=== PATIENT | female | born 1935 | race Caucasian/White ===

== ENCOUNTER 2016-12-30 08:56 | Outpatient (CLI) | payer MEDICARE, OTHER | END 2016-12-30 08:57 | disposition home or self-care (01) | DX: E87.1 Hypo-osmolality and hyponatremia (principal); E11.9 Type 2 diabetes mellitus without complications; I10 Essential (primary) hypertension ==

== ENCOUNTER 2017-07-25 08:41 | Outpatient (CLI) | payer MEDICARE, OTHER ==
[2017-07-25 14:16] LABS: HEMOGLOBIN A1C 0.64 g/dL
[2017-07-25 20:53] LABS: ALBUMIN/GLOBULIN RATIO 1.4 (1.0-2.2); BILIRUBIN,TOTAL 0.5 mg/dL (0.2-1.0); BUN - BLOOD UREA NITROGEN 13 mg/dL (6-20); CALCIUM 9.7 mg/dL (8.5-10.3); CARBON DIOXIDE - CO2 30 mmol/L (21-32); CHLORIDE 103 mmol/L (101-111); CHOL/HDL RATIO 2.5 (<4.4); CHOLESTEROL 139 mg/dL; CREATININE 0.7 mg/dL (0.4-1.0); GFR - MDRD 80 (>89); GLUCOSE 145 mg/dL (70-100); HDL CHOLESTEROL 56 mg/dL; LDL/HDL RATIO 0.8 (<4.4); POTASSIUM 4.3 mmol/L (3.5-5.0); SODIUM 140 mmol/L (135-145); TOTAL PROTEIN 7.1 g/dL (6.7-8.2); TRIGLYCERIDES 205 mg/dL; VLDL CHOLESTEROL 41 mg/dL
== END 2017-07-25 08:42 | disposition home or self-care (01) ==
LOC: LAB.WCP 08:41
PROVIDERS: ATTEND Family Medicine
DX: E11.9 Type 2 diabetes mellitus without complications (principal); E87.1 Hypo-osmolality and hyponatremia; E78.5 Hyperlipidemia, unspecified; I10 Essential (primary) hypertension
CPT/HCPCS: 36415; 80053; 80061; 83036

== ENCOUNTER 2017-10-26 12:36 | Emergency (ER) | payer MEDICARE, OTHER ==
[2017-10-26] MEDS ORDERED: HYDROcod/ACETAM 5/325 MG TABLET PO STA (13:13)
[2017-10-26] MEDS ORDERED: IBUPROFEN 400 MG TABLET PO STA (13:13)
--- NOTE | 2017-10-26 13:14 | ED Physician Documentation ---
PD HPI LOWER EXT INJURY - Stated complaint Stated Complaint: R HIP PAIN - Chief complaint Chief Complaint: Ext Problem - History obtained from History obtained from: Patient, Family () - History of Present Illness PD HPI LOW EXT INJURY LOCATION: Other (She started walking around more lately on the advice of her doctor. Starting yesterday she had pain over the posterior and lateral hip which is better if she is standing and moving and worse when she is still in walking. She tried Tylenol without relief. There is no associated fever. 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: Cataracts - Present Medications Home Medications: Ambulatory Orders Medication Instructions Recorded Confirmed Ascorbic Acid [Vitamin C] 1 tab PO DAILY 09/07/16 10/26/17 Aspirin 1 tab PO DAILY 09/07/16 10/26/17 Calcium Carbonate [Calcium] 1 tab PO DAILY 09/07/16 10/26/17 Cholecalciferol (Vitamin D3) 1 tab PO DAILY 09/07/16 10/26/17 [Vitamin D3] Felodipine [Felodipine ER] 5 mg PO DAILY 09/07/16 10/26/17 Lisinopril 40 mg PO DAILY 09/07/16 10/26/17 Metformin HCl [Glucophage] 850 mg PO TID 09/07/16 10/26/17 Multivitamin [Multiple Vitamins] 1 tab PO DAILY 09/07/16 10/26/17 Simvastatin 20 mg PO DAILY 09/07/16 10/26/17 Timolol 0.5% Ophth Drops [Timoptic 1 drops DAILY 09/07/16 10/26/17 0.5% Ophth Drops] HYDROcod/ACETAM 5/325 [Laura 5/325] 1 - 2 ea PO Q6H PRN #15 tablet 10/26/17 SITagliptin [Januvia] 100 mg PO DAILY 10/26/17 10/26/17 - Allergies Allergies/Adverse Reactions: Allergies Allergy/AdvReac Type Severity Reaction Status Date / Time No Known Drug Allergies Allergy Verified 10/26/17 13:12 - Social History Does the pt smoke?: No Smoking Status: Never smoker - Immunizations Immunizations are current?: Yes PD ED PE NORMAL - Vitals Vital signs reviewed: Yes - General General: Alert and oriented X 3, Other (She winces with motion, sitting and standing, she is standing up next to the bed.) - Back Back: No spinal TTP - Extremities Extremities: Other (She walks and bears weight without pain, she does have mild tenderness over the greater trochanter of the right hip and pain with internal/ external rotation, but she has more pain with adduction of the right hip. The patient has equal and normal Achilles and patellar reflexes bilaterally. Normal sensation in all areas of the legs. Patient denies saddle anesthesia. Normal strength in flexion-extension at the ankles, knees, and flexion of the hips.) - Neuro Neuro: Alert and oriented X 3, Normal speech Results - Vitals Vitals: Vital Signs - 24 hr 10/26/17 12:49 Temperature 37.2 C Heart Rate 79 Respiratory 18 Rate Blood Pressure 159/80 H O2 Saturation 100 Oxygen O2 Source Room air - Rads (name of study) R hip 2v Radiology: EMP read contemporaneously (Degenerative disease without acute abnormality) PD MEDICAL DECISION MAKING - ED course ED course: Seems most consistent with trochanteric bursitis of the right hip, x-rays are without acute abnormality but she does have significant degenerative change in the hips. The patient and family were counseled as to the diagnosis and need for follow- up. I counseled the patient with regard to signs and symptoms that would necessitate an urgent reevaluation in the emergency department. They understand they are welcome to return at any time if worse or if not improving as expected. This document was made in part using voice recognition software. While efforts are made to proofread this documents, sound alike and grammatical errors may occur. Departure - Departure Disposition: 01 Home, Self Care Clinical Impression: Hip pain, right Osteoarthritis of hips, bilateral Qualifiers: Osteoarthritis type: primary Qualified Code(s): M16.0 - Bilateral primary osteoarthritis of hip Condition: Good Record reviewed to determine appropriate education?: Yes Instructions: Trochanteric Bursitis Follow-Up: [facility] [Provider Group] - Within 1 week Prescriptions: HYDROcod/ACETAM 5/325 [Laura 5/325] 1 - 2 ea PO Q6H PRN #15 tablet PRN Reason: Pain Comments: Do not drink or drive while taking narcotic pain medication. Note that many narcotic pain relievers also contain Tylenol/acetaminophen. Please ensure that your total dose of acetaminophen from all sources does not exceed 3 g (3000 mg) per day. You may get constipated while on this medication. Take a stool softener such as Colace twice a day while you are on it. Also add an clah-xth-ugotyib laxative such as senna or MiraLAX on any day that you do not have a bowel movement. If you received a narcotic pain medication or sedative while in the emergency department, do not drive for the next 24 hours. Your blood pressure was elevated today on check into the emergency department. This does not mean that you have hypertension, it is a common phenomenon to come to the emergency department and have elevated blood pressure. I recommend that you see your primary care physician within the week to have it rechecked when you are feeling better.
--- NOTE | 2017-10-26 13:48 | XRAY Preliminary Report ---
Exam: XR HIP W/PELVIS 2-3V RT IMPRESSION: 1. No acute abnormality. 2. Degenerative disease of the hips. [facility] SITE ID: [id number]
--- NOTE | 2017-10-26 13:51 | XRAY Report ---
EXAM: RIGHT HIP AND PELVIS RADIOGRAPHY EXAM DATE: 10/26/2017 01:42 PM. HISTORY: Hip pain. COMPARISONS: None. TECHNIQUE: 1 view of the pelvis and 1 view of the hip. FINDINGS: Bones: Normal. No fracture or bone lesion. Joints: No dislocation. [id number] degenerative disease of the hips, right greater than left. Soft Tissues: Normal. No soft tissue swelling. IMPRESSION: 1. No acute abnormality. 2. Degenerative disease of the hips. [facility] Referring Provider Line: [phone] SITE ID: [id number]
[2017-10-26 14:17] VITALS: BP 127/64
== END 2017-10-26 14:13 | disposition home or self-care (01) ==
LOC: ED 12:36
DX: M16.0 Bilateral primary osteoarthritis of hip (principal); M25.551 Pain in right hip; R03.0 Elevated blood-pressure reading, without diagnosis of hypertension; E78.00 Pure hypercholesterolemia, unspecified; E11.9 Type 2 diabetes mellitus without complications; Z79.84 Long term (current) use of oral hypoglycemic drugs; Z79.82 Long term (current) use of aspirin
CPT/HCPCS: 73502; 99283; 99284; A9270

== ENCOUNTER 2018-01-01 20:22 | Outpatient (CLI) | payer MEDICARE, OTHER ==
[2018-01-01 13:03] LABS: HB2 TOTAL 11.8 g/dL; HEMOGLOBIN A1C 0.63 g/dL
== END 2018-01-01 20:23 | disposition home or self-care (01) ==
LOC: LAB.WCP 20:22
PROVIDERS: ATTEND Family Medicine
DX: I10 Essential (primary) hypertension (principal); E11.9 Type 2 diabetes mellitus without complications; I35.0 Nonrheumatic aortic (valve) stenosis; E78.5 Hyperlipidemia, unspecified; Z86.79 Personal history of other diseases of the circulatory system
CPT/HCPCS: 36415; 83036

== ENCOUNTER 2018-01-15 11:26 | Outpatient (CLI) | payer MEDICARE, OTHER ==
--- NOTE | 2018-01-16 14:22 | Mammography Report ---
DIGITAL SCREENING MAMMOGRAM: 01/15/2018 CLINICAL INDICATION: An 83-year-old with history of bilateral silicone augmentation for screening. COMPARISON: 10/21, 10/20, 10/19, 10/18, 10/17, 03/16. TECHNIQUE: Routine CC and MLO projections were obtained of the breasts. FINDINGS: The breasts again demonstrate scattered fibroglandular densities bilaterally. Diffuse silicone granulomas throughout both breasts are stable. No suspicious masses, clustered microcalcifications, or regions of architectural distortion are identified. IMPRESSION: BENIGN FINDINGS. RECOMMENDATION: Routine annual screening unless otherwise clinically indicated. BIRADS category 2 - benign findings. STANDARD QUALIFYING STATEMENTS: 1. This examination was reviewed with the aid of Computer-Aided Detection (CAD). 2. A negative or benign imaging report should not delay biopsy if clinically suspicious findings are present. Consider surgical consultation if warranted. More than 5% of cancers are not identified by imaging. 3. Dense breasts may obscure an underlying neoplasm. TD: 01/16/2018 14:20
== END 2018-01-15 11:27 | disposition home or self-care (01) ==
LOC: DI.N 11:26
PROVIDERS: ATTEND Family Medicine
DX: Z12.31 Encounter for screening mammogram for malignant neoplasm of breast (principal); Z98.82 Breast implant status
CPT/HCPCS: 77067

== ENCOUNTER 2018-04-07 21:55 | Observation (INO) | payer MEDICARE, OTHER ==
--- NOTE | 2018-04-07 22:25 | ED Physician Documentation ---
PD HPI ALTERED MENTAL STATUS - Stated complaint Stated Complaint: CONFUSION - Chief complaint Chief Complaint: Neuro - History obtained from History obtained from: Patient, Family - History of Present Illness Timing - onset: How many hours ago (1) Timing - duration: Hours (1) Timing - details: Abrupt onset Quality / character: Confused, Disoriented Associated symptoms: No: Fever, Headache, Stiff neck, Dyspnea, Cough, NVD, Urinary sx, General weakness, Focal weakness, Seizure activity, Syncope Contributing factors: Anticoagulated (plavix) Basline status: Alert and oriented X 3, Ambulatory, Independent 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) Similar symptoms before: Diagnosis (hyponatremia) Recently seen: Surgery (TAVR 2 weeks ago at [facility]) Review of Systems Ten Systems: 10 systems reviewed and negative Constitutional: denies: Fever, Chills Ears: denies: Ear pain Nose: denies: Rhinorrhea / runny nose, Congestion Throat: denies: Sore throat Cardiac: denies: Chest pain / pressure Respiratory: denies: Cough GI: denies: Nausea, Vomiting, Diarrhea Skin: denies: Rash Musculoskeletal: denies: Neck pain, Back pain Neurologic: denies: Focal weakness, Numbness, Headache PD PAST MEDICAL HISTORY - Past Medical History Cardiovascular: High cholesterol Respiratory: None Endocrine/Autoimmune: Type 2 diabetes GI: None : None HEENT: None Psych: None Musculoskeletal: None Derm: None - Past Surgical History 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: Cataracts - Present Medications Home Medications: Ambulatory Orders Medication Instructions Recorded Confirmed Ascorbic Acid [Vitamin C] 1 tab PO DAILY 09/07/16 10/26/17 Aspirin 1 tab PO DAILY 09/07/16 10/26/17 Calcium Carbonate [Calcium] 1 tab PO DAILY 09/07/16 10/26/17 Cholecalciferol (Vitamin D3) 1 tab PO DAILY 09/07/16 10/26/17 [Vitamin D3] Felodipine [Felodipine ER] 5 mg PO DAILY 09/07/16 10/26/17 Lisinopril 40 mg PO DAILY 09/07/16 10/26/17 Metformin HCl [Glucophage] 850 mg PO TID 09/07/16 10/26/17 Multivitamin [Multiple Vitamins] 1 tab PO DAILY 09/07/16 10/26/17 Simvastatin 20 mg PO DAILY 09/07/16 10/26/17 Timolol 0.5% Ophth Drops [Timoptic 1 drops DAILY 09/07/16 10/26/17 0.5% Ophth Drops] HYDROcod/ACETAM 5/325 [[place] 5/325] 1 - 2 ea PO Q6H PRN #15 tablet 10/26/17 SITagliptin [Januvia] 100 mg PO DAILY 10/26/17 10/26/17 - Allergies Allergies/Adverse Reactions: Allergies Allergy/AdvReac Type Severity Reaction Status Date / Time No Known Drug Allergies Allergy Verified 10/26/17 13:12 - Social History Does the pt smoke?: No Smoking Status: Never smoker - Immunizations Immunizations are current?: Yes PD ED PE NORMAL - Vitals Vital signs reviewed: Yes - General General: Alert and oriented X 3, No acute distress, Well developed/nourished - HEENT HEENT: PERRL, Ears normal, Moist mucous membranes, Pharynx benign - Neck Neck: Supple, no meningeal sign - Cardiac Cardiac: RRR - Respiratory Respiratory: No respiratory distress, Clear bilaterally - Abdomen Abdomen: Soft, Non tender, Non distended - Back Back: No spinal TTP - Derm Derm: Warm and dry - Extremities Extremities: No edema, No calf tenderness / cord - Neuro Neuro: Alert and oriented X 3, 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, No motor deficit, No sensory deficit, Normal speech, Other (slow to respond to questions) - Psych Psych: Normal mood, Normal affect NIHSS - Time Time: 22:20 - Level of Consciousness Level of consciousness: (0) Alert, Keenly responsive LOC Questions: (0) Answers both Q's correct LOC Commands: (1) Performs one correctly - Gaze Best Gaze: (0) Normal - Visual Visual: (0) No loss - Facial Palsy Facial Palsy: (0) Normal, symmetrical movement - Motor Arms (both separate) Motor Arm (right): (0) No drift Motor Arm (left): (0) No drift - Motor Legs (both separate) Motor Leg (right): (0) No drift Motor Leg (left): (0) No drift - Limb Ataxia Limb Ataxia: (0) Absent - Sensory Sensory: (0) Normal - Best Language Best Language: (0) No aphasia - Dysarthria Dysarthria: (0) Normal - Extinction and Inattention (formally neg Extinction and inattention: (0) No abnormality - Total Score/Results Total Score/Result: 1 Results - Vitals Vitals: Vital Signs - 24 hr 04/07/18 04/07/18 04/07/18 22:03 22:10 23:00 Temperature 37.1 C Heart Rate 90 82 73 Respiratory 18 16 17 Rate Blood Pressure 105/76 188/76 H 185/74 H O2 Saturation 100 100 98 Oxygen O2 Source Room air - EKG (time done) 2254 Rate: Rate (enter#) (74) Rhythm: NSR [place]: Normal Intervals: Normal PA QRS: Normal Ischemia: Normal ST segments Other comments: Other comments (PAC) - Labs Labs: Laboratory Tests 04/07/18 04/07/18 04/07/18 22:20 22:20 22:30 WBC 12.5 H RBC 3.56 L Hgb 11.2 L Hct 31.8 L MCV 89.3 MCH 31.4 H MCHC 35.2 RDW 13.1 Plt Count 128 L MPV 7.8 L Neut # 9.5 H Lymph # 2.2 Divide # 0.7 Eos # 0.1 Baso # 0.1 Absolute Nucleated RBC 0.01 Nucleated RBC % 0.1 Sodium 121 L Potassium 3.9 Chloride 86 L Carbon Dioxide 22 Anion Gap 13.0 BUN 13 Creatinine 0.7 Estimated GFR (MDRD) 80 L Glucose 197 H POC Whole Bld Glucose 209 H Calcium 8.9 Total Bilirubin 0.8 AST 31 ALT 17 Alkaline Phosphatase 61 Total Protein 8.1 Albumin 4.3 Globulin 3.8 Albumin/Globulin Ratio 1.1 Lipase 33 - Rads (name of study) head CT Radiology: Prelim report reviewed, EMP read contemporaneously, See rad report ( Generalized age-related cortical atrophic changes without evidence of acute intracranial abnormality) cxr Radiology: Prelim report reviewed, EMP read contemporaneously, See rad report ( Status post TAVR procedure. No cardiac enlargement. Probable right midlung granulomas. No acute pulmonary process) PD MEDICAL DECISION MAKING - ED course Complexity details: reviewed results, re-evaluated patient, considered differential, d/w patient, d/w family, d/w technical solutions consultant ED course: Patient is an 83-year-old female who presents to the emergency department with altered mental status tonight. Appears to have significant hyponatremia and normal saline was started and emergency department. This is likely the cause of her acute mental status changes. Unclear if a new medication was started after her cardiac procedure that is potentially causing her hyponatremia. Discussed the case with Dr. Singletary, hospitalist who accepts. This document was made in part using voice recognition software. While efforts are made to proofread this document, sound alike and grammatical errors may occur. Do not think that there is a another cause of her symptoms or that this represents a stroke or TIA. Departure - Departure Disposition: ED Place in Observation Clinical Impression: Hyponatremia Altered mental status Qualifiers: Altered mental status type: unspecified Qualified Code(s): R41.82 - Altered mental status, unspecified Condition: Stable Discharge Date/Time: 04/08/18 00:35
[2018-04-07 22:35] LABS: BASOPHILS # (AUTO) 0.1 10^3/uL (0.0-0.1); BASOPHILS % (AUTO) 0.8 %; EOSINOPHILS # (AUTO) 0.1 10^3/uL (0.0-0.7); HGB - HEMOGLOBIN 11.2 g/dL (12.0-16.0); LYMPHOCYTES # (AUTO) 2.2 10^3/uL (1.5-3.5); LYMPHOCYTES % (AUTO) 17.5 %; MEAN CORPUSCULAR HEMOGLOBIN 31.4 pg (27.0-31.0); MEAN CORPUSCULAR HGB CONC 35.2 g/dL (32.0-36.0); MEAN CORPUSCULAR VOLUME 89.3 fL (81.0-99.0); MEAN PLATELET VOLUME 7.8 fL (7.9-10.8); MONOCYTES # (AUTO) 0.7 10^3/uL (0.0-1.0); MONOCYTES % (AUTO) 5.3 %; NEUTROPHILS # (AUTO) 9.5 10^3/uL (1.5-6.6); NEUTROPHILS % (AUTO) 75.4 %; PLT - PLATELET COUNT 128 10^3/uL (130-450); RED BLOOD COUNT 3.56 10^6/uL (4.20-5.40); RED CELL DISTRIBUTION WIDTH 13.1 % (12.0-15.0); WHITE BLOOD COUNT 12.5 x10^3/uL (4.8-10.8)
[2018-04-07 22:37] LABS: ALBUMIN 4.3 g/dL (3.2-5.5); ALBUMIN/GLOBULIN RATIO 1.1 (1.0-2.2); BILIRUBIN,TOTAL 0.8 mg/dL (0.2-1.0); CALCIUM 8.9 mg/dL (8.5-10.3); CREATININE 0.7 mg/dL (0.4-1.0); TOTAL PROTEIN 8.1 g/dL (6.7-8.2)
--- NOTE | 2018-04-07 22:58 | XRAY Preliminary Report ---
Exam: XR CHEST 1 VIEW X-RAY IMPRESSION: 1. Status post TAVR procedure. No cardiac enlargement. 2. Probable right midlung granulomas. No acute pulmonary process. [facility] SITE ID: [id number]
--- NOTE | 2018-04-07 23:05 | CT Preliminary Report ---
Exam: CT HEAD W/O IMPRESSION: Generalized age-related cortical atrophic changes without evidence of acute intracranial abnormality. [facility] SITE ID: [id number]
--- NOTE | 2018-04-07 23:06 | XRAY Report ---
EXAM: CHEST RADIOGRAPHY EXAM DATE: 04/07/2018 10:27 PM. CLINICAL HISTORY: ALOC status post TAVR 2 weeks ago. COMPARISON: None. TECHNIQUE: 1 view. FINDINGS: Lungs/Pleura:Small right midlung nodular densities could represent calcifications. No consolidation, effusions or pneumothorax. Mediastinum: Status post TAVR procedure. No cardiac enlargement. Atheromatous plaques are noted in th e thoracic arch. EKG leads overlie the chest. Other: None. IMPRESSION: 1. Status post TAVR procedure. No cardiac enlargement. 2. Probable right midlung granulomas. No acute pulmonary process. [facility] Referring Provider Line: [phone] SITE ID: [id number]
[2018-04-07] MEDS ORDERED: SODIUM CHLORIDE 0.9% 1,000 ML IV ONE (23:08)
--- NOTE | 2018-04-07 23:08 | CT Report ---
EXAM: CT HEAD EXAM DATE: 04/07/2018 10:47 PM. CLINICAL HISTORY: Altered mental status. COMPARISON: Brain CT, brain MRI, and CT angiogram of the head and neck from 09/07/2016. TECHNIQUE: Multiaxial CT images were obtained from the foramen magnum to the vertex. Reformats: Coron al. IV contrast: None. In accordance with CT protocol optimization, one or more of the following dose reduction techniques w ere utilized for this exam: automated exposure control, adjustment of mA and/or KV based on patient s ize, or use of iterative reconstructive technique. FINDINGS: Parenchyma: No intraparenchymal hemorrhage. No evidence of mass, midline shift, or CT findings of acu te infarction. Mcgarry-white differentiation is distinct. Mild diffuse chronic microangiopathic white ma tter changes are evident. Extraaxial Spaces: Normal for age. No subdural or epidural collections identified. Ventricles: The ventricles and cortical sulci are mildly enlarged, consistent with age-related tissue loss. Sinuses and orbits: Postsurgical changes from cataract extractions are noted in the globes. The paran nazario and mastoid sinuses are not opacified. Bones: No evidence of fracture or calvarial defect. Other: Moderate intracranial atherosclerosis is noted. IMPRESSION: Generalized age-related cortical atrophic changes without evidence of acute intracranial abnormality. [facility] Referring Provider Line: [phone] SITE ID: [id number]
[2018-04-07] MEDS ORDERED: PROCHLORPERAZINE 10 MG/2 ML VIAL IVP PRN (23:16)
[2018-04-07] MEDS ORDERED: PROMETHAZINE 25 MG/1 ML VIAL IM PRN (23:16)
[2018-04-07] MEDS ORDERED: SODIUM CHLORIDE FLUSH 0.9% 10 ML SYRINGE IVP PRN (23:16)
[2018-04-07] MEDS ORDERED: ONDANSETRON 4 MG/2 ML VIAL IVP PRN (23:16)
[2018-04-07] MEDS ORDERED: oxyCODONE 5 MG TABLET PO PRN (23:16)
[2018-04-07] MEDS ORDERED: ZOLPIDEM 5 MG TABLET PO PRN (23:16)
[2018-04-07 23:42] LABS: BILIRUBIN,URINE NEGATIVE (NEGATIVE); GLUCOSE, URINE (UA) 100 mg/dL (NEGATIVE); KETONES,URINE (UA) NEGATIVE (NEGATIVE); LEUKOCYTE ESTERASE, URINE NEGATIVE (NEGATIVE); NITRITE,URINE NEGATIVE (NEGATIVE); OCCULT BLOOD,URINE NEGATIVE (NEGATIVE); PROTEIN,URINE NEGATIVE (NEGATIVE); UROBILINOGEN,URINE 0.2 (NORMAL) E.U./dL (NORMAL)
[2018-04-07 23:43] LABS: CLARITY,URINE CLEAR (CLEAR)
[2018-04-08] MEDS: SODIUM CHLORIDE FLUSH 0.9% 10 ML SYRINGE IVP SCH ×2 (00:49→08:26)
[2018-04-08] MEDS: SODIUM CHLORIDE 0.9% 1,000 ML IV SCH ×2 (00:49→08:16)
--- NOTE | 2018-04-08 02:17 | HISTORY & PHYSICAL EXAMINATION ---
Chief Complaint - Chief Complaint Chief Complaint: Confusion History of Present Illness - Admitted From Admitted From:: Emergency department - History Obtained From Records Reviewed: Yes History obtained from: Patient and her Exam Limitations: None - History of Present Illness HPI Comment/Other: Patient is an 83-year-old female with a past medical history significant for diabetes, hypertension, aortic stenosis status post TAVR on March 16, 2018 at the [facility] discharged on March 19, 2018 who presented to the emergency department with a chief complaint of confusion. According to the patient and her the patient was discharged from [facility] on March 19, 2018 at that time she was discharged on 2 new medications Plavix and hydrochlorothiazide. She states that she has been taking the medication since and has had no major issues. She followed up with her neuro ophthalmologist 1 week ago and was doing well at that time. She states she has not been experiencing any chest pain or shortness of air. She was in her normal state of health until late this evening. According to the patient's they were out in [place] for most of the day and return home at around 9 PM. He states that she was acting completely normal all day but when she returned home she began acting strangely. He states that he asked her to turn on the lights and she just stood there staring at the light switch not knowing what to do. He states it took her almost a minute before she was able to comprehend and turn on the light switch. He states that they then sat down on a couch to watch TV and she was unable to use the remote. He states that she was pointing the remote in the wrong direction and could not use it properly. He states normally at her baseline she is completely alert oriented and able to perform all of her active activities of daily living. He states that she did not have any obvious weakness or facial droop. He states that she was slow to answer his questions but was not having difficulty with her speech or having slurred speech. He states that she had a similar episode with even worse confusion in 2016 and was found to have a low sodium. He states that at that time she required hospitalization but improved within 24 hours. He was concerned that this may be similar to that previous hospitalization. He decided he should bring her into the hospital. According to the patient she states that she feels dizzy but denies any other symptoms. She denies any fevers or chills, cough, shortness of air, orthopnea, PND, increased lower extremity swelling, abdominal pain, diarrhea, constipation, vomiting, nausea, urinary urgency, urinary frequency or any dysuria. She also denies any neck stiffness, focal neurologic deficits. She denies any changes in her appetite, polyuria, polydipsia. She denies any recent unintentional weight loss. She denies any hematuria, hemoptysis, blood in her stools or melena. She denies any night sweats or chills. On presentation to the emergency department the patient was afebrile and remainder of vital signs were within normal limits. Throughout her stay in the emergency department she did become hypertensive but again maintain normal vital signs. She underwent routine lab work which did reveal a sodium of 121 with a chloride of 86. She had a mildly elevated glucose of 209 otherwise her electrolytes were within normal limits. The patient's WBC was slightly elevated at 12.5 and her hemoglobin was slightly low at 11.2. The patient's urine analysis was negative and her chest x-ray showed no infiltrate. The patient did undergo a CT of her head which showed generalized age-related cortical atrophic changes without evidence of acute intracranial abnormality. Given these findings and the patient's presentation of confusion she was placed in observation for IV fluids and treatment of her hyponatremia. 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 Social History Notes: The patient lives with her in [place], [place]. They have lived there since 1980. They have been for 58 years and have 2 sons. The patient is originally from [facility] but has been living here for most of her life. She is able to perform all her activities of daily living independently. She has been smoking half a pack to 1 pack per day since the age of 19. She denies any alcohol use or illicit drug use. - POLST Patient has POLST: No POLST Status: Full Code Meds/Allgy - Home Medications Home Medications: Ambulatory Orders Medication Instructions Recorded Confirmed Ascorbic Acid [Vitamin C] 1 tab PO DAILY 09/07/16 10/26/17 Aspirin 1 tab PO DAILY 09/07/16 10/26/17 Calcium Carbonate [Calcium] 1 tab PO DAILY 09/07/16 10/26/17 Cholecalciferol (Vitamin D3) 1 tab PO DAILY 09/07/16 10/26/17 [Vitamin D3] Felodipine [Felodipine ER] 5 mg PO DAILY 09/07/16 10/26/17 Lisinopril 40 mg PO DAILY 09/07/16 10/26/17 Metformin HCl [Glucophage] 850 mg PO TID 09/07/16 10/26/17 Multivitamin [Multiple Vitamins] 1 tab PO DAILY 09/07/16 10/26/17 Simvastatin 20 mg PO DAILY 09/07/16 10/26/17 Timolol 0.5% Ophth Drops [Timoptic 1 drops DAILY 09/07/16 10/26/17 0.5% Ophth Drops] HYDROcod/ACETAM 5/325 [[place] 5/325] 1 - 2 ea PO Q6H PRN #15 tablet 10/26/17 SITagliptin [Januvia] 100 mg PO DAILY 10/26/17 10/26/17 - Allergies Allergies/Adverse Reactions: Allergies Allergy/AdvReac Type Severity Reaction Status Date / Time No Known Drug Allergies Allergy Verified 10/26/17 13:12 Review of Systems - Other Findings Other Findings: A comprehensive review of systems was performed the pertinent positives and negatives are stated above in the HPI and the remainder of the review of systems is negative. Exam - Vital Signs Reviewed Vital Signs: Yes Vital Signs: Vital Signs x48h Pulse Resp BP Pulse Ox 04/08/18 00:07 70 14 163/63 H 98 - Physical Exam General Appearance: positive: No acute distress, Alert, Other (Slow to answer questions) Eyes Bilateral: positive: Normal inspection, PERRL, EOMI, No lid inflammation, Conjunctivae nml, No scleral icterus ENT: positive: ENT inspection nml, Pharynx nml, Dry mucous membranes. negative : Purulent nasal drainage, Pharyngeal erythema, Oral lesions Neck: positive: Nml inspection, Thyroid nml, No JVD, Trachea midline. negative : Thyromegaly, Lymphadenopathy (R), Lymphadenopathy (L), Stiff neck, Carotid bruit, Tracheal deviation Respiratory: positive: Chest non-tender, No respiratory distress, Breath sounds nml. negative: Wheezes, Rales, Rhonchi Cardiovascular: positive: Regular rate & rhythm, No murmur, No gallop Peripheral Pulses: positive: 2+ Abdomen: positive: Non-tender, No organomegaly, Nml bowel sounds, No distention. negative: Guarding, Rebound, Hepatomegaly Back: positive: Nml inspection. negative: CVA tenderness (R), CVA tenderness (L ) Skin: positive: Color nml, No rash. negative: Cyanosis, Diaphoresis, Pallor Extremities: positive: Non-tender, Full ROM, Nml appearance, No pedal edema Neurologic/Psychiatric: positive: Oriented x3, CN's nml (2-12), Motor nml, Sensation nml, Mood/affect nml Conclusion/Plan - Problem List (1) Hyponatremia Conclusion/Plan: Patient presents with a sodium of 121. In the past she has presented with sodium of 127 and had altered mental status which improved with improvement of her sodium. Today again she presents with altered mental status as the states that she is confused. The patient's symptoms seem to be improving on presentation to the emergency department but her sodium was found to be 121. It appears the patient had started hydrochlorothiazide about 3 weeks ago but otherwise has had no changes in her appetite, nausea or vomiting or any diarrhea. She appears to have hypovolemic hyponatremia likely caused by hydrochlorothiazide. Plan: Patient will be given IV fluid at 150 mL's per hour through an IV and we will monitor sodium every 6 hours to ensure that she is not correcting too rapidly. We will aim to correct the sodium by no more than 8-10 mEq/L in the first 24 hours We will hold the patient's hydrochlorothiazide and recommend that she try a different blood pressure medication in the future. We will continue to monitor the patient's mentation. (2) Hypertension Conclusion/Plan: Patient has a history of hypertension and is on felodipine, lisinopril and hydrochlorothiazide at home. On presentation the patient's blood pressure slightly elevated. Given her hyponatremia we are going to stop the patient's hydrochlorothiazide but will continue her doses of lisinopril and felodipine. Patient may need an additional antihypertensive medication prior to discharge if her blood pressure continues to be elevated or else she can follow-up as an outpatient. I would recommend starting either a beta-maryuri such as metoprolol or hydralazine if another blood pressure medication needs to be added. Qualifiers: Hypertension type: essential hypertension Qualified Code(s): I10 - Essential (primary) hypertension (3) Diabetes Conclusion/Plan: Patient has history of diabetes and is on oral diabetic medications. On presentation the patient's glucose is elevated at 209. We will hold the patient 's oral medications for now. Plan: Sliding scale insulin Hemoglobin A1c Check blood glucose before meals at bedtime Diabetic diet Qualifiers: Diabetes mellitus type: type 2 Diabetes mellitus long term care administrator insulin use: without intermediate use Diabetes mellitus complication status: with hyperglycemia Qualified Code(s): E11.65 - Type 2 diabetes mellitus with hyperglycemia (4) Hyperlipidemia Conclusion/Plan: Patient has history of hyperlipidemia and is on simvastatin at home. We will continue the patient on him simvastatin while she is hospitalized. Qualifiers: Hyperlipidemia type: unspecified Qualified Code(s): E78.5 - Hyperlipidemia , unspecified (5) S/P TAVR (transcatheter aortic valve replacement) Conclusion/Plan: The patient had a TAVR with a aortic valve replacement at the [facility] on Mar 16 2018. She is currently on Plavix and denies any chest pain or shortness of breath. The patient has followed up with cardiology and appears to be stable. Monitor - Lab Results Lab results reviewed: Yes Fish Bones: 04/07/18 22:20 04/07/18 22:20 Other Lab Results: Laboratory Results WBC 12.5 x10^3/uL (4.8-10.8) H 04/07/18 22:20 RBC 3.56 10^6/uL (4.20-5.40) L 04/07/18 22:20 Hgb 11.2 g/dL (12.0-16.0) L 04/07/18 22:20 Hct 31.8 % (37.0-47.0) L 04/07/18 22:20 MCV 89.3 fL (81.0-99.0) 04/07/18 22:20 MCH 31.4 pg (27.0-31.0) H 04/07/18 22:20 MCHC 35.2 g/dL (32.0-36.0) 04/07/18 22:20 RDW 13.1 % (12.0-15.0) 04/07/18 22:20 Plt Count 128 10^3/uL (130-450) L 04/07/18 22:20 MPV 7.8 fL (7.9-10.8) L 04/07/18 22:20 Neut # 9.5 10^3/uL (1.5-6.6) H 04/07/18 22:20 Lymph # 2.2 10^3/uL (1.5-3.5) 04/07/18 22:20 [place] # 0.7 10^3/uL (0.0-1.0) 04/07/18 22:20 Eos # 0.1 10^3/uL (0.0-0.7) 04/07/18 22:20 Baso # 0.1 10^3/uL (0.0-0.1) 04/07/18 22:20 Absolute Nucleated RBC 0.01 x10^3/uL 04/07/18 22:20 Nucleated RBC % 0.1 /100WBC 04/07/18 22:20 Sodium 121 mmol/L (135-145) L 04/07/18 22:20 Potassium 3.9 mmol/L (3.5-5.0) 04/07/18 22:20 Chloride 86 mmol/L (101-111) L 04/07/18 22:20 Carbon Dioxide 22 mmol/L (21-32) 04/07/18 22:20 Anion Gap 13.0 (6-13) 04/07/18 22:20 BUN 13 mg/dL (6-20) 04/07/18 22:20 Creatinine 0.7 mg/dL (0.4-1.0) 04/07/18 22:20 Estimated GFR (MDRD) 80 (>89) L 04/07/18 22:20 Glucose 197 mg/dL (70-100) H 04/07/18 22:20 POC Whole Bld Glucose 209 mg/dL (70 - 100) H 04/07/18 22:30 Calcium 8.9 mg/dL (8.5-10.3) 04/07/18 22:20 Total Bilirubin 0.8 mg/dL (0.2-1.0) 04/07/18 22:20 AST 31 IU/L (10-42) 04/07/18 22:20 ALT 17 IU/L (10-60) 04/07/18 22:20 Alkaline Phosphatase 61 IU/L (42-121) 04/07/18 22:20 Total Protein 8.1 g/dL (6.7-8.2) 04/07/18 22:20 Albumin 4.3 g/dL (3.2-5.5) 04/07/18 22:20 Globulin 3.8 g/dL (2.1-4.2) 04/07/18 22:20 Albumin/Globulin Ratio 1.1 (1.0-2.2) 04/07/18 22:20 Lipase 33 U/L (22-51) 04/07/18 22:20 Urine Color LT. YELLOW 04/07/18 23:28 Urine Clarity CLEAR (CLEAR) 04/07/18 23:28 Urine pH 7.0 PH (5.0-7.5) 04/07/18 23:28 Ur Specific [place] 1.010 (1.002-1.030) 04/07/18 23:28 Urine Protein NEGATIVE mg/dL (NEGATIVE) 04/07/18 23:28 Urine Glucose (UA) 100 mg/dL (NEGATIVE) H 04/07/18 23:28 Urine Ketones NEGATIVE mg/dL (NEGATIVE) 04/07/18 23:28 Urine Occult Blood NEGATIVE (NEGATIVE) 04/07/18 23:28 Urine Nitrite NEGATIVE (NEGATIVE) 04/07/18 23:28 Urine Bilirubin NEGATIVE (NEGATIVE) 04/07/18 23:28 Urine Urobilinogen 0.2 (NORMAL) E.U./dL (NORMAL) 04/07/18 23:28 Ur Leukocyte Esterase NEGATIVE (NEGATIVE) 04/07/18 23:28 Ur Microscopic Review NOT INDICATED 04/07/18 23:28 Urine Culture Comments NOT INDICATED 04/07/18 23:28 - Diagnostic Imaging Results Diagnostic Imaging Results: positive: Final report reviewed Diagnostic Imaging Results Comments: Chest x-ray Impression: 1. Status post Rhea procedure. No cardiac enlargement. 2. Probable right midlung granulomas. No acute pulmonary process CT head Impression: Generalized age-related cortical atrophic changes without evidence of acute intracranial abnormality. - EKG Results EKG Interpreted Independently: Yes EKG Findings: Normal sinus rhythm with no acute ischemic changes. Core Measures - Anticipated LOS I expect patient to be DC'd or transferred within 96 hours.: Yes - Issues Hospital Issues and Management Plan: The patient was seen and examined at 2330 on 04/07/2018. This is a late entry history and physical. - DVT/VTE - Prophylaxis VTE/DVT Prophylaxis med ordered at admit?: Yes
[2018-04-08] MEDS: ACETAMINOPHEN 325 MG TABLET PO PRN ×2 (02:38→08:25)
[2018-04-08] MEDS: CLOPIDOGREL 75 MG TABLET PO SCH ×2 (04:10→08:26)
[2018-04-08 06:00] LABS: BASOPHILS # (AUTO) 0.1 10^3/uL (0.0-0.1); BASOPHILS % (AUTO) 1.1 %; EOSINOPHILS # (AUTO) 0.2 10^3/uL (0.0-0.7); HGB - HEMOGLOBIN 10.6 g/dL (12.0-16.0); LYMPHOCYTES # (AUTO) 2.1 10^3/uL (1.5-3.5); LYMPHOCYTES % (AUTO) 29.5 %; MEAN CORPUSCULAR HEMOGLOBIN 30.3 pg (27.0-31.0); MEAN CORPUSCULAR HGB CONC 33.3 g/dL (32.0-36.0); MEAN PLATELET VOLUME 7.3 fL (7.9-10.8); MONOCYTES # (AUTO) 0.5 10^3/uL (0.0-1.0); MONOCYTES % (AUTO) 7.1 %; NEUTROPHILS # (AUTO) 4.3 10^3/uL (1.5-6.6); NEUTROPHILS % (AUTO) 59.3 %; PLT - PLATELET COUNT 125 10^3/uL (130-450); RED BLOOD COUNT 3.48 10^6/uL (4.20-5.40); RED CELL DISTRIBUTION WIDTH 13.3 % (12.0-15.0); WHITE BLOOD COUNT 7.3 x10^3/uL (4.8-10.8)
[2018-04-08 06:12] LABS: CALCIUM 8.6 mg/dL (8.5-10.3); CREATININE 0.7 mg/dL (0.4-1.0); MAGNESIUM 1.6 mg/dL (1.7-2.8); PHOSPHORUS 4.3 mg/dL (2.5-4.6)
[2018-04-08 06:16] LABS: HB2 TOTAL 11.7 g/dL; HEMOGLOBIN A1C 0.61 g/dL; HEMOGLOBIN A1C % 6.9 % (4.6-6.2)
--- NOTE | 2018-04-08 07:50 | Discharge Plan ---
Discharge Plan Disposition: 01 Home, Self Care Condition: Good Prescriptions: Potassium Chloride 10 meq PO DAILY #15 tablet.er Diet: Regular Activity Restrictions: Activity as Tolerated Shower Restrictions: No Driving Restrictions: No Additional Instructions or Follow Up instructions: You were placed in observation because you were developing mild confusion during the day. It alarmed your and he wanted you evaluated in the emergency room. In the past, when you became confused, it was associated with a low sodium blood level. With this evaluation, you had another low sodium level. We think it was because of the hydrochlorothiazide that was newly prescribed after your valve repair. Your sodium has almost come back to normal with simple IV fluids of 0.9 normal saline being given in your bloodstream. We think it is safe for you to go home. You will need to stop your hydrochlorothiazide. And you will need to see your primary care provider in the next week to get your blood checked again for a sodium level. The other thing we noticed while you are here was a low potassium. We gave you a 40 mEq dose the day you left. And would like you to take 10 mEq a day for the next week or 2. Again your primary care provider will need to recheck your blood level for potassium in 2 weeks. No Smoking: If you smoke, Please STOP! Call for help. Follow-up with: Eusebio Barrett MD [Primary Care Provider] -
[2018-04-08] MEDS ORDERED: INSULIN ASPART 300 UNIT/3 ML PEN SUBQ SCH (08:00)
[2018-04-08 08:04] VITALS: BP 157/54
[2018-04-08] MEDS ORDERED: POTASSIUM CHLORIDE 20 MEQ TABLET PO ONE (08:15)
[2018-04-08] MEDS ORDERED: MULTIVITAMIN TABLET PO SCH (09:00)
[2018-04-08] MEDS ORDERED: LISINOPRIL 20 MG TABLET PO SCH (09:00)
[2018-04-08] MEDS ORDERED: NON FORMULARY MED (Simvastatin [Simvastatin] 20 MG) PO SCH (09:00)
[2018-04-08] MEDS ORDERED: ASPIRIN CHEW 81 MG TABLET PO SCH (09:00)
[2018-04-08] MEDS ORDERED: FAMOTIDINE 20 MG TABLET PO SCH (09:00)
[2018-04-08] MEDS ORDERED: TIMOLOL 0.5% OPHTH DROPS EACHEYE SCH (09:00)
[2018-04-08] MEDS ORDERED: FELODIPINE ER 2.5 MG TABLET PO SCH (09:00)
[2018-04-08] MEDS ORDERED: ENOXAPARIN 40 MG/0.4 ML SYRINGE SUBQ SCH (09:00)
[2018-04-08] MEDS ORDERED: POLYETHYLENE GLYCOL 3350 17 GM PACKET PO SCH (09:00)
--- NOTE | 2018-04-08 11:44 | Discharge Plan ---
Discharge Plan Disposition: 01 Home, Self Care Condition: Good Prescriptions: Potassium Chloride 10 meq PO DAILY #15 tablet.er Activity Restrictions: Activity as Tolerated Shower Restrictions: No Driving Restrictions: No Additional Instructions or Follow Up instructions: You were placed in observation because you were developing mild confusion during the day. It alarmed your and he wanted you evaluated in the emergency room. In the past, when you became confused, it was associated with a low sodium blood level. With this evaluation, you had another low sodium level. We think it was because of the hydrochlorothiazide that was newly prescribed after your valve repair. Your sodium has almost come back to normal with simple IV fluids of 0.9 normal saline being given in your bloodstream. We think it is safe for you to go home. You will need to stop your hydrochlorothiazide. And you will need to see your primary care provider in the next week to get your blood checked again for a sodium level. The other thing we noticed while you are here was a low potassium. We gave you a 40 mEq dose the day you left. And would like you to take 10 mEq a day for the next week or 2. Again your primary care provider will need to recheck your blood level for potassium in 2 weeks. No Smoking: If you smoke, Please STOP! Call for help. Follow-up with: Eusebio Barrett MD [Primary Care Provider] -
--- NOTE | 2018-04-08 11:45 | DISCHARGE SUMMARY ---
"Discharge Summary Admit Date: 04/07/18 Discharge Date: 04/08/18 Discharging Provider: Rosa Roman MD Primary Care Provider: Wong Barrett MD Code Status: Attempt Resuscitation Condition at Discharge: Good Discharge Disposition: 01 Home, Self Care Discharge [facility] - DIAGNOSES Discharge Diagnoses with Status of Each Condition: Metabolic encephalopathy, resolved. Hyponatremia due to medication, hydrochlorothiazide. Ongoing Hypertension, essential. Chronic. 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 According to the patient and her the patient was discharged from [facility] on March 19, 2018 at that time she was discharged on 2 new medications Plavix and hydrochlorothiazide. She states that she has been taking the medication since and has had no major issues. She followed up with her property management supervisor 1 week ago and was doing well at that time. She states she has not been experiencing any chest pain or shortness of air. She was in her normal state of health until late this evening. According to the patient's they were out in [place] for most of the day and return home at around 9 PM. He states that she was acting completely normal all day but when she returned home she began acting strangely. He states that he asked her to turn on the lights and she just stood there staring at the light switch not knowing what to do. He states it took her almost a minute before she was able to comprehend and turn on the light switch. He states that they then sat down on a couch to watch TV and she was unable to use the remote. He states that she was pointing the remote in the wrong direction and could not use it properly. He states normally at her baseline she is completely alert oriented and able to perform all of her active activities of daily living. He states that she did not have any obvious weakness or facial droop. He states that she was slow to answer his questions but was not having difficulty with her speech or having slurred speech. He states that she had a similar episode with even worse confusion in 2016 and was found to have a low sodium. He states that at that time she required hospitalization but improved within 24 hours. He was concerned that this may be similar to that previous hospitalization. He decided he should bring her into the hospital. According to the patient she states that she feels dizzy but denies any other symptoms. She denies any fevers or chills, cough, shortness of air, orthopnea, PND, increased lower extremity swelling, abdominal pain, diarrhea, constipation, vomiting, nausea, urinary urgency, urinary frequency or any dysuria. She also denies any neck stiffness, focal neurologic deficits. She denies any changes in her appetite, polyuria, polydipsia. She denies any recent unintentional weight loss. She denies any hematuria, hemoptysis, blood in her stools or melena. She denies any night sweats or chills. On presentation to the emergency department the patient was afebrile and remainder of vital signs were within normal limits. Throughout her stay in the emergency department she did become hypertensive but again maintain normal vital signs. She underwent routine lab work which did reveal a sodium of 121 with a chloride of 86. She had a mildly elevated glucose of 209 otherwise her electrolytes were within normal limits. The patient's WBC was slightly elevated at 12.5 and her hemoglobin was slightly low at 11.2. The patient's urine analysis was negative and her chest x-ray showed no infiltrate. The patient did undergo a CT of her head which showed generalized age-related cortical atrophic changes without evidence of acute intracranial abnormality. Given these findings and the patient's presentation of confusion she was placed in observation for IV fluids and treatment of her hyponatremia. - CONSULTS | PROCEDURES Consultations: None Procedures: 1. Head CT without contrast showing generalized age-related cortical atrophic changes without evidence of acute intracranial abnormality 2. Chest x-ray showing status post TAVR procedure, no cardiac enlargement. Probable right midlung granulomas. No acute pulmonary process 3. EKG showing normal sinus rhythm, PAC. Borderline repolarization abnormalities. - HOSPITAL COURSE Hospital Course: The patient was placed in observation. She was given 0.9 normal saline. Sodium went from 121-129. came to visit her and felt that all of her confusion was completely resolved. As such she is felt stable to return to home. We are stopping the hydrochlorothiazide that was felt to have caused the hyponatremia. Blood pressure during her stay was mildly elevated. Systolic very from 152- 163. End diastolic was 54-63. In the outpatient setting I am continuing her lisinopril. She is also on felodipine extended release. She should be seen by her primary care provider in the next 1-2 weeks to have blood pressure medication adjusted. Goal is to be less than 140 systolic. Type 2 diabetes mellitus was with a A1c of 6.9%. Overall she is felt to be within goal. Random glucose was hyperglycemic at 209 during hospitalization. Although she was placed on sliding scale insulin before meals, she did not need any injections to control her sugars. For her hyperlipidemia she was continued on her usual statin. I did explain to her that I was stopping the hydrochlorothiazide. He wanted to stop the Plavix because he felt that both drugs caused her hyponatremia. I carefully explained the mechanism of action for the Plavix and strongly encouraged him to continue giving it to his for the 30 days the property management supervisor requested. She will be seeing her property management supervisor in the next 2 weeks and I asked him to take a copy of this discharge plan to that office visit. For her ongoing tobacco abuse, we offered her a nicotine patch. We also explained that she really really should stop smoking because of her heart history and diabetic history. This would lead to increased risk of heart attack and stroke. On the day of discharge her potassium was 3.4 and she was given 40 meq po of KCL. She will be sent home on 10 meq a day until she gets it checked by Dr. Barrett. - ALLERGIES Allergies/Adverse Reactions: Allergies Allergy/AdvReac Type Severity Reaction Status Date / Time No Known Drug Allergies Allergy Verified 10/26/17 13:12 - MEDICATIONS Home Medications: Ambulatory Orders Medication Instructions Recorded Confirmed Ascorbic Acid [Vitamin C] 500 mg PO DAILY 09/07/16 04/08/18 Aspirin 81 mg PO DAILY 09/07/16 04/08/18 Calcium Carbonate [Calcium] 600 mg PO BID 09/07/16 04/08/18 Cholecalciferol (Vitamin D3) 1,000 unit PO DAILY 09/07/16 04/08/18 [Vitamin D3] Felodipine [Felodipine ER] 10 mg PO DAILY 09/07/16 04/08/18 Lisinopril 40 mg PO DAILY 09/07/16 04/08/18 Metformin HCl [Glucophage] 850 mg PO TIDWM 09/07/16 04/08/18 Multivitamin [Multiple Vitamins] 1 tab PO DAILY 09/07/16 04/08/18 Simvastatin 20 mg PO DAILY 09/07/16 04/08/18 Timolol 0.5% Ophth Drops [Timoptic 1 drops EACHEYE BID 09/07/16 04/08/18 0.5% Ophth Drops] Clopidogrel Bisulfate [Clopidogrel] 75 mg PO DAILY 04/08/18 04/08/18 Clopidogrel [Plavix] 75 mg PO DAILY tablet 04/08/18 Glipizide 5 mg PO DAILY 04/08/18 04/08/18 Latanoprost 0.005% Ophth Drops 1 drops EACHEYE QPM 04/08/18 04/08/18 [Xalatan Ophth Drops] Potassium Chloride 10 meq PO DAILY #15 tablet.er 04/08/18 - PHYSICAL EXAM AT DISCHARGE General Appearance: positive: No acute distress, Alert, Other (well groomed, eldelry [place] female who looks younger than stated age. Eye make up in place. ) Eyes Bilateral: positive: PERRL, EOMI ENT: positive: Pharynx nml Neck: positive: No JVD. negative: Stiff neck, Carotid bruit Respiratory: positive: Chest non-tender. negative: Wheezes, Rales, Rhonchi Cardiovascular: positive: Regular rate & rhythm, Systolic murmur. negative: Gallop/S4, Friction rub Peripheral Pulses: positive: 1+ Abdomen: positive: Non-tender, No organomegaly, Nml bowel sounds, No distention Skin: positive: Warm, Dry Extremities: positive: Non-tender, Full ROM, No pedal edema Neurologic/Psychiatric: positive: Oriented x3, CN's nml (2-12), Motor nml - LABS Result Diagrams: 04/08/18 05:50 04/08/18 05:50 - FOLLOW UP Follow Up: With Dr. Barrett in the next week for BMP and review of blood pressure."
[2018-04-08] MEDS ORDERED: ATORVASTATIN 10 MG TABLET PO SCH (21:00)
== END 2018-04-08 11:09 | disposition home or self-care (01) ==
LOC: ED 21:55 → OBS 23:17
PROVIDERS: ADMIT Internal Medicine; ATTEND Specialist
DX: G93.41 Metabolic encephalopathy (principal); E87.1 Hypo-osmolality and hyponatremia; T50.2X5A Adverse effect of carbonic-anhydrase inhibitors, benzothiadiazides and other diuretics, initial encounter; I10 Essential (primary) hypertension; E11.9 Type 2 diabetes mellitus without complications; E78.5 Hyperlipidemia, unspecified; Z95.2 Presence of prosthetic heart valve; E87.6 Hypokalemia; R32 Unspecified urinary incontinence; Z79.84 Long term (current) use of oral hypoglycemic drugs; Z79.82 Long term (current) use of aspirin; Z79.01 Long term (current) use of anticoagulants; Z79.899 Other long term (current) drug therapy
CPT/HCPCS: 36415; 70450; 71045; 80048; 80053; 81003; 83036; 83690; 83735; 84100; 84443; 85025; 93005; 96360; 96361; 96372; 99284; A9270; G0378; J1650; 81001; 87086

== ENCOUNTER 2018-04-10 14:50 | Outpatient (CLI) | payer MEDICARE, OTHER ==
[2018-04-10 19:15] LABS: CALCIUM 9.2 mg/dL (8.5-10.3); CREATININE 0.9 mg/dL (0.4-1.0)
[2018-04-10 21:22] LABS: HB2 TOTAL 10.8 g/dL; HEMOGLOBIN A1C 0.57 g/dL
== END 2018-04-10 14:51 | disposition home or self-care (01) ==
LOC: LAB.WCP 14:50
PROVIDERS: ATTEND Family Medicine
DX: E87.1 Hypo-osmolality and hyponatremia (principal); E11.9 Type 2 diabetes mellitus without complications; Z86.79 Personal history of other diseases of the circulatory system
CPT/HCPCS: 36415; 80048; 83036

== ENCOUNTER 2018-04-23 10:30 | Outpatient (CLI) | payer MEDICARE, OTHER ==
[2018-04-23 19:35] LABS: CALCIUM 9.1 mg/dL (8.5-10.3); CREATININE 0.8 mg/dL (0.4-1.0)
== END 2018-04-23 10:31 | disposition home or self-care (01) ==
LOC: LAB.WCP 10:30
PROVIDERS: ATTEND Family Medicine
DX: E87.1 Hypo-osmolality and hyponatremia (principal); I35.0 Nonrheumatic aortic (valve) stenosis; I10 Essential (primary) hypertension
CPT/HCPCS: 36415; 80048

== ENCOUNTER 2018-08-30 02:51 | Inpatient (IN) | payer MEDICARE, OTHER ==
--- NOTE | 2018-08-30 03:25 | ED Physician Documentation ---
History of Present Illness - Stated complaint Stated Complaint: MEMORY LOSS - Chief complaint Chief Complaint: Neuro - Additonal information Additional information: 83-year-old female was brought in for confusion. The patient's noticed that the patient has been very confused this evening and making very little sense to him. No reports of facial weakness, slurred speech, vision changes, focal motor weakness or sensory changes. The patient denies headache, neck pain, chest pain or shortness of breath. The patient reports feeling confused. No changes in medications. No new [id number] medications. No other associated symptoms. Symptoms are described as severe. No relieving factors. No triggering factors Review of Systems Constitutional: denies: Fever Eyes: denies: Discharge Ears: denies: Ear pain Nose: denies: Congestion Throat: denies: Sore throat Cardiac: denies: Chest pain / pressure Respiratory: denies: Dyspnea GI: denies: Abdominal Pain : denies: Dysuria Skin: denies: Rash Musculoskeletal: denies: Neck pain Neurologic: reports: Confused, Altered mental status. 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 Cardiovascular: Valve replacement HEENT: Cataracts - Present Medications Home Medications: Ambulatory Orders Medication Instructions Recorded Confirmed Ascorbic Acid [Vitamin C] 500 mg PO DAILY 09/07/16 04/08/18 Aspirin 81 mg PO DAILY 09/07/16 04/08/18 Calcium Carbonate [Calcium] 600 mg PO BID 09/07/16 04/08/18 Cholecalciferol (Vitamin D3) 1,000 unit PO DAILY 09/07/16 04/08/18 [Vitamin D3] Felodipine [Felodipine ER] 10 mg PO DAILY 09/07/16 04/08/18 Lisinopril 40 mg PO DAILY 09/07/16 04/08/18 Metformin HCl [Glucophage] 850 mg PO TIDWM 09/07/16 04/08/18 Multivitamin [Multiple Vitamins] 1 tab PO DAILY 09/07/16 04/08/18 Simvastatin 20 mg PO DAILY 09/07/16 04/08/18 Timolol 0.5% Ophth Drops [Timoptic 1 drops EACHEYE BID 09/07/16 04/08/18 0.5% Ophth Drops] Clopidogrel Bisulfate [Clopidogrel] 75 mg PO DAILY 04/08/18 04/08/18 Clopidogrel [Plavix] 75 mg PO DAILY tablet 04/08/18 Glipizide 5 mg PO DAILY 04/08/18 04/08/18 Latanoprost 0.005% Ophth Drops 1 drops EACHEYE QPM 04/08/18 04/08/18 [Xalatan Ophth Drops] Potassium Chloride 10 meq PO DAILY #15 capsule.er 04/08/18 - Allergies Allergies/Adverse Reactions: Allergies Allergy/AdvReac Type Severity Reaction Status Date / Time No Known Drug Allergies Allergy Verified 08/30/18 03:00 - Social History Does the pt smoke?: No Smoking Status: Never smoker Does the pt drink ETOH?: No Does the pt have substance abuse?: No - Immunizations Immunizations are current?: Yes - POLST Patient has POLST: No POLST Status: Full Code PD ED PE NORMAL - General General: Alert and oriented X 3, No acute distress - HEENT HEENT: Atraumatic, PERRL, EOMI, Ears normal - Cardiac Cardiac: RRR, Strong equal pulses - Respiratory Respiratory: No respiratory distress - Abdomen Abdomen: Soft, Non tender - Derm Derm: Normal color - Extremities Extremities: No deformity - Neuro Neuro: physician president 2-12 intact, No motor deficit, No sensory deficit, Normal speech, Other (The patient's alert, follows commands but is quite confused) Results - Vitals Vitals: Vital Signs - 24 hr 08/30/18 08/30/18 02:55 03:49 Temperature 36.4 C L Heart Rate 95 72 Respiratory 20 17 Rate Blood Pressure 163/79 H 176/72 H O2 Saturation 99 98 Oxygen O2 Source Room air - EKG (time done) No standard instances Rhythm: NSR Intervals: Normal W[place], QRS normal Ischemia: Non specific changes - Labs Labs: Laboratory Tests 08/30/18 08/30/18 08/30/18 03:22 03:55 03:55 WBC 9.2 RBC 3.33 L Hgb 10.6 L Hct 30.5 L MCV 91.7 MCH 31.8 H MCHC 34.7 RDW 14.5 Plt Count 118 L MPV 6.9 L Neut # (Auto) 6.6 Lymph # (Auto) 1.9 Monroe # (Auto) 0.5 Eos # (Auto) 0.1 Baso # (Auto) 0.1 Absolute Nucleated RBC 0.00 Nucleated RBC % 0.0 Sodium 120 L* Potassium 3.3 L Chloride 88 L Carbon Dioxide 22 Anion Gap 10.0 BUN 7 Creatinine 0.5 Estimated GFR (MDRD) 118 Glucose 184 H Calcium 8.5 Total Bilirubin 0.6 AST 23 ALT 15 Alkaline Phosphatase 47 Total Creatine Kinase 56 Troponin I Total Protein 6.8 Albumin 3.6 Globulin 3.2 Albumin/Globulin Ratio 1.1 Lipase 32 Urine Color YELLOW Urine Clarity CLEAR Urine pH 6.5 Ur Specific Reading 1.010 Urine Protein TRACE Urine Glucose (UA) 500 H Urine Ketones NEGATIVE Urine Occult Blood TRACE-INTA Urine Nitrite NEGATIVE Urine Bilirubin NEGATIVE Urine Urobilinogen 0.2 (NORMAL) Ur Leukocyte Esterase NEGATIVE Ur Microscopic Review NOT INDICATED Urine Culture Comments NOT INDICATED Salicylates < 6.0 Urine Opiates Screen NEGATIVE Ur Oxycodone Screen NEGATIVE Urine Methadone Screen NEGATIVE Ur Propoxyphene Screen NEGATIVE Acetaminophen 19 Ur Barbiturates Screen NEGATIVE Ur Tricyclics Screen NEGATIVE Ur Phencyclidine Scrn NEGATIVE Ur Amphetamine Screen NEGATIVE U Methamphetamines Scrn NEGATIVE U Benzodiazepines Scrn NEGATIVE Urine Cocaine Screen NEGATIVE U Cannabinoids Screen NEGATIVE Ethyl Alcohol < 5.0 08/30/18 03:55 WBC RBC Hgb Hct MCV MCH MCHC RDW Plt Count MPV Neut # (Auto) Lymph # (Auto) Monroe # (Auto) Eos # (Auto) Baso # (Auto) Absolute Nucleated RBC Nucleated RBC % Sodium Potassium Chloride Carbon Dioxide Anion Gap BUN Creatinine Estimated GFR (MDRD) Glucose Calcium Total Bilirubin AST ALT Alkaline Phosphatase Total Creatine Kinase Troponin I < 0.04 Total Protein Albumin Globulin Albumin/Globulin Ratio Lipase Urine Color Urine Clarity Urine pH Ur Specific Reading Urine Protein Urine Glucose (UA) Urine Ketones Urine Occult Blood Urine Nitrite Urine Bilirubin Urine Urobilinogen Ur Leukocyte Esterase Ur Microscopic Review Urine Culture Comments Salicylates Urine Opiates Screen Ur Oxycodone Screen Urine Methadone Screen Ur Propoxyphene Screen Acetaminophen Ur Barbiturates Screen Ur Tricyclics Screen Ur Phencyclidine Scrn Ur Amphetamine Screen U Methamphetamines Scrn U Benzodiazepines Scrn Urine Cocaine Screen U Cannabinoids Screen Ethyl Alcohol - Rads (name of study) CXR Radiology: Final report received (No acute process seen in the chest. ) CT head Radiology: Final report received (IMPRESSION: Generalized age-related cortical atrophic changes without evidence of acute intracranial abnormality. ) PD MEDICAL DECISION MAKING - ED course ED course: The patient has a significantly low sodium which may be the source of her confusional state. The patient will require admission to the hospital for further management of this acute finding. The etiology of the hyponatremia is unclear. The findings and plan were discussed the patient and her who understand and agree to the plan. The case was discussed with the hospitalist Dr. Singletary who accepts the patient onto his service. Departure - Departure Disposition: 66 [facility] DC/Xfer Clinical Impression: Hyponatremia, Acute confusional state Condition: Fair
[2018-08-30 03:27] LABS: MUDS CUTOFF CONCENTRATIONS CUTOFF CONC BELOW:
[2018-08-30 03:28] LABS: BILIRUBIN,URINE NEGATIVE (NEGATIVE); GLUCOSE, URINE (UA) 500 mg/dL (NEGATIVE); KETONES,URINE (UA) NEGATIVE (NEGATIVE); LEUKOCYTE ESTERASE, URINE NEGATIVE (NEGATIVE); NITRITE,URINE NEGATIVE (NEGATIVE); OCCULT BLOOD,URINE TRACE-INTA (NEGATIVE); PH,URINE 6.5 PH (5.0-7.5); PROTEIN,URINE TRACE mg/dL (NEGATIVE); UROBILINOGEN,URINE 0.2 (NORMAL) E.U./dL (NORMAL)
[2018-08-30 03:29] LABS: CLARITY,URINE CLEAR (CLEAR)
[2018-08-30 03:41] LABS: AMPHETAMINE SCREEN,URINE NEGATIVE (NEGATIVE); BENZODIAZEPINES SCREEN, URINE NEGATIVE (NEGATIVE); COCAINE SCREEN URINE NEGATIVE (NEGATIVE); METHADONE SCREEN, URINE NEGATIVE (NEGATIVE); METHAMPHETAMINES SCREEN, URINE NEGATIVE (NEGATIVE); OPIATE SCREEN, URINE NEGATIVE (NEGATIVE); OXYCODONE SCREEN, URINE NEGATIVE (NEGATIVE); PROPOXYPHENE SCREEN, URINE NEGATIVE (NEGATIVE); TRICYCLIC ANTIDEPRESSANT,URINE NEGATIVE (NEGATIVE)
--- NOTE | 2018-08-30 03:57 | XRAY Report ---
Reason: CP Procedure Date: 08/30/2018 Accession Number: [id number] / [id number] Procedure: XR - Chest 2 View X-Ray CPT Code: 69169 FULL RESULT: EXAM: CHEST RADIOGRAPHY EXAM DATE: 08/30/2018 03:33 AM. CLINICAL HISTORY: Chest pain COMPARISON: CHEST 1 VIEW 04/07/2018 10:27 PM. TECHNIQUE: 2 views. FINDINGS: Lungs/Pleura: No focal opacities evident. No pleural effusion. No pneumothorax. Normal volumes. Mediastinum: Heart and mediastinal contours are unremarkable. Other: Previous aortic valve surgery. IMPRESSION: No acute process seen in the chest. RADIA
[2018-08-30 04:01] LABS: BASOPHILS # (AUTO) 0.1 10^3/uL (0.0-0.1); BASOPHILS % (AUTO) 0.9 %; EOSINOPHILS # (AUTO) 0.1 10^3/uL (0.0-0.7); EOSINOPHILS % (AUTO) 1.1 %; HGB - HEMOGLOBIN 10.6 g/dL (12.0-16.0); LYMPHOCYTES # (AUTO) 1.9 10^3/uL (1.5-3.5); LYMPHOCYTES % (AUTO) 20.8 %; MEAN CORPUSCULAR HEMOGLOBIN 31.8 pg (27.0-31.0); MEAN CORPUSCULAR HGB CONC 34.7 g/dL (32.0-36.0); MEAN CORPUSCULAR VOLUME 91.7 fL (81.0-99.0); MEAN PLATELET VOLUME 6.9 fL (7.9-10.8); MONOCYTES # (AUTO) 0.5 10^3/uL (0.0-1.0); MONOCYTES % (AUTO) 5.5 %; NEUTROPHILS # (AUTO) 6.6 10^3/uL (1.5-6.6); NEUTROPHILS % (AUTO) 71.7 %; PLT - PLATELET COUNT 118 10^3/uL (130-450); RED BLOOD COUNT 3.33 10^6/uL (4.20-5.40); RED CELL DISTRIBUTION WIDTH 14.5 % (12.0-15.0); WHITE BLOOD COUNT 9.2 x10^3/uL (4.8-10.8)
--- NOTE | 2018-08-30 04:14 | CT Report ---
Reason: confusion Procedure Date: 08/30/2018 Accession Number: [id number] / [id number] Procedure: CT - Head W/O CPT Code: FULL RESULT: EXAM: CT HEAD EXAM DATE: 08/30/2018 03:41 AM. CLINICAL HISTORY: Confusion. COMPARISON: HEAD W/O 04/07/2018 10:37 PM. TECHNIQUE: Multiaxial CT images were obtained from the foramen magnum to the vertex. Reformats: Sagittal and coronal. IV contrast: None. In accordance with CT protocol optimization, one or more of the following dose reduction techniques were utilized for this exam: automated exposure control, adjustment of mA and/or KV based on patient size, or use of iterative reconstructive technique. FINDINGS: Parenchyma: No intraparenchymal hemorrhage. No evidence of mass, midline shift, or CT findings of acute infarction. Mcgarry-white differentiation is distinct. Moderate diffuse chronic microangiopathic white matter changes are evident. Extraaxial Spaces: Normal for age. No subdural or epidural collections identified. Ventricles: The ventricles and cortical sulci are mildly enlarged, consistent with age-related tissue loss. Sinuses and orbits: Postsurgical changes from cataract extractions are noted in the globes. The paranasal and mastoid sinuses are not opacified. Bones: No evidence of fracture or calvarial defect. Other: Moderate intracranial atherosclerosis is noted. IMPRESSION: Generalized age-related cortical atrophic changes without evidence of acute intracranial abnormality. RADIA
[2018-08-30 04:17] LABS: ACETAMINOPHEN 19 ug/mL (10-30); ALBUMIN 3.6 g/dL (3.2-5.5); ALBUMIN/GLOBULIN RATIO 1.1 (1.0-2.2); ALKALINE PHOSPHATASE 47 IU/L (42-121); ALT ALANINE AMINOTRANSFERASE 15 IU/L (10-60); AST ASPARTATE AMINOTRANSFERASE 23 IU/L (10-42); BILIRUBIN,TOTAL 0.6 mg/dL (0.2-1.0); BUN - BLOOD UREA NITROGEN 7 mg/dL (6-20); CALCIUM 8.5 mg/dL (8.5-10.3); CARBON DIOXIDE - CO2 22 mmol/L (21-32); CHLORIDE 88 mmol/L (101-111); CK- CREATINE KINASE 56 IU/L (22-269); CREATININE 0.5 mg/dL (0.4-1.0); GFR - MDRD 118 (>89); GLUCOSE 184 mg/dL (70-100); LIPASE 32 U/L (22-51); SALICYLATE < 6.0 mg/dL; SODIUM 120 mmol/L (135-145); TOTAL PROTEIN 6.8 g/dL (6.7-8.2)
[2018-08-30] MEDS ORDERED: PROMETHAZINE 25 MG/1 ML VIAL IM PRN (04:23)
[2018-08-30] MEDS ORDERED: SODIUM CHLORIDE FLUSH 0.9% 10 ML SYRINGE IVP PRN (04:23)
[2018-08-30] MEDS ORDERED: ZOLPIDEM 5 MG TABLET PO PRN (04:23)
[2018-08-30] MEDS ORDERED: oxyCODONE 5 MG TABLET PO PRN ×2 (04:23)
[2018-08-30] MEDS ORDERED: ACETAMINOPHEN 325 MG TABLET PO PRN (04:23)
[2018-08-30] MEDS ORDERED: ONDANSETRON 4 MG/2 ML VIAL IVP PRN (04:23)
[2018-08-30] MEDS ORDERED: PROCHLORPERAZINE 10 MG/2 ML VIAL IVP PRN (04:23)
--- NOTE | 2018-08-30 04:33 | HISTORY & PHYSICAL EXAMINATION ---
Chief Complaint - Chief Complaint Chief Complaint: Confusion History of Present Illness - Admitted From Admitted From:: Emergency Department - History Obtained From Records Reviewed: Yes History obtained from: Patient and patients Exam Limitations: Patient has confusion secondary to medical condition - History of Present Illness HPI Comment/Other: Patient is a very pleasant 83-year-old female with a past medical history significant for diabetes, hypertension, aortic stenosis status post TAVR in March 2018 and recurrent hyponatremia requiring hospitalizations who presents to the emergency department with a chief complaint of confusion. The history of confusion is given by the who states that just after midnight today the patient became confused. He states that she started saying to him that she coul d not turn the TV off when the TV was already off. She also started started calling objects by the wrong name. He states that these symptoms are very similar to the last 2 times she was hospitalized for a low sodium. The patient was most recently hospitalized for hyponatremia in March 2018 and the hyponatremia resolved with IV fluid. The patient was also on hydrochlorothiazide at that time which was stopped. The patient has been in her normal state of health until this acute confusion tonight. The patient states that today she has been feeling shaky and noticed that she was confused. She also states that she has some leg cramping and feels nauseated. She however states that she has not vomited, she has not had any diarrhea and has not had a change in her appetite or in her eating or drinking habits. The patient does admit to feeling generalized weakness on presentation to the ER today. She also admits to continued smoking of about 4-5 cigarettes a day. Patient denies any headaches, blurred vision, runny nose, sore throat, nasal congestion, difficulty swallowing, chest pain, fevers, chills, cough, shortness of air, orthopnea, PND, increased lower extremity swelling, abdominal pain, urinary urgency, urinary frequency, dysuria, joint swelling, joint pain, muscle aches, back pain, neck stiffness, recent unintentional weight loss, hair loss, night sweats, skin changes, or any focal neurologic deficits. On presentation to the emergency department the patient was afebrile with a heart rate in the high 90s, hypertensive but not in any respiratory distress. The patient underwent routine lab work which again revealed that she was hyponatremic with a sodium of 120, hypochloremic with a chloride of 88 and hypokalemic with a potassium of 3.3. Of note the patient also had an elevated glucose of 184. The remainder of the patient's lab work was within normal limits. Her urine analysis was negative. The urine tox screen was negative. The patient also underwent a CT of her head which revealed generalized age- related cortical atrophic changes without evidence of acute intracranial abnormality. The patient had a chest x-ray which revealed no acute process in the chest. The patient's symptoms were improving in the emergency department however given the sodium of 120 she was admitted to the hospital for hyponatremia and will be treated with IV fluids and worked up further. 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 They have lived there since 1980. They have been for 58 years and have 2 sons. The patient is originally from [facility] but has been living here for most of her life. She is able to perform all her activities of daily living independently. She has been smoking half a pack to 1 pack per day since the age of 19 she is down to 4-5 cigarrettes a day. She denies any alcohol use or illicit drug use. - POLST Patient has POLST: No POLST Status: Full Code Meds/Allgy - Home Medications Home Medications: Ambulatory Orders Medication Instructions Recorded Confirmed Ascorbic Acid [Vitamin C] 500 mg PO DAILY 09/07/16 04/08/18 Aspirin 81 mg PO DAILY 09/07/16 04/08/18 Calcium Carbonate [Calcium] 600 mg PO BID 09/07/16 04/08/18 Cholecalciferol (Vitamin D3) 1,000 unit PO DAILY 09/07/16 04/08/18 [Vitamin D3] Felodipine [Felodipine ER] 10 mg PO DAILY 09/07/16 04/08/18 Lisinopril 40 mg PO DAILY 09/07/16 04/08/18 Metformin HCl [Glucophage] 850 mg PO TIDWM 09/07/16 04/08/18 Multivitamin [Multiple Vitamins] 1 tab PO DAILY 09/07/16 04/08/18 Simvastatin 20 mg PO DAILY 09/07/16 04/08/18 Timolol 0.5% Ophth Drops [Timoptic 1 drops EACHEYE BID 09/07/16 04/08/18 0.5% Ophth Drops] Clopidogrel Bisulfate [Clopidogrel] 75 mg PO DAILY 04/08/18 04/08/18 Clopidogrel [Plavix] 75 mg PO DAILY tablet 04/08/18 Glipizide 5 mg PO DAILY 04/08/18 04/08/18 Latanoprost 0.005% Ophth Drops 1 drops EACHEYE QPM 04/08/18 04/08/18 [Xalatan Ophth Drops] Potassium Chloride 10 meq PO DAILY #15 capsule.er 04/08/18 - Allergies Allergies/Adverse Reactions: Allergies Allergy/AdvReac Type Severity Reaction Status Date / Time No Known Drug Allergies Allergy Verified 08/30/18 03:00 Review of Systems - Other Findings Other Findings: A comprehensive review of systems was performed the pertinent positives and negatives are stated above in the HPI and the remainder of the review of systems is negative. Prior Level of Functionality: Independent able to perform all her activities of daily living. Exam - Vital Signs Reviewed Vital Signs: Yes Vital Signs: Vital Signs x48h Temp Pulse Resp BP Pulse Ox 08/30/18 04:21 71 20 167/72 H 99 08/30/18 03:49 72 17 176/72 H 98 08/30/18 02:55 36.4 C L 95 20 163/79 H 99 - Physical Exam General Appearance: positive: No acute distress, Alert Eyes Bilateral: positive: Normal inspection, PERRL, EOMI, No lid inflammation, Conjunctivae nml, No scleral icterus ENT: positive: ENT inspection nml, Pharynx nml, No signs of dehydration. negative: Purulent nasal drainage, Pharyngeal erythema, Oral lesions Neck: positive: Nml inspection, Thyroid nml, No JVD, Trachea midline. negative: Thyromegaly, Lymphadenopathy (R), Lymphadenopathy (L), Carotid bruit, Tracheal deviation Respiratory: positive: Chest non-tender, No respiratory distress, Breath sounds nml. negative: Wheezes, Rales, Rhonchi Cardiovascular: positive: Regular rate & rhythm, No murmur, No gallop Peripheral Pulses: positive: 2+ Abdomen: positive: Non-tender, No organomegaly, Nml bowel sounds, No distention. negative: Guarding, Rebound, Hepatomegaly Back: positive: Nml inspection. negative: CVA tenderness (R), CVA tenderness (L) Skin: positive: Color nml, No rash, Warm, Dry. negative: Cyanosis, Diaphoresis, Pallor, Skin rash Extremities: positive: Non-tender, Full ROM, Nml appearance, Pedal edema (1+ bilateral) Neurologic/Psychiatric: positive: Oriented x3, CN's nml (2-12), Motor nml, Sensation nml, Mood/affect nml Conclusion/Plan - Problem List (1) Hyponatremia Conclusion/Plan: The patient has recurrent hyponatremia and this will be her third hospitalization for the same presentation. With each presentation the patient is coming with acute confusion witnessed by her at home. Today the patient became confused and started telling the to turn off the television when it was already off and she started calling objects by their incorrect name. By the time she arrived in the emergency department her confusion seemed to be improving. The patient denied any recent vomiting or diarrhea. She denied having any recent illness. She denied any changes in her appetite or change in her oral intake of fluids or food. She denied any cough or chest pain or shortness of breath. In the past the patient is improved with IV fluids. On her last hospitalization she had her hydrochlorothiazide discontinued. Again on presentation she has a sodium of 120 and is being admitted to the hospital for treatment. The patient does appear to be euvolemic on presentation or possibly slightly hypovolemic as she has lower extremity swelling. She does not appear dry on examination. Which concerns me for possible SIADH. Plan: We will initially try to treat with IV fluid patient will be placed on normal saline with 20 mEq of K at 100 mL's per hour We will try to correct slowly correcting by no more than 8 mmol/L per 24 hours Monitor BMP every 6 hours Check urine lites Check TSH Check a.m. cortisol level CT chest with contrast to rule out lung malignancy given history of smoking and hyponatremia. If patient's sodium is not improving we will need to consider fluid restriction (2) Altered mental status Conclusion/Plan: The patient presented with acute confusion. Patient appears to likely have metabolic encephalopathy secondary to hyponatremia. The patient's confusion was improving already in the emergency department. We expect that with treatment of hyponatremia the patient's confusion should completely resolve. Qualifiers: Altered mental status type: unspecified Qualified Code(s): R41.82 - Altered mental status, unspecified (3) Hypokalemia Conclusion/Plan: The patient has hypokalemia in addition to her hyponatremia. Looking at her lab work she appears to be hypovolemic and dehydrated given that she has a low potassium and a low chloride in conjunction with a low sodium. But on examination she seems to be euvolemic. The patient has not had any vomiting or diarrhea. She takes a potassium supplement at home and is on lisinopril. I wonder if the patient has a pituitary or adrenal deficiency that is causing her to be hypokalemic however looking back at her labs she is not chronically hypokalemic. Plan: Give patient IV potassium Monitor potassium IV fluids P.o. potassium (4) Diabetes Conclusion/Plan: Patient has a history of diabetes and is on oral diabetic medications at home with metformin and glipizide. She is not on insulin. Patient is hyperglycemic on presentation with a blood glucose of 184. 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 She was counseled on the need to quit smoking and offered nicotine patch while she is hospitalized. (6) Hypertension Conclusion/Plan: The patient does have a history of hypertension and blood pressure was elevated on presentation. The patient is on 2 antihypertensive medications felodipine and lisinopril. These will be continued while the patient is hospitalized and will continue to monitor the patient's blood pressure and titrate medications as needed. Qualifiers: Hypertension type: essential hypertension Qualified Code(s): I10 - Essential (primary) hypertension (7) Hyperlipidemia Conclusion/Plan: The patient has a history of hyperlipidemia and is on simvastatin at home. The patient will be continued on simvastatin while she is hospitalized here. Qualifiers: Hyperlipidemia type: unspecified Qualified Code(s): E78.5 - Hyperlipidemia, unspecified - Lab Results Lab results reviewed: Yes Fish Bones: 08/30/18 03:55 08/30/18 03:55 Other Lab Results: Laboratory Results WBC 9.2 x10^3/uL (4.8-10.8) 08/30/18 03:55 RBC 3.33 10^6/uL (4.20-5.40) L 08/30/18 03:55 Hgb 10.6 g/dL (12.0-16.0) L 08/30/18 03:55 Hct 30.5 % (37.0-47.0) L 08/30/18 03:55 MCV 91.7 fL (81.0-99.0) 08/30/18 03:55 MCH 31.8 pg (27.0-31.0) H 08/30/18 03:55 MCHC 34.7 g/dL (32.0-36.0) 08/30/18 03:55 RDW 14.5 % (12.0-15.0) 08/30/18 03:55 Plt Count 118 10^3/uL (130-450) L 08/30/18 03:55 MPV 6.9 fL (7.9-10.8) L 08/30/18 03:55 Neut # (Auto) 6.6 10^3/uL (1.5-6.6) 08/30/18 03:55 Lymph # (Auto) 1.9 10^3/uL (1.5-3.5) 08/30/18 03:55 Dukes # (Auto) 0.5 10^3/uL (0.0-1.0) 08/30/18 03:55 Eos # (Auto) 0.1 10^3/uL (0.0-0.7) 08/30/18 03:55 Baso # (Auto) 0.1 10^3/uL (0.0-0.1) 08/30/18 03:55 Absolute Nucleated RBC 0.00 x10^3/uL 08/30/18 03:55 Nucleated RBC % 0.0 /100WBC 08/30/18 03:55 Sodium 120 mmol/L (135-145) L* 08/30/18 03:55 Potassium 3.3 mmol/L (3.5-5.0) L 08/30/18 03:55 Chloride 88 mmol/L (101-111) L 08/30/18 03:55 Carbon Dioxide 22 mmol/L (21-32) 08/30/18 03:55 Anion Gap 10.0 (6-13) 08/30/18 03:55 BUN 7 mg/dL (6-20) 08/30/18 03:55 Creatinine 0.5 mg/dL (0.4-1.0) 08/30/18 03:55 Estimated GFR (MDRD) 118 (>89) 08/30/18 03:55 Glucose 184 mg/dL (70-100) H 08/30/18 03:55 Calcium 8.5 mg/dL (8.5-10.3) 08/30/18 03:55 Total Bilirubin 0.6 mg/dL (0.2-1.0) 08/30/18 03:55 AST 23 IU/L (10-42) 08/30/18 03:55 ALT 15 IU/L (10-60) 08/30/18 03:55 Alkaline Phosphatase 47 IU/L (42-121) 08/30/18 03:55 Total Creatine Kinase 56 IU/L (22-269) 08/30/18 03:55 Troponin I < 0.04 ng/mL (<0.49) 08/30/18 03:55 Total Protein 6.8 g/dL (6.7-8.2) 08/30/18 03:55 Albumin 3.6 g/dL (3.2-5.5) 08/30/18 03:55 Globulin 3.2 g/dL (2.1-4.2) 08/30/18 03:55 Albumin/Globulin Ratio 1.1 (1.0-2.2) 08/30/18 03:55 Lipase 32 U/L (22-51) 08/30/18 03:55 Urine Color YELLOW 08/30/18 03:22 Urine Clarity CLEAR (CLEAR) 08/30/18 03:22 Urine pH 6.5 PH (5.0-7.5) 08/30/18 03:22 Ur Specific Macy 1.010 (1.002-1.030) 08/30/18 03:22 Urine Protein TRACE mg/dL (NEGATIVE) 08/30/18 03:22 Urine Glucose (UA) 500 mg/dL (NEGATIVE) H 08/30/18 03:22 Urine Ketones NEGATIVE mg/dL (NEGATIVE) 08/30/18 03:22 Urine Occult Blood TRACE-INTA (NEGATIVE) 08/30/18 03:22 Urine Nitrite NEGATIVE (NEGATIVE) 08/30/18 03:22 Urine Bilirubin NEGATIVE (NEGATIVE) 08/30/18 03:22 Urine Urobilinogen 0.2 (NORMAL) E.U./dL (NORMAL) 08/30/18 03:22 Ur Leukocyte Esterase NEGATIVE (NEGATIVE) 08/30/18 03:22 Ur Microscopic Review NOT INDICATED 08/30/18 03:22 Urine Culture Comments NOT INDICATED 08/30/18 03:22 Salicylates < 6.0 mg/dL 08/30/18 03:55 Urine Opiates Screen NEGATIVE (NEGATIVE) 08/30/18 03:22 Ur Oxycodone Screen NEGATIVE (NEGATIVE) 08/30/18 03:22 Urine Methadone Screen NEGATIVE (NEGATIVE) 08/30/18 03:22 Ur Propoxyphene Screen NEGATIVE (NEGATIVE) 08/30/18 03:22 Acetaminophen 19 ug/mL (10-30) 08/30/18 03:55 Ur Barbiturates Screen NEGATIVE (NEGATIVE) 08/30/18 03:22 Ur Tricyclics Screen NEGATIVE (NEGATIVE) 08/30/18 03:22 Ur Phencyclidine Scrn NEGATIVE (NEGATIVE) 08/30/18 03:22 Ur Amphetamine Screen NEGATIVE (NEGATIVE) 08/30/18 03:22 U Methamphetamines Scrn NEGATIVE (NEGATIVE) 08/30/18 03:22 U Benzodiazepines Scrn NEGATIVE (NEGATIVE) 08/30/18 03:22 Urine Cocaine Screen NEGATIVE (NEGATIVE) 08/30/18 03:22 U Cannabinoids Screen NEGATIVE (NEGATIVE) 08/30/18 03:22 Ethyl Alcohol < 5.0 mg/dL 08/30/18 03:55 - Diagnostic Imaging Results Diagnostic Imaging Results: positive: Final report reviewed Diagnostic Imaging Results Comments: Chest x-ray Impression: No acute process seen in the chest CT head Impression: Generalized age-related cortical atrophic changes without evidence of acute intracranial abnormality. - EKG Results EKG Interpreted Independently: Yes EKG Findings: Possible LVH without evidence of acute ischemia Core Measures - Anticipated LOS I expect patient to be DC'd or transferred within 96 hours.: Yes - DVT/VTE - Prophylaxis VTE/DVT Prophylaxis med ordered at admit?: Yes
[2018-08-30 05:25] LABS: CREATININE,URINE < 13.0 mg/dL; POTASSIUM,URINE 4.7 mmol/L; TOTAL PROTEIN,URINE RANDOM 22 mg/dL
[2018-08-30] MEDS: NS W/20 MEQ KCL 1,000 ML IV SCH ×2 (05:41→14:56)
[2018-08-30] MEDS ORDERED: IOPAMIDOL-300 100 ML VIAL ONE (05:56)
[2018-08-30] MEDS ORDERED: IOPAMIDOL-300 100 ML VIAL IVP ONE (06:15)
[2018-08-30] MEDS: INSULIN ASPART 300 UNIT/3 ML PEN SUBQ SCH ×4 (07:44→20:35)
[2018-08-30] MEDS ORDERED: POTASSIUM CHLORIDE 20 MEQ TABLET PO ONE (08:08)
[2018-08-30] MEDS: POTASSIUM CHLORIDE 10 MEQ CAPSULE PO SCH (08:18)
[2018-08-30] MEDS: SODIUM CHLORIDE FLUSH 0.9% 10 ML SYRINGE IVP SCH ×2 (08:18→16:54)
[2018-08-30] MEDS: CLOPIDOGREL 75 MG TABLET PO SCH (08:18)
[2018-08-30] MEDS: POLYETHYLENE GLYCOL 3350 17 GM PACKET PO SCH (08:18)
[2018-08-30] MEDS: FELODIPINE ER 2.5 MG TABLET PO SCH (08:18)
[2018-08-30] MEDS: ATORVASTATIN 10 MG TABLET PO SCH (08:18)
[2018-08-30] MEDS: MULTIVITAMIN TABLET PO SCH (08:18)
[2018-08-30] MEDS: ASPIRIN CHEW 81 MG TABLET PO SCH (08:18)
[2018-08-30] MEDS: FAMOTIDINE 20 MG TABLET PO SCH ×2 (08:18→21:49)
[2018-08-30] MEDS: ENOXAPARIN 40 MG/0.4 ML SYRINGE SUBQ SCH (08:36)
[2018-08-30] MEDS: TIMOLOL 0.5% OPHTH DROPS EACHEYE SCH ×2 (08:36→21:50)
[2018-08-30 08:57] LABS: BASOPHILS % (AUTO) 0.6 %; EOSINOPHILS # (AUTO) 0.2 10^3/uL (0.0-0.7); HGB - HEMOGLOBIN 11.3 g/dL (12.0-16.0); LYMPHOCYTES # (AUTO) 1.9 10^3/uL (1.5-3.5); LYMPHOCYTES % (AUTO) 26.9 %; MEAN CORPUSCULAR HEMOGLOBIN 31.9 pg (27.0-31.0); MEAN CORPUSCULAR HGB CONC 34.7 g/dL (32.0-36.0); MEAN CORPUSCULAR VOLUME 91.9 fL (81.0-99.0); MEAN PLATELET VOLUME 7.1 fL (7.9-10.8); MONOCYTES # (AUTO) 0.5 10^3/uL (0.0-1.0); MONOCYTES % (AUTO) 6.8 %; NEUTROPHILS # (AUTO) 4.4 10^3/uL (1.5-6.6); NEUTROPHILS % (AUTO) 62.7 %; PLT - PLATELET COUNT 123 10^3/uL (130-450); RED BLOOD COUNT 3.54 10^6/uL (4.20-5.40); RED CELL DISTRIBUTION WIDTH 14.7 % (12.0-15.0); WHITE BLOOD COUNT 7.1 x10^3/uL (4.8-10.8)
[2018-08-30] MEDS ORDERED: NON FORMULARY MED (Simvastatin [Simvastatin] 20 MG) PO SCH (09:00)
[2018-08-30 09:03] LABS: INR 0.9 (0.8-1.2); PT - PROTHROMBIN TIME 10.5 secs (9.9-12.6)
[2018-08-30 09:12] LABS: MAGNESIUM 1.7 mg/dL (1.7-2.8); PHOSPHORUS 3.6 mg/dL (2.5-4.6)
[2018-08-30 09:28] LABS: HB2 TOTAL 11.8 g/dL; HEMOGLOBIN A1C 0.58 g/dL; HEMOGLOBIN A1C % 6.6 % (4.6-6.2)
--- NOTE | 2018-08-30 09:40 | CT Report ---
Reason: Smoker presenting w hyponatremia unexplained Procedure Date: 08/30/2018 Accession Number: [id number] / [id number] Procedure: CT - Chest W/ CPT Code: FULL RESULT: EXAM: CT CHEST EXAM DATE: 08/30/2018 06:30 AM. CLINICAL HISTORY: Smoker presenting w hyponatremia unexplained. COMPARISONS: CHEST 2 VIEW 08/30/2018 3:11 AM CHEST 1 VIEW 04/07/2018 10:27 PM. TECHNIQUE: Routine helical CT imaging was performed through the chest. IV contrast: 80 cc Isovue-300. Reconstructions: Sagittal. Coronal MIP.. In accordance with CT protocol optimization, one or more of the following dose reduction techniques were utilized for this exam: automated exposure control, adjustment of mA and/or KV based on patient size, or use of iterative reconstructive technique. FINDINGS: Lungs/Pleura: No nodules, bronchial thickening, consolidation, or edema. Pulmonary vasculature is normal. No pericardial or pleural effusion. No pneumothorax. Mediastinum: Upper normal heart size. No pericardial effusion. Status post TAVR. No adenopathy or mass. Small fluid in the distal esophagus of uncertain significance. Bones: Unremarkable. Visualized Abdomen: Unremarkable. Other: Bilateral partially calcified breast masses measuring 5-6 cm. No axillary adenopathy. Visualized thyroid gland is unremarkable. IMPRESSION: 1. No pulmonary findings worrisome for malignancy. 2. Bilateral breast masses. Recommend further evaluation with dedicated breast imaging if this has not already been performed. [facility]
[2018-08-30 12:11] LABS: CALCIUM 8.4 mg/dL (8.5-10.3); CREATININE 0.6 mg/dL (0.4-1.0)
[2018-08-30 17:16] LABS: CALCIUM 8.6 mg/dL (8.5-10.3); CREATININE 0.7 mg/dL (0.4-1.0)
--- NOTE | 2018-08-30 18:06 | PROVIDER PROGRESS NOTE ---
Subjective - Prog Note Date Prog Note Date: 08/30/18 - Subjective Pt reports feeling: Improved Subjective: pt did not have complain. pt will finish all test. try to seek the etiology why pt has a several times of hyponatremia. Current Medications - Current Medications Current Medications: Active Medications Acetaminophen (Tylenol) 650 mg PO Q4HR PRN PRN Reason: Pain 1 to 4 Aspirin ([place] Aspirin) 81 mg PO DAILY [facility] Last Admin: 08/30/18 08:18 Dose: 81 mg Atorvastatin Calcium (Lipitor) 10 mg PO DAILY [facility] Last Admin: 08/30/18 08:18 Dose: 10 mg Clopidogrel Bisulfate (Plavix) 75 mg PO DAILY [facility] Last Admin: 08/30/18 08:18 Dose: 75 mg Enoxaparin Sodium (Lovenox) 40 mg SUBQ DAILY [facility] Last Admin: 08/30/18 08:36 Dose: 40 mg Famotidine (Pepcid) 20 mg PO BID [facility] Last Admin: 08/30/18 08:18 Dose: 20 mg Felodipine (Plendil) 10 mg PO DAILY [facility] Last Admin: 08/30/18 08:18 Dose: 10 mg Potassium Chloride/Sodium Chloride (Normal Saline 0.9% W/20 Meq Kcl) 1,000 mls @ 100 mls/hr IV .Q10H [facility] Last Admin: 08/30/18 14:56 Dose: 100 mls/hr Insulin Aspart (Novolog) 1 - 5 unit SUBQ 0800,1200,1700,2100 [facility]; Protocol Last Admin: 08/30/18 16:53 Dose: Not Given Latanoprost (Xalatan Ophth Drops) 1 drops EACHEYE QPM [facility] Multivitamins (Theragran) 1 tab PO DAILYWM [facility] Last Admin: 08/30/18 08:18 Dose: 1 tab Ondansetron HCl (Zofran Inj) 4 mg IVP Q6HR PRN PRN Reason: Nausea / Vomiting Oxycodone HCl (Roxicodone) 5 mg PO Q4HR PRN PRN Reason: Pain 5 to 7 Oxycodone HCl (Roxicodone) 10 mg PO Q4HR PRN PRN Reason: Pain 8 to 10 Polyethylene Glycol (Miralax) 17 gm PO DAILY [facility] Last Admin: 08/30/18 08:18 Dose: 17 gm Potassium Chloride (Micro-K) 10 meq PO DAILY [facility] Last Admin: 08/30/18 08:18 Dose: 10 meq Prochlorperazine Edisylate (Compazine Inj) 10 mg IVP Q6HR PRN PRN Reason: Nausea / Vomiting Promethazine HCl (Phenergan Inj) 25 mg IM Q6HR PRN PRN Reason: Nausea / Vomiting Sodium Chloride (Normal Saline Flush 0.9%) 10 ml IVP PRN PRN PRN Reason: NEEDED PER PROVIDER ORDERS Last Admin: 08/30/18 05:41 Dose: 10 ml Sodium Chloride (Normal Saline Flush 0.9%) 10 ml IVP 0100,0900,1700 [facility] Last Admin: 08/30/18 16:54 Dose: Not Given Timolol Maleate (Timoptic 0.5% Ophth Drops) 1 drops EACHEYE BID [facility] Last Admin: 08/30/18 08:36 Dose: 1 drops Zolpidem Tartrate (Ambien) 5 mg PO QPM PRN PRN Reason: Insomnia Ascorbic Acid [Vitamin C] 500 mg PO DAILY 09/07/16 Aspirin 81 mg PO DAILY 09/07/16 Calcium Carbonate [Calcium] 600 mg PO BID 09/07/16 Cholecalciferol (Vitamin D3) [Vitamin D3] 1,000 unit PO DAILY 09/07/16 Felodipine [Felodipine ER] 10 mg PO DAILY 09/07/16 Lisinopril 40 mg PO DAILY 09/07/16 Metformin HCl [Glucophage] 850 mg PO TIDWM 09/07/16 Multivitamin [Multiple Vitamins] 1 tab PO DAILY 09/07/16 Simvastatin 20 mg PO QPM 09/07/16 Timolol 0.5% Ophth Drops [Timoptic 0.5% Ophth Drops] 1 drops EACHEYE BID 09/07/16 Glipizide 5 mg PO DAILY 04/08/18 Latanoprost 0.005% Ophth Drops [Xalatan Ophth Drops] 1 drops EACHEYE QPM 04/08/18 Objective - Vital Signs/Intake & Output Reviewed Vital Signs: Yes Vital Signs: Vital Signs x48h Temp Pulse Pulse Resp BP Pulse Ox 08/30/18 15:38 37.1 C 70 18 116/47 L 97 08/30/18 11:30 37.1 C 81 18 160/84 H 99 08/30/18 11:10 36.6 C 64 18 98 Intake & Output: Intake & Output 08/27/18 08/28/18 08/29/18 08/30/18 23:59 23:59 23:59 23:59 Intake Total 1755 Output Total 2200 Balance -445 - Objective General Appearance: positive: No acute distress, Alert. negative: Lethargic Eyes Bilateral: positive: Normal inspection, PERRL, No lid inflammation, Conjunctivae nml ENT: positive: ENT inspection nml, Pharynx nml, No signs of dehydration. negative: Purulent nasal drainage, Pharyngeal erythema, Oral lesions Neck: positive: Nml inspection, Thyroid nml, No JVD, Trachea midline. negative: Thyromegaly, Lymphadenopathy (R), Lymphadenopathy (L), Stiff neck, Carotid bruit, Swelling/bruising, Tracheal deviation Respiratory: positive: Chest non-tender, No respiratory distress, Breath sounds nml. negative: Wheezes, Rales, Rhonchi Cardiovascular: positive: Regular rate & rhythm, No murmur, No gallop. negative: Irregularly irregular, Extrasystoles, Tachycardia, Bradycardia, JVD present, Systolic murmur, Diastolic murmur Peripheral Pulses: 2+ Radial (R), 2+ Radial (L), 2+ Dorsalis pedis (R), 2+ Do rsalis pedis (L) Abdomen: positive: Non-tender, No organomegaly, Nml bowel sounds, No distention. negative: Tenderness, Guarding, Rebound Back: positive: Nml inspection. negative: CVA tenderness (R), CVA tenderness (L) Skin: positive: Color nml, No rash, Warm, Dry. negative: Cyanosis, Diaphoresis, Pallor Extremities: positive: Non-tender, Full ROM, Nml appearance. negative: Calf tenderness, Joint swelling, Brien's sign/cords Neurologic/Psychiatric: positive: Oriented x3, Motor nml, Sensation nml, Mood/affect nml. negative: Weakness, Sensory loss, Facial droop, Slurred/abnml speech, Depressed mood/affect - Lab Results Fish Bones: 08/30/18 08:49 08/30/18 17:03 Other Labs: Lab Results x24hrs 08/30/18 08/30/18 08/30/18 Range/Units 17:03 16:01 15:40 WBC (4.8-10.8) x10^3/uL RBC (4.20-5.40) 10^6/uL Hgb (12.0-16.0) g/dL Hct (37.0-47.0) % MCV (81.0-99.0) fL MCH (27.0-31.0) pg MCHC (32.0-36.0) g/dL RDW (12.0-15.0) % Plt Count (130-450) 10^3/uL MPV (7.9-10.8) fL Neut # (Auto) (1.5-6.6) 10^3/uL Lymph # (Auto) (1.5-3.5) 10^3/uL [place] # (Auto) (0.0-1.0) 10^3/uL Eos # (Auto) (0.0-0.7) 10^3/uL Baso # (Auto) (0.0-0.1) 10^3/uL Absolute Nucleated RBC x10^3/uL Nucleated RBC % /100WBC PT (9.9-12.6) secs INR (0.8-1.2) Sodium 133 L (135-145) mmol/L Potassium 4.8 (3.5-5.0) mmol/L Chloride 105 (101-111) mmol/L Carbon Dioxide 22 (21-32) mmol/L Anion Gap 6.0 (6-13) BUN 11 (6-20) mg/dL Creatinine 0.7 (0.4-1.0) mg/dL Estimated GFR (MDRD) 80 L (>89) Glucose 121 H (70-100) mg/dL POC Whole Bld Glucose 132 H (70 - 100) mg/dL Glycated Hemoglobin (4.6-6.2) % Estim Average Glucose (70-100) Lactic Acid < 0.3 L (0.5-2.2) mmol/L Calcium 8.6 (8.5-10.3) mg/dL Phosphorus (2.5-4.6) mg/dL Magnesium (1.7-2.8) mg/dL Total Bilirubin (0.2-1.0) mg/dL AST (10-42) IU/L ALT (10-60) IU/L Alkaline Phosphatase (42-121) IU/L Total Creatine Kinase (22-269) IU/L Troponin I (<0.49) ng/mL Total Protein (6.7-8.2) g/dL Albumin (3.2-5.5) g/dL Globulin (2.1-4.2) g/dL Albumin/Globulin Ratio (1.0-2.2) Lipase (22-51) U/L TSH (0.34-5.60) uIU/mL Cortisol AM Sample ug/dL Urine Color Urine Clarity (CLEAR) Urine pH (5.0-7.5) PH Ur Specific [place] (1.002-1.030) Urine Protein (NEGATIVE) mg/dL Urine Glucose (UA) (NEGATIVE) mg/dL Urine Ketones (NEGATIVE) mg/dL Urine Occult Blood (NEGATIVE) Urine Nitrite (NEGATIVE) Urine Bilirubin (NEGATIVE) Urine Urobilinogen (NORMAL) E.U./dL Ur Leukocyte Esterase (NEGATIVE) Ur Microscopic Review Urine Culture Comments U Random Total Protein mg/dL Ur Random Chloride mmol/L Urine Creatinine mg/dL Urine Sodium mmol/L Urine Potassium mmol/L Salicylates mg/dL Urine Opiates Screen (NEGATIVE) Ur Oxycodone Screen (NEGATIVE) Urine Methadone Screen (NEGATIVE) Ur Propoxyphene Screen (NEGATIVE) Acetaminophen (10-30) ug/mL Ur Barbiturates Screen (NEGATIVE) Ur Tricyclics Screen (NEGATIVE) Ur Phencyclidine Scrn (NEGATIVE) Ur Amphetamine Screen (NEGATIVE) U Methamphetamines Scrn (NEGATIVE) U Benzodiazepines Scrn (NEGATIVE) Urine Cocaine Screen (NEGATIVE) U Cannabinoids Screen (NEGATIVE) Ethyl Alcohol mg/dL 08/30/18 08/30/18 08/30/18 Range/Units 14:28 12:23 11:54 WBC (4.8-10.8) x10^3/uL RBC (4.20-5.40) 10^6/uL Hgb (12.0-16.0) g/dL Hct (37.0-47.0) % MCV (81.0-99.0) fL MCH (27.0-31.0) pg MCHC (32.0-36.0) g/dL RDW (12.0-15.0) % Plt Count (130-450) 10^3/uL MPV (7.9-10.8) fL Neut # (Auto) (1.5-6.6) 10^3/uL Lymph # (Auto) (1.5-3.5) 10^3/uL [place] # (Auto) (0.0-1.0) 10^3/uL Eos # (Auto) (0.0-0.7) 10^3/uL Baso # (Auto) (0.0-0.1) 10^3/uL Absolute Nucleated RBC x10^3/uL Nucleated RBC % /100WBC PT (9.9-12.6) secs INR (0.8-1.2) Sodium 130 L 129 L (135-145) mmol/L Potassium 4.5 (3.5-5.0) mmol/L Chloride 99 L (101-111) mmol/L Carbon Dioxide 23 (21-32) mmol/L Anion Gap 7.0 (6-13) BUN 8 (6-20) mg/dL Creatinine 0.6 (0.4-1.0) mg/dL Estimated GFR (MDRD) 96 (>89) Glucose 186 H (70-100) mg/dL POC Whole Bld Glucose (70 - 100) mg/dL Glycated Hemoglobin (4.6-6.2) % Estim Average Glucose (70-100) Lactic Acid 2.1 (0.5-2.2) mmol/L Calcium 8.4 L (8.5-10.3) mg/dL Phosphorus (2.5-4.6) mg/dL Magnesium (1.7-2.8) mg/dL Total Bilirubin (0.2-1.0) mg/dL AST (10-42) IU/L ALT (10-60) IU/L Alkaline Phosphatase (42-121) IU/L Total Creatine Kinase (22-269) IU/L Troponin I (<0.49) ng/mL Total Protein (6.7-8.2) g/dL Albumin (3.2-5.5) g/dL Globulin (2.1-4.2) g/dL Albumin/Globulin Ratio (1.0-2.2) Lipase (22-51) U/L TSH (0.34-5.60) uIU/mL Cortisol AM Sample ug/dL Urine Color Urine Clarity (CLEAR) Urine pH (5.0-7.5) PH Ur Specific [place] (1.002-1.030) Urine Protein (NEGATIVE) mg/dL Urine Glucose (UA) (NEGATIVE) mg/dL Urine Ketones (NEGATIVE) mg/dL Urine Occult Blood (NEGATIVE) Urine Nitrite (NEGATIVE) Urine Bilirubin (NEGATIVE) Urine Urobilinogen (NORMAL) E.U./dL Ur Leukocyte Esterase (NEGATIVE) Ur Microscopic Review Urine Culture Comments U Random Total Protein mg/dL Ur Random Chloride mmol/L Urine Creatinine mg/dL Urine Sodium mmol/L Urine Potassium mmol/L Salicylates mg/dL Urine Opiates Screen (NEGATIVE) Ur Oxycodone Screen (NEGATIVE) Urine Methadone Screen (NEGATIVE) Ur Propoxyphene Screen (NEGATIVE) Acetaminophen (10-30) ug/mL Ur Barbiturates Screen (NEGATIVE) Ur Tricyclics Screen (NEGATIVE) Ur Phencyclidine Scrn (NEGATIVE) Ur Amphetamine Screen (NEGATIVE) U Methamphetamines Scrn (NEGATIVE) U Benzodiazepines Scrn (NEGATIVE) Urine Cocaine Screen (NEGATIVE) U Cannabinoids Screen (NEGATIVE) Ethyl Alcohol mg/dL 08/30/18 08/30/18 08/30/18 Range/Units 11:25 08:49 08:49 WBC (4.8-10.8) x10^3/uL RBC (4.20-5.40) 10^6/uL Hgb (12.0-16.0) g/dL Hct (37.0-47.0) % MCV (81.0-99.0) fL MCH (27.0-31.0) pg MCHC (32.0-36.0) g/dL RDW (12.0-15.0) % Plt Count (130-450) 10^3/uL MPV (7.9-10.8) fL Neut # (Auto) (1.5-6.6) 10^3/uL Lymph # (Auto) (1.5-3.5) 10^3/uL [place] # (Auto) (0.0-1.0) 10^3/uL Eos # (Auto) (0.0-0.7) 10^3/uL Baso # (Auto) (0.0-0.1) 10^3/uL Absolute Nucleated RBC x10^3/uL Nucleated RBC % /100WBC PT (9.9-12.6) secs INR (0.8-1.2) Sodium (135-145) mmol/L Potassium (3.5-5.0) mmol/L Chloride (101-111) mmol/L Carbon Dioxide (21-32) mmol/L Anion Gap (6-13) BUN (6-20) mg/dL Creatinine (0.4-1.0) mg/dL Estimated GFR (MDRD) (>89) Glucose (70-100) mg/dL POC Whole Bld Glucose 202 H (70 - 100) mg/dL Glycated Hemoglobin (4.6-6.2) % Estim Average Glucose (70-100) Lactic Acid (0.5-2.2) mmol/L Calcium (8.5-10.3) mg/dL Phosphorus (2.5-4.6) mg/dL Magnesium (1.7-2.8) mg/dL Total Bilirubin (0.2-1.0) mg/dL AST (10-42) IU/L ALT (10-60) IU/L Alkaline Phosphatase (42-121) IU/L Total Creatine Kinase (22-269) IU/L Troponin I (<0.49) ng/mL Total Protein (6.7-8.2) g/dL Albumin (3.2-5.5) g/dL Globulin (2.1-4.2) g/dL Albumin/Globulin Ratio (1.0-2.2) Lipase (22-51) U/L TSH 0.63 (0.34-5.60) uIU/mL Cortisol AM Sample 15.1 ug/dL Urine Color Urine Clarity (CLEAR) Urine pH (5.0-7.5) PH Ur Specific [place] (1.002-1.030) Urine Protein (NEGATIVE) mg/dL Urine Glucose (UA) (NEGATIVE) mg/dL Urine Ketones (NEGATIVE) mg/dL Urine Occult Blood (NEGATIVE) Urine Nitrite (NEGATIVE) Urine Bilirubin (NEGATIVE) Urine Urobilinogen (NORMAL) E.U./dL Ur Leukocyte Esterase (NEGATIVE) Ur Microscopic Review Urine Culture Comments U Random Total Protein mg/dL Ur Random Chloride mmol/L Urine Creatinine mg/dL Urine Sodium mmol/L Urine Potassium mmol/L Salicylates mg/dL Urine Opiates Screen (NEGATIVE) Ur Oxycodone Screen (NEGATIVE) Urine Methadone Screen (NEGATIVE) Ur Propoxyphene Screen (NEGATIVE) Acetaminophen (10-30) ug/mL Ur Barbiturates Screen (NEGATIVE) Ur Tricyclics Screen (NEGATIVE) Ur Phencyclidine Scrn (NEGATIVE) Ur Amphetamine Screen (NEGATIVE) U Methamphetamines Scrn (NEGATIVE) U Benzodiazepines Scrn (NEGATIVE) Urine Cocaine Screen (NEGATIVE) U Cannabinoids Screen (NEGATIVE) Ethyl Alcohol mg/dL 08/30/18 08/30/18 08/30/18 Range/Units 08:49 08:49 08:49 WBC (4.8-10.8) x10^3/uL RBC (4.20-5.40) 10^6/uL Hgb (12.0-16.0) g/dL Hct (37.0-47.0) % MCV (81.0-99.0) fL MCH (27.0-31.0) pg MCHC (32.0-36.0) g/dL RDW (12.0-15.0) % Plt Count (130-450) 10^3/uL MPV (7.9-10.8) fL Neut # (Auto) (1.5-6.6) 10^3/uL Lymph # (Auto) (1.5-3.5) 10^3/uL [place] # (Auto) (0.0-1.0) 10^3/uL Eos # (Auto) (0.0-0.7) 10^3/uL Baso # (Auto) (0.0-0.1) 10^3/uL Absolute Nucleated RBC x10^3/uL Nucleated RBC % /100WBC PT (9.9-12.6) secs INR (0.8-1.2) Sodium (135-145) mmol/L Potassium (3.5-5.0) mmol/L Chloride (101-111) mmol/L Carbon Dioxide (21-32) mmol/L Anion Gap (6-13) BUN (6-20) mg/dL Creatinine (0.4-1.0) mg/dL Estimated GFR (MDRD) (>89) Glucose (70-100) mg/dL POC Whole Bld Glucose (70 - 100) mg/dL Glycated Hemoglobin 6.6 H (4.6-6.2) % Estim Average Glucose 143 H (70-100) Lactic Acid 2.5 H (0.5-2.2) mmol/L Calcium (8.5-10.3) mg/dL Phosphorus 3.6 (2.5-4.6) mg/dL Magnesium 1.7 (1.7-2.8) mg/dL Total Bilirubin (0.2-1.0) mg/dL AST (10-42) IU/L ALT (10-60) IU/L Alkaline Phosphatase (42-121) IU/L Total Creatine Kinase (22-269) IU/L Troponin I (<0.49) ng/mL Total Protein (6.7-8.2) g/dL Albumin (3.2-5.5) g/dL Globulin (2.1-4.2) g/dL Albumin/Globulin Ratio (1.0-2.2) Lipase (22-51) U/L TSH (0.34-5.60) uIU/mL Cortisol AM Sample ug/dL Urine Color Urine Clarity (CLEAR) Urine pH (5.0-7.5) PH Ur Specific [place] (1.002-1.030) Urine Protein (NEGATIVE) mg/dL Urine Glucose (UA) (NEGATIVE) mg/dL Urine Ketones (NEGATIVE) mg/dL Urine Occult Blood (NEGATIVE) Urine Nitrite (NEGATIVE) Urine Bilirubin (NEGATIVE) Urine Urobilinogen (NORMAL) E.U./dL Ur Leukocyte Esterase (NEGATIVE) Ur Microscopic Review Urine Culture Comments U Random Total Protein mg/dL Ur Random Chloride mmol/L Urine Creatinine mg/dL Urine Sodium mmol/L Urine Potassium mmol/L Salicylates mg/dL Urine Opiates Screen (NEGATIVE) Ur Oxycodone Screen (NEGATIVE) Urine Methadone Screen (NEGATIVE) Ur Propoxyphene Screen (NEGATIVE) Acetaminophen (10-30) ug/mL Ur Barbiturates Screen (NEGATIVE) Ur Tricyclics Screen (NEGATIVE) Ur Phencyclidine Scrn (NEGATIVE) Ur Amphetamine Screen (NEGATIVE) U Methamphetamines Scrn (NEGATIVE) U Benzodiazepines Scrn (NEGATIVE) Urine Cocaine Screen (NEGATIVE) U Cannabinoids Screen (NEGATIVE) Ethyl Alcohol mg/dL 08/30/18 08/30/18 08/30/18 Range/Units 08:49 08:49 07:33 WBC 7.1 (4.8-10.8) x10^3/uL RBC 3.54 L (4.20-5.40) 10^6/uL Hgb 11.3 L (12.0-16.0) g/dL Hct 32.5 L (37.0-47.0) % MCV 91.9 (81.0-99.0) fL MCH 31.9 H (27.0-31.0) pg MCHC 34.7 (32.0-36.0) g/dL RDW 14.7 (12.0-15.0) % Plt Count 123 L (130-450) 10^3/uL MPV 7.1 L (7.9-10.8) fL Neut # (Auto) 4.4 (1.5-6.6) 10^3/uL Lymph # (Auto) 1.9 (1.5-3.5) 10^3/uL [place] # (Auto) 0.5 (0.0-1.0) 10^3/uL Eos # (Auto) 0.2 (0.0-0.7) 10^3/uL Baso # (Auto) 0.0 (0.0-0.1) 10^3/uL Absolute Nucleated RBC 0.00 x10^3/uL Nucleated RBC % 0.0 /100WBC PT 10.5 (9.9-12.6) secs INR 0.9 (0.8-1.2) Sodium (135-145) mmol/L Potassium (3.5-5.0) mmol/L Chloride (101-111) mmol/L Carbon Dioxide (21-32) mmol/L Anion Gap (6-13) BUN (6-20) mg/dL Creatinine (0.4-1.0) mg/dL Estimated GFR (MDRD) (>89) Glucose (70-100) mg/dL POC Whole Bld Glucose 95 (70 - 100) mg/dL Glycated Hemoglobin (4.6-6.2) % Estim Average Glucose (70-100) Lactic Acid (0.5-2.2) mmol/L Calcium (8.5-10.3) mg/dL Phosphorus (2.5-4.6) mg/dL Magnesium (1.7-2.8) mg/dL Total Bilirubin (0.2-1.0) mg/dL AST (10-42) IU/L ALT (10-60) IU/L Alkaline Phosphatase (42-121) IU/L Total Creatine Kinase (22-269) IU/L Troponin I (<0.49) ng/mL Total Protein (6.7-8.2) g/dL Albumin (3.2-5.5) g/dL Globulin (2.1-4.2) g/dL Albumin/Globulin Ratio (1.0-2.2) Lipase (22-51) U/L TSH (0.34-5.60) uIU/mL Cortisol AM Sample ug/dL Urine Color Urine Clarity (CLEAR) Urine pH (5.0-7.5) PH Ur Specific [place] (1.002-1.030) Urine Protein (NEGATIVE) mg/dL Urine Glucose (UA) (NEGATIVE) mg/dL Urine Ketones (NEGATIVE) mg/dL Urine Occult Blood (NEGATIVE) Urine Nitrite (NEGATIVE) Urine Bilirubin (NEGATIVE) Urine Urobilinogen (NORMAL) E.U./dL Ur Leukocyte Esterase (NEGATIVE) Ur Microscopic Review Urine Culture Comments U Random Total Protein mg/dL Ur Random Chloride mmol/L Urine Creatinine mg/dL Urine Sodium mmol/L Urine Potassium mmol/L Salicylates mg/dL Urine Opiates Screen (NEGATIVE) Ur Oxycodone Screen (NEGATIVE) Urine Methadone Screen (NEGATIVE) Ur Propoxyphene Screen (NEGATIVE) Acetaminophen (10-30) ug/mL Ur Barbiturates Screen (NEGATIVE) Ur Tricyclics Screen (NEGATIVE) Ur Phencyclidine Scrn (NEGATIVE) Ur Amphetamine Screen (NEGATIVE) U Methamphetamines Scrn (NEGATIVE) U Benzodiazepines Scrn (NEGATIVE) Urine Cocaine Screen (NEGATIVE) U Cannabinoids Screen (NEGATIVE) Ethyl Alcohol mg/dL 08/30/18 08/30/18 08/30/18 Range/Units 03:55 03:55 03:55 WBC 9.2 (4.8-10.8) x10^3/uL RBC 3.33 L (4.20-5.40) 10^6/uL Hgb 10.6 L (12.0-16.0) g/dL Hct 30.5 L (37.0-47.0) % MCV 91.7 (81.0-99.0) fL MCH 31.8 H (27.0-31.0) pg MCHC 34.7 (32.0-36.0) g/dL RDW 14.5 (12.0-15.0) % Plt Count 118 L (130-450) 10^3/uL MPV 6.9 L (7.9-10.8) fL Neut # (Auto) 6.6 (1.5-6.6) 10^3/uL Lymph # (Auto) 1.9 (1.5-3.5) 10^3/uL [place] # (Auto) 0.5 (0.0-1.0) 10^3/uL Eos # (Auto) 0.1 (0.0-0.7) 10^3/uL Baso # (Auto) 0.1 (0.0-0.1) 10^3/uL Absolute Nucleated RBC 0.00 x10^3/uL Nucleated RBC % 0.0 /100WBC PT (9.9-12.6) secs INR (0.8-1.2) Sodium 120 L* (135-145) mmol/L Potassium 3.3 L (3.5-5.0) mmol/L Chloride 88 L (101-111) mmol/L Carbon Dioxide 22 (21-32) mmol/L Anion Gap 10.0 (6-13) BUN 7 (6-20) mg/dL Creatinine 0.5 (0.4-1.0) mg/dL Estimated GFR (MDRD) 118 (>89) Glucose 184 H (70-100) mg/dL POC Whole Bld Glucose (70 - 100) mg/dL Glycated Hemoglobin (4.6-6.2) % Estim Average Glucose (70-100) Lactic Acid (0.5-2.2) mmol/L Calcium 8.5 (8.5-10.3) mg/dL Phosphorus (2.5-4.6) mg/dL Magnesium (1.7-2.8) mg/dL Total Bilirubin 0.6 (0.2-1.0) mg/dL AST 23 (10-42) IU/L ALT 15 (10-60) IU/L Alkaline Phosphatase 47 (42-121) IU/L Total Creatine Kinase 56 (22-269) IU/L Troponin I < 0.04 (<0.49) ng/mL Total Protein 6.8 (6.7-8.2) g/dL Albumin 3.6 (3.2-5.5) g/dL Globulin 3.2 (2.1-4.2) g/dL Albumin/Globulin Ratio 1.1 (1.0-2.2) Lipase 32 (22-51) U/L TSH (0.34-5.60) uIU/mL Cortisol AM Sample ug/dL Urine Color Urine Clarity (CLEAR) Urine pH (5.0-7.5) PH Ur Specific [place] (1.002-1.030) Urine Protein (NEGATIVE) mg/dL Urine Glucose (UA) (NEGATIVE) mg/dL Urine Ketones (NEGATIVE) mg/dL Urine Occult Blood (NEGATIVE) Urine Nitrite (NEGATIVE) Urine Bilirubin (NEGATIVE) Urine Urobilinogen (NORMAL) E.U./dL Ur Leukocyte Esterase (NEGATIVE) Ur Microscopic Review Urine Culture Comments U Random Total Protein mg/dL Ur Random Chloride mmol/L Urine Creatinine mg/dL Urine Sodium mmol/L Urine Potassium mmol/L Salicylates < 6.0 mg/dL Urine Opiates Screen (NEGATIVE) Ur Oxycodone Screen (NEGATIVE) Urine Methadone Screen (NEGATIVE) Ur Propoxyphene Screen (NEGATIVE) Acetaminophen 19 (10-30) ug/mL Ur Barbiturates Screen (NEGATIVE) Ur Tricyclics Screen (NEGATIVE) Ur Phencyclidine Scrn (NEGATIVE) Ur Amphetamine Screen (NEGATIVE) U Methamphetamines Scrn (NEGATIVE) U Benzodiazepines Scrn (NEGATIVE) Urine Cocaine Screen (NEGATIVE) U Cannabinoids Screen (NEGATIVE) Ethyl Alcohol < 5.0 mg/dL 08/30/18 08/30/18 Range/Units 03:23 03:22 WBC (4.8-10.8) x10^3/uL RBC (4.20-5.40) 10^6/uL Hgb (12.0-16.0) g/dL Hct (37.0-47.0) % MCV (81.0-99.0) fL MCH (27.0-31.0) pg MCHC (32.0-36.0) g/dL RDW (12.0-15.0) % Plt Count (130-450) 10^3/uL MPV (7.9-10.8) fL Neut # (Auto) (1.5-6.6) 10^3/uL Lymph # (Auto) (1.5-3.5) 10^3/uL [place] # (Auto) (0.0-1.0) 10^3/uL Eos # (Auto) (0.0-0.7) 10^3/uL Baso # (Auto) (0.0-0.1) 10^3/uL Absolute Nucleated RBC x10^3/uL Nucleated RBC % /100WBC PT (9.9-12.6) secs INR (0.8-1.2) Sodium (135-145) mmol/L Potassium (3.5-5.0) mmol/L Chloride (101-111) mmol/L Carbon Dioxide (21-32) mmol/L Anion Gap (6-13) BUN (6-20) mg/dL Creatinine (0.4-1.0) mg/dL Estimated GFR (MDRD) (>89) Glucose (70-100) mg/dL POC Whole Bld Glucose (70 - 100) mg/dL Glycated Hemoglobin (4.6-6.2) % Estim Average Glucose (70-100) Lactic Acid (0.5-2.2) mmol/L Calcium (8.5-10.3) mg/dL Phosphorus (2.5-4.6) mg/dL Magnesium (1.7-2.8) mg/dL Total Bilirubin (0.2-1.0) mg/dL AST (10-42) IU/L ALT (10-60) IU/L Alkaline Phosphatase (42-121) IU/L Total Creatine Kinase (22-269) IU/L Troponin I (<0.49) ng/mL Total Protein (6.7-8.2) g/dL Albumin (3.2-5.5) g/dL Globulin (2.1-4.2) g/dL Albumin/Globulin Ratio (1.0-2.2) Lipase (22-51) U/L TSH (0.34-5.60) uIU/mL Cortisol AM Sample ug/dL Urine Color YELLOW Urine Clarity CLEAR (CLEAR) Urine pH 6.5 (5.0-7.5) PH Ur Specific [place] 1.010 (1.002-1.030) Urine Protein TRACE (NEGATIVE) mg/dL Urine Glucose (UA) 500 H (NEGATIVE) mg/dL Urine Ketones NEGATIVE (NEGATIVE) mg/dL Urine Occult Blood TRACE-INTA (NEGATIVE) Urine Nitrite NEGATIVE (NEGATIVE) Urine Bilirubin NEGATIVE (NEGATIVE) Urine Urobilinogen 0.2 (NORMAL) (NORMAL) E.U./dL Ur Leukocyte Esterase NEGATIVE (NEGATIVE) Ur Microscopic Review NOT INDICATED Urine Culture Comments NOT INDICATED U Random Total Protein 22 mg/dL Ur Random Chloride 16 mmol/L Urine Creatinine < 13.0 mg/dL Urine Sodium 16.0 mmol/L Urine Potassium 4.7 mmol/L Salicylates mg/dL Urine Opiates Screen NEGATIVE (NEGATIVE) Ur Oxycodone Screen NEGATIVE (NEGATIVE) Urine Methadone Screen NEGATIVE (NEGATIVE) Ur Propoxyphene Screen NEGATIVE (NEGATIVE) Acetaminophen (10-30) ug/mL Ur Barbiturates Screen NEGATIVE (NEGATIVE) Ur Tricyclics Screen NEGATIVE (NEGATIVE) Ur Phencyclidine Scrn NEGATIVE (NEGATIVE) Ur Amphetamine Screen NEGATIVE (NEGATIVE) U Methamphetamines Scrn NEGATIVE (NEGATIVE) U Benzodiazepines Scrn NEGATIVE (NEGATIVE) Urine Cocaine Screen NEGATIVE (NEGATIVE) U Cannabinoids Screen NEGATIVE (NEGATIVE) Ethyl Alcohol mg/dL ABX Reporting Has patient been on IV antibiotics over the past 48 hours?: No Assessment/Plan - Problem List (1) Hyponatremia Impression: Conclusion/Plan: Na is 133 now, great improved. ECHO unremarkable. CT of chest reveals masses in bilateral breast. talked with pt. pt state she had artificial breast implanted on 1963. She had Samia graph on 2016 which showed her bilateral breast was normal. advise pt follow up her OBGY closely start IVF of NS instead of NS of 20meq K because K is 4.8 now cortisol and TSH is pending now talked with pt's , one possible etiology is pt took too little salt in her food, per her state. (2) Altered mental status resolved. pt is alert and oriented now (3) Hypokalemia resolved (4) Diabetes stable, continue home meds and slide scale (5) Tobacco abuse pt continue to use tobacco, and do not want to stop (6) Hypertension stable (7) Hyperlipidemia stable
[2018-08-30] MEDS: SODIUM CHLORIDE 0.9% 1,000 ML IV SCH (18:25)
[2018-08-30] MEDS ORDERED: LATANOPROST 0.005% OPHTH DROPS EACHEYE SCH (21:00)
--- NOTE | 2018-08-30 21:25 | Ultrasound Report ---
Reason: nicole pain/hyponatremia Procedure Date: 08/30/2018 Accession Number: [id number] / [id number] Procedure: US - Retroperitoneal CPT Code: FULL RESULT: EXAM: RENAL ULTRASOUND EXAM DATE: 08/30/2018 06:35 PM. CLINICAL HISTORY: Flank pain. Hyponatremia. COMPARISON: None. TECHNIQUE: Real-time scanning was performed with static images obtained. FINDINGS: Right Kidney: 10.5 x 5.5 x 5.7 cm. Normal parenchymal echotexture. No visualized shadowing stones or hydronephrosis. Left Kidney: 9.2 x 4.5 x 4.7 cm. Normal parenchymal echotexture. Simple cyst in the lower pole measuring 3.3 x 2.6 x 3.1 cm. No visualized shadowing stones or hydronephrosis. Bladder: Bilateral jets seen. Initial bladder volume 172 cc. Postvoid bladder volume 8 cc. Other: None. IMPRESSION: 1. 3.3 cm simple left renal cyst. 2. No hydronephrosis. [facility]
[2018-08-30 22:57] LABS: CALCIUM 8.6 mg/dL (8.5-10.3); CREATININE 0.8 mg/dL (0.4-1.0)
[2018-08-31] MEDS: SODIUM CHLORIDE 0.9% 1,000 ML IV SCH (02:32)
[2018-08-31] MEDS: SODIUM CHLORIDE FLUSH 0.9% 10 ML SYRINGE IVP SCH ×2 (05:49→08:36)
[2018-08-31 05:59] LABS: BASOPHILS % (AUTO) 0.9 %; EOSINOPHILS # (AUTO) 0.1 10^3/uL (0.0-0.7); EOSINOPHILS % (AUTO) 2.7 %; HGB - HEMOGLOBIN 10.5 g/dL (12.0-16.0); LYMPHOCYTES # (AUTO) 1.9 10^3/uL (1.5-3.5); LYMPHOCYTES % (AUTO) 39.6 %; MEAN CORPUSCULAR HEMOGLOBIN 31.8 pg (27.0-31.0); MEAN CORPUSCULAR HGB CONC 33.9 g/dL (32.0-36.0); MEAN CORPUSCULAR VOLUME 93.8 fL (81.0-99.0); MEAN PLATELET VOLUME 7.5 fL (7.9-10.8); MONOCYTES # (AUTO) 0.4 10^3/uL (0.0-1.0); MONOCYTES % (AUTO) 8.8 %; NEUTROPHILS # (AUTO) 2.3 10^3/uL (1.5-6.6); PLT - PLATELET COUNT 124 10^3/uL (130-450); RED BLOOD COUNT 3.29 10^6/uL (4.20-5.40); RED CELL DISTRIBUTION WIDTH 15.1 % (12.0-15.0); WHITE BLOOD COUNT 4.8 x10^3/uL (4.8-10.8)
[2018-08-31 06:15] LABS: CALCIUM 8.8 mg/dL (8.5-10.3); CREATININE 0.7 mg/dL (0.4-1.0); PHOSPHORUS 3.8 mg/dL (2.5-4.6)
[2018-08-31] MEDS: ASPIRIN CHEW 81 MG TABLET PO SCH (08:31)
[2018-08-31] MEDS: MULTIVITAMIN TABLET PO SCH (08:32)
[2018-08-31] MEDS: FELODIPINE ER 2.5 MG TABLET PO SCH (08:32)
[2018-08-31] MEDS: POLYETHYLENE GLYCOL 3350 17 GM PACKET PO SCH (08:34)
[2018-08-31] MEDS: FAMOTIDINE 20 MG TABLET PO SCH (08:34)
[2018-08-31] MEDS: ENOXAPARIN 40 MG/0.4 ML SYRINGE SUBQ SCH (08:34)
[2018-08-31] MEDS: POTASSIUM CHLORIDE 10 MEQ CAPSULE PO SCH (08:34)
[2018-08-31] MEDS: INSULIN ASPART 300 UNIT/3 ML PEN SUBQ SCH (08:35)
[2018-08-31] MEDS: CLOPIDOGREL 75 MG TABLET PO SCH (08:35)
[2018-08-31] MEDS: ATORVASTATIN 10 MG TABLET PO SCH (08:36)
[2018-08-31 08:41] VITALS: BP 152/58
[2018-08-31] MEDS: TIMOLOL 0.5% OPHTH DROPS EACHEYE SCH (08:41)
--- NOTE | 2018-08-31 11:08 | Discharge Plan ---
Discharge Plan Disposition: 01 Home, Self Care Condition: Poor Diet: Regular Activity Restrictions: Activity as Tolerated Shower Restrictions: No (fall precaution) Instruction Topics: Hyponatremia Dc Additional Instructions or Follow Up instructions: You may follow up your PCP in one week, recheck Sodium again. Advise you take normal salty food, not significant reduced salty diet. Should your symptoms return or worsen, you may present ER or call 911 for help. No Smoking: If you smoke, Please STOP! Call for help. Follow-up with: Cami Zambrano MD [Primary Care Provider] -
--- NOTE | 2018-08-31 11:11 | DISCHARGE SUMMARY ---
Discharge Summary Discharge Date: 08/31/18 Discharging Provider: PUENTE Primary Care Provider: Dr. Zambrano Condition at Discharge: Poor Discharge Disposition: 01 Home, Self Care Discharge Facility Name: home - DIAGNOSES Admission Diagnoses: (1) Hyponatremia (2) Altered mental status (3) Hypokalemia (4) Diabetes (5) Tobacco abuse (6) Hypertension (7) Hyperlipidemia Discharge Diagnoses with Status of Each Condition: (1) Hyponatremia resolved. Na is normal now. advise pt slightly increase salt intake. pt's state pt intentionly reduce salt intake in the home. Pt's CT of head, CT, ECHO, US of kidney are unremarkable. TSH, cortsol are unremarkable. pt report she had artificial breast shown in CT of chest. she report she had MM graph on last yrs, it was totally normal. she will have annually MM graph to monitor her breast. (2) Altered mental status resolved. pt is alert and oriented now (3) Hypokalemia resolved (4) Diabetes stable, continue home meds and slide scale (5) Tobacco abuse pt continue to use tobacco, and do not want to stop (6) Hypertension stable (7) Hyperlipidemia stable - HPI History of Present Illness: refer from Dr. Singletary's HPI for pt at 08/30/18 as the following: Patient is a very pleasant 83-year-old female with a past medical history significant for diabetes, hypertension, aortic stenosis status post TAVR in March 2018 and recurrent hyponatremia requiring hospitalizations who presents to the emergency department with a chief complaint of confusion. The history of confusion is given by the who states that just after midnight today the patient became confused. He states that she started saying to him that she could not turn the TV off when the TV was already off. She also started started calling objects by the wrong name. He states that these symptoms are very similar to the last 2 times she was hospitalized for a low sodium. The patient was most recently hospitalized for hyponatremia in March 2018 and the hyponatremia resolved with IV fluid. The patient was also on hydrochlorothiazide at that time which was stopped. The patient has been in her normal state of health un til this acute confusion tonight. The patient states that today she has been feeling shaky and noticed that she was confused. She also states that she has some leg cramping and feels nauseated. She however states that she has not vomited, she has not had any diarrhea and has not had a change in her appetite or in her eating or drinking habits. The patient does admit to feeling generalized weakness on presentation to the ER today. She also admits to continued smoking of about 4-5 cigarettes a day. Patient denies any headaches, blurred vision, runny nose, sore throat, nasal congestion, difficulty swallowing, chest pain, fevers, chills, cough, shortness of air, orthopnea, PND, increased lower extremity swelling, abdominal pain, urinary urgency, urinary frequency, dysuria, joint swelling, joint pain, muscle aches, back pain, neck stiffness, recent unintentional weight loss, hair loss, night sweats, skin changes, or any focal neurologic deficits. On presentation to the emergency department the patient was afebrile with a heart rate in the high 90s, hypertensive but not in any respiratory distress. The patient underwent routine lab work which again revealed that she was hyponatremic with a sodium of 120, hypochloremic with a chloride of 88 and hypokalemic with a potassium of 3.3. Of note the patient also had an elevated glucose of 184. The remainder of the patient's lab work was within normal limits. Her urine analysis was negative. The urine tox screen was negative. T he patient also underwent a CT of her head which revealed generalized age- related cortical atrophic changes without evidence of acute intracranial abnormality. The patient had a chest x-ray which revealed no acute process in the chest. The patient's symptoms were improving in the emergency department however given the sodium of 120 she was admitted to the hospital for hyponatremia and will be treated with IV fluids and worked up further. - HOSPITAL COURSE Hospital Course: pt was admitted for AMS and hyponatremia. after IVF of NS, pt is alert and oriented. Na become normal. all pt's tests are unremarkable. pt is advised appropriate increase salt intake. - ALLERGIES Allergies/Adverse Reactions: Allergies Allergy/AdvReac Type Severity Reaction Status Date / Time No Known Drug Allergies Allergy Verified 08/30/18 03:00 - MEDICATIONS Home Medications: Ambulatory Orders Medication Instructions Recorded Confirmed Ascorbic Acid [Vitamin C] 500 mg PO DAILY 09/07/16 08/30/18 Aspirin 81 mg PO DAILY 09/07/16 08/30/18 Calcium Carbonate [Calcium] 600 mg PO BID 09/07/16 08/30/18 Cholecalciferol (Vitamin D3) 1,000 unit PO DAILY 09/07/16 08/30/18 [Vitamin D3] Felodipine [Felodipine ER] 10 mg PO DAILY 09/07/16 08/30/18 Lisinopril 40 mg PO DAILY 09/07/16 08/30/18 Metformin HCl [Glucophage] 850 mg PO TIDWM 09/07/16 08/30/18 Multivitamin [Multiple Vitamins] 1 tab PO DAILY 09/07/16 08/30/18 Simvastatin 20 mg PO QPM 09/07/16 08/30/18 Timolol 0.5% Ophth Drops [Timoptic 1 drops EACHEYE BID 09/07/16 08/30/18 0.5% Ophth Drops] Glipizide 5 mg PO DAILY 04/08/18 08/30/18 Latanoprost 0.005% Ophth Drops 1 drops EACHEYE QPM 04/08/18 08/30/18 [Xalatan Ophth Drops] - PHYSICAL EXAM AT DISCHARGE General Appearance: positive: No acute distress, Alert. negative: Lethargic Eyes Bilateral: positive: Normal inspection, PERRL, No lid inflammation, Conjunctivae nml ENT: positive: ENT inspection nml, Pharynx nml, No signs of dehydration. ne gative: Purulent nasal drainage, Pharyngeal erythema, Oral lesions Neck: positive: Nml inspection, Thyroid nml, No JVD, Trachea midline. negative: Thyromegaly, Lymphadenopathy (R), Lymphadenopathy (L), Stiff neck, Swelling/bruising, Tracheal deviation Respiratory: positive: Chest non-tender, No respiratory distress, Breath sounds nml. negative: Wheezes, Rales, Rhonchi Cardiovascular: positive: Regular rate & rhythm, No murmur, No gallop. negative: Irregularly irregular, Extrasystoles, Tachycardia, Bradycardia Abdomen: positive: Non-tender, No organomegaly, Nml bowel sounds, No distention. negative: Tenderness, Guarding, Rebound Back: positive: Nml inspection. negative: CVA tenderness (R), CVA tenderness (L) Skin: positive: Color nml, No rash, Warm, Dry. negative: Cyanosis, Diaphoresis, Pallor Extremities: positive: Non-tender, Full ROM, Nml appearance. negative: Calf tenderness, Joint swelling, Brien's sign/cords Neurologic/Psychiatric: positive: Oriented x3, Motor nml, Sensation nml, Mood/affect nml. negative: Weakness, Sensory loss, Facial droop, Slurred/abnml speech, Depressed mood/affect - LABS Result Diagrams: 08/31/18 05:27 08/31/18 05:27 - FOLLOW UP Follow Up: You may follow up your PCP in one week, recheck Sodium again. Advise you take normal salty food, not significant reduced salty diet. Should your symptoms return or worsen, you may present ER or call 911 for help. - TIME SPENT Time Spent in Discharge (Minutes): 45
[2018-08-31] MEDS ORDERED: SODIUM CHLORIDE FLUSH 0.9% 10 ML SYRINGE ONE (14:05)
== END 2018-08-31 11:40 | disposition home or self-care (01) | DRG 641 ==
LOC: ED 02:51 → MS2 04:23
PROVIDERS: ADMIT Internal Medicine; ATTEND Nurse Practitioner Gerontology
DX: E87.1 Hypo-osmolality and hyponatremia (principal); R41.0 Disorientation, unspecified; E87.6 Hypokalemia; E78.00 Pure hypercholesterolemia, unspecified; E11.9 Type 2 diabetes mellitus without complications; E11.65 Type 2 diabetes mellitus with hyperglycemia; E78.5 Hyperlipidemia, unspecified; I10 Essential (primary) hypertension; F17.210 Nicotine dependence, cigarettes, uncomplicated; R32 Unspecified urinary incontinence; N63.0 Unspecified lump in unspecified breast; Z79.82 Long term (current) use of aspirin; Z79.899 Other long term (current) drug therapy; Z95.2 Presence of prosthetic heart valve; Z79.84 Long term (current) use of oral hypoglycemic drugs
CPT/HCPCS: 36415; 70450; 71046; 71260; 76770; 80048; 80053; 80306; 80307; 80320; 80329; 81001; 81003; 82533; 82550; 82570; 83036; 83605; 83690; 83735; 84100; 84133; 84156; 84295; 84300; 84443; 84484; 85025; 85610; 87086; 93005; 93306; 99284; 99285

== ENCOUNTER 2018-09-04 08:23 | Outpatient (CLI) | payer MEDICARE, OTHER ==
[2018-09-04 13:10] LABS: CALCIUM 9.3 mg/dL (8.5-10.3); CREATININE 0.7 mg/dL (0.4-1.0)
== END 2018-09-04 08:24 | disposition home or self-care (01) ==
LOC: LAB.WCP 08:23
PROVIDERS: ATTEND Physician Assistant
DX: E87.1 Hypo-osmolality and hyponatremia (principal)
CPT/HCPCS: 36415; 80048

== ENCOUNTER 2018-09-30 12:46 | Outpatient (CLI) | payer MEDICARE, OTHER | END 2018-09-30 12:47 | disposition home or self-care (01) | LOC: DI 12:46 | PROVIDERS: ATTEND Physician Assistant | DX: Z53.9 Procedure and treatment not carried out, unspecified reason (principal) ==

== ENCOUNTER 2018-10-14 08:00 | Outpatient (CLI) | payer MEDICARE, OTHER ==
[2018-10-14 13:38] LABS: CALCIUM 9.2 mg/dL (8.5-10.3); CREATININE 0.7 mg/dL (0.4-1.0)
== END 2018-10-14 23:59 | disposition home or self-care (01) ==
LOC: LAB.WCP 08:00
PROVIDERS: ATTEND Physician Assistant
DX: E87.1 Hypo-osmolality and hyponatremia (principal)
CPT/HCPCS: 36415; 80048

== ENCOUNTER 2019-01-19 08:00 | Outpatient (CLI) | payer MEDICARE, OTHER ==
[2019-01-19 12:42] LABS: BASOPHILS # (AUTO) 0.1 10^3/uL (0.0-0.1); BASOPHILS % (AUTO) 1.4 %; EOSINOPHILS # (AUTO) 0.2 10^3/uL (0.0-0.7); EOSINOPHILS % (AUTO) 2.7 %; HGB - HEMOGLOBIN 11.2 g/dL (12.0-16.0); LYMPHOCYTES # (AUTO) 2.1 10^3/uL (1.5-3.5); LYMPHOCYTES % (AUTO) 30.8 %; MEAN CORPUSCULAR HEMOGLOBIN 31.4 pg (27.0-31.0); MEAN CORPUSCULAR HGB CONC 34.2 g/dL (32.0-36.0); MEAN CORPUSCULAR VOLUME 91.9 fL (81.0-99.0); MEAN PLATELET VOLUME 8.1 fL (7.9-10.8); MONOCYTES # (AUTO) 0.4 10^3/uL (0.0-1.0); MONOCYTES % (AUTO) 6.2 %; NEUTROPHILS % (AUTO) 58.9 %; PLT - PLATELET COUNT 112 10^3/uL (130-450); RED BLOOD COUNT 3.55 10^6/uL (4.20-5.40); RED CELL DISTRIBUTION WIDTH 13.9 % (12.0-15.0); WHITE BLOOD COUNT 6.8 x10^3/uL (4.8-10.8)
[2019-01-19 13:04] LABS: ALBUMIN 3.7 g/dL (3.2-5.5); ALBUMIN/GLOBULIN RATIO 1.2 (1.0-2.2); ALKALINE PHOSPHATASE 49 IU/L (42-121); ALT ALANINE AMINOTRANSFERASE 16 IU/L (10-60); AST ASPARTATE AMINOTRANSFERASE 21 IU/L (10-42); BILIRUBIN,TOTAL 0.5 mg/dL (0.2-1.0); BUN - BLOOD UREA NITROGEN 14 mg/dL (6-20); CALCIUM 8.9 mg/dL (8.5-10.3); CARBON DIOXIDE - CO2 26 mmol/L (21-32); CHLORIDE 107 mmol/L (101-111); CHOL/HDL RATIO 2.3 (<4.4); CHOLESTEROL 146 mg/dL; CREATININE 0.7 mg/dL (0.4-1.0); GFR - MDRD 80 (>89); GLUCOSE 126 mg/dL (70-100); HDL CHOLESTEROL 63 mg/dL; LDL CHOLESTEROL,CALCULATED 58 mg/dL; LDL/HDL RATIO 0.9 (<4.4); SODIUM 142 mmol/L (135-145); TOTAL PROTEIN 6.9 g/dL (6.7-8.2); VLDL CHOLESTEROL 25 mg/dL
[2019-01-19 13:12] LABS: HB2 TOTAL 11.8 g/dL; HEMOGLOBIN A1C 0.69 g/dL; HEMOGLOBIN A1C % 7.5 % (4.6-6.2)
== END 2019-01-19 23:59 | disposition home or self-care (01) ==
LOC: LAB.WCP 08:00
PROVIDERS: ATTEND Family Medicine
DX: I10 Essential (primary) hypertension (principal); E78.5 Hyperlipidemia, unspecified; E11.9 Type 2 diabetes mellitus without complications; F32.9 Major depressive disorder, single episode, unspecified
CPT/HCPCS: 36415; 80053; 80061; 83036; 83721; 84443; 85025

== ENCOUNTER 2019-03-04 14:14 | Outpatient (CLI) | payer MEDICARE, OTHER ==
--- NOTE | 2019-03-04 15:06 | Mammography Report ---
Reason: SCREENING MAMMO Procedure Date: 03/04/2019 Accession Number: [id number] / [id number] Procedure: MGN - Screening Mammo Dig w/Implants CPT Code: FULL RESULT: EXAM: Screening Mammo Dig w/Implants DATE: 03/04/2019 2:33 PM CLINICAL HISTORY: Screening examination. History of bilateral prepectoral breast implants, silicone type in 1967. TECHNIQUE: (B) - Bilateral CC and MLO views were obtained. COMPARISON: 01/15/2018 through 10/16/2010. PARENCHYMAL PATTERN: (A) - The breast(s) demonstrate(s) scattered fibroglandular densities. FINDINGS: Bilaterally ruptured silicone implants with silicone granulomas are redemonstrated, unchanged in appearance, overall stable. There are no suspicious masses, calcifications, or areas of distortion. IMPRESSION: Benign findings. BI-RADS category 2. RECOMMENDATION: (ANNUAL) - Recommend routine annual screening mammography. BI-RADS CATEGORY: (2) - Benign Findings. STANDARD QUALIFYING STATEMENTS: 1. This examination was not reviewed with the aid of Computer-Aided Detection (CAD). 2. A negative or benign imaging report should not preclude biopsy if clinically suspicious findings are present. 3. Dense breasts may obscure an underlying neoplasm. 4. This examination was reviewed without the aid of 3D breast imaging (tomosynthesis).
== END 2019-03-04 14:15 | disposition home or self-care (01) ==
LOC: DI.N 14:14
DX: Z12.31 Encounter for screening mammogram for malignant neoplasm of breast (principal); Z98.82 Breast implant status
CPT/HCPCS: 77067

== ENCOUNTER 2019-04-26 08:41 | Outpatient (CLI) | payer MEDICARE, OTHER ==
[2019-04-26 15:51] LABS: ALBUMIN 3.9 g/dL (3.2-5.5); ALBUMIN/GLOBULIN RATIO 1.2 (1.0-2.2); ALKALINE PHOSPHATASE 58 IU/L (42-121); ALT ALANINE AMINOTRANSFERASE 16 IU/L (10-60); AST ASPARTATE AMINOTRANSFERASE 17 IU/L (10-42); BILIRUBIN,TOTAL 0.6 mg/dL (0.2-1.0); BUN - BLOOD UREA NITROGEN 12 mg/dL (6-20); CALCIUM 9.3 mg/dL (8.5-10.3); CARBON DIOXIDE - CO2 26 mmol/L (21-32); CHLORIDE 104 mmol/L (101-111); CHOL/HDL RATIO 2.7 (<4.4); CHOLESTEROL 144 mg/dL; CREATININE 0.7 mg/dL (0.4-1.0); GFR - MDRD 80 (>89); GLUCOSE 171 mg/dL (70-100); HDL CHOLESTEROL 54 mg/dL; LDL CHOLESTEROL,CALCULATED 52 mg/dL; SODIUM 141 mmol/L (135-145); TOTAL PROTEIN 7.1 g/dL (6.7-8.2); VLDL CHOLESTEROL 38 mg/dL
[2019-04-26 16:03] LABS: BASOPHILS # (AUTO) 0.1 10^3/uL (0.0-0.1); BASOPHILS % (AUTO) 1.2 %; EOSINOPHILS # (AUTO) 0.2 10^3/uL (0.0-0.7); EOSINOPHILS % (AUTO) 3.4 %; HGB - HEMOGLOBIN 11.5 g/dL (12.0-16.0); LYMPHOCYTES # (AUTO) 1.9 10^3/uL (1.5-3.5); LYMPHOCYTES % (AUTO) 28.6 %; MEAN CORPUSCULAR HEMOGLOBIN 30.9 pg (27.0-31.0); MEAN CORPUSCULAR HGB CONC 32.9 g/dL (32.0-36.0); MEAN CORPUSCULAR VOLUME 93.9 fL (81.0-99.0); MEAN PLATELET VOLUME 8.4 fL (7.9-10.8); MONOCYTES # (AUTO) 0.4 10^3/uL (0.0-1.0); MONOCYTES % (AUTO) 5.5 %; NEUTROPHILS # (AUTO) 4.1 10^3/uL (1.5-6.6); NEUTROPHILS % (AUTO) 61.3 %; PLT - PLATELET COUNT 128 10^3/uL (130-450); RED BLOOD COUNT 3.72 10^6/uL (4.20-5.40); RED CELL DISTRIBUTION WIDTH 13.6 % (12.0-15.0); WHITE BLOOD COUNT 6.7 x10^3/uL (4.8-10.8)
[2019-04-26 16:33] LABS: CREATININE,URINE 126.6 mg/dL; MICROALBUM/CREATININE RATIO,UR 1189.6 ug/mg (<30.0); MICROALBUMIN,URINE 150.6 mg/dL (0-300.0)
[2019-04-26 16:42] LABS: HB2 TOTAL 11.5 g/dL; HEMOGLOBIN A1C 0.63 g/dL; HEMOGLOBIN A1C % 7.2 % (4.6-6.2)
== END 2019-04-26 08:42 | disposition home or self-care (01) ==
LOC: LAB.WCP 08:41
PROVIDERS: ATTEND Family Medicine
DX: E87.1 Hypo-osmolality and hyponatremia (principal); E11.9 Type 2 diabetes mellitus without complications; E78.5 Hyperlipidemia, unspecified; I10 Essential (primary) hypertension
CPT/HCPCS: 36415; 80053; 80061; 82043; 82570; 83036; 83721; 85025

== ENCOUNTER 2019-07-09 09:00 | Outpatient (CLI) | payer MEDICARE, OTHER ==
[2019-07-09 11:58] LABS: BASOPHILS # (AUTO) 0.1 10^3/uL (0.0-0.1); BASOPHILS % (AUTO) 0.7 %; EOSINOPHILS # (AUTO) 0.2 10^3/uL (0.0-0.7); EOSINOPHILS % (AUTO) 3.5 %; HGB - HEMOGLOBIN 11.3 g/dL (12.0-16.0); LYMPHOCYTES # (AUTO) 2.2 10^3/uL (1.5-3.5); LYMPHOCYTES % (AUTO) 31.2 %; MEAN CORPUSCULAR HEMOGLOBIN 30.8 pg (27.0-31.0); MEAN CORPUSCULAR VOLUME 96.2 fL (81.0-99.0); MEAN PLATELET VOLUME 10.2 fL (7.9-10.8); MONOCYTES # (AUTO) 0.4 10^3/uL (0.0-1.0); MONOCYTES % (AUTO) 5.3 %; NEUTROPHILS # (AUTO) 4.1 10^3/uL (1.5-6.6); NEUTROPHILS % (AUTO) 59.2 %; PLT - PLATELET COUNT 126 10^3/uL (130-450); RED BLOOD COUNT 3.67 10^6/uL (4.20-5.40); RED CELL DISTRIBUTION WIDTH 12.5 % (12.0-15.0)
[2019-07-09 12:40] LABS: ALBUMIN 3.8 g/dL (3.2-5.5); ALBUMIN/GLOBULIN RATIO 1.1 (1.0-2.2); ALKALINE PHOSPHATASE 48 IU/L (42-121); ALT ALANINE AMINOTRANSFERASE 13 IU/L (10-60); AST ASPARTATE AMINOTRANSFERASE 15 IU/L (10-42); BILIRUBIN,TOTAL 0.5 mg/dL (0.2-1.0); BUN - BLOOD UREA NITROGEN 17 mg/dL (6-20); CALCIUM 9.1 mg/dL (8.5-10.3); CARBON DIOXIDE - CO2 29 mmol/L (21-32); CHLORIDE 105 mmol/L (101-111); CHOL/HDL RATIO 2.9 (<4.4); CHOLESTEROL 170 mg/dL; CREATININE 0.8 mg/dL (0.4-1.0); GFR - MDRD 69 (>89); GLUCOSE 198 mg/dL (70-100); HDL CHOLESTEROL 59 mg/dL; LDL CHOLESTEROL,CALCULATED 68 mg/dL; LDL/HDL RATIO 1.2 (<4.4); SODIUM 141 mmol/L (135-145); TOTAL PROTEIN 7.2 g/dL (6.7-8.2); VLDL CHOLESTEROL 43 mg/dL
[2019-07-09 13:36] LABS: HB2 TOTAL 11.7 g/dL; HEMOGLOBIN A1C 0.73 g/dL; HEMOGLOBIN A1C % 7.9 % (4.6-6.2)
== END 2019-07-09 23:59 | disposition home or self-care (01) ==
LOC: LAB.WCP 09:00
PROVIDERS: ATTEND Family Medicine
DX: I10 Essential (primary) hypertension (principal); E11.9 Type 2 diabetes mellitus without complications; E78.5 Hyperlipidemia, unspecified; F32.9 Major depressive disorder, single episode, unspecified
CPT/HCPCS: 36415; 80053; 80061; 83036; 83721; 84443; 85025

== ENCOUNTER 2019-10-12 08:00 | Outpatient (CLI) | payer MEDICARE, OTHER ==
[2019-10-12 13:32] LABS: ALBUMIN/GLOBULIN RATIO 1.3 (1.0-2.2); BILIRUBIN,TOTAL 0.5 mg/dL (0.2-1.0); CALCIUM 9.2 mg/dL (8.5-10.3); CREATININE 0.8 mg/dL (0.4-1.0)
[2019-10-12 13:41] LABS: HB2 TOTAL 10.6 g/dL; HEMOGLOBIN A1C 0.53 g/dL; HEMOGLOBIN A1C % 6.7 % (4.6-6.2)
[2019-10-12 15:52] LABS: CREATININE,URINE 187.6 mg/dL; MICROALBUM/CREATININE RATIO,UR 11.2 ug/mg (<30.0); MICROALBUMIN,URINE 2.1 mg/dL (0-300.0)
== END 2019-10-12 23:59 | disposition home or self-care (01) ==
LOC: LAB.WCP 08:00
PROVIDERS: ATTEND Family Medicine
DX: E11.9 Type 2 diabetes mellitus without complications (principal); I10 Essential (primary) hypertension; F17.210 Nicotine dependence, cigarettes, uncomplicated
CPT/HCPCS: 36415; 80053; 82043; 82570; 83036

== ENCOUNTER 2020-04-07 10:07 | Emergency (ER) | payer MEDICARE, OTHER ==
[2020-04-07] MEDS ORDERED: CHERRY SYRUP 10 ML UDC PO ONE (10:41)
[2020-04-07] MEDS ORDERED: DEXAMETHASONE 10 MG/ML VIAL PO STA (10:41)
[2020-04-07] MEDS ORDERED: KETOROLAC 30 MG/ML VIAL IM STA (10:41)
--- NOTE | 2020-04-07 10:44 | ED Physician Documentation ---
PD HPI BACK PAIN - Stated complaint Stated Complaint: LEFT HIP/LEG PX - Chief complaint Chief Complaint: Ext Problem - History obtained from History obtained from: Patient - History of Present Illness Timing - onset: How many days ago (22) Timing - duration: Days Timing - details: Gradual onset, Still present Location: Lower, Left Quality: Pain, Spasm, Sharp Associated symptoms: No: Fever, Weakness, Numbness, Incontinent of urine, Unable to urinate, Hematuria, Incontinent of stool Improves with: Rest, Position Worsened by: Movement Similar symptoms before: Has not had sx before Recently seen: Not recently seen - Additional information Additional information: Previously well 85-year-old female was doing well she is finished all of her physical therapy after her cardiac procedure and she was at the store on Friday with no pain doing well came home put groceries away and later in the evening she began to develop pain radiating from her left hip down to her knee. She does not have any difficulty with bearing weight or movement of the joints but has pain there that is persisted and worsened. She has pain extending up into her back. She has not had this happen to her previously. She denies any urinary or bowel symptoms she denies any saddle anesthesia and has good distal strength. She has not had fever. Review of Systems Constitutional: denies: Fever Eyes: denies: Decreased vision Ears: denies: Ear pain Nose: denies: Congestion Throat: denies: Sore throat Cardiac: denies: Chest pain / pressure, Palpitations Respiratory: denies: Dyspnea GI: denies: Abdominal Pain, Nausea, Vomiting : denies: Dysuria, Frequency Skin: denies: Rash Musculoskeletal: reports: Back pain, Extremity pain. 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 Cardiovascular: Valve replacement HEENT: Cataracts - Present Medications Home Medications: Ambulatory Orders Medication Instructions Recorded Confirmed Ascorbic Acid [Vitamin C] 500 mg PO DAILY 09/07/16 08/30/18 Aspirin 81 mg PO DAILY 09/07/16 08/30/18 Calcium Carbonate [Calcium] 600 mg PO BID 09/07/16 08/30/18 Cholecalciferol (Vitamin D3) 1,000 unit PO DAILY 09/07/16 08/30/18 [Vitamin D3] Felodipine [Felodipine ER] 10 mg PO DAILY 09/07/16 08/30/18 Metformin HCl [Glucophage] 850 mg PO TIDWM 09/07/16 08/30/18 Multivitamin [Multiple Vitamins] 1 tab PO DAILY 09/07/16 08/30/18 Simvastatin 20 mg PO QPM 09/07/16 08/30/18 Timolol 0.5% Ophth Drops [Timoptic 1 drops EACHEYE BID 09/07/16 08/30/18 0.5% Ophth Drops] lisinopriL [Lisinopril] 40 mg PO DAILY 09/07/16 08/30/18 Glipizide 5 mg PO DAILY 04/08/18 08/30/18 Latanoprost 0.005% Ophth Drops 1 drops EACHEYE QPM 04/08/18 08/30/18 [Xalatan Ophth Drops] traMADol [Ultram] 50 - 100 mg PO Q6H PRN #20 tablet 04/07/20 - Allergies Allergies/Adverse Reactions: Allergies Allergy/AdvReac Type Severity Reaction Status Date / Time No Known Drug Allergies Allergy Verified 08/30/18 03:00 - Social History Does the pt smoke?: No Smoking Status: Never smoker Does the pt drink ETOH?: No Does the pt have substance abuse?: No - Immunizations Immunizations are current?: Yes - POLST Patient has POLST: No POLST Status: Full Code PD ED PE NORMAL - Vitals Vital signs reviewed: Yes (Hypertensive) - General General: Alert and oriented X 3, No acute distress, Well developed/nourished - HEENT HEENT: Atraumatic, PERRL, EOMI - Respiratory Respiratory: No respiratory distress - Back Back: No CVA TTP, No spinal TTP, Other - Derm Derm: Normal color, Warm and dry, No rash - Extremities Extremities: No deformity, No tenderness to palpate, Normal ROM s pain, No edema, No calf tenderness / cord, Other (There is no tenderness or abnormality to the joints of the knee or the hip and distal neurovascular components are intact.) - Neuro Neuro: Alert and oriented X 3, 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 She is wondering if she could get something stronger for pain. She states that usually Tylenol has been effective for her pains but it is not effective today. She is administered dexamethasone 10 mg orally and 30 mg of Toradol intramuscular. We will give her a short course of tramadol to add to her Tylenol. Departure - Departure Disposition: 01 Home, Self Care Clinical Impression: Sciatica Qualifiers: Laterality: left Qualified Code(s): M54.32 - Sciatica, left side Condition: Stable Instructions: ED Sciatica Follow-Up: Montez Stanford MD [Primary Care Provider] - Prescriptions: traMADol [Ultram] 50 - 100 mg PO Q6H PRN #20 tablet PRN Reason: Pain
[2020-04-07 10:56] VITALS: BP 184/81
== END 2020-04-07 11:15 | disposition home or self-care (01) ==
LOC: ED 10:07
DX: M54.32 Sciatica, left side (principal); I10 Essential (primary) hypertension; E11.9 Type 2 diabetes mellitus without complications; Z79.84 Long term (current) use of oral hypoglycemic drugs; Z79.82 Long term (current) use of aspirin
CPT/HCPCS: 96372; 99283; 99284; A9270

== ENCOUNTER 2020-04-12 08:27 | Outpatient (CLI) | payer MEDICARE, OTHER ==
--- NOTE | 2020-04-12 12:37 | XRAY Report ---
Reason: LEFT SCIATICA Procedure Date: 04/12/2020 Accession Number: [id number] / [id number] Procedure: WCP - Lumbar Spine 2 View CPT Code: Final Report FULL RESULT: PROCEDURE: Lumbar Spine 2 View INDICATIONS: LEFT SCIATICA TECHNIQUE: 3 views of the lumbar spine were acquired. COMPARISON: None. FINDINGS: Bones: 5 [id number] vertebrae are present. There is straightening of normal lumbar lordosis. Degenerative endplate changes are noted throughout visualized lower thoracic spine and lumbar spine most prominent at L2-3 level. Chronic appearing very mild anterior wedge compression deformity at L1 level is seen with up to 10% loss of L1 vertebral body height anteriorly. Minimal retrolisthesis at L3-4, L4-5 and L5-S1 levels are seen.. No suspicious bony lesions. Soft tissues: Overlying bowel gas pattern is normal. No suspicious soft tissue calcifications. IMPRESSION: 1. Degenerative disc disease throughout lower thoracic and lumbar spine. Minimal retrolisthesis at L3-4 through L5-S1 levels. No gross acute lumbar spine compression fracture. Very mild chronic appearing anterior wedge compression deformity at L1 level. Reviewed by: Damon Zapata MD on 04/12/2020 12:36 PM PDT Approved by: Damon Zapata MD on 04/12/2020 12:36 PM PDT Station ID: [id number]
--- NOTE | 2020-04-12 12:38 | XRAY Report ---
Reason: LEFT HIP PAIN Procedure Date: 04/12/2020 Accession Number: [id number] / [id number] Procedure: WCP - Hip 1 View LT CPT Code: Final Report FULL RESULT: PROCEDURE: Hip 1 View LT INDICATIONS: LEFT HIP PAIN TECHNIQUE: 2 views of the hip were acquired. COMPARISON: None FINDINGS: Bones: Symmetric-appearing moderate bilateral hip joint osteoarthritic changes are seen. No evidence of avascular necrosis of femoral head No fractures or dislocations. No suspicious bony lesions. The visualized pelvic ring appears intact. Soft tissues: No suspicious soft tissue calcifications or masses. 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 No left hip fracture or dislocation. No evidence of avascular necrosis. Reviewed by: Damon Zapata MD on 04/12/2020 12:37 PM PDT Approved by: Damon Zapata MD on 04/12/2020 12:37 PM PDT Station ID: [id number]
== END 2020-04-12 23:59 | disposition home or self-care (01) ==
LOC: DI.WCP 08:27
PROVIDERS: ATTEND Family Medicine
DX: M51.34 Other intervertebral disc degeneration, thoracic region (principal); M51.35 Other intervertebral disc degeneration, thoracolumbar region; M51.36 Other intervertebral disc degeneration, lumbar region; M43.8X6 Other specified deforming dorsopathies, lumbar region; M43.16 Spondylolisthesis, lumbar region; M43.17 Spondylolisthesis, lumbosacral region; M16.0 Bilateral primary osteoarthritis of hip
CPT/HCPCS: 72100

== ENCOUNTER 2020-05-02 08:15 | Outpatient (CLI) | payer MEDICARE, OTHER ==
[2020-05-02 12:27] LABS: CALCIUM 9.1 mg/dL (8.5-10.3); CREATININE 0.8 mg/dL (0.4-1.0)
[2020-05-02 12:28] LABS: HB2 TOTAL 10.9 g/dL; HEMOGLOBIN A1C 0.64 g/dL; HEMOGLOBIN A1C % 7.5 % (4.6-6.2)
[2020-05-02 12:48] LABS: CREATININE,URINE 92.9 mg/dL; MICROALBUM/CREATININE RATIO,UR 342.3 ug/mg (<30.0); MICROALBUMIN,URINE 31.8 mg/dL (0-300.0)
== END 2020-05-02 23:59 | disposition home or self-care (01) ==
LOC: LAB.WCP 08:15
PROVIDERS: ATTEND Family Medicine
DX: E11.9 Type 2 diabetes mellitus without complications (principal); E78.5 Hyperlipidemia, unspecified; I10 Essential (primary) hypertension
CPT/HCPCS: 36415; 80048; 82043; 82570; 83036

== ENCOUNTER 2020-07-05 12:18 | Outpatient (CLI) | payer MEDICARE, OTHER ==
--- NOTE | 2020-07-11 09:43 | Mammography Report ---
BILATERAL DIGITAL SCREENING MAMMOGRAM 3D/2D: 07/05/2020 CLINICAL: Silicone injections. Routine screening. Comparison is made to exams dated: 07/05/2020 mammogram, 03/04/2019 mammogram, 01/15/2018 mammogram, 10/2012 mammogram, 10/17/2011 mammogram, and 10/16/2010 mammogram - [facility]. Ther e are scattered fibroglandular elements in both breasts. Bilateral breast silicone injection sites appear stable. There are benign calcifications in both raina asts. No new suspicious masses, calcifications, or other findings are seen in either breast. There has been no significant interval change. IMPRESSION: BENIGN There is no mammographic evidence of malignancy. A 1 year screening mammogram is recommended. This exam was interpreted at Station ID: [id number]. NOTE: For mammograms, a report in lay terms will be sent to the patient. Approximately 15% of breast malignancies will not be visualized mammographically. In the management of a palpable breast mass, a negative mammogram must not discourage biopsy of a clinically suspicious lesion. Electronically Signed By: Tolu Mclain M.D. ddp/:07/10/2020 08:20:29 ACR BI-RADS Category 2: Benign Finding(s) 3342F PARENCHYMAL PATTERN: (A) - The breast(s) demonstrate(s) scattered fibroglandular densities. BI-RADS CATEGORY: (2) - 2 RECOMMENDATION: (ANNUAL) - Recommend routine annual screening mammography. [id number] 1 year screening LATERALITY: (B)
== END 2020-07-05 12:19 | disposition home or self-care (01) ==
LOC: DI 12:18
DX: Z12.31 Encounter for screening mammogram for malignant neoplasm of breast (principal)
CPT/HCPCS: 77063; 77067

== ENCOUNTER 2021-01-19 08:03 | Outpatient (CLI) | payer MEDICARE, OTHER ==
[2021-01-19 13:22] LABS: BASOPHILS # (AUTO) 0.1 10^3/uL (0.0-0.1); BASOPHILS % (AUTO) 0.6 %; EOSINOPHILS # (AUTO) 0.2 10^3/uL (0.0-0.7); EOSINOPHILS % (AUTO) 2.1 %; HCT - HEMATOCRIT 34.6 % (37.0-47.0); HGB - HEMOGLOBIN 10.8 g/dL (12.0-16.0); LYMPHOCYTES # (AUTO) 2.2 10^3/uL (1.5-3.5); LYMPHOCYTES % (AUTO) 27.5 %; MEAN CORPUSCULAR HEMOGLOBIN 31.3 pg (27.0-31.0); MEAN CORPUSCULAR HGB CONC 31.2 g/dL (32.0-36.0); MEAN CORPUSCULAR VOLUME 100.3 fL (81.0-99.0); MEAN PLATELET VOLUME 9.6 fL (7.9-10.8); MONOCYTES # (AUTO) 0.5 10^3/uL (0.0-1.0); MONOCYTES % (AUTO) 6.3 %; NEUTROPHILS % (AUTO) 63.2 %; PLT - PLATELET COUNT 148 10^3/uL (130-450); RED BLOOD COUNT 3.45 10^6/uL (4.20-5.40); RED CELL DISTRIBUTION WIDTH 13.3 % (12.0-15.0); WHITE BLOOD COUNT 7.9 x10^3/uL (4.8-10.8)
[2021-01-19 14:00] LABS: THYROID STIMULATING HORMONE 1.64 uIU/mL (0.34-5.60)
[2021-01-19 14:11] LABS: ALBUMIN/GLOBULIN RATIO 1.2 (1.0-2.2); ALKALINE PHOSPHATASE 44 IU/L (42-121); ALT ALANINE AMINOTRANSFERASE 17 IU/L (10-60); AST ASPARTATE AMINOTRANSFERASE 19 IU/L (10-42); BILIRUBIN,TOTAL 0.4 mg/dL (0.2-1.0); BUN - BLOOD UREA NITROGEN 17 mg/dL (6-20); CALCIUM 9.5 mg/dL (8.5-10.3); CARBON DIOXIDE - CO2 24 mmol/L (21-32); CHLORIDE 108 mmol/L (101-111); CHOL/HDL RATIO 2.9 (<4.4); CHOLESTEROL 149 mg/dL; CREATININE 0.9 mg/dL (0.4-1.0); GFR - MDRD 60 (>89); GLUCOSE 108 mg/dL (70-100); HDL CHOLESTEROL 52 mg/dL; LDL CHOLESTEROL,CALCULATED 43 mg/dL; LDL/HDL RATIO 0.8 (<4.4); POTASSIUM 4.1 mmol/L (3.5-5.0); SODIUM 140 mmol/L (135-145); TOTAL PROTEIN 7.4 g/dL (6.7-8.2); TRIGLYCERIDES 272 mg/dL; VLDL CHOLESTEROL 54 mg/dL
[2021-01-19 14:59] LABS: ESTIMATED AVERAGE GLUCOSE 137 mg/dL (70-100); HEMOGLOBIN A1c% 6.4 % (4.27-6.07)
== END 2021-01-19 23:59 | disposition home or self-care (01) ==
LOC: LAB.WCP 08:03
PROVIDERS: ATTEND Nurse Practitioner Family
DX: E87.1 Hypo-osmolality and hyponatremia (principal); E11.9 Type 2 diabetes mellitus without complications; E78.5 Hyperlipidemia, unspecified; I10 Essential (primary) hypertension
CPT/HCPCS: 36415; 80053; 80061; 83036; 83721; 84443; 85025

== ENCOUNTER 2021-07-19 13:02 | Outpatient (CLI) | payer MEDICARE, OTHER ==
--- NOTE | 2021-07-20 10:34 | Mammography Report ---
BILATERAL DIGITAL SCREENING MAMMOGRAM 3D/2D WITH AUGMENTATION: 07/19/2021 CLINICAL: Routine screening. Comparison is made to exams dated: 07/05/2020 mammogram, 03/04/2019 mammogram, 01/15/2018 mammogram, 10/2012 mammogram, 10/17/2011 mammogram, and 10/16/2010 mammogram - [facility]. The tissue of both breasts is extremely dense, which lowers the sensitivity of mammography. Bilateral silicone injection sites are present with lobulated contours which appear similar to prior studies. There are associated extensive benign dystrophic calcifications in both breasts. No significant masses, calcifications, or other findings are seen in either breast. There has been no significant interval change. IMPRESSION: BENIGN There is no mammographic evidence of malignancy. A 1 year screening mammogram is recommended. This exam was interpreted at Station ID: [id number]. NOTE: For mammograms, a report in lay terms will be sent to the patient. Approximately 15% of breast malignancies will not be visualized mammographically. In the management of a palpable breast mass, a negative mammogram must not discourage biopsy of a clinically suspicious lesion. Electronically Signed By: Tolu Mclain M.D. ddp/:07/19/2021 14:20:19 ACR BI-RADS Category 2: Benign Finding(s) 3342F PARENCHYMAL PATTERN: (VD) - The breast(s) demonstrate(s) extremely dense parenchyma, limiting the sen sitivity of mammography. BI-RADS CATEGORY: (2) - 2 RECOMMENDATION: (ANNUAL) - Recommend routine annual screening mammography. [id number] 1 year screening LATERALITY: (B)
== END 2021-07-19 13:03 | disposition home or self-care (01) ==
LOC: DI.N 13:02
DX: Z12.31 Encounter for screening mammogram for malignant neoplasm of breast (principal); Z98.82 Breast implant status

== ENCOUNTER → 2021-07-23 | Outpatient (CLI) | payer MEDICARE, OTHER ==
[2021-07-23 12:09] LABS: ALBUMIN 3.8 g/dL (3.2-5.5); ALBUMIN/GLOBULIN RATIO 1.2 (1.0-2.2); ALKALINE PHOSPHATASE 52 IU/L (42-121); ALT ALANINE AMINOTRANSFERASE 14 IU/L (10-60); AST ASPARTATE AMINOTRANSFERASE 17 IU/L (10-42); BILIRUBIN,TOTAL 0.6 mg/dL (0.2-1.0); BUN - BLOOD UREA NITROGEN 17 mg/dL (6-20); CALCIUM 9.3 mg/dL (8.5-10.3); CARBON DIOXIDE - CO2 27 mmol/L (21-32); CHLORIDE 106 mmol/L (101-111); CHOL/HDL RATIO 3.3 (<4.4); CHOLESTEROL 160 mg/dL; CREATININE 0.9 mg/dL (0.4-1.0); GFR - MDRD 60 (>89); GLUCOSE 175 mg/dL (70-100); HDL CHOLESTEROL 48 mg/dL; LDL CHOLESTEROL,CALCULATED 71 mg/dL; LDL/HDL RATIO 1.5 (<4.4); POTASSIUM 4.5 mmol/L (3.5-5.0); SODIUM 143 mmol/L (135-145); TOTAL PROTEIN 6.9 g/dL (6.7-8.2); TRIGLYCERIDES 203 mg/dL; VLDL CHOLESTEROL 41 mg/dL
[2021-07-23 12:12] LABS: CREATININE,URINE 192.1 mg/dL; MICROALBUM/CREATININE RATIO,UR 333.2 ug/mg (<30.0)
[2021-07-23 12:16] LABS: ESTIMATED AVERAGE GLUCOSE 146 mg/dL (70-100); HEMOGLOBIN A1c% 6.7 % (4.27-6.07)
== END ==
LOC: LAB.WCP 08:39
PROVIDERS: ATTEND Internal Medicine
DX: E11.29 Type 2 diabetes mellitus with other diabetic kidney complication (principal)
CPT/HCPCS: 36415; 80053; 80061; 82043; 82570; 83036; 83721

== ENCOUNTER 2021-11-20 08:00 | Outpatient (CLI) | payer MEDICARE, OTHER ==
[2021-11-20 12:33] LABS: BUN - BLOOD UREA NITROGEN 18 mg/dL (6-20); CARBON DIOXIDE - CO2 28 mmol/L (21-32); CHLORIDE 105 mmol/L (101-111); CHOL/HDL RATIO 2.9 (<4.4); CHOLESTEROL 145 mg/dL; CREATININE 0.8 mg/dL (0.4-1.0); GFR - MDRD 68 (>89); GLUCOSE 98 mg/dL (70-100); HDL CHOLESTEROL 50 mg/dL; LDL CHOLESTEROL,CALCULATED 63 mg/dL; LDL/HDL RATIO 1.3 (<4.4); POTASSIUM 4.1 mmol/L (3.5-5.0); SODIUM 141 mmol/L (135-145); TRIGLYCERIDES 161 mg/dL; VLDL CHOLESTEROL 32 mg/dL
[2021-11-20 12:37] LABS: ESTIMATED AVERAGE GLUCOSE 128 mg/dL (70-100); HEMOGLOBIN A1c% 6.1 % (4.27-6.07)
[2021-11-20 13:13] LABS: CREATININE,URINE 57.9 mg/dL; MICROALBUM/CREATININE RATIO,UR 447.3 ug/mg (<30.0); MICROALBUMIN,URINE 25.9 mg/dL (0-300.0)
== END 2021-11-20 23:59 ==
LOC: LAB.WCP 08:00
PROVIDERS: ATTEND Internal Medicine
DX: E11.29 Type 2 diabetes mellitus with other diabetic kidney complication (principal)
CPT/HCPCS: 36415; 80048; 80061; 82043; 82570; 83036; 83721

== ENCOUNTER 2021-12-03 09:57 | Outpatient (CLI) | payer MEDICARE, OTHER ==
--- NOTE | 2021-12-03 16:18 | MRI Report ---
PROCEDURE: Lumbar Spine W/O INDICATIONS: LUMBAR SPINAL STENOSIS TECHNIQUE: Noncontrast sagittal T1 spin echo and T2 fast echo, sagittal STIR, axial T1 and T2 fast spin echo thr ough the lumbar spine. In cases with scoliosis, additional coronal T2 fast spin echo may be performe d. COMPARISON: None. FINDINGS: Image quality: Excellent. Alignment and Curvature: There is normal bony alignment. Bone Marrow: Marrow is of normal overall signal. No acute vertebral body compression fractures. Spinal Cord: Conus medullaris terminates at the L1 level. Visualized cord demonstrates normal signa l and size. Paraspinous Soft Tissues: No paravertebral masses. Common bile duct is upper limits of normal at 8 mm it. The left renal cortical cyst measures 3.5 cm. No hydronephrosis. T12-L1: Normal in appearance. L1-L2: Disc space narrowing and circumferential disc bulge results in mild central stenosis. Moder ate right and mild left foraminal stenosis associated with hypertrophic facet joints. L2-L3: Hypertrophic facet joints and circumferential disc bulge with hypertrophic facet joints to result in moderate central stenosis. Moderate bilateral foraminal stenosis present. L3-L4: Disc space narrowing and circumferential disc bulge combines with hypertrophic facet joints and dorsal epidural fat result in severe central stenosis. There is severe left and moderate right fo raminal stenosis L4-L5: Circumferential disc bulge and degenerative facet joints combines with dorsal epidural fat r esult in severe central stenosis. There is severe left and moderate right foraminal stenosis L5-S1: Disc space narrowing, circumferential disc bulge and hypertrophic facet joints combine to re sult in moderate central stenosis and there is severe bilateral foraminal stenosis as well greater on the right. IMPRESSION: 1. Multilevel degenerative disc disease and arthropathy results in varying degrees of central and for aminal stenosis including severe central stenosis at L3-4 and L4-5 as well as severe foraminal stenos is at L3-4, L4-5 and L5-S1 Reviewed by: Placido Noguera MD on 12/03/2021 3:16 PM [place] Approved by: Placido Noguera MD on 12/03/2021 3:16 PM AKST Station ID: [id number]
== END 2021-12-03 09:58 | disposition home or self-care (01) ==
LOC: DI 09:57
PROVIDERS: ATTEND Physical Medicine & Rehabilitation
DX: M47.816 Spondylosis without myelopathy or radiculopathy, lumbar region (principal); M48.062 Spinal stenosis, lumbar region with neurogenic claudication; M47.817 Spondylosis without myelopathy or radiculopathy, lumbosacral region; M48.07 Spinal stenosis, lumbosacral region; M51.36 Other intervertebral disc degeneration, lumbar region; M51.37 Other intervertebral disc degeneration, lumbosacral region

== ENCOUNTER 2022-03-26 08:12 | Outpatient (CLI) | payer MEDICARE, OTHER ==
[2022-03-26 12:27] LABS: ESTIMATED AVERAGE GLUCOSE 160 mg/dL (70-100); HEMOGLOBIN A1c% 7.2 % (4.27-6.07)
[2022-03-26 12:49] LABS: CALCIUM 9.9 mg/dL (8.5-10.3); CREATININE 1.1 mg/dL (0.4-1.0); POTASSIUM 4.4 mmol/L (3.5-5.0)
== END 2022-03-26 08:13 | disposition home or self-care (01) ==
LOC: LAB.N 08:12
PROVIDERS: ATTEND Internal Medicine
DX: E11.29 Type 2 diabetes mellitus with other diabetic kidney complication (principal)
CPT/HCPCS: 36415; 80048; 83036

== ENCOUNTER 2022-07-23 08:13 | Outpatient (CLI) | payer MEDICARE, OTHER ==
[2022-07-23 12:51] LABS: BASOPHILS # (AUTO) 0.1 10^3/uL (0.0-0.1); BASOPHILS % (AUTO) 0.7 %; EOSINOPHILS # (AUTO) 0.2 10^3/uL (0.0-0.7); EOSINOPHILS % (AUTO) 2.1 %; HCT - HEMATOCRIT 35.9 % (37.0-47.0); HGB - HEMOGLOBIN 11.6 g/dL (12.0-16.0); LYMPHOCYTES % (AUTO) 26.2 %; MEAN CORPUSCULAR HEMOGLOBIN 30.4 pg (27.0-31.0); MEAN CORPUSCULAR HGB CONC 32.3 g/dL (32.0-36.0); MEAN PLATELET VOLUME 9.9 fL (7.9-10.8); MONOCYTES # (AUTO) 0.6 10^3/uL (0.0-1.0); MONOCYTES % (AUTO) 7.4 %; NEUTROPHILS # (AUTO) 4.8 10^3/uL (1.5-6.6); NEUTROPHILS % (AUTO) 63.5 %; PLT - PLATELET COUNT 151 10^3/uL (130-450); RED BLOOD COUNT 3.82 10^6/uL (4.20-5.40); RED CELL DISTRIBUTION WIDTH 14.2 % (12.0-15.0); WHITE BLOOD COUNT 7.5 x10^3/uL (4.8-10.8)
[2022-07-23 13:01] LABS: ALBUMIN 4.3 g/dL (3.2-5.5); ALBUMIN/GLOBULIN RATIO 1.2 (1.0-2.2); ALKALINE PHOSPHATASE 58 IU/L (42-121); ALT ALANINE AMINOTRANSFERASE 16 IU/L (10-60); AST ASPARTATE AMINOTRANSFERASE 18 IU/L (10-42); BILIRUBIN,TOTAL 0.4 mg/dL (0.2-1.0); BUN - BLOOD UREA NITROGEN 22 mg/dL (6-20); CALCIUM 9.9 mg/dL (8.5-10.3); CARBON DIOXIDE - CO2 28 mmol/L (21-32); CHLORIDE 104 mmol/L (101-111); CHOL/HDL RATIO 4.5 (<4.4); CHOLESTEROL 201 mg/dL; GFR - MDRD 53 (>89); GLUCOSE 164 mg/dL (70-100); HDL CHOLESTEROL 45 mg/dL; POTASSIUM 4.2 mmol/L (3.5-5.0); SODIUM 142 mmol/L (135-145); THYROID STIMULATING HORMONE 1.32 uIU/mL (0.34-5.60); TOTAL PROTEIN 7.8 g/dL (6.7-8.2); TRIGLYCERIDES 413 mg/dL
[2022-07-23 13:18] LABS: ESTIMATED AVERAGE GLUCOSE 151 mg/dL (70-100); HEMOGLOBIN A1c% 6.9 % (4.27-6.07)
[2022-07-23 13:23] LABS: CREATININE,URINE 67.2 mg/dL; MICROALBUM/CREATININE RATIO,UR 1428.6 ug/mg (<30.0)
[2022-07-23 13:51] LABS: LDL CHOLESTEROL,DIRECT 88 mg/dL
== END 2022-07-23 08:14 | disposition home or self-care (01) ==
LOC: LAB.N 08:13
PROVIDERS: ATTEND Internal Medicine
DX: E11.22 Type 2 diabetes mellitus with diabetic chronic kidney disease (principal); N18.31 Chronic kidney disease, stage 3a; E78.5 Hyperlipidemia, unspecified; F32.A Depression, unspecified
CPT/HCPCS: 36415; 80053; 80061; 82043; 82570; 83036; 83721; 84443; 85025

== ENCOUNTER 2022-11-28 08:19 | Outpatient (CLI) | payer MEDICARE, OTHER ==
[2022-11-28 12:06] LABS: BASOPHILS % (AUTO) 0.6 %; EOSINOPHILS # (AUTO) 0.2 10^3/uL (0.0-0.7); EOSINOPHILS % (AUTO) 3.6 %; HCT - HEMATOCRIT 31.7 % (37.0-47.0); HGB - HEMOGLOBIN 9.8 g/dL (12.0-16.0); LYMPHOCYTES # (AUTO) 2.1 10^3/uL (1.5-3.5); LYMPHOCYTES % (AUTO) 33.8 %; MEAN CORPUSCULAR HEMOGLOBIN 29.6 pg (27.0-31.0); MEAN CORPUSCULAR HGB CONC 30.9 g/dL (32.0-36.0); MEAN CORPUSCULAR VOLUME 95.8 fL (81.0-99.0); MEAN PLATELET VOLUME 10.4 fL (7.9-10.8); MONOCYTES # (AUTO) 0.6 10^3/uL (0.0-1.0); NEUTROPHILS # (AUTO) 3.3 10^3/uL (1.5-6.6); NEUTROPHILS % (AUTO) 52.7 %; PLT - PLATELET COUNT 151 10^3/uL (130-450); RED BLOOD COUNT 3.31 10^6/uL (4.20-5.40); RED CELL DISTRIBUTION WIDTH 13.3 % (12.0-15.0); WHITE BLOOD COUNT 6.3 x10^3/uL (4.8-10.8)
[2022-11-28 13:18] LABS: CREATININE,URINE 60.1 mg/dL; MICROALBUM/CREATININE RATIO,UR 1544.1 ug/mg (<30.0); MICROALBUMIN,URINE 92.8 mg/dL (0-300.0)
[2022-11-28 13:48] LABS: ALBUMIN 3.9 g/dL (3.2-5.5); ALBUMIN/GLOBULIN RATIO 1.1 (1.0-2.2); ALKALINE PHOSPHATASE 58 IU/L (42-121); ALT ALANINE AMINOTRANSFERASE 30 IU/L (10-60); AST ASPARTATE AMINOTRANSFERASE 27 IU/L (10-42); BILIRUBIN,TOTAL 0.5 mg/dL (0.2-1.0); BUN - BLOOD UREA NITROGEN 25 mg/dL (6-20); CALCIUM 9.3 mg/dL (8.5-10.3); CARBON DIOXIDE - CO2 27 mmol/L (21-32); CHLORIDE 102 mmol/L (101-111); CHOL/HDL RATIO 2.2 (<4.4); CHOLESTEROL 99 mg/dL; CREATININE 1.2 mg/dL (0.4-1.0); GFR - MDRD 43 (>89); GLUCOSE 122 mg/dL (70-100); HDL CHOLESTEROL 45 mg/dL; LDL CHOLESTEROL,CALCULATED 24 mg/dL; LDL CHOLESTEROL,DIRECT 32 mg/dL; LDL/HDL RATIO 0.5 (<4.4); SODIUM 139 mmol/L (135-145); TOTAL PROTEIN 7.3 g/dL (6.7-8.2); TRIGLYCERIDES 151 mg/dL; VLDL CHOLESTEROL 30 mg/dL
[2022-11-28 14:11] LABS: ESTIMATED AVERAGE GLUCOSE 163 mg/dL (70-100); HEMOGLOBIN A1c% 7.3 % (4.27-6.07)
== END 2022-11-28 08:20 | disposition home or self-care (01) ==
LOC: LAB.N 08:19
PROVIDERS: ATTEND Internal Medicine
DX: E11.22 Type 2 diabetes mellitus with diabetic chronic kidney disease (principal); E78.5 Hyperlipidemia, unspecified
CPT/HCPCS: 36415; 80053; 80061; 82043; 82570; 83036; 83721; 85025

== ENCOUNTER 2022-12-12 13:35 | Outpatient (CLI) | payer MEDICARE, OTHER ==
[2022-12-12 19:09] LABS: ABSOLUTE RETICS # AUTO 0.063 10^6/uL (0.020-0.110); BASOPHILS % (AUTO) 0.7 %; EOSINOPHILS # (AUTO) 0.2 10^3/uL (0.0-0.7); EOSINOPHILS % (AUTO) 3.4 %; HCT - HEMATOCRIT 31.7 % (37.0-47.0); HGB - HEMOGLOBIN 9.6 g/dL (12.0-16.0); LYMPHOCYTES # (AUTO) 1.6 10^3/uL (1.5-3.5); MEAN CORPUSCULAR HEMOGLOBIN 29.7 pg (27.0-31.0); MEAN CORPUSCULAR HGB CONC 30.3 g/dL (32.0-36.0); MEAN CORPUSCULAR VOLUME 98.1 fL (81.0-99.0); MONOCYTES # (AUTO) 0.4 10^3/uL (0.0-1.0); NEUTROPHILS # (AUTO) 3.6 10^3/uL (1.5-6.6); NEUTROPHILS % (AUTO) 61.6 %; RED BLOOD COUNT 3.23 10^6/uL (4.20-5.40); RED CELL DISTRIBUTION WIDTH 13.7 % (12.0-15.0); RETICULOCYTE COUNT % (AUTO) 1.95 % (0.5-2.3); WHITE BLOOD COUNT 5.8 x10^3/uL (4.8-10.8)
[2022-12-12 19:27] LABS: % IRON SATURATION 13 % (20-50); IRON 58 ug/dL (28-170); TOTAL IRON BINDING CAPACITY 435 ug/dL (250-450); TRANSFERRIN 311 mg/dL (192-382)
[2022-12-12 19:37] LABS: FERRITIN 19.2 ng/mL (11.0-306.8)
[2022-12-12 19:46] LABS: PLATELET ESTIMATE, MANUAL DECREASED (<130,000) (NORMAL); PLATELET MORPHOLOGY PLATELET CLUMPING (NORMAL); SLIDE REVIEW? Indicated
[2022-12-12 20:50] LABS: CREATININE,URINE 57.2 mg/dL; MICROALBUMIN,URINE 111.6 mg/dL (0-300.0); PROTEIN/CREATININE RATIO,URINE 1.7 (<=0.2)
== END 2022-12-12 13:36 | disposition home or self-care (01) ==
LOC: LAB.N 13:35
PROVIDERS: ATTEND Internal Medicine
DX: D64.9 Anemia, unspecified (principal); R80.9 Proteinuria, unspecified
CPT/HCPCS: 36415; 82043; 82570; 82607; 82728; 83540; 84156; 84466; 85025; 85045

== ENCOUNTER 2023-07-07 08:25 | Outpatient (CLI) | payer MEDICARE, OTHER ==
[2023-07-07 13:23] LABS: CREATININE,URINE 50.7 mg/dL; PROTEIN/CREATININE RATIO,URINE 2.7 (<=0.2)
[2023-07-07 13:32] LABS: CALCIUM 9.4 mg/dL (8.5-10.3); CREATININE 1.3 mg/dL (0.6-1.3); POTASSIUM 4.6 mmol/L (3.5-4.5)
[2023-07-07 13:42] LABS: ESTIMATED AVERAGE GLUCOSE 160 mg/dL (70-100); HEMOGLOBIN A1c% 7.2 % (4.27-6.07)
== END 2023-07-07 08:26 | disposition home or self-care (01) ==
LOC: LAB.N 08:25
PROVIDERS: ATTEND Internal Medicine
DX: E11.22 Type 2 diabetes mellitus with diabetic chronic kidney disease (principal); R80.9 Proteinuria, unspecified
CPT/HCPCS: 36415; 80048; 82570; 83036; 84156

== ENCOUNTER 2023-09-08 13:40 | Outpatient (CLI) | payer MEDICARE, OTHER ==
[2023-09-08 18:54] LABS: CALCIUM 9.6 mg/dL (8.5-10.3); CREATININE 1.3 mg/dL (0.6-1.3); POTASSIUM 5.1 mmol/L (3.5-4.5)
== END 2023-09-08 13:41 | disposition home or self-care (01) ==
LOC: LAB.N 13:40
PROVIDERS: ATTEND Internal Medicine Cardiovascular Disease
DX: I10 Essential (primary) hypertension (principal)
CPT/HCPCS: 36415; 80048

== ENCOUNTER 2023-09-11 14:01 | Outpatient (CLI) | payer MEDICARE, OTHER ==
[2023-09-11 18:24] LABS: CALCIUM 9.3 mg/dL (8.5-10.3); CREATININE 1.6 mg/dL (0.6-1.3); POTASSIUM 5.4 mmol/L (3.5-4.5)
== END 2023-09-11 14:02 | disposition home or self-care (01) ==
LOC: LAB.N 14:01
PROVIDERS: ATTEND Internal Medicine Cardiovascular Disease
DX: E87.5 Hyperkalemia (principal)
CPT/HCPCS: 36415; 80048

== ENCOUNTER 2023-10-15 11:09 | Outpatient (CLI) | payer MEDICARE, OTHER ==
[2023-10-15 17:38] LABS: HCT - HEMATOCRIT 31.2 % (37.0-47.0); HGB - HEMOGLOBIN 9.7 g/dL (12.0-16.0)
[2023-10-15 17:51] LABS: CREATININE,URINE 21.7 mg/dL; MICROALBUM/CREATININE RATIO,UR 1119.8 ug/mg (<30.0); MICROALBUMIN,URINE 24.3 mg/dL; PROTEIN/CREATININE RATIO,URINE 2.1 (<=0.2)
[2023-10-15 17:54] LABS: CALCIUM 9.3 mg/dL (8.5-10.3); CREATININE 1.5 mg/dL (0.6-1.3); POTASSIUM 4.1 mmol/L (3.5-4.5)
[2023-10-16 20:07] LABS: KAPPA FREE LT CHAINS SERUM 69.3 mg/L (3.3-19.4); KAPPA/LAMBDA RATIO SERUM 1.21 (0.26-1.65); LAMBDA FREE LT CHAINS SERUM 57.5 mg/L (5.7-26.3)
[2023-10-17 14:08] LABS: IMMUNOGLOBULIN A (IGA) 211 mg/dL (64-422); IMMUNOGLOBULIN G (IGG) 1181 mg/dL (586-1602); IMMUNOGLOBULIN M (IGM) 62 mg/dL (26-217)
[2023-10-17 15:08] LABS: ALBUMIN 3.5 g/dL (2.9-4.4); ALPHA-1-GLOBULIN 0.3 g/dL (0.0-0.4); ALPHA-2-GLOBULIN 1.1 g/dL (0.4-1.0); BETA GLOBULIN 1.1 g/dL (0.7-1.3); GAMMA GLOBULIN 1.2 g/dL (0.4-1.8); GLOBULIN, TOTAL 3.6 g/dL (2.2-3.9); PROTEIN TOTAL 7.1 g/dL (6.0-8.5)
[2023-10-21 03:09] LABS: FREE KAPPA LT CHAINS URINE 112.89 mg/L (1.17-86.46); FREE LAMBDA LT CHAINS URINE 21.67 mg/L (0.27-15.21); KAPPA/LAMBDA RATIO URINE 5.21 (1.83-14.26)
== END 2023-10-15 11:10 | disposition home or self-care (01) ==
LOC: LAB.N 11:09
PROVIDERS: ATTEND Internal Medicine Nephrology
DX: I12.9 Hypertensive chronic kidney disease with stage 1 through stage 4 chronic kidney disease, or unspecified chronic kidney disease (principal); E11.22 Type 2 diabetes mellitus with diabetic chronic kidney disease; N18.32 Chronic kidney disease, stage 3b; R80.9 Proteinuria, unspecified
CPT/HCPCS: 36415; 80048; 81599; 82043; 82570; 82784; 83521; 84155; 84156; 84165; 84166; 85014; 85018; 86334; 86335

== ENCOUNTER 2023-10-21 09:31 | Outpatient (CLI) | payer MEDICARE, OTHER ==
[2023-10-21 11:37] LABS: BASOPHILS # (AUTO) 0.1 10^3/uL (0.0-0.1); EOSINOPHILS # (AUTO) 1.1 10^3/uL (0.0-0.7); EOSINOPHILS % (AUTO) 14.1 %; HCT - HEMATOCRIT 32.7 % (37.0-47.0); HGB - HEMOGLOBIN 10.2 g/dL (12.0-16.0); LYMPHOCYTES # (AUTO) 1.7 10^3/uL (1.5-3.5); LYMPHOCYTES % (AUTO) 21.6 %; MEAN CORPUSCULAR HEMOGLOBIN 30.6 pg (27.0-31.0); MEAN CORPUSCULAR HGB CONC 31.2 g/dL (32.0-36.0); MEAN CORPUSCULAR VOLUME 98.2 fL (81.0-99.0); MEAN PLATELET VOLUME 10.8 fL (7.9-10.8); MONOCYTES # (AUTO) 0.5 10^3/uL (0.0-1.0); MONOCYTES % (AUTO) 6.3 %; NEUTROPHILS # (AUTO) 4.4 10^3/uL (1.5-6.6); NEUTROPHILS % (AUTO) 56.7 %; PLT - PLATELET COUNT 173 10^3/uL (130-450); RED BLOOD COUNT 3.33 10^6/uL (4.20-5.40); RED CELL DISTRIBUTION WIDTH 13.6 % (12.0-15.0); WHITE BLOOD COUNT 7.7 x10^3/uL (4.8-10.8)
[2023-10-21 18:33] LABS: ALBUMIN 4.1 g/dL (3.2-5.5); ALBUMIN/GLOBULIN RATIO 1.1 (1.0-2.2); BILIRUBIN,TOTAL 0.3 mg/dL (0.2-1.0); CALCIUM 9.8 mg/dL (8.5-10.3); CREATININE 1.6 mg/dL (0.6-1.3); MAGNESIUM 2.2 mg/dL (1.7-2.3); PHOSPHORUS 4.4 mg/dL (2.5-5.0); POTASSIUM 4.4 mmol/L (3.5-4.5); TOTAL PROTEIN 7.8 g/dL (6.4-8.9)
[2023-10-21 20:23] LABS: ESTIMATED AVERAGE GLUCOSE 166 mg/dL (70-100); HEMOGLOBIN A1c% 7.4 % (4.27-6.07)
== END 2023-10-21 09:32 | disposition home or self-care (01) ==
LOC: LAB.N 09:31
PROVIDERS: ATTEND Internal Medicine
DX: I12.9 Hypertensive chronic kidney disease with stage 1 through stage 4 chronic kidney disease, or unspecified chronic kidney disease (principal); E11.22 Type 2 diabetes mellitus with diabetic chronic kidney disease
CPT/HCPCS: 36415; 80053; 82306; 82570; 83036; 83735; 84100; 84156; 85025

== ENCOUNTER 2024-01-21 08:54 | Outpatient (CLI) | payer MEDICARE, OTHER ==
[2024-01-21 11:36] LABS: BASOPHILS # (AUTO) 0.1 10^3/uL (0.0-0.1); BASOPHILS % (AUTO) 0.7 %; EOSINOPHILS # (AUTO) 0.3 10^3/uL (0.0-0.7); EOSINOPHILS % (AUTO) 3.5 %; HCT - HEMATOCRIT 34.3 % (37.0-47.0); HGB - HEMOGLOBIN 10.5 g/dL (12.0-16.0); LYMPHOCYTES # (AUTO) 1.8 10^3/uL (1.5-3.5); LYMPHOCYTES % (AUTO) 25.1 %; MEAN CORPUSCULAR HEMOGLOBIN 29.2 pg (27.0-31.0); MEAN CORPUSCULAR HGB CONC 30.6 g/dL (32.0-36.0); MEAN CORPUSCULAR VOLUME 95.5 fL (81.0-99.0); MEAN PLATELET VOLUME 10.5 fL (7.9-10.8); MONOCYTES # (AUTO) 0.5 10^3/uL (0.0-1.0); MONOCYTES % (AUTO) 6.6 %; NEUTROPHILS # (AUTO) 4.5 10^3/uL (1.5-6.6); PLT - PLATELET COUNT 145 10^3/uL (130-450); RED BLOOD COUNT 3.59 10^6/uL (4.20-5.40); RED CELL DISTRIBUTION WIDTH 15.1 % (12.0-15.0); WHITE BLOOD COUNT 7.1 x10^3/uL (4.8-10.8)
[2024-01-21 12:03] LABS: ESTIMATED AVERAGE GLUCOSE 166 mg/dL (70-100); HEMOGLOBIN A1c% 7.4 % (4.27-6.07)
[2024-01-21 12:46] LABS: % IRON SATURATION 9 % (20-50); ALBUMIN/GLOBULIN RATIO 1.3 (1.0-2.2); ALKALINE PHOSPHATASE 64 IU/L (42-121); ALT ALANINE AMINOTRANSFERASE 16 IU/L (10-60); AST ASPARTATE AMINOTRANSFERASE 15 IU/L (10-42); BILIRUBIN,TOTAL 0.3 mg/dL (0.2-1.0); BUN - BLOOD UREA NITROGEN 28 mg/dL (6-20); CALCIUM 9.3 mg/dL (8.5-10.3); CARBON DIOXIDE - CO2 25 mmol/L (21-32); CHLORIDE 108 mmol/L (101-111); CHOL/HDL RATIO 2.7 (<4.4); CHOLESTEROL 126 mg/dL; CREATININE 1.4 mg/dL (0.6-1.3); GFR - MDRD 35 (>89); GLUCOSE 117 mg/dL (74-104); HDL CHOLESTEROL 47 mg/dL; IRON 36 ug/dL (50-212); LDL CHOLESTEROL,CALCULATED 35 mg/dL; LDL/HDL RATIO 0.7 (<4.4); PHOSPHORUS 3.4 mg/dL (2.5-5.0); POTASSIUM 4.1 mmol/L (3.5-4.5); SODIUM 139 mmol/L (135-145); TOTAL IRON BINDING CAPACITY 393 ug/dL (250-450); TOTAL PROTEIN 7.1 g/dL (6.4-8.9); TRANSFERRIN 281 mg/dL (203-362); TRIGLYCERIDES 220 mg/dL (48-352); VLDL CHOLESTEROL 44 mg/dL
[2024-01-21 13:02] LABS: FERRITIN 22.1 ng/mL (11.0-306.8)
[2024-01-21 13:06] LABS: CREATININE,URINE 28.8 mg/dL; MICROALBUM/CREATININE RATIO,UR 1288.2 ug/mg (<30.0); MICROALBUMIN,URINE 37.1 mg/dL
== END 2024-01-21 08:55 | disposition home or self-care (01) ==
LOC: LAB.N 08:54
PROVIDERS: ATTEND Internal Medicine
DX: I12.9 Hypertensive chronic kidney disease with stage 1 through stage 4 chronic kidney disease, or unspecified chronic kidney disease (principal); E11.22 Type 2 diabetes mellitus with diabetic chronic kidney disease; N18.9 Chronic kidney disease, unspecified; D63.1 Anemia in chronic kidney disease; E78.5 Hyperlipidemia, unspecified
CPT/HCPCS: 36415; 80053; 80061; 82043; 82570; 82668; 82728; 83036; 83540; 83721; 83735; 84100; 84466; 85025

== ENCOUNTER 2024-02-16 18:42 | Emergency (ER) | payer MEDICARE, OTHER ==
[2024-02-16 19:22] LABS: BASOPHILS # (AUTO) 0.1 10^3/uL (0.0-0.1); BASOPHILS % (AUTO) 0.8 %; EOSINOPHILS # (AUTO) 0.2 10^3/uL (0.0-0.7); EOSINOPHILS % (AUTO) 2.3 %; HCT - HEMATOCRIT 36.4 % (37.0-47.0); HGB - HEMOGLOBIN 11.2 g/dL (12.0-16.0); LYMPHOCYTES # (AUTO) 1.7 10^3/uL (1.5-3.5); MEAN CORPUSCULAR HEMOGLOBIN 29.1 pg (27.0-31.0); MEAN CORPUSCULAR HGB CONC 30.8 g/dL (32.0-36.0); MEAN CORPUSCULAR VOLUME 94.5 fL (81.0-99.0); MEAN PLATELET VOLUME 10.2 fL (7.9-10.8); MONOCYTES # (AUTO) 0.5 10^3/uL (0.0-1.0); MONOCYTES % (AUTO) 6.3 %; NEUTROPHILS # (AUTO) 4.9 10^3/uL (1.5-6.6); NEUTROPHILS % (AUTO) 67.3 %; PLT - PLATELET COUNT 159 10^3/uL (130-450); RED BLOOD COUNT 3.85 10^6/uL (4.20-5.40); RED CELL DISTRIBUTION WIDTH 15.1 % (12.0-15.0); WHITE BLOOD COUNT 7.3 x10^3/uL (4.8-10.8)
[2024-02-16 19:40] LABS: ALBUMIN 3.9 g/dL (3.2-5.5); ALBUMIN/GLOBULIN RATIO 1.2 (1.0-2.2); BILIRUBIN,TOTAL 0.3 mg/dL (0.2-1.0); CALCIUM 9.8 mg/dL (8.5-10.3); CREATININE 1.6 mg/dL (0.6-1.3); POTASSIUM 4.2 mmol/L (3.5-4.5); TOTAL PROTEIN 7.2 g/dL (6.4-8.9)
--- NOTE | 2024-02-16 20:15 | ED Physician Documentation ---
History of Present Illness - Stated complaint Stated Complaint: DIZZY - Chief complaint Chief Complaint: General - Additonal information Additional information: Patient is 89-year-old female with past medical significant for type 2 diabetes, hypertension, dyslipidemia presenting with 2-day history headache, dizziness, vomiting. Reports approximately 2 days ago began feeling generally unwell with myalgias, subsequently developed primarily frontal headache that was not maximal at time of onset. No associated syncope, fever or neck stiffness. Had 1 episode of vomiting yesterday. Reports that it has been waxing and waning in intensity and she has had brief episodes of dizziness which she describes as a disequilibrium. Denies any clear vertiginous sensation or feelings of near syncope. Denies chest pain, heart palpitations, abdominal pain, diarrhea, constipation, known sick contacts. Review of Systems Constitutional: denies: Fever Eyes: denies: Loss of vision Ears: denies: Loss of hearing Throat: denies: Dental pain / toothache Cardiac: denies: Chest pain / pressure Respiratory: denies: Dyspnea GI: reports: Vomiting : denies: Dysuria Skin: denies: Rash Musculoskeletal: denies: Neck pain Neurologic: reports: Headache. 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 Cardiovascular: Valve replacement HEENT: Cataracts - Present Medications Home Medications: Ambulatory Orders Medication Instructions Recorded Confirmed Ascorbic Acid [Vitamin C] 500 mg PO DAILY 09/07/16 08/30/18 Aspirin 81 mg PO DAILY 09/07/16 08/30/18 Calcium Carbonate [Calcium] 600 mg PO BID 09/07/16 08/30/18 Cholecalciferol (Vitamin D3) 1,000 unit PO DAILY 09/07/16 08/30/18 [Vitamin D3] Felodipine [Felodipine ER] 10 mg PO DAILY 09/07/16 08/30/18 Metformin HCl [Glucophage] 850 mg PO TIDWM 09/07/16 08/30/18 Multivitamin [Multiple Vitamins] 1 tab PO DAILY 09/07/16 08/30/18 Simvastatin 20 mg PO QPM 09/07/16 08/30/18 Timolol 0.5% Ophth Drops [Timoptic 1 drops EACHEYE BID 09/07/16 08/30/18 0.5% Ophth Drops] lisinopriL [Lisinopril] 40 mg PO DAILY 09/07/16 08/30/18 Latanoprost 0.005% Ophth Drops 1 drops EACHEYE QPM 04/08/18 08/30/18 [Xalatan Ophth Drops] glipiZIDE [Glipizide] 5 mg PO DAILY 04/08/18 08/30/18 traMADol [Ultram] 50 - 100 mg PO Q6H PRN #20 tablet 04/07/20 - Allergies Allergies/Adverse Reactions: Allergies Allergy/AdvReac Type Severity Reaction Status Date / Time No Known Drug Allergies Allergy Verified 02/16/24 18:53 - Social History Does the pt smoke?: No Smoking Status: Never smoker Does the pt drink ETOH?: No Does the pt have substance abuse?: No - Immunizations Immunizations are current?: Yes - POLST Patient has POLST: No POLST Status: Full Code PD ED PE NORMAL - Vitals Vital signs reviewed: Yes (Isolated systolic hypertension, otherwise within normal limits.) - General General: Alert and oriented X 3, No acute distress, Well developed/nourished - HEENT HEENT: Atraumatic, PERRL, EOMI, Ears normal, Moist mucous membranes, Pharynx benign - Neck Neck: Supple, no meningeal sign, No bony TTP, No adenopathy, Thyroid normal, No JVD - Cardiac Cardiac: RRR, No murmur, No gallop, No rub - Respiratory Respiratory: No respiratory distress, Clear bilaterally - Abdomen Abdomen: Normal bowel sounds - Female Female : Deferred - Rectal Rectal: Deferred - Back Back: No CVA TTP - Derm Derm: Normal color - Extremities Extremities: No deformity - Neuro Neuro: Alert and oriented X 3, 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 Relevant findings are: Sinus rhythm with rate 67 bpm. Normal axis. Normal UT, QRS, QTc intervals. No ST segment elevations or T wave inversions. Nonspecific ST-T wave abnormalities noted in the precordial to lateral leads. - Labs Labs: Laboratory Tests 02/16/24 02/16/24 02/16/24 19:04 19:17 19:17 WBC 7.3 RBC 3.85 L Hgb 11.2 L Hct 36.4 L MCV 94.5 MCH 29.1 MCHC 30.8 L RDW 15.1 H Plt Count 159 MPV 10.2 Neut # (Auto) 4.9 Lymph # (Auto) 1.7 O'Brien # (Auto) 0.5 Eos # (Auto) 0.2 Baso # (Auto) 0.1 Absolute Nucleated RBC 0.00 Nucleated RBC % 0.0 PT INR Sodium 136 Potassium 4.2 Chloride 104 Carbon Dioxide 23 Anion Gap 9.0 BUN 28 H Creatinine 1.6 H Estimated GFR (MDRD) 30 L Glucose 198 H Calcium 9.8 Total Bilirubin 0.3 AST 13 ALT 12 Alkaline Phosphatase 64 Troponin I High Sens 13.8 Total Protein 7.2 Albumin 3.9 Globulin 3.3 Albumin/Globulin Ratio 1.2 02/16/24 21:36 WBC RBC Hgb Hct MCV MCH MCHC RDW Plt Count MPV Neut # (Auto) Lymph # (Auto) O'Brien # (Auto) Eos # (Auto) Baso # (Auto) Absolute Nucleated RBC Nucleated RBC % PT 11.7 INR 1.1 Sodium Potassium Chloride Carbon Dioxide Anion Gap BUN Creatinine Estimated GFR (MDRD) Glucose Calcium Total Bilirubin AST ALT Alkaline Phosphatase Troponin I High Sens Total Protein Albumin Globulin Albumin/Globulin Ratio PD Medical Decision Making - ED course Complexity details: reviewed old records, reviewed results, re-evaluated patient, considered differential, d/w patient, d/w family, d/w transformation consultant ED course: Patient 89-year-old female presenting to the emergency department chief complaint headache and dizziness. Acute onset 2 days ago. Not thunderclap at time of onset. No fever or nuchal rigidity. 1 episode nausea vomiting. Patient does not take blood thinners but does report daily 81 mg aspirin. Afebrile, hematin stable on arrival to the emergency department. No focal or lateralizing neurologic deficits appreciated. Patient initially given Compazine, Benadryl for headache control. Blood pressure mildly elevated here in the emergency department but did downtrend appropriately without pharmacologic intervention. CT head highly concerning for hypodensity involving the lizeth as well as the fourth ventricle concerning for intraparenchymal hemorrhage although hemorrhagic conversion of metastatic mass cannot be ruled out from available imaging. CT head ordered. Discussed with Terrell, Dr. Gabriel, neurology who does recommend transfer ED to ED. Patient's blood pressure did remain moderately elevated here and was given a dose of Cardizem. I have also ordered for nicardipine drip for appropriate blood pressure control with goal systolic 160 per consultation with Terrell while in transport. Transferred from our facility to [facility] for further evaluation and treatment. - Critical Care Time(min): 31 Time Includes: Direct patient care, Review records, Reassess patient, Document care, Coordinate care, Medical consult, See progress note Data interpretation: Labs, Prior EKG Departure - Departure Disposition: 02 Transfer Acute Care Hosp Clinical Impression: Intraparenchymal hemorrhage of brain Forms: PCP List
[2024-02-16] MEDS: SODIUM CHLORIDE 0.9% 1,000 ML IV STA (21:09)
[2024-02-16] MEDS: KETOROLAC 15 MG/ML VIAL IVP STA (21:11)
[2024-02-16] MEDS: PROCHLORPERAZINE 10 MG/2 ML VIAL IVP STA (21:14)
[2024-02-16] MEDS: diphenhydrAMINE INJ 50 MG/ML VIAL IVP STA (21:14)
--- NOTE | 2024-02-16 21:18 | CT Report ---
PROCEDURE: Head WO INDICATIONS: Dizziness with associated headache. TECHNIQUE: Noncontrast 4.5 mm thick angled axial sections acquired from the foramen magnum to the vertex. For r adiation dose reduction, the following was used: automated exposure control, adjustment of mA and/or kV according to patient size. COMPARISON: CT head, 08/30/2018. MRI Brain, 09/07/2018. FINDINGS: Image quality: Excellent. CSF spaces: Basal cisterns are patent. No extra-axial fluid collections. Ventricles are normal in size and shape. Brain: There is a 0.8 x 1.2cm hyperdensity in lizeth, suspicious for hemorrhage. A 0.8 cm hyperdensity is noted in the fourth ventricle, probably involving the cerebellar vermis. No midline shift. There is moderate cerebral volume loss. Moderate periventricular white matter chronic small vessel ischemic changes are present. Skull and face: Calvarium and visualized facial bones are intact, without suspicious lesions. Sinuses: Visualized sinuses and mastoids are clear. IMPRESSION: 1. A 0.8 x 1.2 cm hyperdensity in lizeth, suspicious for acute hemorrhage. In addition, there is a 0. 8 cm hyperdensity is noted in the fourth ventricle, probably involving the cerebellum is suspicious f or bleed. Differential diagnoses are hemorrhagic stroke versus hemorrhagic masses, such as intracrani al cranial metastasis. Recommend clinical correlation. 2. Cerebral volume loss and periventricular white matter chronic small vessel ischemic changes. The result was discussed with Dr. Rodas in the ER. Reviewed by: Neto Llanos MD on 02/16/2024 9:17 PM PDT Approved by: Neto Llanos MD on 02/16/2024 9:17 PM PDT Station ID: [id number]
[2024-02-16] MEDS: NICARDIPINE HCL 25 MG in SODIUM CHLORIDE 0.9% 240 ML IV STA (21:25)
[2024-02-16] MEDS: diltiaZEM INJ 5 MG/ML VIAL IVP STA (21:31)
[2024-02-16 21:45] LABS: INR 1.1 (0.8-1.2); PT - PROTHROMBIN TIME 11.7 secs (9.9-12.6)
[2024-02-16] MEDS: iohexoL-300 100 ML VIAL IVP ONE (22:06)
[2024-02-16] MEDS ORDERED: NICARDIPINE HCL 25 MG in SODIUM CHLORIDE 0.9% 240 ML IV STA (22:18)
[2024-02-16 22:37] LABS: B. PARAPERTUSSIS- RESP PCR PAN NOT DETECTED; B. PERTUSSIS- RESP PCR PANEL NOT DETECTED; C. PNEUMONIAE- RESP PCR PANEL NOT DETECTED; CORONAVIRUS 229E-RESP PCR NOT DETECTED; CORONAVIRUS HKU1-RESP PCR NOT DETECTED; CORONAVIRUS NL63-RESP PCR NOT DETECTED; CORONAVIRUS OC43-RESP PCR NOT DETECTED; HUMAN METAPNEUMOVIRUS NOT DETECTED; INFLUENZA A- RESP PCR PANEL NOT DETECTED; INFLUENZA B - RESP PCR PANEL NOT DETECTED; M. PNEUMONIAE- RESP PCR PANEL NOT DETECTED; PARAINFLUENZA VIRUS 1 NOT DETECTED; PARAINFLUENZA VIRUS 2 NOT DETECTED; PARAINFLUENZA VIRUS 3 NOT DETECTED; PARAINFLUENZA VIRUS 4 NOT DETECTED; RHINOVIRUS/ENTEROVIRUS NOT DETECTED; RSV- RESP PCR PANEL NOT DETECTED; SARS-CoV-2 -RESP PCR PANEL NOT DETECTED
[2024-02-16] MEDS ORDERED: NICARDIPINE HCL 25 MG/10 ML VIAL IV ONE (22:42)
[2024-02-16 22:52] VITALS: BP 158/60; O2SAT 96
--- NOTE | 2024-02-17 00:39 | CT Report ---
PROCEDURE: Angio Head/Neck INDICATIONS: Intraparenchymal bleed TECHNIQUE: After the administration of intravenous contrast, 1 mm thick sections acquired from the aortic arch t hrough the [place] of [place]. 3-dimensional yiwwzzy-vvkhzrtvf-xbhrijimhz (MIP) and/or volume renderin g reformats were acquired of the central intracranial vasculature and neck separately. For radiation dose reduction, the following was used: automated exposure control, adjustment of mA and/or kV acco rding to patient size. CONTRAST: Omni 300, 80mls COMPARISON: Head CT, 02/16/2024, 08/30/2018. CT head angioma, 09/07/2016. CT neck angiogram 6. FINDINGS: Image quality: Diagnostic. HEAD CT: CSF Spaces: Basal cisterns are patent. No extra-axial fluid collections. Ventricles are normal in size and shape. Brain: Suboptimal visualization of the dens lesions in lizeth and the cerebellar vermis. No significan t abnormality is seen for scanning technique. Skull and face: Calvarium and visualized facial bones appear intact, without suspicious lesions. Sinuses: Visualized sinuses and mastoids are clear. HEAD CT ANGIOGRAPHY: Anterior circulation: Intracranial internal carotid arteries are normal in size and flow. Calcified plaques in the cavernous segment of the internal carotid arteries bilaterally. The flow within the p aired anterior cerebral arteries is normal and symmetric. The flow within the middle cerebral arteri es is normal and symmetric. The anterior communicating artery is seen. No aneurysms are seen. Posterior circulation: Visualized portions of the vertebral arteries demonstrate normal caliber, and join to form a normal appearing basilar artery. Flow within the posterior cerebral arteries is norm al and symmetric. No aneurysms are seen. NECK CT ANGIOGRAPHY: Carotid system: The great vessels demonstrate a conventional anatomy as they arise from the aortic a rch. The origins of the common carotid arteries appear patent. The common carotid arteries demonstr ate normal caliber and courses. The bifurcation regions are both widely patent. The internal caroti d arteries demonstrate normal calibers and courses. Posterior circulation: The origins of the vertebral arteries both appear widely patent. The more stafford perior extracranial portions of both vertebral arteries also demonstrate normal courses and calibers. They join to form a normal appearing basilar artery. Soft tissues: Visualized neck soft tissues demonstrate no suspicious abnormalities. Bones: No suspicious bony lesions. Visualized cervical spine appears normally aligned. Moderate to severe spondylitic changes noted. IMPRESSION: 1. No significant intracranial arterial abnormality is seen. 2. No significant abnormality is seen within the arteries of the neck. 3. Suboptimal visualization of the dens lesions in lizeth and the cerebellar vermis. Please see the head CT without contrast report. The estimate of stenosis included in the report of the imaging study was calculated using the NASCET method Reviewed by: Neto Llanos MD on 02/17/2024 12:38 AM PDT Approved by: Neto Llanos MD on 02/17/2024 12:38 AM PDT Station ID: [id number]
== END 2024-02-16 22:57 | disposition short-term general hospital (02) ==
LOC: ED 18:42
DX: I61.8 Other nontraumatic intracerebral hemorrhage (principal); I10 Essential (primary) hypertension; E78.00 Pure hypercholesterolemia, unspecified; E11.9 Type 2 diabetes mellitus without complications; Z79.82 Long term (current) use of aspirin; Z79.899 Other long term (current) drug therapy; Z79.84 Long term (current) use of oral hypoglycemic drugs
CPT/HCPCS: 36415; 70450; 70496; 70498; 80053; 84484; 85025; 85610; 87633; 93005; 96374; 96375; 99291; J1200; Q9967

== ENCOUNTER 2024-04-26 08:41 | Outpatient (CLI) | payer MEDICARE, OTHER ==
[2024-04-26 12:26] LABS: BASOPHILS # (AUTO) 0.1 10^3/uL (0.0-0.1); BASOPHILS % (AUTO) 0.8 %; EOSINOPHILS # (AUTO) 0.3 10^3/uL (0.0-0.7); EOSINOPHILS % (AUTO) 3.7 %; HCT - HEMATOCRIT 36.7 % (37.0-47.0); HGB - HEMOGLOBIN 11.2 g/dL (12.0-16.0); LYMPHOCYTES # (AUTO) 1.4 10^3/uL (1.5-3.5); LYMPHOCYTES % (AUTO) 19.1 %; MEAN CORPUSCULAR HEMOGLOBIN 29.9 pg (27.0-31.0); MEAN CORPUSCULAR HGB CONC 30.5 g/dL (32.0-36.0); MEAN CORPUSCULAR VOLUME 98.1 fL (81.0-99.0); MEAN PLATELET VOLUME 10.4 fL (7.9-10.8); MONOCYTES # (AUTO) 0.5 10^3/uL (0.0-1.0); MONOCYTES % (AUTO) 7.3 %; NEUTROPHILS % (AUTO) 68.8 %; PLT - PLATELET COUNT 164 10^3/uL (130-450); RED BLOOD COUNT 3.74 10^6/uL (4.20-5.40); RED CELL DISTRIBUTION WIDTH 14.2 % (12.0-15.0); WHITE BLOOD COUNT 7.3 x10^3/uL (4.8-10.8)
[2024-04-26 12:43] LABS: CALCIUM 9.2 mg/dL (8.5-10.3); CREATININE 1.6 mg/dL (0.6-1.3); PHOSPHORUS 5.1 mg/dL (2.5-5.0); POTASSIUM 4.6 mmol/L (3.5-4.5)
[2024-04-26 12:55] LABS: ESTIMATED AVERAGE GLUCOSE 157 mg/dL (70-100); HEMOGLOBIN A1c% 7.1 % (4.27-6.07)
[2024-04-26 13:00] LABS: FERRITIN 25.2 ng/mL (11.0-306.8)
== END 2024-04-26 08:42 | disposition home or self-care (01) ==
LOC: LAB.N 08:41
PROVIDERS: ATTEND Internal Medicine
DX: I12.9 Hypertensive chronic kidney disease with stage 1 through stage 4 chronic kidney disease, or unspecified chronic kidney disease (principal); E11.22 Type 2 diabetes mellitus with diabetic chronic kidney disease; N18.9 Chronic kidney disease, unspecified; D63.1 Anemia in chronic kidney disease
CPT/HCPCS: 36415; 80048; 82306; 82728; 83036; 83540; 83970; 84100; 84466; 85025

== ENCOUNTER 2025-09-11 15:48 | Inpatient (IN) ==
--- NOTE | 2025-09-11 15:52 | ED Physician Documentation ---
History of Present Illness Stated complaint Stated Complaint: BLE PX Chief complaint Chief Complaint: General History obtained from History obtained from: Patient Additonal information Additional information: This is an 89-year-old woman with history of type 2 diabetes, CVA, TAVR, CKD, hypertension, cerebral hemorrhage that presents for back pain and leg pain. Has been going on for 3 days, severe pain in the low back with radiation into both legs. It is worse with movement. She denies new incontinence. No fevers. No IVDU. She has been taking Tylenol which has not been very helpful. Meds/Allgy Home Medications Ambulatory Orders Medication Instructions Recorded Confirmed blood sugar diagnostic (FreeStyle 08/26/24 06/29/25 Lite Strips) blood-glucose meter (FreeStyle 08/26/24 06/29/25 Lite Meter kit) brimonidine 0.1 % eye drops 1 drp ophthalmic (eye) BID 08/26/24 06/29/25 (Alphagan P) calcium carbonate 600 mg PO BID 08/26/2406/29 cholecalciferol (vitamin D3) 25 25 mcg PO QDAY 4 06/29/25 mcg (1,000 unit) tablet lancets 28 gauge (FreeStyle 08/26/24 06/29/25 Lancets) pen needle, diabetic 29 gauge x 08/26/24 06/29/25/" (BD Ultra-Fine Original Pen Needle) timolol 0.5 % eye drops 1 drp ophthalmic (eye) BID 1 06/29/25 carvedilol 6.25 mg tablet 6.25 mg PO BID #180 tabs 06/29/25 felodipine 10 mg tablet,extended 10 mg PO QDAY #90 tab s 01/20/25 06/29/25 release 24 hr lisinopril 10 mg tablet 10 mg PO QDAY #90 tabs 01/2006/29/25 pravastatin 20 mg tablet 20 mg PO QDAY #90 tabs 01/2006/29/25 sitagliptin phosphate 100 mg 100 mg PO QAM #90 tabs 06/29/25 tablet (Januvia) turmeric 400 mg capsule mg PO 01/20/25 06/29/25 amoxicillin 500 mg capsule 2,000 mg PO ONCE 03/28/25 0 06/29/25 mirabegron 25 mg tablet,extended 25 mg PO QDAY #90 tab s 03/28/25 06/29/25 release 24 hr (Myrbetriq) multivitamin (Daily Multi-Vitamin 1 tab PO QDAY 06/29/25 tablet) vitamin B complex 1 tab PO QDAY 03/28/2506/29 vibegron 75 mg tablet (Gemtesa) 75 mg PO QDAY #90 tabs 06/29/25 06/29/25 empagliflozin 10 mg tablet 10 mg PO QAM #90 tabs 08/17 (Jardiance) Allergies Allergies Allergy/AdvReac Type Severity Reaction Status Date / Time hydrochlorothiazide AdvReac Unknown hyponatremi Verified 09/11/25 16:05 a [facility] Active Problems All Active Problems (Updated 09/11/25 @ 17:22 by Ghulam Montgomery MD) Respiratory failure (Acute) DUSTY (acute kidney injury) (Acute) Abdominal pain (Acute) Pneumonia (Acute) Urge urinary incontinence (Chronic) Mixed hyperlipidemia (Chronic) Need for antibiotic prophylaxis for dental procedure (Chronic) Essential hypertension (Chronic) 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 (Chronic 02/02/21) Anemia due to chronic kidney disease (Chronic 12/06/22) Tobacco abuse (Chronic) Spinal stenosis, lumbar region with neurogenic claudication (Chronic 02/20/21) Degenerative joint disease of cervical spine (Chronic 11/10/1959) Osteoarthritis of hips, bilateral (Chronic) Depression (Chronic 01/07/17) Advance directive discussed with patient (Chronic 02/27/24) 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, right eye, stage unspecified (Chronic 02/02/21) Glaucoma (Chronic 02/02/21) Medical History Medical History (Updated 09/11/25 @ 17:22 by Ghulam Montgomery MD) Arthritis of left knee Centrilobular emphysema 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, Attila + Cerebellar Vermis due to HTN Aortic stenosis (07/27/15) s/p TAVR 03/2018 Surgical History Surgical History (Updated 01/03/25 @ 20:12 by Judy Painter MD) 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 (20 cigarettes=1 Pk): 5 Second hand tobacco smoke exposure: Yes Do you dip or chew tobacco?: No Do you vape?: No Patient requests smoking cessation consult: No Initiate information on smoking cessation: No Living arrangement: At home Living Condition: With spouse/s.o. Do you feel safe in your home environment?: Yes History of physical, verbal, emotional, or financial abuse?: No ETOH Use: None Substance Use: denies use Are you sexually active?: No Retired: Yes Service: No POLST Patient has POLST: Yes Exam Exam Vital Signs: Vital Signs x48h Temp Pulse Resp BP Pulse Ox O2 Flow Rate 09/11/25 16:21 3 09/11/25 15:57 96 3 09/11/25 15:57 88 L 09/11/25 15:46 36.6 C 92 20 138/62 H 91 L Constitutional normal general appearance She appears comfortable, she does wince a bit with motion and sitting up but she is able to sit up unassisted. Respiratory breath sounds equal bilaterally and normal respiratory effort mild crackles both bases Cardiovascular normal heart rate noted, regular rhythm noted and no murmur Mild lower abdominal tenderness without surgical signs Extremities Some low back tenderness. The patient has equal and normal Achilles and patellar reflexes bilaterally. Normal sensation in all areas of the legs. Patient denies saddle anesthesia. Normal strength in flexion-extension at the ankles, knees, and flexion of the hips.. Both lower extremities are warm and well-perfused with full range of motion, no edema or cellulitis. Results Vitals Vitals: Vital Signs - 24 hr 09/11/25 15:46 09/11/25 15:57 09/11/25 15:57 Temperature 36.6 C Temperature Source Temporal Artery Scan Pulse Rate 92 Respiratory Rate 20 Blood Pressure 138/62 H O2 Saturation 91 L 88 L 96 Oxygen Delivery Method O2 Source Room air Room air Nasal cannula If not protocol: Oxygen Flow, liters/minute 3 Pain Intensity 10 09/11/25 16:21 09/11/25 16:41 Temperature Temperature Source Pulse Rate Respiratory Rate Blood Pressure O2 Saturation Oxygen Delivery Method Nasal Cannula O2 Source If not protocol: Oxygen Flow, liters/minute 3 Pain Intensity 8 Oxygen O2 Source Nasal cannula Labs Labs: Laboratory Tests 09/11/25 09/11/25 16:03 16:56 WBC 15.9 H RBC 3.31 L Hgb 10.1 L Hct 30.8 L MCV 93.1 MCH 30.5 MCHC 32.8 RDW 13.2 Plt Count 115 L MPV 10.0 Neut # (Auto) 13.9 H Lymph # (Auto) 1.1 L [place] # (Auto) 0.7 Eos # (Auto) 0.1 Baso # (Auto) 0.0 Absolute Nucleated RBC 0.00 Nucleated RBC % 0.0 Sodium 126 L Potassium 5.5 H Chloride 95 L Carbon Dioxide 20 L Anion Gap 11.0 BUN 47 H Creatinine 2.2 H Estimated GFR (MDRD) 21 L Glucose 257 H Lactic Acid 0.9 Calcium 8.7 Total Bilirubin 0.5 AST 9 L ALT 8 L Alkaline Phosphatase 74 Total Protein 7.5 Albumin 3.5 Globulin 4.0 Albumin/Globulin Ratio 0.9 L Rads (name of study) 1 view chest x-ray: Right hilar opacity which could be pneumonia versus mass and suspicion for fluid overload.: Relevant Findings:: Final report received and EMP independent interpretation of test PD Medical Decision Making ED course ED course: 89-year-old woman presents with low back pain radiating to both legs. This sounds mostly radicular to me but we would have to include differential includi ng vascular causes although her legs are warm and well-perfused, or intra- abdominal causes especially noting that she does have some lower abdominal tenderness. She does have chronic kidney disease so I will get a CT without contrast of her belly. She is also noted to be somewhat hypoxic here, about 88% on room air. She says she does not feel short of breath. She has not been coughing. She does have crackles at both bases. She has ongoing tobacco abuse, but states "I have about 3 cigarettes a day, I just puff them, I do not inhale." Chest x-ray showing likely pneumonia with mass on the differential and CT of abdomen pelvis demonstrating concern for ruptured appendicitis. Given this I did discuss the case with our on-call surgeon, Dr. Patel at about 5:15 PM and he will follow along. She was cultured up and given Zosyn and will admit to medicine for further evaluation and treatment. updated by phone at 5:19 PM, Spoke with our hospitalist, Dr. Delatorre for admission at 5:23 PM Discharge Plan Discharge Patient Disposition: 66 [facility] DC/Xfer Condition: Serious Clinical Impression: Abdominal pain, DUSTY (acute kidney injury), Respiratory failure Pneumonia Qualifiers: Pneumonia type: due to unspecified organism Laterality: right Lung location: middle lobe of lung Qualified Code(s): J18.9 - Pneumonia, unspecified organism Prescriptions: No Action Jardiance 10 mg tablet 10 mg PO QAM Qty: 90 3RF turmeric 400 mg capsule PO lisinopril 10 mg tablet 10 mg PO QDAY Qty: 90 3RF felodipine 10 mg tablet extended release 24 hr 10 mg PO QDAY Qty: 90 3RF Rx Instructions: Take 1 tablet by mouth once a day carvedilol 6.25 mg tablet 6.25 mg PO BID Qty: 180 3RF Rx Instructions: must administer with a meal/food pravastatin 20 mg tablet 20 mg PO QDAY Qty: 90 3RF Januvia 100 mg tablet 100 mg PO QAM Qty: 90 3RF Rx Instructions: Take 1 tablet by mouth every morning (DME) FreeStyle Lite Strips Strip See Rx Instructions .Route Rx Instructions: As directed (DME) pen needle, diabetic [BD Ultra-Fine Orig Pen Needle] 29 gauge x 1/2" needle See Rx Instructions .Route Rx Instructions: As directed brimonidine [Alphagan P] 0.1 % drops 1 drp ophthalmic (eye) BID Rx Instructions: Use 1 drop into both eyes twice a day timolol 0.5 % drops 1 drp ophthalmic (eye) BID Rx Instructions: Use 1 drop into both eyes twice a day (DME) blood-glucose meter [FreeStyle Lite Meter] Kit See Rx Instructions .Route Rx Instructions: As directed cholecalciferol (vitamin D3) 25 mcg (1,000 unit) tablet 25 mcg PO QDAY Rx Instructions: Take 1 tablet by mouth once a day (DME) lancets [FreeStyle Lancets] 28 gauge misc See Rx Instructions .Route Rx Instructions: As directed calcium carbonate 600 mg calcium (1,500 mg) tablet 600 mg PO BID multivitamin [Daily Multi-Vitamin] Tablet 1 tab PO QDAY vitamin B complex Tablet 1 tab PO QDAY amoxicillin 500 mg capsule 2,000 mg PO ONCE Rx Instructions: before dental appts mirabegron [Myrbetriq] 25 mg tablet extended release 24 hr 25 mg PO QDAY Qty: 90 3RF Gemtesa 75 mg tablet 75 mg PO QDAY Qty: 90 0RF Print Language: Arabic
[2025-09-11 16:08] LABS: HCT - HEMATOCRIT 30.8 % (37.0-47.0); HGB - HEMOGLOBIN 10.1 g/dL (12.0-16.0); MEAN PLATELET VOLUME 10.0 fL (7.9-10.8); NRBC ABSOLUTE COUNT (AUTO) 0.00 x10^3/uL; NUCLEATED RED BLOOD CELLS AUTO 0.0 /100WBC; PLT - PLATELET COUNT 115 10^3/uL (130-450); RED CELL DISTRIBUTION WIDTH 13.2 % (12.0-15.0)
--- OUTSIDE RECORDS SUMMARY | 2025-09-11 16:16 | EXTERNAL MEDICAL SUMMARY RPT | Continuity of Care Document ---
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 [facility] 2025-08-20 00:05 Chronic kidney disease, unspeci fied [facility] 2025-08-22 12:54 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 CHLORIDE 2025-08-19 10:08 [facility] 107 mmol/l As of May 2023 testing method has changed, this may include reference ranges. SODIUM 2025-08-19 10:08 [facility] 138 mmol/l (missing) GLUCOSE 2025-08-19 10:08 [facility] 208 mg/dl As of May 2023 testing method has changed, this may include reference ranges. CARBON DIOXIDE - CO2 2025-08-19 10:08 [facility] 22 mmol/l As of May testing method has changed, this may include reference ranges. GFR - MDRD 2025-08-19 10:08 [facility] 30 (domingo belcher) The IDSC-traceable MDRD Study Equation has been validated extensively in and populations between the ages of 18 and 70 with impaired kidney function (eGFR < 60 mL/min/1.73m2) and has shown good performance for patients with all common causes of kidney disease. Although this equation has not been validated for patients older than 70, an MDRD-derived eGFR may still be a useful tool for providers caring for patients older than 70. References: http://www.nkdep.nih .gov/lab-evaluation/ gfr/creatinine-stand ardization, last updated January 2012. POTASSIUM 2025-08-19 10:08 [facility] 4.7 mmol/l As of May 2023 testing method has changed, this may include reference ranges. BUN - BLOOD UREA NITROGEN 2025-08-19 10:08 [facility] 46 mg/dl As of May testing method has changed, this may include reference ranges. ANION GAP 2025-08-19 10:08 [facility] 9.0 (missing ) (missing) CALCIUM 2025-08-19 10:08 [facility] 9.5 mg/dl As of May 2023 testing method has changed, this may include reference ranges. Result panel 2 CREATININE,URINE 2025-08-19 10:10 [facility] 26.5 m g/dl As of May 2023 testing method has changed, this may include reference ranges. PROTEIN/CREATININE RATIO,URINE 2025-08-19 10:10 [facility] 3.4 (missing) (missing) TOTAL PROTEIN,URINE TIMED 2025-08-19 10:10 [facility] 89 mg/dl As of May testing method has changed, this may include reference ranges. Social History date description facility
[2025-09-11 16:24] LABS: ALT ALANINE AMINOTRANSFERASE 8.0 IU/L (10-60); AST ASPARTATE AMINOTRANSFERASE 9.0 IU/L (10-42); BUN - BLOOD UREA NITROGEN 47.0 mg/dL (6-20); CARBON DIOXIDE - CO2 20.0 mmol/L (21-32); CREATININE 2.2 mg/dL (0.6-1.3); GFR - MDRD 21.0 (>89)
[2025-09-11] MEDS: MORPHINE 2 MG/ML CARPUJECT IVP STA (16:25)
[2025-09-11] MEDS: SODIUM CHLORIDE 0.9% 1,000 ML IV STA (16:40)
[2025-09-11] MEDS: HYDROmorphone 1 MG/ML CARPUJECT IVP STA (16:41)
--- NOTE | 2025-09-11 16:58 | XRAY Report ---
PROCEDURE: XR Chest 1V INDICATIONS: hypoxemia TECHNIQUE: One view of the chest was acquired. COMPARISON: Lung bases on CT abdomen pelvis performed today. CT chest 08/30/2018. CXR 08/30/2018. FINDINGS: Surgical changes and devices: TAVR stent. Lungs and pleura: No pleural effusions or pneumothorax. No consolidation. Mediastinum: Fullness in the right hilar region. Ill-defined hazy opacity bilaterally. Trace pleural effusions. No pneumothorax. Aortic arch calcification. Heart size is prominent. Bones and chest wall: No suspicious bony lesions. Overlying soft tissues appear unremarkable. IMPRESSION: Opacity in the right hilar region. This could represent pneumonia. Alternatively, this could represent right hilar adenopathy. Trace pleural effusions. Diffuse hazy opacity. Suspect fluid overload. Findings could be further evaluated with CT chest with IV contrast. Reviewed by: Flaquito Crouch MD on 09/11/2025 4:55 PM PST Approved by: Flaquito Crouch MD on 09/11/2025 4:55 PM PST Station ID: [id number]
--- NOTE | 2025-09-11 17:09 | CT Report ---
PROCEDURE: CT Abdomen/Pelvis WO INDICATIONS: Abdominal and back pain, CKD TECHNIQUE: A CT scan of the abdomen and pelvis was performed without the use of intravenous contrast. Images were recorded and evaluated at appropriate window settings. Reformats: coronal and sagittal. For radiation dose reduction, the following was used: automated exposure control, adjustment of mA and/or kV according to patient size. COMPARISON: None. FINDINGS: Image quality: Diagnostic. Lower chest: Aortic valve replacement. Small right pleural effusion. Bilateral lobulated densities in the inferior portions of both breasts could reflect silicone augmentation injections as described on screening mammogram 07/19/2021 Liver: No contour-deforming mass. Gallbladder: Biliary tree: No intrahepatic or extrahepatic dilation, accounting for age. Spleen: No splenomegaly. Pancreas: No pancreatic ductal dilation. Adrenals: No adrenal nodule. Kidneys and ureters: No hydronephrosis. No contour-deforming mass. Stomach, bowel and peritoneum: There is fecalization of debris within the stomach suggesting gastroparesis or gastric outlet obstruction. Additionally, there is a large fecal bolus in the cecum with relative decreased fecal volume in the remainder of the colon. Colonic wall thickening involving the transverse colon. No evidence of obstruction. In the right lower quadrant, there is vague edema and inflammatory change, but no abscess. Appendix is not discretely visualized.. Several loops of small bowel with fecal contents present in the right lower quadrant. Terminal ileum also shows visualization with wall thickening. Lymph nodes: No central or retroperitoneal adenopathy. Vessels: Atherosclerotic aortic vascular calcification without aneurysm Reproductive organs: Unremarkable. Bladder: No abnormal bladder wall thickening. No calcified bladder stones. Pelvic lymph nodes: No adenopathy by size criteria. Bones: Degenerative disc disease and arthropathy in the lumbar spine with severe central stenosis at L 4 5 Other: No significant ventral or inguinal hernia. IMPRESSION: Terminal ileum shows evidence of stasis and wall thickening. Edema/inflammatory change in the right lower quadrant present without abscess or free air. Appendix is not separately identified. Consider short-term interval follow-up evaluation. Gastric stasis and wall thickening could reflect gastroparesis or gastric outlet relative obstruction. Small bibasilar pleural effusions greater on the right with atelectasis and or infiltrate Note: Results were discussed with the patient's physician in the ER on 09/11/2025 at 4:04 PM [place] time. Reviewed by: Placido Noguera MD on 09/11/2025 4:05 PM [facility] Approved by: Placido Noguera MD on 09/11/2025 4:05 PM [facility] Station ID: [id number]
--- NOTE | 2025-09-11 17:42 | HISTORY & PHYSICAL EXAMINATION ---
Chief Complaint Chief Complaint Chief Complaint: Leg pain History of Present Illness Admitted From Admitted From:: ED History Obtained From Records Reviewed: [facility] History obtained from: Patient, EMR, Spouse Exam Limitations: Patient is hard of hearing History of Present Illness HPI Comment/Other: The patient is an 89-year-old female with a past medical history of prior CVA with residual deficit, T2DM, HTN, CKD 3B, HLD, anemia of chronic disease, osteoarthritis of the back and hip, DJD of the C-spine and L-spine, exudative age-related macular degeneration, glaucoma and urinary urge incontinence who presents with chief complaint of bilateral lower extremity radicular pain. She is found here to have an elevated leukocytosis, hypoxemic respiratory failure, findings consistent with ruptured appendicitis, pneumonia. She is being admitted predominantly for these latter issues. Per the patient, and my discussion with her , she has a longstanding history of bilateral lower extremity radicular pain from "pinched nerve in her back". This was worsening over the last few days prior to this hospitalization. This prompted her to come to the hospital. Her symptoms were mostly radicular. Pain in the low back radiating to both legs. Worse with movement. She is not having any new weakness in her legs, but has chronic episodes where her legs give out since her prior stroke and she uses a walker. This is unchanged. No other red flag symptoms. No weight loss. No B symptoms. In workup in the ED, she was found to have DUSTY, likely pneumonia, be hypoxemic and further workup was investigated. Abdominal cross-sectional imaging was obtained and reveals concern for ruptured appendicitis. She has been started on intra-abdominal antibiotics. Given her hypoxemia, she had a chest x-ray which revealed perihilar opacities with recommendation for follow-up CT. Findings are consistent with pneumonia. She has a leukocytosis. Patient says she does not realize that she is wheezing. She does not feel particularly more short of breath. She is requiring up to 5 L to maintain saturations greater than 92%. Of note she is a long-term smoker, still smokes up to 3 cigarettes a day. Denies any fevers or chills. Denies any new cough. Denies productive cough. Denies chest pain, palpitations. Denies abdominal pain, nausea or vomiting. Denies any diarrhea. Does not remember when her last bowel movement was. Denies any new rashes. I am concerned this patient has not had any advance care planning. She is not able to cogently have a conversation with me this evening about this. She is preoccupied with her pain and her pulmonary function. I was able to find her POLST which reveals that she previous identified that she would want to be full code but only selective treatment. A full code/DNI POLST is nonsensical. Will have to have more conversations about this during this hospitalization. Patient is insistent that she is full code at this time. Meds/Allgy Home Medications Ambulatory Orders Medication Instructions Recorded Confirmed blood sugar diagnostic (FreeStyle 08/26/24 06/29/25 Lite Strips) blood-glucose meter (FreeStyle 08/26/24 06/29/25 Lite Meter kit) brimonidine 0.1 % eye drops 1 drp ophthalmic (eye) BID 08/26/24 06/29/25 (Alphagan P) calcium carbonate 600 mg PO BID 08/26/2406/29 cholecalciferol (vitamin D3) 25 25 mcg PO QDAY 4 06/29/25 mcg (1,000 unit) tablet lancets 28 gauge (FreeStyle 08/26/24 06/29/25 Lancets) pen needle, diabetic 29 gauge x 08/26/24 06/29/25 1/" (BD Ultra-Fine Original Pen Needle) timolol 0.5 % eye drops 1 drp ophthalmic (eye) BID 1 06/29/25 carvedilol 6.25 mg tablet 6.25 mg PO BID #180 tabs 06/29/25 felodipine 10 mg tablet,extended 10 mg PO QDAY #90 tab s 01/20/25 06/29/25 release 24 hr lisinopril 10 mg tablet 10 mg PO QDAY #90 tabs 01/2006/29/25 pravastatin 20 mg tablet 20 mg PO QDAY #90 tabs 01/2006/29/25 sitagliptin phosphate 100 mg 100 mg PO QAM #90 tabs 06/29/25 tablet (Januvia) turmeric 400 mg capsule mg PO 01/20/25 06/29/25 amoxicillin 500 mg capsule 2,000 mg PO ONCE 03/28/25 0 06/29/25 mirabegron 25 mg tablet,extended 25 mg PO QDAY #90 tab s 03/28/25 06/29/25 release 24 hr (Myrbetriq) multivitamin (Daily Multi-Vitamin 1 tab PO QDAY 06/29/25 tablet) vitamin B complex 1 tab PO QDAY 03/28/2506/29 vibegron 75 mg tablet (Gemtesa) 75 mg PO QDAY #90 tabs 06/29/25 06/29/25 empagliflozin 10 mg tablet 10 mg PO QAM #90 tabs 08/17 (Jardiance) Allergies Allergies Allergy/AdvReac Type Severity Reaction Status Date / Time hydrochlorothiazide AdvReac Unknown hyponatremi Verified 09/11/25 16:05 a [facility] Active Problems All Active Problems (Updated 09/11/25 @ 18:40 by Chester Delatorre DO) Hyperkalemia (Acute) Sepsis (Acute) Ruptured appendicitis (Acute) Respiratory failure (Acute) DUSTY (acute kidney injury) (Acute) Abdominal pain (Acute) Pneumonia (Acute) Urge urinary incontinence (Chronic) Mixed hyperlipidemia (Chronic) Need for antibiotic prophylaxis for dental procedure (Chronic) Essential hypertension (Chronic) 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 (Chronic 02/02/21) Anemia due to chronic kidney disease (Chronic 12/06/22) Tobacco abuse (Chronic) Spinal stenosis, lumbar region with neurogenic claudication (Chronic 02/20/21) Degenerative joint disease of cervical spine (Chronic 11/10/1959) Osteoarthritis of hips, bilateral (Chronic) Depression (Chronic 01/07/17) Advance directive discussed with patient (Chronic 02/27/24) 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, right eye, stage unspecified (Chronic 02/02/21) Glaucoma (Chronic 02/02/21) Medical History Medical History (Updated 09/11/25 @ 18:40 by Chester Delatorre DO) Arthritis of left knee Centrilobular emphysema 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, Attila + Cerebellar Vermis due to HTN Aortic stenosis (07/27/15) s/p TAVR 03/2018 Surgical History Surgical History 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 (20 cigarettes=1 Pk): 5 Second hand tobacco smoke exposure: Yes Do you dip or chew tobacco?: No Do you vape?: No Patient requests smoking cessation consult: No Initiate information on smoking cessation: No Living arrangement: At home Living Condition: With spouse/s.o. Do you feel safe in your home environment?: Yes History of physical, verbal, emotional, or financial abuse?: No ETOH Use: None Substance Use: denies use Are you sexually active?: No Retired: Yes Service: No POLST Patient has POLST: Yes POLST on file?: Yes POLST CPR Status: Attempt Resuscitation (CPR) Level of Medical Intervention: Full Treatment Review of Systems Status of ROS: See HPI Exam Exam Vital Signs: Vital Signs x48h Temp Pulse Pulse Resp BP BP Pulse Ox 09/11/25 18:39 36.7 C 78 17 136/65 H 92 09/11/25 17:45 92 09/11/25 17:36 81 23 146/65 H 91 L 09/11/25 16:21 09/11/25 15:57 96 09/11/25 15:57 88 L 09/11/25 15:46 36.6 C 92 20 138/62 H 91 L O2 Flow Rate 09/11/25 18:39 5 09/11/25 17:45 5 09/11/25 17:36 5 09/11/25 16:21 3 09/11/25 15:57 3 09/11/25 15:57 09/11/25 15:46 GEN: Frail appearing. No acute distress, patient taking shallow rapid breaths. Weakly phonates HEENT: NC/AT, normal appearance of external ears and nose. Hard of hearing at baseline. Yellowed but intact dentition. Cardiac: Regular rate and rhythm, mechanical valve. Pulm: Rhonchi in right lung base more prominent. Diffuse wheezing. Abdomen: Soft, nonacute. Tender to palpation, RLQ predominantly, but throughout her abdomen. No suprapubic tenderness. Neuro: Face symmetric, CN II through XII intact grossly. Mild slurring of speech. Mildly dysarthric. No overt focal deficits. Moving her extremities. Psych: Mood euthymic. Affect congruent. Sepsis Event Note (H) Evaluation Current Stage of Sepsis: Severe sepsis Possible source of Sepsis: positive Pulmonary Sepsis Criteria Sepsis Criteria: Recorded Respiratory Rate greater than 20 and WBC count greater than 12,000 or less than 4000 Conclusion/Plan Problem List (1) Sepsis: Plan: Patient presents with findings of severe sepsis. She has an elevated leukocytosis (15.9), tachypnea with evidence of endorgan dysfunction due to DUSTY as well as acute hypoxemic respiratory failure. She has been feeling unwell for at least the last 3 days. May have started with a intra-abdominal infection and findings of possible ruptured appendicitis. Given these findings, her electrolyte abnormalities, her DUSTY, and her ongoing oxygen requirement, I discussed her case with the provider in the ER and decided to admit her to the inpatient service for further management. - Admit to inpatient - Follow-up blood cultures, NGTD - She got fluids in the ED, blood pressure is robust - She got defer further fluids at this time - Encourage oral hydration - Will monitor lactate now - On broad-spectrum antibiotics, IV Zosyn renally dosed - CBC a.m. Qualifiers: Acute respiratory failure type: with hypoxia Sepsis acute organ dysfunction status: with acute organ dysfunction Sepsis type: sepsis due to unspecified organism Severe sepsis acute organ dysfunction type: acute respiratory failure Severe sepsis shock status: without septic shock Qualified Code(s): A41.9 - Sepsis, unspecified organism; R65.20 - Severe sepsis without septic shock; J96.01 - Acute respiratory failure with hypoxia (2) Respiratory failure: Qualifiers: Chronicity: acute Respiratory failure complication: hypoxia Qualified Code(s): J96.01 - Acute respiratory failure with hypoxia (3) Centrilobular emphysema: (4) Pneumonia: Plan: Patient presents with acute hypoxemic respiratory failure, she is not on oxygen at home. Is requiring up to 5 L here to maintain adequate oxygen saturations. She is found on chest x-ray to have evidence of pneumonia. She is not coughing. She is wheezing on exam. She does smoke, lifelong smoker. She has a history of emphysema in the chart. She does not have any history of chronic hypercarbia on her BMP history. Patient is wheezing on my exam. She is not on any inhalers at baseline. Has never been on any inhalers per her report. - Antibiotics as above - Consider adding steroids per SCC guidelines if her respiratory failure is severe. - Wean oxygen as tolerated, goal saturation > 92% - Pulmonary toileting, IS ordered - Scheduled nebulizers Qualifiers: Laterality: right Lung location: middle lobe of lung Pneumonia type: d ue to unspecified organism Qualified Code(s): J18.9 - Pneumonia, unspecified organism (5) Hyperkalemia: Plan: Patient presents with hyperkalemia. K of 5.5. She is on JIMBO inhibitor prior to this admission. With CKD. Suspect her DUSTY is likely contributing to the increase in her potassium. - Will give Lokelma x 1 - Consideration for furosemide, but holding off in the setting of her DUSTY, she is not profoundly volume up. (6) DUSTY (acute kidney injury): Plan: Patient has a history of chronic kidney disease, stage IV. Creatinine historically around 1.6. Has been as high as 2.5. 2.2 this admission. Last checked out a month ago was 1.6. She is still making urine per her report. BUN near her baseline around 40. Especially notable given her concurrent pneumonia No acute indications for dialysis. Electrolytes show hyperkalemia, as below. - Monitor BMP a.m. - Fluids as above - Avoid nephrotoxins as able, avoiding contrast with scans - I would have a real [id number] with this patient before recommending dialysis (7) Ruptured appendicitis: Plan: Her CT of her abdomen apparently reveals no evidence of appendicitis but a fluid collection without abscess in her right lower abdomen. Her reports that she had some abdominal pain 2 or 3 days ago. She has a leukocytosis as above. She is not complaining of abdominal pain, but has pain on palpation of her abdomen. - ABX as above - Suspect poor surgical candidate - General Surgery was consulted by the ED, awaiting their recommendations (8) 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: Plan: Longstanding history of diabetes. Last A1c 8.2 in March. Blood sugars on arrival 257. She is not on insulin at home. Home meds include sitagliptin, Jardiance Multiple complications of diabetes including CKD, retinopathy, hypertension and CVA. - Hold oral glycemic control agents given her DUSTY - Starting 10 units glargine nightly - Starting 5 units before every meal lispro - Moderate dose sliding scale with carb controlled diet - Repeat A1c Qualifiers: Diabetes mellitus intermediate insulin use: without rat exterminator use Q ualified Code(s): E11.22 - Type 2 diabetes mellitus with diabetic chronic kidney disease; N18.4 - Chronic kidney disease, stage 4 (severe) (9) Anemia due to chronic kidney disease: Plan: Patient presents with hemoglobin of 10.1. Baseline between 10 and 11. Has a history of anemia of chronic kidney disease. Not on EPO. No indication for EPO. - Continue to monitor CBC a.m., transfuse Hgb less than 7 - Will check iron panel a.m. May benefit from IV iron (10) Osteoarthritis of hips, bilateral: Plan: Longstanding history of osteoarthritis as well as radicular pains to her bilateral lower extremity. This brought her into the hospital this admission. No acute interventions for her bilateral lower extremity pain She would likely not tolerate spinal surgery, history of spinal stenosis likely contributing No red flag symptoms. - APAP 650 mg every 4 hours as needed - Oxycodone prn - Avoiding parenteral narcotics without clear indication Qualifiers: Osteoarthritis type: primary Qualified Code(s): M16.0 - Bilateral primary osteoarthritis of hip (11) History of hemorrhagic cerebrovascular accident (CVA) with residual deficit: (12) Mixed hyperlipidemia: Plan: Given her history of CVA, it is unclear to me why she is not on a high intensity statin. She is on pravastatin 20 mg daily. She is unclear on whether she is on an antiplatelet. - Hold statin for now - Recommend discharge on high intensity statin therapy - Manage blood pressure and diabetes as stated elsewhere (13) Essential hypertension: Plan: Longstanding history of hypertension. She has been hypertensive during this hospitalization thus far. Her history of stroke puts her at risk for recrudescence or further stroke with uncontrolled hypertension [employer] on carvedilol 6.25 mg twice daily, felodipine 10 mg, lisinopril 10 mg - Will continue home antihypertensives cautiously given sepsis as above Lab Results 09/11/25 16:03 09/11/25 16:03
--- OUTSIDE RECORDS SUMMARY | 2025-09-11 17:46 | EXTERNAL MEDICAL SUMMARY RPT | Continuity of Care Document ---
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 CHLORIDE 2025-08-19 10:08 [facility] 107 mmol/l As of May 2023 testing method has changed, this may include reference ranges. SODIUM 2025-08-19 10:08 [facility] 138 mmol/l (missing) GLUCOSE 2025-08-19 10:08 [facility] 208 mg/dl As of May 2023 testing method has changed, this may include reference ranges. CARBON DIOXIDE - CO2 2025-08-19 10:08 [facility] 22 mmol/l As of May testing method has changed, this may include reference ranges. GFR - MDRD 2025-08-19 10:08 [facility] 30 (domingo belcehr) The IDWY-traceable MDRD Study Equation has been validated extensively [...] last updated January 2012. POTASSIUM 2025-08-19 10:08 [facility] 4.7 mmol/l As of May 2023 testing method has changed, this may include reference ranges. BUN - BLOOD UREA NITROGEN 2025-08-19 10:08 [facility] 46 mg/dl As of May testing method has changed, this may include reference ranges. ANION GAP 2025-08-19 10:08 [facility] 9.0 (missing ) (missing) CALCIUM 2025-08-19 10:08 [facility] 9.5 mg/dl As of May 2023 testing method has changed, this may include reference ranges. Result panel 2 CREATININE,URINE 2025-08-19 10:10 [facility] 26.5 m g/dl As of May 2023 testing method has changed, this may include reference ranges. PROTEIN/CREATININE RATIO,URINE 2025-08-19 10:10 [facility] 3.4 (missing) (missing) TOTAL PROTEIN,URINE TIMED 2025-08-19 10:10 [facility] 89 mg/dl As of May testing method has changed, this may include reference ranges. Result panel 3 NUCLEATED RED BLOOD CELLS AUTO 2025-09-11 16:03 [facility] 0.0 /100wbc (missing) BASOPHILS # (AUTO) 2025-09-11 16:03 [facility] 0.0 10 3/ul (missing) NRBC ABSOLUTE COUNT (AUTO) 2025-09-11 16:03 [facility] 0.00 x10 3/ul (missing) EOSINOPHILS # (AUTO) 2025-09-11 16:03 [facility] 0.1 10 3/ul (missing) BILIRUBIN,TOTAL 2025-09-11 16:03 [facility] 0.5 mg/dl As of May 2023 testing method has changed, this may include reference ranges. MONOCYTES # (AUTO) 2025-09-11 16:03 [facility] 0.7 10 3/ul (missing) ALBUMIN/GLOBULIN RATIO 2025-09-11 16:03 [facility] 0.9 (missing) (missing) LYMPHOCYTES # (AUTO) 2025-09-11 16:03 [facility] 1.1 10 3/ul (missing) MEAN PLATELET VOLUME 2025-09-11 16:03 [facility] 10.0 fl (missing) HGB - HEMOGLOBIN 2025-09-11 16:03 [facility] 10.1 g/dl (missing) ANION GAP 2025-09-11 16:03 [facility] 11.0 (missing) (missing) PLT - PLATELET COUNT 2025-09-11 16:03 [facility] 115 10 3/ul (missing) SODIUM 2025-09-11 16:03 [facility] 126 mmol/l (missing) RED CELL DISTRIBUTION WIDTH 2025-09-11 16:03 [facility] 13.2 % (missing) NEUTROPHILS # (AUTO) 2025-09-11 16:03 [facility] 13.9 10 3/ul (missing) WHITE BLOOD COUNT 2025-09-11 16:03 [facility] 15.9 x10 3/ul (missing) CREATININE 2025-09-11 16:03 [facility] 2.2 mg/dl As of May 2023 testing method has changed, this may include reference ranges. CARBON DIOXIDE - CO2 2025-09-11 16:03 [facility] 20 mmol/l As of May 2023 testing method has changed, this may include reference ranges. GFR - MDRD 2025-09-11 16:03 [facility] 21 (missing) The IDMS-traceable MDRD Study Equation has been validated extensively [...] caring for patients older than 70. References: http://www.nkdep. nih.gov/lab-evalu ation/gfr/creatin ine-stand ardization, last updated January 2012. GLUCOSE 2025-09-11 16:03 [facility] 257 mg/dl As of May 2023 testing method has changed, this may include reference ranges. RED BLOOD COUNT 2025-09-11 16:03 [facility] 3.31 10 6/ul (missing) ALBUMIN 2025-09-11 16:03 [facility] 3.5 g/dl As of May 2023 testing method has changed, this may include reference ranges. MEAN CORPUSCULAR HEMOGLOBIN 2025-09-11 16:03 [facility] 30.5 pg (missing) HCT - HEMATOCRIT 2025-09-11 16:03 [facility] 30.8 % (missing) MEAN CORPUSCULAR HGB CONC 2025-09-11 16:03 [facility] 32.8 g/dl (missing) GLOBULIN 2025-09-11 16:03 [facility] 4.0 g/dl (missing) BUN - BLOOD UREA NITROGEN 2025-09-11 16:03 [facility] 47 mg/dl As of May 2023 testing method has changed, this may include reference ranges. POTASSIUM 2025-09-11 16:03 [facility] 5.5 mmol/l As of May 2023 testing method has changed, this may include reference ranges. TOTAL PROTEIN 2025-09-11 16:03 [facility] 7.5 g/dl As of May 2023 testing method has changed, this may include reference ranges. ALKALINE PHOSPHATASE 2025-09-11 16:03 [facility] 74 iu/l As of May 2023 testing method has changed, this may include reference ranges. ALT ALANINE AMINOTRANSFERASE 2025-09-11 16:03 [facility] 8 iu/l As of May 2023 testing method has changed, this may include reference ranges. CALCIUM 2025-09-11 16:03 [facility] 8.7 mg/dl As of May 2023 testing method has changed, this may include reference ranges. AST ASPARTATE AMINOTRANSFERASE 2025-09-11 16:03 [facility] 9 iu/l As of May 2023 testing method has changed, this may include reference ranges. MEAN CORPUSCULAR VOLUME 2025-09-11 16:03 [facility] 93.1 fl (missing) CHLORIDE 2025-09-11 16:03 [facility] 95 mmol/l As of May 2023 testing method has changed, this may include reference ranges. Result panel 4 LACTIC ACID, VENOUS 2025-09-11 16:56 [facility] 0.9 mmol/l N As of May 2023 testing method has changed, this may include reference ranges. Social History date description facility
--- NOTE | 2025-09-11 18:23 | CONSULTATION NOTE ---
Referring Provider Name of Referring Provider:: Dr. Delatorre Consult Date: 09/12/25 History of Present Illness History Obtained From History obtained from: Patient History of Present Illness HPI Comment/Other: 89 yo F with history of DM, CVA, TAVR, CKD, HTN and cerebral hemorrhage that presented to the ED on 09/11 for back pain and leg pain. Had been going on for 3 days, severe pain in the low back with radiation into both legs, worse with movement. She has been taking Tylenol which has not been very helpful. In the ED she was noted to have abdominal pain on exam as well. She underwent CXR with concerns for pneumonia and fluid overload. A CT abdomen/pelvis demonstrated inflammation in the RLQ involving the ileum without abscess or free air, the appendix was not separately identified concerning for possible perforated appendicitis. Her labs demonstrated DUSTY, hyperkalemia, hyponatremia and leukocytosis. She was admitted to medicine for her pneumonia and overload and surgery was consulted for her abdominal concerns. This morning she states that her back pain is improved and she denies any abdominal pain. She states she has continued to have bowel function and eat and drink normally at home without issue. She also denies any nausea, vomiting, chest pain, SOB, fevers or chills. 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 (Chronic 02/02/21) Anemia due to chronic kidney disease (Chronic 12/06/22) Tobacco abuse (Chronic) Spinal stenosis, lumbar region with neurogenic claudication (Chronic 02/20/21) Degenerative joint disease of cervical spine (Chronic 11/10/1959) Osteoarthritis of hips, bilateral (Chronic) Depression (Chronic 01/07/17) Advance directive discussed with patient (Chronic 02/27/24) 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, right eye, stage unspecified (Chronic 02/02/21) Glaucoma (Chronic 02/02/21) Medical History Medical History (Updated 09/12/25 @ 04:08 by Citlalli Perez RN) Emphysema lung CHF (congestive heart failure) Diabetic nephropathy Macular degeneration Osteoarthritis Anemia Hypertension Arthritis of left knee Centrilobular emphysema 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, Attila + Cerebellar Vermis due to HTN Aortic stenosis (07/27/15) s/p TAVR 03/2018 Surgical History Surgical History S/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 (20 cigarettes=1 Pk): 5 Second hand tobacco smoke exposure: Yes Do you dip or chew tobacco?: No Do you vape?: No Patient requests smoking cessation consult: No Initiate information on smoking cessation: No Smoking Status Details: pt reports she does not "inhale" cigarettes, smoking since 18 years old Living arrangement: At home Living Condition: With spouse/s.o. Level: Assisted Home Mobility Equipment: Walker Do you feel safe in your home environment?: Yes History of physical, verbal, emotional, or financial abuse?: No ETOH Use: None Substance Use: denies use Are you sexually active?: No Retired: Yes Service: No POLST Patient has POLST: Yes Meds/Allgy Home Medications Ambulatory Orders Medication Instructions Recorded Confirmed blood sugar diagnostic (FreeStyle 08/26/24 06/29/25 Lite Strips) blood-glucose meter (FreeStyle 08/26/24 06/29/25 Lite Meter kit) brimonidine 0.1 % eye drops 1 drp ophthalmic (eye) BID 08/26/24 06/29/25 (Alphagan P) calcium carbonate 600 mg PO BID 08/26/2406/29 cholecalciferol (vitamin D3) 25 25 mcg PO QDAY 4 06/29/25 mcg (1,000 unit) tablet lancets 28 gauge (FreeStyle 08/26/24 06/29/25 Lancets) pen needle, diabetic 29 gauge x 08/26/24 06/29/25 1/2" (BD Ultra-Fine Original Pen Needle) timolol 0.5 % eye drops 1 drp ophthalmic (eye) BID 1 06/29/25 carvedilol 6.25 mg tablet 6.25 mg PO BID #180 tabs 06/29/25 felodipine 10 mg tablet,extended 10 mg PO QDAY #90 tab s 01/20/25 06/29/25 release 24 hr lisinopril 10 mg tablet 10 mg PO QDAY #90 tabs 01/2006/29/25 pravastatin 20 mg tablet 20 mg PO QDAY #90 tabs 01/2006/29/25 sitagliptin phosphate 100 mg 100 mg PO QAM #90 tabs 06/29/25 tablet (Januvia) turmeric 400 mg capsule mg PO 01/20/25 06/29/25 amoxicillin 500 mg capsule 2,000 mg PO ONCE 03/28/25 0 06/29/25 mirabegron 25 mg tablet,extended 25 mg PO QDAY #90 tab s 03/28/25 06/29/25 release 24 hr (Myrbetriq) multivitamin (Daily Multi-Vitamin 1 tab PO QDAY 06/29/25 tablet) vitamin B complex 1 tab PO QDAY 03/28/2506/29 vibegron 75 mg tablet (Gemtesa) 75 mg PO QDAY #90 tabs 06/29/25 06/29/25 empagliflozin 10 mg tablet 10 mg PO QAM #90 tabs 08/17 (Jardiance) Allergies Allergies Allergy/AdvReac Type Severity Reaction Status Date / Time hydrochlorothiazide AdvReac Unknown hyponatremi Verified 09/11/25 16:05 a Results Lab Results Lab results reviewed: Yes 09/12/25 04:18 09/12/25 04:18 Other Lab Results: Lab Results x24hrs 09/11/25 09/11/25 Range/Units 16:56 16:03 WBC 15.9 H (4.8-10.8) x10^3/uL RBC 3.31 L (4.20-5.40) 10^6/uL Hgb 10.1 L (12.0-16.0) g/dL Hct 30.8 L (37.0-47.0) % MCV 93.1 (81.0-99.0) fL MCH 30.5 (27.0-31.0) pg MCHC 32.8 (32.0-36.0) g/dL RDW 13.2 (12.0-15.0) % Plt Count 115 L (130-450) 10^3/uL MPV 10.0 (7.9-10.8) fL Neut # (Auto) 13.9 H (1.5-6.6) 10^3/uL Lymph # (Auto) 1.1 L (1.5-3.5) 10^3/uL Love # (Auto) 0.7 (0.0-1.0) 10^3/uL Eos # (Auto) 0.1 (0.0-0.7) 10^3/uL Baso # (Auto) 0.0 (0.0-0.1) 10^3/uL Absolute Nucleated RBC 0.00 x10^3/uL Nucleated RBC % 0.0 /100WBC Sodium 126 L (135-145) mmol/L Potassium 5.5 H (3.5-4.5) mmol/L Chloride 95 L (101-111) mmol/L Carbon Dioxide 20 L (21-32) mmol/L Anion Gap 11.0 (6-13) BUN 47 H (6-20) mg/dL Creatinine 2.2 H (0.6-1.3) mg/dL Estimated GFR (MDRD) 21 L (>89) Glucose 257 H (74-104) mg/dL Lactic Acid 0.9 (0.5-2.2) mmol/L Calcium 8.7 (8.5-10.3) mg/dL Total Bilirubin 0.5 (0.2-1.0) mg/dL AST 9 L (10-42) IU/L ALT 8 L (10-60) IU/L Alkaline Phosphatase 74 (42-121) IU/L Total Protein 7.5 (6.4-8.9) g/dL Albumin 3.5 (3.2-5.5) g/dL Globulin 4.0 (2.1-4.2) g/dL Albumin/Globulin Ratio 0.9 L (1.0-2.2) Diagnostic Imaging Results Diagnostic Imaging Results: positive Final report reviewed Review of Systems Status of ROS: 10 or more systems reviewed and unremarkable except as noted in history and below Exam Exam Vital Signs: Vital Signs x48h Temp Pulse Resp BP Pulse Ox O2 Flow Rate 09/11/25 17:45 92 5 09/11/25 17:36 81 23 146/65 H 91 L 5 09/11/25 16:21 3 09/11/25 15:57 96 3 09/11/25 15:57 88 L 09/11/25 15:46 36.6 C 92 20 138/62 H 91 L Constitutional normal general appearance and no apparent distress HENMT normocephalic and head/scalp atraumatic Eyes conjunctivae normal and no scleral icterus Neck/C-Spine visual inspection normal Respiratory normal respiratory effort Cardiovascular normal heart rate noted and regular rhythm noted Gastrointestinal abdomen normal to inspection, abdomen soft to palpation and tender to palpation (LLQ) and (RLQ) Extremities normal to inspection Neurology speech normal Psychiatry cooperative and affect normal Skin skin color normal Conclusion/Plan Problem List (1) Abdominal pain: Plan 89 yo F with history of DM, CVA, TAVR, CKD, HTN and cerebral hemorrhage that presented to the ED on 09/11 for back pain and leg pain. Had been going on for 3 days, severe pain in the low back with radiation into both legs, worse with movement. Abdominal exam demonstrated lower abdominal pain and CT demonstrated inflammation in the RLQ involving the ileum without abscess or free air, the appendix was not separately identified concerning for possible perforated appendicitis. WBC 16. She is a high risk for any surgical intervention with her significant comorbidities. She currently has no abdominal pain and has been having regular bowel function. With abx alone her WBC is downtrending to normal. Would plan to treat any intra-abdominal infection with abx alone for a 10 day course. - Agree with abx, Zosyn appropriate for PNA and possible appendicitis - Monitor Cr, if returns to normal can consider CT w/ IV to better characterize RLQ inflammation - OK for diet, no plans for acute surgical intervention - Rest of care per primary - Surgery will follow along Lab Results Lab results reviewed: Yes 09/12/25 04:18 09/12/25 04:18 Diagnostic Imaging Results Diagnostic Imaging Results: positive Final report reviewed
[2025-09-11] MEDS ORDERED: ONDANSETRON 4 MG/2 ML VIAL IVP PRN (18:31)
[2025-09-11] MEDS ORDERED: ONDANSETRON ODT 4 MG TABLET TL PRN (18:31)
[2025-09-11] MEDS ORDERED: oxyCODONE 5 MG TABLET PO PRN (18:31)
[2025-09-11] MEDS: PIPERACILLIN/TAZOBACTAM 3.375 GM in SODIUM CHLORIDE 0.9% MINIBAG 100 ML IV STA (18:49)
--- NOTE | 2025-09-11 19:00 | ADVANCE CARE PLANNING NOTE ---
Advance Care Planning Planning Encounter Date: 09/11/25 Time: 19:03 Decisional Capacity of the Patient: Decisional Diagnosis for Encounter (1) Sepsis: Qualifiers: Sepsis type: sepsis due to unspecified organism Sepsis acute organ dysfunction status: with acute organ dysfunction Severe sepsis acute organ dysfunction type: acute respiratory failure Acute respiratory failure type: with hypoxia Severe sepsis shock status: without septic shock Qualified Code(s): A41.9 - Sepsis, unspecified organism; R65.20 - Severe sepsis without septic shock; J96.01 - Acute respiratory failure with hypoxia (2) Respiratory failure: Qualifiers: Chronicity: acute Respiratory failure complication: hypoxia Qualified Code(s): J96.01 - Acute respiratory failure with hypoxia (3) Centrilobular emphysema: (4) Pneumonia: Qualifiers: Laterality: right Lung location: middle lobe of lung Pneumonia type: due to unspecified organism Qualified Code(s): J18.9 - Pneumonia, unspecified organism (5) Hyperkalemia: (6) DUSTY (acute kidney injury): (7) Ruptured appendicitis: (8) 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: Qualifiers: Diabetes mellitus parts counterman insulin use: without parts counterman use Qualified Code(s): E11.22 - Type 2 diabetes mellitus with diabetic chronic kidney disease; N18.4 - Chronic kidney disease, stage 4 (severe) (9) Anemia due to chronic kidney disease: (10) Osteoarthritis of hips, bilateral: Qualifiers: Osteoarthritis type: primary Qualified Code(s): M16.0 - Bilateral primary osteoarthritis of hip (11) History of hemorrhagic cerebrovascular accident (CVA) with residual deficit: (12) Mixed hyperlipidemia: (13) Essential hypertension: Encounter Additional Discussion: Patient is an 89-year-old female with medical history as above and as dictated in my H&P from today. She has a full code POLST on file that describes that she would also be limited intervention. I discussed with her that I resuscitative effort with CPR would require her to be on breathing machines and life support for an extended period of time. I described to her that I did not think that she would be able to survive this process in the long run and would just extend her suffering at the end of her life if she were to have a cardiac arrest. She nodded stating understanding. I described that I would recommend that she not be full code and that she be DNR in the event of an arrest. I described that this is different from treating other conditions while she is alive, particularly her hypoxemic respiratory failure. She assented to this. Patient is DNR. I promised her I would come back tomorrow with her at bedside and we would have further conversations about her CODE STATUS and more advance care planning. It is clear that they have not had extensive conversations about this in the past and she badly needs it. Code Status: Do Not Attempt Resuscitation
[2025-09-11] MEDS: ACETAMINOPHEN 325 MG TABLET PO PRN (19:23)
[2025-09-11] MEDS: PIPERACILLIN/TAZOBACTAM 2.25 GM in SODIUM CHLORIDE 0.9% MINIBAG 100 ML IV SCH (19:23)
[2025-09-11] MEDS: oxyCODONE 5 MG TABLET PO PRN (19:24)
[2025-09-11] MEDS: SODIUM ZIRCONIUM CYCLOSILICATE 5 GM PACKET PO ONE (19:24)
[2025-09-11] MEDS: IPRATROPIUM/ALBUTEROL 3 ML NEB INH SCH (19:34)
[2025-09-11 20:44] LABS: ESTIMATED AVERAGE GLUCOSE 169 mg/dL (70-100); HEMOGLOBIN A1c% 7.5 % (4.27-6.07)
--- NOTE | 2025-09-11 20:53 | PROVIDER PROGRESS NOTE ---
Progress Note Progress Note Progress Note: She is continuing to wheeze despite duoneb treatment. her oxygen requirements are going up and she is very short of breath. She went down to 84% on 6L NC moving from the hospital bed to the CT table. She is tachypneic. She tells me that she is on "fluid pills" at home. She denies having taken them today. on review of records, she has been on Chlorthalidone 15mg daily in the past, but was taken off of this due to renal function. This has been some months since that change. She does not have any pedal edema. her BNP is elevated, at 838. CT chest result pending at this time. To my review, there is much inflammation, and a pleural effusion on the right. Radiology read roughly agrees with this interpretation. I am going to start her on solumedrol for inflammation. She got one liter of fluid in the ED and is not on supplemental fluid at this time, I think it safer to hold diuretics at this time, especially considering that she does not appear extremely uncomfortable, despite her oxygen requirements increasing and her tachypnea. I have reason to think that the steroids, abx and neb treatments will improve her.
--- NOTE | 2025-09-11 21:03 | CT Report ---
PROCEDURE: CT Chest WO INDICATIONS: Hilar opacities, pneumonia TECHNIQUE: A CT scan of the chest was performed. Intravenous contrast media was not administered. Images were recorded and evaluated at appropriate window settings. Reformats: axial MIP of the chest, coronal and sagittal. For radiation dose reduction, the following was used: automated exposure control, adjustment of mA and/or kV according to patient size. COMPARISON: 08/30/2018, same day radiograph FINDINGS: Image quality: Diagnostic Lungs and pleura: Diffuse moderate septal thickening. Mild to moderate right and trace left pleural effusions. Multifocal lung opacities and bronchial wall thickening, most focal in the right perihilar and infrahilar region, extending into the right lower lung. There is also involvement of the left lower lobe. Mediastinum, heart, and esophagus: Small hiatal hernia. Moderately patulous appearance of the distal esophagus. High density material is seen coating the gastric wall and within the esophagus Cardiomegaly. Diffuse airway debris. Coronary calcifications and aortic valve replacement. There are prominent mediastinal lymph nodes, indeterminate, possibly reactive. Attention on follow-up. Chest wall and thyroid: Breast implants, with evidence of rupture again seen. Partially seen thyroid is unremarkable Upper abdomen: Partially seen gallbladder distention. Possible left lobe liver cyst. Bones: There are degenerative osseous findings. No aggressive appearing osseous abnormality. IMPRESSION: Multifocal lung opacities and bronchial wall thickening, most focal in the right perihilar and infrahilar region, extending into the right lower lung. There is also involvement of the left lower lobe. Findings are likely infectious/inflammatory, including aspiration. Diffuse airway debris also seen. Follow-up imaging is suggested to ensure resolution and exclude underlying mass. This study is limited without IV contrast. Mild to moderate right and trace left pleural effusions. Diffuse pulmonary septal thickening likely edema. Small hiatal hernia. Moderately patulous distal esophagus. High density material is seen coating the gastric wall and within the esophagus, probably from reflux. Correlate with contents of recent oral intake Other findings above. Reviewed by: Delfino García MD on 09/11/2025 9:00 PM PST Approved by: Delfino García MD on 09/11/2025 9:00 PM PST Station ID: [id number]
[2025-09-11] MEDS: BRIMONIDINE 0.2% OPHTH DROPS 5 ML EACHEYE SCH (21:07)
[2025-09-11] MEDS: TIMOLOL 0.5% OPHTH DROPS EACHEYE SCH (21:08)
[2025-09-11] MEDS: INSULIN GLARGINE-YFGN 300 UNIT/3 ML PEN SUBQ SCH (21:09)
[2025-09-11] MEDS: INSULIN LISPRO 300 UNIT/3 ML PEN SUBQ SCH (21:11)
[2025-09-11] MEDS: HEPARIN 5,000 UNIT/ML VIAL SUBQ SCH (21:12)
[2025-09-11] MEDS: methylPREDNISolone SUCCINATE 40 MG/ML VIAL IVP SCH (21:33)
[2025-09-12] MEDS ORDERED: PIPERACILLIN/TAZOBACTAM 3.375 GM in SODIUM CHLORIDE 0.9% MINIBAG 100 ML IV SCH (02:00)
[2025-09-12] MEDS ORDERED: PIPERACILLIN/TAZOBACTAM 2.25 GM in SODIUM CHLORIDE 0.9% MINIBAG 100 ML IV SCH (02:00)
[2025-09-12 04:44] LABS: HCT - HEMATOCRIT 28.1 % (37.0-47.0); HGB - HEMOGLOBIN 9.2 g/dL (12.0-16.0); MEAN PLATELET VOLUME 10.6 fL (7.9-10.8); NRBC ABSOLUTE COUNT (AUTO) 0.00 x10^3/uL; NUCLEATED RED BLOOD CELLS AUTO 0.0 /100WBC; PLT - PLATELET COUNT 105 10^3/uL (130-450); RED CELL DISTRIBUTION WIDTH 13.4 % (12.0-15.0)
[2025-09-12 04:59] LABS: ALT ALANINE AMINOTRANSFERASE 7.0 IU/L (10-60); AST ASPARTATE AMINOTRANSFERASE 9.0 IU/L (10-42); BUN - BLOOD UREA NITROGEN 52.0 mg/dL (6-20); CARBON DIOXIDE - CO2 17.0 mmol/L (21-32); CREATININE 2.1 mg/dL (0.6-1.3); GFR - MDRD 22.0 (>89)
[2025-09-12] MEDS: SODIUM CHLORIDE 0.9% 10 ML VIAL IVP PRN (06:30)
[2025-09-12] MEDS: SODIUM ZIRCONIUM CYCLOSILICATE 5 GM PACKET PO ONE (08:42)
[2025-09-12] MEDS: FUROSEMIDE 20 MG/2 ML VIAL IVP ONE (08:43)
[2025-09-12] MEDS: INSULIN LISPRO 300 UNIT/3 ML PEN SUBQ SCH ×2 (08:43→21:30)
[2025-09-12 10:02] LABS: GLUCOSE, URINE (UA) >=1000 mg/dL (NEGATIVE); KETONES,URINE (UA) NEGATIVE (NEGATIVE); OCCULT BLOOD,URINE NEGATIVE (NEGATIVE)
[2025-09-12 10:16] LABS: SQUAMOUS EPITHELIAL CELL,UR FEW Squamous (<= Few); YEAST,URINE PRESENT
[2025-09-12] MEDS ORDERED: SODIUM CHLORIDE 0.9% MINIBAG 100 ML IV ONE ×2 (12:21→18:53)
--- NOTE | 2025-09-12 15:25 | Speech Therapy Plan of Care ---
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 Arvizu is an 89-year-old female with history of DM, CVA, TAVR, CKD, HTN, and prior cerebral hemorrhage who presented to the ED on 09/11 with back and leg pain. Labs revealed DUSTY, hyperkalemia, hyponatremia, and leukocyto sis. CT chest (09/11) showed multifocal lung opacities and bronchial wall thickening, most pronounced in the right perihilar/infrahilar regions with extension into the RLL and involvement of the LLL, findings consistent with infectious or inflammatory process, including possible aspiration. Additional findings included mildmoderate right and trace left pleural effusions, diffuse pulmonary septal thickening (edema), small hiatal hernia, and moderately patulous distal esophagus with refluxate coating the gastric wall and esophagus. Pt seen in room with present. RN reports Pt appeared to be choking on scrambled eggs at breakfast. Both report intermittent dysphagia episodes (1x/week) at home. Oral [facility] exam WFL. PO trials completed with thin liquids (straw sips), pudding, and hermes cracker. Oral phase notable for slightly prolonged mastication; no overt s/s aspiration observed, however, silent aspiration cannot be ruled out at bedside. Impression: Mild oral dysphagia with functional swallow; increased aspiration risk given complex medical history and imaging findings suggestive of possible aspiration component. Plan: Recommend Soft & Bite-Size diet (IDDSI Level 6) with thin liquids. Maintain aspiration precautions and good oral hygiene. Educated pt and re: safe swallow strategies; both verbalized understanding. Instrumental swallow assessment (MBSS) may be considered if symptoms worsen or if further delineation of swallowing physiology would meaningfully impact care plan. ST to follow for ongoing monitoring and strategy reinforcement. SPEECH PLANER TAILER GOALS Dysphagia: ST [facility] goal: Patient will safely consume the least restrictive diet and liquid level, as determined by ongoing swallow assessment, without overt s/s aspiration or pulmonary compromise, in order to maintain adequate nutrition and hydration. Goal status: New SPEECH PLAN OF CARE Treatment Frequency: Will see 2-4xweek Treatment Duration: Until goals are met
--- NOTE | 2025-09-12 15:36 | PHARMACY PROGRESS NOTE ---
Best Possible Medication History Admit Date and Time: 09/11/25 [id number] Home Medications Medication Instructions Recorded Confirmed Type blood sugar diagnostic (FreeStyle 08/26/24 06/29/25 H istory Lite Strips) [facility] Hist ory Lite Meter kit) brimonidine 0.1 % eye drops 1 drp ophthalmic (eye) BID 08/26/24 09/12/25 History (Alphagan P) calcium carbonate 600 mg PO BID 08/26/2409/12 History cholecalciferol (vitamin D3) 25 25 mcg PO DAILY 09/12/25 History mcg (1,000 unit) tablet lancets 28 gauge (FreeStyle 08/26/24 06/29/25 History Lancets) pen needle, diabetic 29 gauge x 08/26/24 06/29/25 His tory 1/2" (BD Ultra-Fine Original Pen Needle) carvedilol 6.25 mg tablet 6.25 mg PO BID #180 tabs 09/12/25 Rx turmeric 400 mg capsule 400 mg PO DAILY 01/20/2502/01 History amoxicillin 500 mg capsule 2,000 mg PO ONCE 03/28/25 1 11/12/24 History multivitamin (Daily Multi-Vitamin 1 tab PO DAILY 03/2809/12/25 History tablet) vitamin B complex 1 tab PO DAILY 03/28/2502/01 History empagliflozin 10 mg tablet 10 mg PO DAILY 09/12/2502/01 History (Jardiance) felodipine 10 mg tablet,extended 10 mg PO DAILY 09/12/25 History release 24 hr lisinopril 10 mg tablet 10 mg PO DAILY 09/12/2502/01 History nifedipine 30 mg tablet,extended 30 mg PO DAILY 09/12/25 History release pravastatin 20 mg tablet 20 mg PO DAILY 09/12/2502/01 History sitagliptin phosphate 25 mg tablet 25 mg PO DAILY 02/0109/12/25 History (Januvia) timolol maleate 0.5 % eye drops 1 drp ophthalmic (eye) BID 09/12/25 09/12/25 History Processed by: Pharmacy Medications reviewed in ED?: Yes Medication History completed: Yes Patient Interview: Completed Secondary Source(s): Insurance records [facility] Statement: As the person ultimately responsible for medication therapy, providers are able to order a medication from an existing home medication list in [facility] via the "Reconcile Routine" prior to Confirmation of that medication by patient support specialist. Such practice is discouraged except when the physician, in their clinical judgment, deems that a medical need exists for a medication without regard to previous use.
--- NOTE | 2025-09-12 16:13 | PROVIDER PROGRESS NOTE ---
Subjective Prog Note Date Prog Note Date: 09/12/25 Prog Note Time: 16:13 Subjective Pt reports feeling: No change Subjective: Patient received a dose of Solu-Medrol last night as she was continue to require high amounts of oxygen. As of this morning, she is satting in the low 90s at 6 L. Not tachycardic. Not improving as expected. She got another dose of IV Lasix today as described below. This has not really changed her oxygen saturations much. She continues on Zosyn. Blood cultures with no growth today. The patient is comfortable, she is not having any distress. She denies any fevers or chills. She states she feels cold, but the room is also cool around her. She is warmed by covers. Her feeling cold is worsened when she is getting infusions of her antibiotic. I tried to describe incentive spirometer to the patient, she occasionally was able to use it, but only intermittently. She continues to have profound pain in her back. Continues to have pain in her abdomen. Her white count is downtrending. Current Medications Current Medications Current Medications: Current Medications Generic Name Dose Route Start Last Admin Trade Name Freq PRN Reason Stop Dose Admin Acetaminophen 650 mg 09/11/25 18:31 09/12/25 04:28 Acetaminophen 325 Mg Tablet PO 650 mg Q4HR PRN Administration Pain 1 to 4, or Fever Albuterol/Ipratropium 3 ml 09/11/25 19:00 09/12/25 15:25 Ipratropium/Albuterol 3 Ml Neb INH 3 ml RTQID SILVIA Administration Amlodipine Besylate 10 mg 09/12/25 09:00 09/12/25 08:45 Amlodipine 5 Mg Tablet PO 10 mg DAILY SILVIA Administration Brimonidine Tartrate 1 drops 09/11/25 21:00 09/12/25 08:43 Brimonidine 0.2% Ophth Drops 5 Ml EACHEYE 1 drops BID SILVIA Administration Carvedilol 6.25 mg 09/11/25 21:00 09/12/25 08:45 Carvedilol 3.125 Mg Tablet PO 6.25 mg BID SILVIA Administration Heparin Sodium (Porcine) 5,000 unit 09/11/25 21:00 09/12/25 08:51 Heparin 5,000 Unit/Ml Vial SUBQ Not Given BID SILVIA Piperacillin Sod/Tazobactam 100 mls @ 200 mls/hr 09/11/25 19:00 09/12/25 15:32 Sod 2.25 gm/ Sodium Chloride IV Infused Q6H [facility] Infusion Insulin Glargine-yfgn 15 unit 09/12/25 21:00 Insulin Glargine-Yfgn 300 Unit/3 Ml Pen SUBQ QPM [facility] Insulin Human Lispro 5 unit 09/12/25 08:00 09/12/25 12:11 Insulin Lispro 300 Unit/3 Ml Pen SUBQ Not Given TIDWM [facility] Protocol Insulin Human Lispro 1 - 9 unit 09/11/25 21:00 09/12/25 12:10 Insulin Lispro 300 Unit/3 Ml Pen SUBQ 3 unit 0800,1200,1700,2100 [facility] Administration Protocol Miconazole 1 applic 09/12/25 21:00 Miconazole Vaginal Cream 45 Gm Tube VG QPM [facility] Ondansetron HCl 4 mg 09/11/25 18:31 Ondansetron Odt 4 Mg Tablet TL Q6HR PRN Nausea / Vomiting Ondansetron HCl 4 mg 09/11/25 18:31 Ondansetron 4 Mg/2 Ml Vial IVP Q6HR PRN Nausea / Vomiting Oxycodone HCl 5 mg 09/11/25 18:31 09/12/25 04:28 Oxycodone 5 Mg Tablet PO 5 mg Q4HR PRN Administration Pain 5 to 7 Oxycodone HCl 10 mg 09/11/25 18:31 Oxycodone 5 Mg Tablet PO Q4HR PRN Pain 8 to 10 Prednisone 40 mg 09/12/25 08:00 09/12/25 08:45 Prednisone 20 Mg Tablet PO 09/16/25 08:01 40 mg DAILYWM [facility] Administration Sodium Chloride 10 ml 09/12/25 01:00 09/12/25 06:30 Sodium Chloride 0.9% 10 Ml Vial IVP 10 ml PRN PRN Administration infection Timolol Maleate 1 drops 09/11/25 21:00 09/12/25 08:42 Timolol 0.5% Ophth Drops EACHEYE 1 drops BID [facility] Administration Objective Vital Signs/Intake & Output Reviewed Vital Signs: Yes Vital Signs: Vital Signs x48h Temp Pulse Pulse Resp BP Pulse Ox O2 Flow Rate 09/12/25 15:31 5 09/12/25 15:26 68 18 5 11/03/25 13:00 36.8 C 67 15 154/66 H 88 L 5 09/12/25 11:59 66 16 6 Intake & Output: Intake & Output 09/09/25 09/10/25 09/11/25 09/12/25 23:59 23:59 22:59 23:59 Intake Total 1200 / 1200 1570 / 1570 Output Total Balance 1200 / 1200 1549 / 1549 Weight (kg) 47.5 kg Objective Comments/Other: GEN: Frail appearing. No acute distress, patient taking shallow rapid breaths. Weakly phonates HEENT: NC/AT, normal appearance of external ears and nose. Hard of hearing at baseline. Yellowed but intact dentition. Cardiac: Regular rate and rhythm, mechanical valve. Pulm: Rhonchi in right lung base more prominent. Diffuse wheezing. Abdomen: Soft, nonacute. Tender to palpation, RLQ predominantly, but throughout her abdomen. No suprapubic tenderness. Neuro: Face symmetric, CN II through XII intact grossly. Mildly dysarthric. No overt focal deficits. Moving her extremities. Psych: Mood euthymic. Affect congruent. Lab Results 09/12/25 04:18 09/12/25 04:18 Other Labs: Lab Results x24hrs 09/12/25 09/12/25 09/12/25 Range/Units 11:39 09:15 07:42 WBC (4.8-10.8) x10^3/uL RBC (4.20-5.40) 10^6/uL Hgb (12.0-16.0) g/dL Hct (37.0-47.0) % MCV (81.0-99.0) fL MCH (27.0-31.0) pg MCHC (32.0-36.0) g/dL RDW (12.0-15.0) % Plt Count (130-450) 10^3/uL MPV (7.9-10.8) fL Neut # (Auto) (1.5-6.6) 10^3/uL Lymph # (Auto) (1.5-3.5) 10^3/uL Canyon # (Auto) (0.0-1.0) 10^3/uL Eos # (Auto) (0.0-0.7) 10^3/uL Baso # (Auto) (0.0-0.1) 10^3/uL Absolute Nucleated RBC x10^3/uL Nucleated RBC % /100WBC Sodium (135-145) mmol/L Potassium (3.5-4.5) mmol/L Chloride (101-111) mmol/L Carbon Dioxide (21-32) mmol/L Anion Gap (6-13) BUN (6-20) mg/dL Creatinine (0.6-1.3) mg/dL Estimated GFR (MDRD) (>89) Glucose (74-104) mg/dL POC Whole Bld Glucose 192 211 (70-100) mg/dL Estimat Average Glucose (70-100) mg/dL Hemoglobin A1c % (4.27-6.07) % Lactic Acid (0.5-2.2) mmol/L Calcium (8.5-10.3) mg/dL Total Bilirubin (0.2-1.0) mg/dL AST (10-42) IU/L ALT (10-60) IU/L Alkaline Phosphatase (42-121) IU/L B-Natriuretic Peptide (5-100) pg/mL Total Protein (6.4-8.9) g/dL Albumin (3.2-5.5) g/dL Globulin (2.1-4.2) g/dL Albumin/Globulin Ratio (1.0-2.2) Urine Color YELLOW Urine Clarity HAZY (CLEAR) Urine pH 6.0 (5.0-7.5) PH Ur Specific Marianna 1.005 (1.002-1.030) Urine Protein TRACE (NEGATIVE) mg/dL Urine Glucose (UA) >=1000 H (NEGATIVE) mg/dL Urine Ketones NEGATIVE (NEGATIVE) mg/dL Urine Occult Blood NEGATIVE (NEGATIVE) Urine Nitrite NEGATIVE (NEGATIVE) Urine Bilirubin NEGATIVE (NEGATIVE) Urine Urobilinogen 0.2 (NORMAL) (NORMAL) E.U./dL Ur Leukocyte Esterase TRACE H (NEGATIVE) Urine RBC 0-5 (0-5) /HPF Urine WBC 6-10 H (0-5) /HPF Ur Squamous Epith Cells FEW Squamous (<= Few) Urine Bacteria Few (None Seen) /HPF Urine Yeast PRESENT Ur Microscopic Review INDICATED Urine Culture Comments INDICATED 11/03/25 11/02/25 11/02/25 Range/Units 04:18 20:51 16:56 WBC 11.3 H (4.8-10.8) x10^3/uL RBC 3.00 L (4.20-5.40) 10^6/uL Hgb 9.2 L (12.0-16.0) g/dL Hct 28.1 L (37.0-47.0) % MCV 93.7 (81.0-99.0) fL MCH 30.7 (27.0-31.0) pg MCHC 32.7 (32.0-36.0) g/dL RDW 13.4 (12.0-15.0) % Plt Count 105 L (130-450) 10^3/uL MPV 10.6 (7.9-10.8) fL Neut # (Auto) 10.5 H (1.5-6.6) 10^3/uL Lymph # (Auto) 0.6 L (1.5-3.5) 10^3/uL Canyon # (Auto) 0.1 (0.0-1.0) 10^3/uL Eos # (Auto) 0.0 (0.0-0.7) 10^3/uL Baso # (Auto) 0.0 (0.0-0.1) 10^3/uL Absolute Nucleated RBC 0.00 x10^3/uL Nucleated RBC % 0.0 /100WBC Sodium 125 L (135-145) mmol/L Potassium 5.3 H (3.5-4.5) mmol/L Chloride 97 L (101-111) mmol/L Carbon Dioxide 17 L (21-32) mmol/L Anion Gap 11.0 (6-13) BUN 52 H (6-20) mg/dL Creatinine 2.1 H (0.6-1.3) mg/dL Estimated GFR (MDRD) 22 L (>89) Glucose 219 H (74-104) mg/dL POC Whole Bld Glucose 185 (70-100) mg/dL Estimat Average Glucose (70-100) mg/dL Hemoglobin A1c % (4.27-6.07) % Lactic Acid 0.9 (0.5-2.2) mmol/L Calcium 7.9 L (8.5-10.3) mg/dL Total Bilirubin 0.5 (0.2-1.0) mg/dL AST 9 L (10-42) IU/L ALT 7 L (10-60) IU/L Alkaline Phosphatase 64 (42-121) IU/L B-Natriuretic Peptide (5-100) pg/mL Total Protein 6.7 (6.4-8.9) g/dL Albumin 3.1 L (3.2-5.5) g/dL Globulin 3.6 (2.1-4.2) g/dL Albumin/Globulin Ratio 0.9 L (1.0-2.2) Urine Color Urine Clarity (CLEAR) Urine pH (5.0-7.5) PH Ur Specific Marianna (1.002-1.030) Urine Protein (NEGATIVE) mg/dL Urine Glucose (UA) (NEGATIVE) mg/dL Urine Ketones (NEGATIVE) mg/dL Urine Occult Blood (NEGATIVE) Urine Nitrite (NEGATIVE) Urine Bilirubin (NEGATIVE) Urine Urobilinogen (NORMAL) E.U./dL Ur Leukocyte Esterase (NEGATIVE) Urine RBC (0-5) /HPF Urine WBC (0-5) /HPF Ur Squamous Epith Cells (<= Few) Urine Bacteria (None Seen) /HPF Urine Yeast Ur Microscopic Review Urine Culture Comments 09/11/25 09/11/25 Range/Units 16:05 16:03 WBC (4.8-10.8) x10^3/uL RBC (4.20-5.40) 10^6/uL Hgb (12.0-16.0) g/dL Hct (37.0-47.0) % MCV (81.0-99.0) fL MCH (27.0-31.0) pg MCHC (32.0-36.0) g/dL RDW (12.0-15.0) % Plt Count (130-450) 10^3/uL MPV (7.9-10.8) fL Neut # (Auto) (1.5-6.6) 10^3/uL Lymph # (Auto) (1.5-3.5) 10^3/uL Canyon # (Auto) (0.0-1.0) 10^3/uL Eos # (Auto) (0.0-0.7) 10^3/uL Baso # (Auto) (0.0-0.1) 10^3/uL Absolute Nucleated RBC x10^3/uL Nucleated RBC % /100WBC Sodium 126 L (135-145) mmol/L Potassium 5.5 H (3.5-4.5) mmol/L Chloride 95 L (101-111) mmol/L Carbon Dioxide 20 L (21-32) mmol/L Anion Gap 11.0 (6-13) BUN 47 H (6-20) mg/dL Creatinine 2.2 H (0.6-1.3) mg/dL Estimated GFR (MDRD) 21 L (>89) Glucose 257 H (74-104) mg/dL POC Whole Bld Glucose (70-100) mg/dL Estimat Average Glucose 169 H (70-100) mg/dL Hemoglobin A1c % 7.5 H (4.27-6.07) % Lactic Acid (0.5-2.2) mmol/L Calcium 8.7 (8.5-10.3) mg/dL Total Bilirubin 0.5 (0.2-1.0) mg/dL AST 9 L (10-42) IU/L ALT 8 L (10-60) IU/L Alkaline Phosphatase 74 (42-121) IU/L B-Natriuretic Peptide 838 H (5-100) pg/mL Total Protein 7.5 (6.4-8.9) g/dL Albumin 3.5 (3.2-5.5) g/dL Globulin 4.0 (2.1-4.2) g/dL Albumin/Globulin Ratio 0.9 L (1.0-2.2) Urine Color Urine Clarity (CLEAR) Urine pH (5.0-7.5) PH Ur Specific Marianna (1.002-1.030) Urine Protein (NEGATIVE) mg/dL Urine Glucose (UA) (NEGATIVE) mg/dL Urine Ketones (NEGATIVE) mg/dL Urine Occult Blood (NEGATIVE) Urine Nitrite (NEGATIVE) Urine Bilirubin (NEGATIVE) Urine Urobilinogen (NORMAL) E.U./dL Ur Leukocyte Esterase (NEGATIVE) Urine RBC (0-5) /HPF Urine WBC (0-5) /HPF Ur Squamous Epith Cells (<= Few) Urine Bacteria (None Seen) /HPF Urine Yeast Ur Microscopic Review Urine Culture Comments Sepsis Event Note (H) Evaluation Current Stage of Sepsis: Severe sepsis Possible source of Sepsis: positive Pulmonary Sepsis Criteria Sepsis Criteria: Recorded Respiratory Rate greater than 20 and WBC count greater than 12,000 or less than 4000 Assessment/Plan Problem List (1) Sepsis: Impression: Sepsis overall improving. Leukocytosis downtrending. Has remained afebrile. Tachypnea still present. Endorgan function still present as below. Patient presents with findings of severe sepsis. She has an elevated leukocytosis (15.9), tachypnea with evidence of endorgan dysfunction due to DUSTY as well as acute hypoxemic respiratory failure. Possible source of infection is intra-abdominal or pneumonia. They are in towards pneumonia with her respiratory failure associated. She also has abdominal pain as below. - Follow-up blood cultures, NGTD - On broad-spectrum antibiotics, IV Zosyn renally dosed - CBC a.m. Qualifiers: Sepsis type: sepsis due to unspecified organism Sepsis acute organ dysfunction status: with acute organ dysfunction Severe sepsis acute organ dysfunction type: acute respiratory failure Acute respiratory failure type: w ith hypoxia Severe sepsis shock status: without septic shock Qualified Code(s): A41.9 - Sepsis, unspecified organism; R65.20 - Severe sepsis without septic shock; J96.01 - Acute respiratory failure with hypoxia (2) Respiratory failure: Qualifiers: Chronicity: acute Respiratory failure complication: hypoxia Qualified Code(s): J96.01 - Acute respiratory failure with hypoxia (3) Emphysema lung: (4) Pneumonia: Impression: Unchanged, not improving despite aggressive measures. She has a reduced white blood cell count, but continues to have ongoing hypoxemic respiratory failure. Consideration for alternative bacteria. Do not believe her white count would be downtrending if MRSA was causing her pneumonia. Fungal pneumonia is would seemingly be gotten worse with start of steroids. Rheumatologic conditions with seemingly have improved with start of steroids. May just be fluid related. I am increasing her diuretic. She got some today and was able to pee with this but did not have much change in her oxygenation. In the ED, she was requiring up to 5 L to maintain saturations. She is continue to require 5 L throughout most of the day today. This is despite starting antibiotics, steroids, breathing treatments, diuresis. She has multifocal opacities on her chest CT. She has a history of emphysema. She is a lifelong smoker. She currently smokes 3 cigarettes a day. She was wheezing on initial exam, but the wheezing has giving way to more just coarse rhonchi over the course of her hospitalization. Her shows that she typically sats in the high 90s on room air on his pulse oximeter. He is on chronic oxygen. - Antibiotics as above - Has been started on prednisone 40 mg daily - Wean oxygen as tolerated, goal saturation > 92%, No evidence of chronic hypercapnia - She will need coaching on ongoing pulmonary toileting with IS and flutter valve - Scheduled guaifenesin - Scheduled nebulizers - IV Lasix 40 mg today, starting twice daily tomorrow - Careful monitoring of renal function as below. Qualifiers: Laterality: right Lung location: middle lobe of lung Pneumonia type: d ue to unspecified organism Qualified Code(s): J18.9 - Pneumonia, unspecified organism (5) Abdominal pain: Impression: Ongoing abdominal pain to palpation. Her CT of her abdomen reveals some edema in the periappendiceal area, but no clear fluid collection. No abscess that would be amenable to drainage. There is no visualized appendix. She has had abdominal pain for 2 to 3 days prior to this admission. Ruptured appendicitis would certainly contribute to her presentation, but there are no good procedural options for her at this time. - ABX as above - Appreciate any general surgery recommendations, they suggest antibiosis as above. (6) DUSTY (acute kidney injury): Impression: Creatinine mildly improved. Continues to make urine. Her output is not accurately tracked. She was peeing with Lasix. Patient has a history of chronic kidney disease, stage IV. Creatinine historically around 1.6. Has been as high as 2.5. 2.2 this admission. No acute indications for dialysis. Electrolytes show hyperkalemia, as below. - Monitor BMP a.m. - Avoid nephrotoxins as able, avoiding contrast with scans - Dialysis is not within goals of care for the patient. See separate ACP note from 09/12. (7) Hyperkalemia: Impression: Downtrended somewhat with Lokelma, Expect to come down more with Lasix. Patient presents with hyperkalemia. K of 5.5. She is on JIMBO inhibitor prior to this admission. With CKD. Suspect her DUSTY is likely contributing to the increase in her potassium. Less likely listeriosis or systemic staph infection given negative blood cultures. - Giving Lasix as above - Continue holding off on JIMBO inhibitor - Follow-up BMP a.m. 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 Downtrending throughout the day, will back off on her before every meal insulin. Longstanding history of diabetes. Last A1c 8.2 in March. Blood sugars on arrival 257. She is not on insulin at home. Home meds include sitagliptin, Jardiance Multiple complications of diabetes including CKD, retinopathy, hypertension and CVA. - Hold oral glycemic control agents given her DUSTY - Starting 10 units glargine nightly - Starting 3 units before every meal lispro With low-dose sliding scale - Repeat A1c Qualifiers: Diabetes mellitus prison insulin use: without long wall shear operator use Q ualified Code(s): E11.22 - Type 2 diabetes mellitus with diabetic chronic kidney disease; N18.4 - Chronic kidney disease, stage 4 (severe) (9) CHF (congestive heart failure): Impression: Per her history. She has a listed history of CHF. Her last echo that I can find is from 2018. She was having lower extremity edema at the time hyponatremia. She had an EF of 65 to 70% from her TTE in 2018. On arrival, her BNP was over 800. - Diuresis as above - Will repeat echocardiogram (10) Spinal stenosis, lumbar region with neurogenic claudication: (11) Osteoarthritis: Impression: Continues with significant bilateral lower extremity pains. She has known spinal stenosis of her lumbar spine. She has previously met with an orthopedic surgeon who said that she was a poor surgical candidate for repair of this. She has been getting regular corticosteroid shots every 3 months. Longstanding history of osteoarthritis as well as radicular pains to her bilateral lower extremity. This brought her into the hospital this admission. No acute interventions for her bilateral lower extremity pain. She would likely not tolerate spinal surgery, history of spinal stenosis likely contributing No red flag symptoms. - APAP 650 mg every 4 hours as needed - Oxycodone prn - Could consider adding on gabapentin or other neuropathic pain medicine, but unsure that this would help any of the above problems. (12) Mixed hyperlipidemia: (13) History of hemorrhagic cerebrovascular accident (CVA) with residual deficit: Impression: Apparently she had a hemorrhagic stroke to the lizeth and cerebellum in the early part of 2023. Related to hypertension. She has been controlling her blood pressure better since then. She has "residual deficits" listed her outpatient notes, but nothing clearly focal on her exam here. Given her history of CVA, it is unclear to me why she is not on a high intensity statin. She is on pravastatin 20 mg daily. She says she does not normally take aspirin. - Hold statin for now - Recommend discharge on high intensity statin therapy - Manage blood pressure and diabetes as stated elsewhere (14) Hypertension: Impression: Blood pressures have remained stable, a little high. Longstanding history of hypertension. Her history of stroke puts her at risk for recrudescence or further stroke with uncontrolled hypertension DISINTEGRATOR on carvedilol 6.25 mg twice daily, felodipine 10 mg, lisinopril 10 mg - Continue carvedilol and formulary equivalent amlodipine - Holding lisinopril as above
--- NOTE | 2025-09-12 20:22 | ADVANCE CARE PLANNING NOTE ---
Advance Care Planning Planning Encounter Date: 09/12/25 Time: 15:00 Diagnosis for Encounter (1) Sepsis: Qualifiers: Sepsis type: sepsis due to unspecified organism Sepsis acute organ dysfunction status: with acute organ dysfunction Severe sepsis acute organ dysfunction type: acute respiratory failure Acute respiratory failure type: with hypoxia Severe sepsis shock status: without septic shock Qualified Code(s): A41.9 - Sepsis, unspecified organism; R65.20 - Severe sepsis without septic shock; J96.01 - Acute respiratory failure with hypoxia (2) Respiratory failure: Qualifiers: Chronicity: acute Respiratory failure complication: hypoxia Qualified Code(s): J96.01 - Acute respiratory failure with hypoxia (3) Emphysema lung: (4) Pneumonia: Qualifiers: Laterality: right Lung location: middle lobe of lung Pneumonia type: due to unspecified organism Qualified Code(s): J18.9 - Pneumonia, unspecified organism (5) Abdominal pain: (6) DUSTY (acute kidney injury): (7) Hyperkalemia: (8) 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 Patient was able to participate in the conversation, but she is quiet, reserved, I do not know if she follows along with all of our discussion. Her says that she easily gets confused at baseline. He does not feel like she is off from her baseline mentation. Her mentation has worsened since her stroke. She confabulates often and Thai is her second language as well. Patient is generally chronically ill. We reviewed this together. She has a history of chronic kidney disease, hypertension, prior hemorrhagic stroke, T2DM. All of this is worsened by a chronic lumbar spinal stenosis that limits her ambulation. Her says she is a walker because at times her legs will just "give out from under her". Her days are mostly around the house. She will walk out to the garden using her walker. Walked back inside. She eats 2 meals and scantly at that. They have an adult son who lives on the [facility]. Their chart is complicated by the fact that they have each filled out a POLST previously with their primary care doctor in 2023 after Medina's stroke. Their POLST states that they would never want to be intubated and on life support. And yet they also say that they want to be full code. I described to the discordance between someone being full code and that that comes with advanced airway support and mechanical ventilation. The patient and her state that what is important for them is to be home. The states that he is trying to keep both of them home as long as he can. He provides most of their support, including all iADLs. He cooks for her. He has advanced COPD himself, and feels like he may be the limiting factor in them being able to maintain their independence. I asked him what he thinks would happen if she were to get sick enough that he was not able to care for her, and he offered that she would likely then move into an assisted living facility. I described that there election for being full code is not conducive to their goals of staying at home or being at home. Cardiopulmonary resuscitation in Medina's case would likely not result in her leaving the hospital or a supervised living environment for the remainder of her life. They both agreed that this was not within their goals of care. The says that this does not agree with their advance care planning and living [place] that they have filled out previously. We filled out a new POLST together, I gave a blank form for the to fill out with his PCP is legal next of kin. No formal POA paperwork on file in our system. There are adult son, Rick, is aware of her hospitalization, but not planning to come out. There adult son is their only child, and if Delfino was unable to speak for Medina, Rick would be the legal next of kin thereafter. Code Status: Do Not Attempt Resuscitation Time spent on advance care plannin
[2025-09-12] MEDS: INSULIN GLARGINE-YFGN 300 UNIT/3 ML PEN SUBQ SCH (21:29)
[2025-09-12] MEDS: MICONAZOLE VAGINAL CREAM 45 GM TUBE VG SCH (21:34)
[2025-09-13 05:03] LABS: HCT - HEMATOCRIT 28.0 % (37.0-47.0); HGB - HEMOGLOBIN 9.2 g/dL (12.0-16.0); MEAN PLATELET VOLUME 10.7 fL (7.9-10.8); NRBC ABSOLUTE COUNT (AUTO) 0.00 x10^3/uL; NUCLEATED RED BLOOD CELLS AUTO 0.0 /100WBC; PLT - PLATELET COUNT 129 10^3/uL (130-450); RED CELL DISTRIBUTION WIDTH 13.2 % (12.0-15.0)
[2025-09-13 05:24] LABS: BUN - BLOOD UREA NITROGEN 58.0 mg/dL (6-20); CARBON DIOXIDE - CO2 19.0 mmol/L (21-32); CREATININE 2.1 mg/dL (0.6-1.3); GFR - MDRD 22.0 (>89)
[2025-09-13] MEDS: FUROSEMIDE 40 MG/4 ML VIAL IVP SCH (06:12)
[2025-09-13] MEDS: INSULIN LISPRO 300 UNIT/3 ML PEN SUBQ SCH (08:37)
[2025-09-13] MEDS ORDERED: DIATRIZOATE MEGLU/DIATRIZO SOD 30 ML BOTTLE ONE (10:32)
--- NOTE | 2025-09-13 12:44 | PROVIDER PROGRESS NOTE ---
Subjective Subjective Subjective: This morning, patient states that she feels slightly better than yesterday. She, at times, is feeling short of breath. She denies any cough. Her leg pain is improved. She ate most of her breakfast today with minimal nausea or vomiting. She has slight tenderness to pain in her right lower quadrant. Current Medications Current Medications Current Medications: Current Medications Generic Name Dose Route Start Last Admin Trade Name Tio PRN Reason Stop Dose Admin Acetaminophen 650 mg 09/11/25 18:31 09/12/25 04:28 Acetaminophen 325 Mg Tablet PO 650 mg Q4HR PRN Administration Pain 1 to 4, or Fever Albuterol/Ipratropium 3 ml 09/11/25 19:00 09/13/25 07:30 Ipratropium/Albuterol 3 Ml Neb INH 3 ml RTQID SILVIA Administration Amlodipine Besylate 10 mg 09/12/25 09:00 09/13/25 08:36 Amlodipine 5 Mg Tablet PO 10 mg DAILY SILVIA Administration Brimonidine Tartrate 1 drops 09/11/25 21:00 09/13/25 08:37 Brimonidine 0.2% Ophth Drops 5 Ml EACHEYE 1 drops BID SILVIA Administration Carvedilol 6.25 mg 09/11/25 21:00 09/13/25 08:35 Carvedilol 3.125 Mg Tablet PO 6.25 mg BID SILVIA Administration Heparin Sodium (Porcine) 5,000 unit 09/11/25 21:00 09/13/25 08:36 Heparin 5,000 Unit/Ml Vial SUBQ 5,000 unit BID SILVIA Administration Piperacillin Sod/Tazobactam 100 mls @ 25 mls/hr 09/13/25 12:00 Sod 3.375 gm/ Sodium Chloride IV BID SILVIA Insulin Glargine-yfgn 15 unit 09/12/25 21:00 09/12/25 21:29 Insulin Glargine-Yfgn 300 Unit/3 Ml Pen SUBQ 15 unit QPM SILVIA Administration Insulin Human Lispro 3 unit 09/13/25 08:00 09/13/25 12:00 Insulin Lispro 300 Unit/3 Ml Pen SUBQ 3 unit TIDWM SILVIA Administration Protocol Insulin Human Lispro 1 - 5 unit 09/12/25 21:00 09/13/25 12:01 Insulin Lispro 300 Unit/3 Ml Pen SUBQ 2 unit 0800,1200,1700,2100 SILVIA Administration Protocol Miconazole 1 applic 09/12/25 21:00 09/12/25 21:34 Miconazole Vaginal Cream 45 Gm Tube VG 1 applic QPM SILVIA Administration Ondansetron HCl 4 mg 09/11/25 18:31 Ondansetron Odt 4 Mg Tablet TL Q6HR PRN Nausea / Vomiting Ondansetron HCl 4 mg 09/11/25 18:31 Ondansetron 4 Mg/2 Ml Vial IVP Q6HR PRN Nausea / Vomiting Oxycodone HCl 5 mg 09/11/25 18:31 09/12/25 04:28 Oxycodone 5 Mg Tablet PO 5 mg Q4HR PRN Administration Pain 5 to 7 Oxycodone HCl 10 mg 09/11/25 18:31 Oxycodone 5 Mg Tablet PO Q4HR PRN Pain 8 to 10 Prednisone 40 mg 09/12/25 08:00 09/13/25 08:35 Prednisone 20 Mg Tablet PO 09/16/25 08:01 40 mg DAILYWM SILVIA Administration Sodium Chloride 10 ml 09/12/25 01:00 09/12/25 06:30 Sodium Chloride 0.9% 10 Ml Vial IVP 10 ml PRN PRN Administration infection Timolol Maleate 1 drops 09/11/25 21:00 09/13/25 08:37 Timolol 0.5% Ophth Drops EACHEYE 1 drops BID SILVIA Administration Objective Vital Signs/Intake & Output Reviewed Vital Signs: Yes Vital Signs: Vital Signs x48h Temp Pulse Pulse Resp BP Pulse Ox O2 Flow Rate 09/13/25 09:00 98.1 F 72 18 152/66 H 93 6 09/13/25 07:32 6 09/13/25 07:32 80 20 Intake & Output: Intake & Output 09/10/25 09/11/25 09/12/25 09/13/25 23:59 22:59 23:59 23:59 Intake Total 1200 / 1200 1909 / 1909 800 / 800 Output Total 450 / 450 Balance 1200 / 1200 1888 / 1888 350 / 350 Weight (kg) 47.5 kg 44.5 kg Objective Comments/Other: GEN: Frail appearing. No acute distress, patient taking shallow rapid breaths. HEENT: NC/AT, normal appearance of external ears and nose. Hard of hearing at baseline. Yellowed but intact dentition. Cardiac: Regular rate and rhythm, mechanical valve. Pulm: Rhonchi in right lung base more prominent. Diffuse wheezing. Abdomen: Soft, nonacute. Tender to palpation, RLQ predominantly, but throughout her abdomen. No suprapubic tenderness. Neuro: Face symmetric, CN II through XII intact grossly. Mildly dysarthric. No overt focal deficits. Moving her extremities. Psych: Mood euthymic. Affect congruent. Lab Results 09/13/25 04:42 09/13/25 04:42 Other Labs: Lab Results x24hrs 09/13/25 09/13/25 09/13/25 Range/Units 11:34 08:11 04:42 WBC 12.9 H (4.8-10.8) x10^3/uL RBC 3.08 L (4.20-5.40) 10^6/uL Hgb 9.2 L (12.0-16.0) g/dL Hct 28.0 L (37.0-47.0) % MCV 90.9 (81.0-99.0) fL MCH 29.9 (27.0-31.0) pg MCHC 32.9 (32.0-36.0) g/dL RDW 13.2 (12.0-15.0) % Plt Count 129 L (130-450) 10^3/uL MPV 10.7 (7.9-10.8) fL Neut # (Auto) 11.5 H (1.5-6.6) 10^3/uL Lymph # (Auto) 0.8 L (1.5-3.5) 10^3/uL [place] # (Auto) 0.5 (0.0-1.0) 10^3/uL Eos # (Auto) 0.0 (0.0-0.7) 10^3/uL Baso # (Auto) 0.0 (0.0-0.1) 10^3/uL Absolute Nucleated RBC 0.00 x10^3/uL Nucleated RBC % 0.0 /100WBC Sodium 135 (135-145) mmol/L Potassium 4.0 (3.5-4.5) mmol/L Chloride 103 (101-111) mmol/L Carbon Dioxide 19 L (21-32) mmol/L Anion Gap 13.0 (6-13) BUN 58 H (6-20) mg/dL Creatinine 2.1 H (0.6-1.3) mg/dL Estimated GFR (MDRD) 22 L (>89) Glucose 219 H (74-104) mg/dL POC Whole Bld Glucose 200 235 (70-100) mg/dL Calcium 8.3 L (8.5-10.3) mg/dL 09/12/25 09/12/25 Range/Units 20:40 16:32 WBC (4.8-10.8) x10^3/uL RBC (4.20-5.40) 10^6/uL Hgb (12.0-16.0) g/dL Hct (37.0-47.0) % MCV (81.0-99.0) fL MCH (27.0-31.0) pg MCHC (32.0-36.0) g/dL RDW (12.0-15.0) % Plt Count (130-450) 10^3/uL MPV (7.9-10.8) fL Neut # (Auto) (1.5-6.6) 10^3/uL Lymph # (Auto) (1.5-3.5) 10^3/uL [place] # (Auto) (0.0-1.0) 10^3/uL Eos # (Auto) (0.0-0.7) 10^3/uL Baso # (Auto) (0.0-0.1) 10^3/uL Absolute Nucleated RBC x10^3/uL Nucleated RBC % /100WBC Sodium (135-145) mmol/L Potassium (3.5-4.5) mmol/L Chloride (101-111) mmol/L Carbon Dioxide (21-32) mmol/L Anion Gap (6-13) BUN (6-20) mg/dL Creatinine (0.6-1.3) mg/dL Estimated GFR (MDRD) (>89) Glucose (74-104) mg/dL POC Whole Bld Glucose 204 132 (70-100) mg/dL Calcium (8.5-10.3) mg/dL Sepsis Event Note (H) Evaluation Current Stage of Sepsis: Severe sepsis Possible source of Sepsis: positive Pulmonary Sepsis Criteria Sepsis Criteria: Recorded Respiratory Rate greater than 20 and WBC count greater than 12,000 or less than 4000 Assessment/Plan Problem List (1) Sepsis: Impression: Remains with slight tachypnea. Leukocytosis has worsened overnight from 11.3- 12.9. Remains on Zosyn. Initial CT abdomen/pelvis showed edema and inflammatory changes in the right lower quadrant without abscess or free air, and the appendix was not identified. Chest CT showed multifocal lung opacities, and there was some concern for aspiration. Mild to moderate right and trace left pleural effusions were also noted. Plan to repeat CT abdomen today with oral and IV contrast to ensure there is no abscess formation. Spoke with general surgery regarding the plan, and are in agreement. Continue to wean oxygen down as tolerated. Blood cultures drawn 09/11 with no growth to date. Qualifiers: Acute respiratory failure type: with hypoxia Sepsis acute organ dysfunction status: with acute organ dysfunction Sepsis type: sepsis due to unspecified organism Severe sepsis acute organ dysfunction type: acute respiratory failure Severe sepsis shock status: without septic shock Qualified Code(s): A41.9 - Sepsis, unspecified organism; R65.20 - Severe sepsis without septic shock; J96.01 - Acute respiratory failure with hypoxia (2) Respiratory failure: Qualifiers: Chronicity: acute Respiratory failure complication: hypoxia Qualified Code(s): J96.01 - Acute respiratory failure with hypoxia (3) Emphysema lung: (4) Pneumonia: Impression: CT indicative of multifocal pneumonia, likely aspiration. Spoke with [facility] [employer], preliminary report suggests worsening of her aortic stenosis, pulmonary hypertension which may be contributing. She also has underlying emphysema, and continues to smoke 3 cigarettes a day. Continue Lasix twice a day. Evening dose for today held this patient is receiving contrast. Continue to monitor strict intake and output. Urine output does not appear accurate in the chart. Continue daily weights. Continue oral steroids. Continue DuoNebs RT 4 times daily. Qualifiers: Laterality: right Lung location: middle lobe of lung Pneumonia type: d ue to unspecified organism Qualified Code(s): J18.9 - Pneumonia, unspecified organism (5) Abdominal pain: Impression: Plan to repeat CT abdomen today with oral and IV contrast to ensure there is no abscess formation. Spoke with general surgery regarding the plan, and are in agreement. Qualifiers: Abdominal location: unspecified location Qualified Code(s): R10.9 - Unspecified abdominal pain (6) DUSTY (acute kidney injury): Impression: Patient has a history of chronic kidney disease, stage IV. Creatinine historically around 1.6. Has been as high as 2.5. 2.2 this admission. No acute indications for dialysis. Electrolytes show hyperkalemia, as below. Avoid nephrotoxins as able. Dialysis is not within goals of care for the patient. See separate ACP note from 09/12. (7) Hyperkalemia: Impression: Downtrended somewhat with Lokelma, expect further improvement with Lasix. Continue holding off on JIMBO inhibitor, follow-up BMP a.m. 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 Longstanding history of diabetes. Last A1c 8.2 in March. Blood sugars on arrival 257. She is not on insulin at home. Home meds include sitagliptin, Jardiance. Multiple complications of diabetes including CKD, retinopathy, hypertension and CVA. Hold oral glycemic control agents given her DUSTY. Continue 10 units glargine nightly, 3 units before every meal lispro with low-dose sliding scale. Qualifiers: Diabetes mellitus snf insulin use: without parts counterman use Q ualified Code(s): E11.22 - Type 2 diabetes mellitus with diabetic chronic kidney disease; N18.4 - Chronic kidney disease, stage 4 (severe) (9) CHF (congestive heart failure): Impression: Per her history, she has a listed history of CHF. Her last ECHO that I can find is from 2018. She was having lower extremity edema at the time hyponatremia. She had an EF of 65 to 70% from her TTE in 2018. On arrival, her BNP was over 800. Diuresis as above. Repeat echocardiogram ordered. Qualifiers: Heart failure chronicity: unspecified Heart failure type: unspecified Qualified Code(s): I50.9 - Heart failure, unspecified (10) Spinal stenosis, lumbar region with neurogenic claudication: (11) Osteoarthritis: Impression: Continues with significant bilateral lower extremity pains. She has known spinal stenosis of her lumbar spine. She has previously met with an orthopedic surgeon who said that she was a poor surgical candidate for repair of this. She has been getting regular corticosteroid shots every 3 months. APAP 650 mg every 4 hours as needed, oxycodone as needed. Could consider adding on gabapentin or other neuropathic pain medicine, but unsure that this would help any of the above problems. Qualifiers: Osteoarthritis location: unspecified site Osteoarthritis type: u nspecified Qualified Code(s): M19.90 - Unspecified osteoarthritis, unspecified site (12) Mixed hyperlipidemia: (13) History of hemorrhagic cerebrovascular accident (CVA) with residual deficit: Impression: Apparently she had a hemorrhagic stroke to the lizeth and cerebellum in the early part of 2023. Related to hypertension. She has been controlling her blood pressure better since then. She has "residual deficits" listed her outpatient notes, but nothing clearly focal on her exam here. Given her history of CVA, it is unclear to me why she is not on a high intensity statin. She is on pravastatin 20 mg daily. She says she does not normally take aspirin. Intiate atorvastatin 40mg nightly. (14) Hypertension: Impression: Blood pressures have remained stable, a little high. Longstanding history of hypertension. Her history of stroke puts her at risk for recrudescence or further stroke with uncontrolled hypertension Continue carvedilol and formulary equivalent amlodipine. Holding lisinopril as above. Qualifiers: Hypertension type: unspecified Qualified Code(s): I10 - Essential (primary) hypertension
[2025-09-13] MEDS: SODIUM CHLORIDE 0.9% 250 ML IV ONE (12:46)
--- NOTE | 2025-09-13 14:00 | CT Report ---
PROCEDURE: CT Abdomen/Pelvis W INDICATIONS: ?abscess; oral IV contrast CONTRAST: 100ml omni 300 TECHNIQUE: After the administration of intravenous contrast, a CT scan of the abdomen and pelvis was performed. Images were recorded and evaluated at appropriate window settings. Reformats: coronal and sagittal. For radiation dose reduction, the following was used: automated exposure control, adjustment of mA and/or kV according to patient size. COMPARISON: 08/11/2025, 08/30/2019 FINDINGS: Image quality: Diagnostic. Lower chest: Separately dictated Liver: Stable hypoattenuating liver lesion in segment 7. Stable cyst in segment 3. Gallbladder: No radiopaque stones or wall thickening. Biliary tree: No intrahepatic or extrahepatic dilation, accounting for age. Spleen: No splenomegaly. Pancreas: No pancreatic ductal dilation. Adrenals: No adrenal nodule. Kidneys and ureters: No hydronephrosis. No renal cystic lesion which requires follow up. No solid mass. Reactive urothelial wall thickening. Stomach, bowel and peritoneum: The appendix has ruptured. There is wall thickening and distention. Diameter measures up to 1.3 cm. Suspected appendicolith at the base (series 11, image 114) measuring 5 mm. Small adjacent fluid collection measuring 2.2 x 2.2 cm (series 11, image 117). Free fluid in the pelvis. The appendix contains low-attenuating fluid. Lymph nodes: No central or retroperitoneal adenopathy. Vessels: No infrarenal aortic aneurysm. Patent portal vein. PELVIS Reproductive organs: Unremarkable. Bladder: No abnormal wall thickening. Pelvic lymph nodes: No pelvic adenopathy by size criteria. Bones: No aggressive osseous abnormality. Other: No significant ventral or inguinal hernia. IMPRESSION: Ruptured appendicitis, with a 5 mm appendicolith at the base. Small adjacent fluid collection measuring 2.2 x 2.2 cm. This is not amenable to CT-guided drainage. Additionally, the appendix does have low attenuating fluid in it, probably related to underlying infection, but mucocele is also a consideration. No adjacent adenopathy however. No mucous implants identified. Above discussed with Amador Conde MD at 09/13/2025 1:56 PM PST. Reviewed by: Joe Hopson MD on 09/13/2025 1:57 PM PST Approved by: Joe Hopson MD on 09/13/2025 1:57 PM PST Station ID: [id number]
--- NOTE | 2025-09-13 14:07 | CT Report ---
PROCEDURE: CT Chest W INDICATIONS: Abnormal findings on prior CT, concern for mass/malignancy CONTRAST: 100ml omni 300 TECHNIQUE: After the administration of intravenous contrast, a CT scan of the chest was performed. Images were recorded and evaluated at appropriate window settings. Reformats: axial MIP of the chest, coronal and sagittal. For radiation dose reduction, the following was used: automated exposure control, adjustment of mA and/or kV according to patient size. COMPARISON: 08/30/2018 FINDINGS: Image quality: Diagnostic. Chest wall and lower neck: Ruptured bilateral breast implants. There is increasing peripheral soft tissue nodularity adjacent to the breast implants, including a 7.2 x 4.2 cm soft tissue density mass on the left (series 602, image 46). Lungs and pleura: Dependent consolidation in the left lower lobe. Dependent consolidation in the right middle lobe. Atelectasis in the right lower lobe. Small pleural effusions. Smooth interstitial thickening, consistent with pulmonary edema. Mediastinum: Heart size is enlarged. No pericardial effusion. No large vessel abnormality. No mediastinal adenopathy by size criteria. Aortic valve prosthesis. Patulous esophagus containing oral contrast. Bones: No aggressive osseous abnormality. Upper Abdomen: Unremarkable. IMPRESSION: Dependent consolidation in the left lower lobe and right middle lobe, concerning for aspiration pneumonia. Ruptured bilateral breast implants. There is increasing peripheral soft tissue nodularity adjacent to the breast implants, including a 7.2 x 4.2 cm soft tissue density mass on the left. Findings may be a granulomatous process related to the presence of ruptured implants, but underlying malignancy is not excluded. Recommend referral to a diagnostic breast Center. Small pleural effusions, presumably parapneumonic effusions. Patulous esophagus containing oral contrast. 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 Reviewed by: Joe Hopson MD on 09/13/2025 2:04 PM PST Approved by: Joe Hopson MD on 09/13/2025 2:04 PM PST Station ID: [id number]
[2025-09-13] MEDS: PIPERACILLIN/TAZOBACTAM 3.375 GM in SODIUM CHLORIDE 0.9% MINIBAG 100 ML IV SCH (14:45)
--- NOTE | 2025-09-13 15:29 | PROVIDER PROGRESS NOTE ---
Subjective General Admit Date: 09/11/25 Other Other Information/Narrative: HD 3. Continued treatment of aspiration pna/sepsis with zosyn. WBC 15.9 -> 11.3 -> 12.9 today. O2 requirement has not improved, still requiring 6L. Persistent DUSTY with Cr 2.2 -> 2.1. Denies flatus or BM, however seems to be tolerating diet without n/v. Repeated CT today given rise in WBC without improvement in other end organ dysfunction. Review of Systems Status of ROS: 10 or more systems reviewed and unremarkable except as noted in history and below Exam Exam Vital Signs: Vital Signs x48h Temp Pulse Pulse Resp BP Pulse Ox O2 Flow Rate 09/13/25 15:01 37.6 C 71 16 152/66 H 91 L 6 09/13/25 09:00 36.7 C 72 18 152/66 H 93 6 09/13/25 07:32 6 09/13/25 07:32 80 20 Constitutional abnormal general appearance (chronically ill) and no apparent distress Respiratory abnormal respiratory effort (labored) Cardiovascular normal heart rate noted Gastrointestinal nondistended RLQ ttp with deep palpation, no rebound, negative rosvings Extremities normal to inspection Neurology speech normal and GCS 15 Psychiatry oriented x3 Skin skin color normal Image EXAM: [id number] CT/CHTW ([id number]) PROCEDURE: CT Chest W INDICATIONS: Abnormal findings on prior CT, concern for mass/malignancy CONTRAST: 100ml omni 300 TECHNIQUE: After the administration of intravenous contrast, a CT scan of the chest was performed. Images were recorded and evaluated at appropriate window settings. Reformats: axial MIP of the chest, coronal and sagittal. For radiation dose reduction, the following was used: automated exposure control, adjustment of mA and/or kV according to patient size. COMPARISON: 08/30/2018 FINDINGS: Image quality: Diagnostic. Chest wall and lower neck: Ruptured bilateral breast implants. There is increasing peripheral soft tissue nodularity adjacent to the breast implants, including a 7.2 x 4.2 cm soft tissue density mass on the left (series 602, image 46). Lungs and pleura: Dependent consolidation in the left lower lobe. Dependent consolidation in the right middle lobe. Atelectasis in the right lower lobe. Small pleural effusions. Smooth interstitial thickening, consistent with pulmonary edema. Mediastinum: Heart size is enlarged. No pericardial effusion. No large vessel abnormality. No mediastinal adenopathy by size criteria. Aortic valve pros thesis. Patulous esophagus containing oral contrast. Bones: No aggressive osseous abnormality. Upper Abdomen: Unremarkable. IMPRESSION: Dependent consolidation in the left lower lobe and right middle lobe, concerning for aspiration pneumonia. Ruptured bilateral breast implants. There is increasing peripheral soft tissue nodularity adjacent to the breast implants, including a 7.2 x 4.2 cm soft tissue density mass on the left. Findings may be a granulomatous process related to the presence of ruptured implants, but underlying malignancy is not excluded. Recommend referral to a diagnostic breast Center. Small pleural effusions, presumably parapneumonic effusions. Patulous esophagus containing oral contrast. 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 Reviewed by: Joe Hopson MD on 09/13/2025 2:04 PM PST Approved by: Joe Hopson MD on 09/13/2025 2:04 PM [facility] EXAM: [id number] CT/ABPEW ([id number]) PROCEDURE: CT Abdomen/Pelvis W INDICATIONS: ?abscess; oral IV contrast CONTRAST: 100ml omni 300 TECHNIQUE: After the administration of intravenous contrast, a CT scan of the abdomen and pelvis was performed. Images were recorded and evaluated at appropriate window settings. Reformats: coronal and sagittal. For radiation dose reduction, the following was used: automated exposure control, adjustment of mA and/or kV according to patient size. COMPARISON: 08/11/2025, 08/30/2019 FINDINGS: Image quality: Diagnostic. Lower chest: Separately dictated Liver: Stable hypoattenuating liver lesion in segment 7. Stable cyst in segment 3. Gallbladder: No radiopaque stones or wall thickening. Biliary tree: No intrahepatic or extrahepatic dilation, accounting for age. Spleen: No splenomegaly. Pancreas: No pancreatic ductal dilation. Adrenals: No adrenal nodule. Kidneys and ureters: No hydronephrosis. No renal cystic lesion which requires follow up. No solid mass. Reactive urothelial wall thickening. Stomach, bowel and peritoneum: The appendix has ruptured. There is wall thickening and distention. Diameter measures up to 1.3 cm. Suspected appendicolith at the base (series 11, image 114) measuring 5 mm. Small adjacent fluid collection measuring 2.2 x 2.2 cm (series 11, image 117). Free fluid in the pelvis. The appendix contains low-attenuating fluid. Lymph nodes: No central or retroperitoneal adenopathy. Vessels: No infrarenal aortic aneurysm. Patent portal vein. PELVIS Reproductive organs: Unremarkable. Bladder: No abnormal wall thickening. Pelvic lymph nodes: No pelvic adenopathy by size criteria. Bones: No aggressive osseous abnormality. Other: No significant ventral or inguinal hernia. IMPRESSION: Ruptured appendicitis, with a 5 mm appendicolith at the base. Small adjacent fluid collection measuring 2.2 x 2.2 cm. This is not amenable to CT-guided drainage. Additionally, the appendix does have low attenuating fluid in it, probably related to underlying infection, but mucocele is also a consideration. No adjacent adenopathy however. No mucous implants identified. Above discussed with Amador Conde MD at 09/13/2025 1:56 PM PST. Reviewed by: Joe Hopson MD on 09/13/2025 1:57 PM PST Approved by: Joe Hopson MD on 09/13/2025 1:57 PM PST ABX Reporting Has patient been on IV antibiotics over the past 48 hours?: Yes Impression/Plan Problem List (1) Sepsis: Qualifiers: Sepsis type: sepsis due to unspecified organism Sepsis acute organ dysfunction status: with acute organ dysfunction Severe sepsis acute organ dysfunction type: acute respiratory failure Acute respiratory failure type: with hypoxia Severe sepsis shock status: without septic shock Qualified Code(s): A41.9 - Sepsis, unspecified organism; R65.20 - Severe sepsis without septic shock; J96.01 - Acute respiratory failure with hypoxia (2) Respiratory failure: Qualifiers: Chronicity: acute Respiratory failure complication: hypoxia Qualified Code(s): J96.01 - Acute respiratory failure with hypoxia (3) Emphysema lung: (4) Pneumonia: Qualifiers: Laterality: right Lung location: middle lobe of lung Pneumonia type: due to unspecified organism Qualified Code(s): J18.9 - Pneumonia, unspecified organism (5) DUSTY (acute kidney injury): (6) CHF (congestive heart failure): Qualifiers: Heart failure type: unspecified Heart failure chronicity: unspecified Qualified Code(s): I50.9 - Heart failure, unspecified (7) Hypertension: Qualifiers: Hypertension type: unspecified Qualified Code(s): I10 - Essential (primary) hypertension (8) Ruptured appendicitis: Plan 89F with multiple advanced comorbidities (DMII with A1C 8.2, restenosed TAVR, emphysema, CKD4), now HD3 admitted with sepsis associated with with DUSTY and respiratory failure (6L NC requirement), from both aspiration pneumonia and perforated appendicitis. On IV Zosyn treating both. Thus far her end organ dysfuntion or her WBC has improved on antibiotic therapy. Repeat CT scan today shows 2cm fluid collection around the perforated appendix (with fecalith) that is too small for IR drainage. - Recommend continued nonoperative management with IV antibiotics and close monitoring - Consider 1-2d bowel rest to optimize chances of walling off perforation if within proximal appendix/base @ cecum. - if fails to improve after another 4-5d, can rescan to see if fluid collection ammenable to drainage - if decompensates can go to or for possible laparoscopic appendectomy vs laparoscopic washout + drain placement. Discussed with hospitalist Dr. Conde today that patient is overall a poor surgical candidate, and her active aspiration pneumonia makes this considerably worse, with a high risk of prolonged intubation postoperatively. The patient is a DNR, but indicates that she would want surgery if there was no other option to treat her infection. Surgery will closely follow.
--- NOTE | 2025-09-13 16:06 | PT Plan of Care ---
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 Admitted with sepsis and AHRF, now on 6L O2 and SpO2 high 80s at rest. RN aware and states pt was 95% at rest prior to PT session. PMH includes CVA, cognitive changes, TAVR in 2018. Cleared for eval by hospitalist. Upon PT eval, pt agreeable to participate. A&Ox3 and easily cued. Overall requires minAx1 for mobility and line mgmt. Desats to 87% while static standing with FWW even with O2 increased to 7L, so unable to assess gait d/t poor oxygenation. Requires modAx1 for sit to supine transfer and maxAx2 for repositioning in bed. Pt may benefit from skilled PT in acute setting to progress functional mobility. Limitations primarily d/t low oxygenation and general deconditioning. When medically clear, PT rec dc to SNF as pt is far below baseline and requiring increased level of care. Pt and are hesitantly open to this but are hopeful that she will improve to dc home. Goals Improve bed mobility to: Modified Independent Improve supine to sit to: Contact Guard Improve sit to stand to: Minimal Assist Improve pivot transfer ability Contact Guard to: Improve sit to supine to: Minimal Assist Improve gait ability to: Min A Assistive Device Used: Front Wheeled Walker Improve Standing Balance to: Good PT Plan of Care Frequency 1-2x/day Duration Until goals are met Discharge Recommendations [facility]charge Location [facility] DC Equipment Recommended Front wheeled walker Transport Needs at Discharge B.L.S Other BLS d/t poor oxygenation, may progress to wc van vs POV
[2025-09-13] MEDS: ATORVASTATIN 40 MG TABLET PO SCH (22:02)
[2025-09-14] MEDS: LACTATED RINGERS 250 ML IV ONE (00:52)
[2025-09-14] MEDS: PIPERACILLIN/TAZOBACTAM 3.375 GM in SODIUM CHLORIDE 0.9% MINIBAG 100 ML IV SCH (00:52)
[2025-09-14 04:59] LABS: HCT - HEMATOCRIT 27.4 % (37.0-47.0); HGB - HEMOGLOBIN 9.2 g/dL (12.0-16.0); MEAN PLATELET VOLUME 10.1 fL (7.9-10.8); NRBC ABSOLUTE COUNT (AUTO) 0.00 x10^3/uL; NUCLEATED RED BLOOD CELLS AUTO 0.0 /100WBC; PLT - PLATELET COUNT 126 10^3/uL (130-450); RED CELL DISTRIBUTION WIDTH 13.5 % (12.0-15.0)
[2025-09-14 05:16] LABS: BUN - BLOOD UREA NITROGEN 60.0 mg/dL (6-20); CARBON DIOXIDE - CO2 20.0 mmol/L (21-32); CREATININE 2.0 mg/dL (0.6-1.3); CRP - C-REACTIVE PROTEIN 16.5 mg/dL (<0.5); GFR - MDRD 23.0 (>89)
[2025-09-14] MEDS: FUROSEMIDE 40 MG/4 ML VIAL IVP SCH (09:51)
[2025-09-14] MEDS: POTASSIUM CHLOR 10 MEQ/100 ML 10 MEQ/100 ML BAG IV SCH (09:53)
--- NOTE | 2025-09-14 15:33 | PROVIDER PROGRESS NOTE ---
Subjective General Admit Date: 09/11/25 Other Other Information/Narrative: [place]. AF/HDS. Kept NPO, abdominal exam unchanged. Review of Systems Status of ROS: 10 or more systems reviewed and unremarkable except as noted in history and below Exam Exam Vital Signs: Vital Signs x48h Temp Pulse Pulse Resp BP Pulse Ox O2 Flow Rate 09/14/25 12:17 88 92 4 09/14/25 11:57 72 18 5 09/14/25 09:00 36.7 C 66 18 139/68 H 95 5 09/14/25 08:17 78 20 6 09/14/25 08:15 5 Constitutional abnormal general appearance (chronically ill) and no apparent distress Respiratory abnormal respiratory effort (labored) Cardiovascular normal heart rate noted Gastrointestinal nondistended RLQ ttp with deep palpation, no rebound, negative rosvings Extremities normal to inspection Neurology speech normal and GCS 15 Psychiatry oriented x3 Skin skin color normal Image EXAM: [id number] CT/CHTW ([id number]) PROCEDURE: CT Chest W INDICATIONS: Abnormal findings on prior CT, concern for mass/malignancy CONTRAST: 100ml omni 300 TECHNIQUE: After the administration of intravenous contrast, a CT scan of the chest was performed. Images were recorded and evaluated at appropriate window settings. Reformats: axial MIP of the chest, coronal and sagittal. For radiation dose reduction, the following was used: automated exposure control, adjustment of mA and/or kV according to patient size. COMPARISON: 08/30/2018 FINDINGS: Image quality: Diagnostic. Chest wall and lower neck: Ruptured bilateral breast implants. There is increasing peripheral soft tissue nodularity adjacent to the breast implants, including a 7.2 x 4.2 cm soft tissue density mass on the left (series 602, image 46). Lungs and pleura: Dependent consolidation in the left lower lobe. Dependent con solidation in the right middle lobe. Atelectasis in the right lower lobe. Small pleural effusions. Smooth interstitial thickening, consistent with pulmonary edema. Mediastinum: Heart size is enlarged. No pericardial effusion. No large vessel abnormality. No mediastinal adenopathy by size criteria. Aortic valve prosthesis. Patulous esophagus containing oral contrast. Bones: No aggressive osseous abnormality. Upper Abdomen: Unremarkable. IMPRESSION: Dependent consolidation in the left lower lobe and right middle lobe, concerning for aspiration pneumonia. Ruptured bilateral breast implants. There is increasing peripheral soft tissue nodularity adjacent to the breast implants, including a 7.2 x 4.2 cm soft tissue density mass on the left. Findings may be a granulomatous process related to the presence of ruptured implants, but underlying malignancy is not excluded. Recommend referral to a diagnostic breast Center. Small pleural effusions, presumably parapneumonic effusions. Patulous esophagus containing oral contrast. 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 Reviewed by: Joe Hopson MD on 09/13/2025 2:04 PM PST Approved by: Joe Hopson MD on 09/13/2025 2:04 PM [facility] EXAM: [id number] CT/ABPEW ([id number]) PROCEDURE: CT Abdomen/Pelvis W INDICATIONS: ?abscess; oral IV contrast CONTRAST: 100ml omni 300 TECHNIQUE: After the administration of intravenous contrast, a CT scan of the abdomen and pelvis was performed. Images were recorded and evaluated at appropriate window settings. Reformats: coronal and sagittal. For radiation dose reduction, the following was used: automated exposure control, adjustment of mA and/or kV according to patient size. COMPARISON: 08/11/2025, 08/30/2019 FINDINGS: Image quality: Diagnostic. Lower chest: Separately dictated Liver: Stable hypoattenuating liver lesion in segment 7. Stable cyst in segment 3. Gallbladder: No radiopaque stones or wall thickening. Biliary tree: No intrahepatic or extrahepatic dilation, accounting for age. Spleen: No splenomegaly. Pancreas: No pancreatic ductal dilation. Adrenals: No adrenal nodule. Kidneys and ureters: No hydronephrosis. No renal cystic lesion which requires follow up. No solid mass. Reactive urothelial wall thickening. Stomach, bowel and peritoneum: The appendix has ruptured. There is wall thickening and distention. Diameter measures up to 1.3 cm. Suspected appendicolith at the base (series 11, image 114) measuring 5 mm. Small adjacent fluid collection measuring 2.2 x 2.2 cm (series 11, image 117). Free fluid in the pelvis. The appendix contains low-attenuating fluid. Lymph nodes: No central or retroperitoneal adenopathy. Vessels: No infrarenal aortic aneurysm. Patent portal vein. PELVIS Reproductive organs: Unremarkable. Bladder: No abnormal wall thickening. Pelvic lymph nodes: No pelvic adenopathy by size criteria. Bones: No aggressive osseous abnormality. Other: No significant ventral or inguinal hernia. IMPRESSION: Ruptured appendicitis, with a 5 mm appendicolith at the base. Small adjacent fluid collection measuring 2.2 x 2.2 cm. This is not amenable to CT-guided drainage. Additionally, the appendix does have low attenuating fluid in it, probably related to underlying infection, but mucocele is also a consideration. No adjacent adenopathy however. No mucous implants identified. Above discussed with Amador Conde MD at 09/13/2025 1:56 PM PST. Reviewed by: Joe Hopson MD on 09/13/2025 1:57 PM PST Approved by: Joe Hopson MD on 09/13/2025 1:57 PM PST Impression/Plan Problem List (1) Sepsis: Qualifiers: Sepsis type: sepsis due to unspecified organism Sepsis acute organ dysfunction status: with acute organ dysfunction Severe sepsis acute organ dysfunction type: acute respiratory failure Acute respiratory failure type: with hypoxia Severe sepsis shock status: without septic shock Qualified Code(s): A41.9 - Sepsis, unspecified organism; R65.20 - Severe sepsis without septic shock; J96.01 - Acute respiratory failure with hypoxia (2) Respiratory failure: Qualifiers: Chronicity: acute Respiratory failure complication: hypoxia Qualified Code(s): J96.01 - Acute respiratory failure with hypoxia (3) Emphysema lung: (4) Pneumonia: Qualifiers: Laterality: right Lung location: middle lobe of lung Pneumonia type: due to unspecified organism Qualified Code(s): J18.9 - Pneumonia, unspecified organism (5) Abdominal pain: Qualifiers: Abdominal location: unspecified location Qualified Code(s): R10.9 - Unspecified abdominal pain (6) DUSTY (acute kidney injury): (7) Hyperkalemia: (8) 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: Qualifiers: Diabetes mellitus alf insulin use: without terminal clerk use Qualif ied Code(s): E11.22 - Type 2 diabetes mellitus with diabetic chronic kidney disease; N18.4 - Chronic kidney disease, stage 4 (severe) (9) CHF (congestive heart failure): Qualifiers: Heart failure type: unspecified Heart failure chronicity: unspecified Qualified Code(s): I50.9 - Heart failure, unspecified (10) Spinal stenosis, lumbar region with neurogenic claudication: (11) Osteoarthritis: Qualifiers: Osteoarthritis location: unspecified site Osteoarthritis type: unspecified Qualified Code(s): M19.90 - Unspecified osteoarthritis, unspecified site (12) Mixed hyperlipidemia: (13) History of hemorrhagic cerebrovascular accident (CVA) with residual deficit: (14) Hypertension: Qualifiers: Hypertension type: unspecified Qualified Code(s): I10 - Essential (primary) hypertension Plan 89F with multiple advanced comorbidities (DMII with A1C 8.2, restenosed TAVR, emphysema, CKD4), now HD4 admitted with sepsis associated with with DUSTY and respiratory failure (6L NC requirement), from both aspiration pneumonia and perforated appendicitis. On IV Zosyn treating both. 09/13: end organ dysfunction/WBC NOT improved on antibiotic therapy. Repeat CT scan - 2cm fluid collection around the perforated appendix (with fecalith) that is too small for IR drainage. 09/14: WBC down to 10.8 (from 12.9) - Recommend continued nonoperative management with IV antibiotics and close monitoring - Consider 1-2d bowel rest to optimize chances of walling off perforation if within proximal appendix/base @ cecum. (until 09/15) - if fails to improve after another 4-5d, can rescan to see if fluid collection ammenable to drainage - if decompensates can go to or for possible laparoscopic appendectomy vs laparoscopic washout + drain placement. Discussed with hospitalist Dr. Conde that patient is overall a poor surgical candidate, and her active aspiration pneumonia makes this considerably worse, with a high risk of prolonged intubation postoperatively. The patient is a DNR, but indicates that she would want surgery if there was no other option to treat her infection. Surgery will closely follow. Jasmyn England DO, FACS General Surgeon, [facility]
--- NOTE | 2025-09-14 15:39 | PROVIDER PROGRESS NOTE ---
Subjective Subjective Subjective: This morning, patient states that she feels slightly better than yesterday. She, at times, is feeling short of breath. She denies any cough. Her leg pain is improved. Her abdominal pain is improved. She has had no nausea, vomiting, fevers, chills, cough. Current Medications Current Medications Current Medications: Current Medications Generic Name Dose Route Start Last Admin Trade Name Freq PRN Reason Stop Dose Admin Acetaminophen 650 mg 09/11/25 18:31 09/12/25 04:28 Acetaminophen 325 Mg Tablet PO 650 mg Q4HR PRN Administration Pain 1 to 4, or Fever Albuterol/Ipratropium 3 ml 09/11/25 19:00 09/14/25 15:32 Ipratropium/Albuterol 3 Ml Neb INH Not Given RTQID SILVIA Amlodipine Besylate 10 mg 09/12/25 09:00 09/14/25 09:52 Amlodipine 5 Mg Tablet PO 10 mg DAILY SILVIA Administration Atorvastatin Calcium 40 mg 09/13/25 21:00 09/13/25 22:02 Atorvastatin 40 Mg Tablet PO 40 mg QPM SILVIA Administration Brimonidine Tartrate 1 drops 09/11/25 21:00 09/14/25 09:56 Brimonidine 0.2% Ophth Drops 5 Ml EACHEYE 1 drops BID SILVIA Administration Carvedilol 6.25 mg 09/11/25 21:00 09/14/25 09:51 Carvedilol 3.125 Mg Tablet PO 6.25 mg BID SILVIA Administration Furosemide 40 mg 09/14/25 09:00 09/14/25 09:51 Furosemide 40 Mg/4 Ml Vial IVP 40 mg DAILY SILVIA Administration Heparin Sodium (Porcine) 5,000 unit 09/11/25 21:00 09/14/25 09:54 Heparin 5,000 Unit/Ml Vial SUBQ 5,000 unit BID SILVIA Administration Piperacillin Sod/Tazobactam 100 mls @ 25 mls/hr 09/13/25 14:30 09/14/25 09:56 Sod 3.375 gm/ Sodium Chloride IV 25 mls/hr BID SILVIA Administration Insulin Glargine-yfgn 15 unit 09/12/25 21:00 09/13/25 21:48 Insulin Glargine-Yfgn 300 Unit/3 Ml Pen SUBQ 15 unit QPM SILVIA Administration Insulin Human Lispro 3 unit 09/13/25 08:00 09/14/25 11:03 Insulin Lispro 300 Unit/3 Ml Pen SUBQ Not Given TIDWM [facility] Protocol Insulin Human Lispro 1 - 5 unit 09/12/25 21:00 09/14/25 11:42 Insulin Lispro 300 Unit/3 Ml Pen SUBQ Not Given 0800,1200,1700,2100 [facility] Protocol Miconazole 1 applic 09/12/25 21:00 09/13/25 22:06 Miconazole Vaginal Cream 45 Gm Tube VG 1 applic QPM SILVIA Administration Ondansetron HCl 4 mg 09/11/25 18:31 Ondansetron Odt 4 Mg Tablet TL Q6HR PRN Nausea / Vomiting Ondansetron HCl 4 mg 09/11/25 18:31 Ondansetron 4 Mg/2 Ml Vial IVP Q6HR PRN Nausea / Vomiting Oxycodone HCl 5 mg 09/11/25 18:31 09/12/25 04:28 Oxycodone 5 Mg Tablet PO 5 mg Q4HR PRN Administration Pain 5 to 7 Oxycodone HCl 10 mg 09/11/25 18:31 Oxycodone 5 Mg Tablet PO Q4HR PRN Pain 8 to 10 Prednisone 40 mg 09/12/25 08:00 09/14/25 09:51 Prednisone 20 Mg Tablet PO 09/16/25 08:01 40 mg DAILYWM SILVIA Administration Sodium Chloride 10 ml 09/12/25 01:00 09/12/25 06:30 Sodium Chloride 0.9% 10 Ml Vial IVP 10 ml PRN PRN Administration infection Timolol Maleate 1 drops 09/11/25 21:00 09/14/25 09:57 Timolol 0.5% Ophth Drops EACHEYE 1 drops BID SILVIA Administration Objective Vital Signs/Intake & Output Reviewed Vital Signs: Yes Vital Signs: Vital Signs x48h Temp Pulse Pulse Resp BP Pulse Ox O2 Flow Rate 09/14/25 12:17 88 92 4 09/14/25 11:57 72 18 5 09/14/25 09:00 98.1 F 66 18 139/68 H 95 5 09/14/25 08:17 78 20 6 09/14/25 08:15 5 Intake & Output: Intake & Output 11/02/25 11/03/25 11/04/25 11/05/25 22:59 23:59 23:59 23:59 Intake Total 1200 / 1200 1910 / 1910 1390 / 1390 200 / 200 Output Total 4500 / 4500 600 / 600 Balance 1200 / 1200 1889 / 1889 -3110 / -3110 -400 / -400 Weight (kg) 47.5 kg 44.5 kg 44.5 kg Objective Comments/Other: GEN: Frail appearing. No acute distress, patient taking shallow rapid breaths. HEENT: NC/AT, normal appearance of external ears and nose. Hard of hearing at baseline. Yellowed but intact dentition. Cardiac: Regular rate and rhythm, mechanical valve. Pulm: Rhonchi in right lung base more prominent. Diffuse wheezing. Abdomen: Soft, nonacute. Tender to palpation, RLQ predominantly, but throughout her abdomen. No suprapubic tenderness. Neuro: Face symmetric, CN II through XII intact grossly. Mildly dysarthric. No overt focal deficits. Moving her extremities. Psych: Mood euthymic. Affect congruent. Lab Results 09/14/25 04:37 09/14/25 04:37 Other Labs: Lab Results x24hrs 09/14/25 09/14/25 09/14/25 Range/Units 11:39 07:55 04:37 WBC 10.8 (4.8-10.8) x10^3/uL RBC 3.03 L (4.20-5.40) 10^6/uL Hgb 9.2 L (12.0-16.0) g/dL Hct 27.4 L (37.0-47.0) % MCV 90.4 (81.0-99.0) fL MCH 30.4 (27.0-31.0) pg MCHC 33.6 (32.0-36.0) g/dL RDW 13.5 (12.0-15.0) % Plt Count 126 L (130-450) 10^3/uL MPV 10.1 (7.9-10.8) fL Neut # (Auto) 9.0 H (1.5-6.6) 10^3/uL Lymph # (Auto) 1.0 L (1.5-3.5) 10^3/uL Waller # (Auto) 0.7 (0.0-1.0) 10^3/uL Eos # (Auto) 0.0 (0.0-0.7) 10^3/uL Baso # (Auto) 0.0 (0.0-0.1) 10^3/uL Absolute Nucleated RBC 0.00 x10^3/uL Nucleated RBC % 0.0 /100WBC Sodium 131 L (135-145) mmol/L Potassium 3.3 L (3.5-4.5) mmol/L Chloride 98 L (101-111) mmol/L Carbon Dioxide 20 L (21-32) mmol/L Anion Gap 13.0 (6-13) BUN 60 H (6-20) mg/dL Creatinine 2.0 H (0.6-1.3) mg/dL Estimated GFR (MDRD) 23 L (>89) Glucose 226 H (74-104) mg/dL POC Whole Bld Glucose 173 196 (70-100) mg/dL Calcium 7.6 L (8.5-10.3) mg/dL C-Reactive Protein 16.5 H (<0.5) mg/dL Prealbumin 11 L (17-34) mg/dL Nasal Screen MRSA (PCR) (NEGATIVE) 09/13/25 09/13/25 09/13/25 Range/Units 20:54 16:50 14:05 WBC (4.8-10.8) x10^3/uL RBC (4.20-5.40) 10^6/uL Hgb (12.0-16.0) g/dL Hct (37.0-47.0) % MCV (81.0-99.0) fL MCH (27.0-31.0) pg MCHC (32.0-36.0) g/dL RDW (12.0-15.0) % Plt Count (130-450) 10^3/uL MPV (7.9-10.8) fL Neut # (Auto) (1.5-6.6) 10^3/uL Lymph # (Auto) (1.5-3.5) 10^3/uL Waller # (Auto) (0.0-1.0) 10^3/uL Eos # (Auto) (0.0-0.7) 10^3/uL Baso # (Auto) (0.0-0.1) 10^3/uL Absolute Nucleated RBC x10^3/uL Nucleated RBC % /100WBC Sodium (135-145) mmol/L Potassium (3.5-4.5) mmol/L Chloride (101-111) mmol/L Carbon Dioxide (21-32) mmol/L Anion Gap (6-13) BUN (6-20) mg/dL Creatinine (0.6-1.3) mg/dL Estimated GFR (MDRD) (>89) Glucose (74-104) mg/dL POC Whole Bld Glucose 201 164 (70-100) mg/dL Calcium (8.5-10.3) mg/dL C-Reactive Protein (<0.5) mg/dL Prealbumin (17-34) mg/dL Nasal Screen MRSA (PCR) NEGATIVE (NEGATIVE) Sepsis Event Note (H) Evaluation Current Stage of Sepsis: Severe sepsis Possible source of Sepsis: positive Pulmonary Sepsis Criteria Sepsis Criteria: Recorded Respiratory Rate greater than 20 and WBC count greater than 12,000 or less than 4000 Assessment/Plan Problem List (1) Sepsis: Impression: Remains with slight tachypnea. Leukocytosis is improved. Remains on Zosyn. Initial CT abdomen/pelvis showed edema and inflammatory changes in the right lower quadrant without abscess or free air, and the appendix was not identified. Chest CT showed multifocal lung opacities, and there was some concern for aspiration. Mild to moderate right and trace left pleural effusions were also noted. CT scans were repeated yesterday due to worsening leukocytosisabdomen/pelvis CT does showed ruptured appendicitis with a 5 mm appendicolith, as well as small adjacent fluid collection. Chest CT once again shows dependent consolidations in left lower lobe and right middle lobe, as well as ruptured bilateral breast implants, small pleural effusions and moderate pulmonary edema. Discussed with general surgery, plan to continue IV antibiotics at this time. Will try to optimize patient by weaning oxygen and we will treat with IV antibiotics in the meantime. NPO status at this time to allow for bowel rest. Continue to wean oxygen down as tolerated. Blood cultures drawn 09/11 with no growth to date. Qualifiers: Sepsis type: sepsis due to unspecified organism Sepsis acute organ dysfunction status: with acute organ dysfunction Severe sepsis acute organ dysfunction type: acute respiratory failure Acute respiratory failure type: w ith hypoxia Severe sepsis shock status: without septic shock Qualified Code(s): A41.9 - Sepsis, unspecified organism; R65.20 - Severe sepsis without septic shock; J96.01 - Acute respiratory failure with hypoxia (2) Respiratory failure: Qualifiers: Chronicity: acute Respiratory failure complication: hypoxia Qualified Code(s): J96.01 - Acute respiratory failure with hypoxia (3) Emphysema lung: (4) Pneumonia: Impression: CT indicative of multifocal pneumonia, likely aspiration. Spoke with angio technologist, preliminary report suggests worsening of her aortic stenosis, pulmonary hypertension which may be contributing. She also has underlying emphysema, and continues to smoke 3 cigarettes a day. Continue Lasix daily. Continue to monitor strict intake and output. Urine output does not appear accurate in the chart. Continue daily weights. Continue oral steroids. Continue DuoNebs RT 4 times daily. Qualifiers: Laterality: right Lung location: middle lobe of lung Pneumonia type: d ue to unspecified organism Qualified Code(s): J18.9 - Pneumonia, unspecified organism (5) Abdominal pain: Impression: See above. Qualifiers: Abdominal location: unspecified location Qualified Code(s): R10.9 - Unspecified abdominal pain (6) DUSTY (acute kidney injury): Impression: Stable. Patient has a history of chronic kidney disease, stage IV. Creatinine historically around 1.6. Has been as high as 2.5. 2.2 this admission. No acute indications for dialysis. Electrolytes show hyperkalemia, as below. Avoid nephrotoxins as able. Dialysis is not within goals of care for the patient. See separate ACP note from 09/12. (7) Hyperkalemia: Impression: Resolved. Downtrended somewhat with Lokelma, expect further improvement with Lasix. Continue holding off on JIMBO inhibitor, follow-up BMP a.m. 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 Longstanding history of diabetes. Last A1c 8.2 in March. Blood sugars on arrival 257. She is not on insulin at home. Home meds include sitagliptin, Jardiance. Multiple complications of diabetes including CKD, retinopathy, hypertension and CVA. Hold oral glycemic control agents given her DUSTY. Continue 10 units glargine nightly, 3 units before every meal lispro with low-dose sliding scale. Qualifiers: Diabetes mellitus group home insulin use: without keno terminal operator use Q ualified Code(s): E11.22 - Type 2 diabetes mellitus with diabetic chronic kidney disease; N18.4 - Chronic kidney disease, stage 4 (severe) (9) CHF (congestive heart failure): Impression: Per her history, she has a listed history of CHF. Her last ECHO that I can find is from 2018. She was having lower extremity edema at the time hyponatremia. She had an EF of 65 to 70% from her TTE in 2018. On arrival, her BNP was over 800. Diuresis as above. Repeat echocardiogram ordered. Qualifiers: Heart failure type: unspecified Heart failure chronicity: unspecified Qualified Code(s): I50.9 - Heart failure, unspecified (10) Spinal stenosis, lumbar region with neurogenic claudication: (11) Osteoarthritis: Impression: Continues with significant bilateral lower extremity pains. She has known spinal stenosis of her lumbar spine. She has previously met with an orthopedic surgeon who said that she was a poor surgical candidate for repair of this. She has been getting regular corticosteroid shots every 3 months. APAP 650 mg every 4 hours as needed, oxycodone as needed. Could consider adding on gabapentin or other neuropathic pain medicine, but unsure that this would help any of the above problems. Qualifiers: Osteoarthritis location: unspecified site Osteoarthritis type: u nspecified Qualified Code(s): M19.90 - Unspecified osteoarthritis, unspecified site (12) Mixed hyperlipidemia: (13) History of hemorrhagic cerebrovascular accident (CVA) with residual deficit: Impression: Apparently she had a hemorrhagic stroke to the lizeth and cerebellum in the early part of 2023. Related to hypertension. She has been controlling her blood pressure better since then. She has "residual deficits" listed her outpatient notes, but nothing clearly focal on her exam here. Given her history of CVA, it is unclear to me why she is not on a high intensity statin. She is on pravastatin 20 mg daily. She says she does not normally take aspirin. Intiate atorvastatin 40mg nightly. (14) Hypertension: Impression: Blood pressures have remained stable, a little high. Longstanding history of hypertension. Her history of stroke puts her at risk for recrudescence or further stroke with uncontrolled hypertension. Continue carvedilol and formulary equivalent amlodipine. Holding lisinopril as above. Qualifiers: Hypertension type: unspecified Qualified Code(s): I10 - Essential (primary) hypertension
[2025-09-14] MEDS: INSULIN REGULAR, HUMAN 300 UNIT/3 ML PEN SUBQ SCH (18:40)
[2025-09-15 05:27] LABS: HCT - HEMATOCRIT 29.3 % (37.0-47.0); HGB - HEMOGLOBIN 9.2 g/dL (12.0-16.0); MEAN PLATELET VOLUME 10.1 fL (7.9-10.8); NRBC ABSOLUTE COUNT (AUTO) 0.00 x10^3/uL; NUCLEATED RED BLOOD CELLS AUTO 0.0 /100WBC; PLT - PLATELET COUNT 159 10^3/uL (130-450); RED CELL DISTRIBUTION WIDTH 13.7 % (12.0-15.0)
[2025-09-15 05:47] LABS: BUN - BLOOD UREA NITROGEN 74.0 mg/dL (6-20); CARBON DIOXIDE - CO2 19.0 mmol/L (21-32); CREATININE 2.3 mg/dL (0.6-1.3); GFR - MDRD 20.0 (>89)
--- NOTE | 2025-09-15 08:32 | PROVIDER PROGRESS NOTE ---
Subjective Subjective Subjective: This morning, patient states that she feels slightly better than yesterday. She, at times, is feeling short of breath. She denies any cough. Her leg pain is improved. Her abdominal pain is improved. She has had no nausea, vomiting, fevers, chills, cough. She is eager to eat liquids today. Current Medications Current Medications Current Medications: Current Medications Generic Name Dose Route Start Last Admin Trade Name Freq PRN Reason Stop Dose Admin Acetaminophen 650 mg 09/11/25 18:31 09/12/25 04:28 Acetaminophen 325 Mg Tablet PO 650 mg Q4HR PRN Administration Pain 1 to 4, or Fever Albuterol/Ipratropium 3 ml 09/11/25 19:00 09/14/25 19:00 Ipratropium/Albuterol 3 Ml Neb INH 3 ml RTQID SILVIA Administration Amlodipine Besylate 10 mg 09/12/25 09:00 09/14/25 09:52 Amlodipine 5 Mg Tablet PO 10 mg DAILY SILVIA Administration Atorvastatin Calcium 40 mg 09/13/25 21:00 09/14/25 22:01 Atorvastatin 40 Mg Tablet PO 40 mg QPM SILVIA Administration Brimonidine Tartrate 1 drops 09/11/25 21:00 09/14/25 22:07 Brimonidine 0.2% Ophth Drops 5 Ml EACHEYE 1 drops BID SILVIA Administration Carvedilol 6.25 mg 09/11/25 21:00 09/14/25 22:02 Carvedilol 3.125 Mg Tablet PO 6.25 mg BID SILVIA Administration Heparin Sodium (Porcine) 5,000 unit 09/11/25 21:00 09/14/25 21:58 Heparin 5,000 Unit/Ml Vial SUBQ 5,000 unit BID SILVIA Administration Piperacillin Sod/Tazobactam 100 mls @ 25 mls/hr 09/13/25 14:30 09/14/25 22:02 Sod 3.375 gm/ Sodium Chloride IV 25 mls/hr BID SILVIA Administration Insulin Glargine-yfgn 15 unit 09/12/25 21:00 09/14/25 22:06 Insulin Glargine-Yfgn 300 Unit/3 Ml Pen SUBQ 15 unit QPM SILVIA Administration Insulin Human Regular 1 - 5 unit 09/14/25 18:00 09/15/25 06:39 Insulin Regular, Human 300 Unit/3 Ml Pen SUBQ 1 unit Q6HR SILVIA Administration Protocol Miconazole 1 applic 09/12/25 21:00 09/14/25 22:07 Miconazole Vaginal Cream 45 Gm Tube VG 1 applic QPM SILVIA Administration Ondansetron HCl 4 mg 09/11/25 18:31 Ondansetron Odt 4 Mg Tablet TL Q6HR PRN Nausea / Vomiting Ondansetron HCl 4 mg 09/11/25 18:31 Ondansetron 4 Mg/2 Ml Vial IVP Q6HR PRN Nausea / Vomiting Oxycodone HCl 5 mg 09/11/25 18:31 09/12/25 04:28 Oxycodone 5 Mg Tablet PO 5 mg Q4HR PRN Administration Pain 5 to 7 Oxycodone HCl 10 mg 09/11/25 18:31 Oxycodone 5 Mg Tablet PO Q4HR PRN Pain 8 to 10 Prednisone 40 mg 09/12/25 08:00 09/14/25 09:51 Prednisone 20 Mg Tablet PO 09/16/25 08:01 40 mg DAILYWM SILVIA Administration Sodium Chloride 10 ml 09/12/25 01:00 09/14/25 16:20 Sodium Chloride 0.9% 10 Ml Vial IVP 10 ml PRN PRN Administration infection Timolol Maleate 1 drops 09/11/25 21:00 09/14/25 22:08 Timolol 0.5% Ophth Drops EACHEYE 1 drops BID SILVIA Administration Objective Vital Signs/Intake & Output Reviewed Vital Signs: Yes Vital Signs: Vital Signs x48h Temp Pulse Resp BP Pulse Ox O2 Flow Rate 09/15/25 06:00 97.9 F 56 L 20 138/61 H 97 4 Intake & Output: Intake & Output 09/12/25 09/13/25 09/14/25 09/15/25 23:59 23:59 23:59 23:59 Intake Total 1909 / 0 1390 / 1390 300 / 300 Output Total 4500 / 4500 900 / 900 350 / 350 Balance 1889 / 188 -3110 / -3110 -600 / -600 -350 / -350 Weight (kg) 44.5 kg 44.5 kg 45 kg Objective Comments/Other: GEN: Frail appearing. No acute distress, patient taking shallow rapid breaths. HEENT: NC/AT, normal appearance of external ears and nose. Hard of hearing at baseline. Yellowed but intact dentition. Cardiac: Regular rate and rhythm, mechanical valve. Pulm: Rhonchi in right lung base more prominent. Diffuse wheezing. Abdomen: Soft, nonacute. Tender to palpation, RLQ predominantly, but throughout her abdomen. No suprapubic tenderness. Neuro: Face symmetric, CN II through XII intact grossly. Mildly dysarthric. No overt focal deficits. Moving her extremities. Psych: Mood euthymic. Affect congruent. Lab Results 09/15/25 05:02 09/15/25 05:02 Other Labs: Lab Results x24hrs 09/15/25 09/15/25 09/15/25 Range/Units 06:28 05:02 00:27 WBC 11.7 H (4.8-10.8) x10^3/uL RBC 3.15 L (4.20-5.40) 10^6/uL Hgb 9.2 L (12.0-16.0) g/dL Hct 29.3 L (37.0-47.0) % MCV 93.0 (81.0-99.0) fL MCH 29.2 (27.0-31.0) pg MCHC 31.4 L (32.0-36.0) g/dL RDW 13.7 (12.0-15.0) % Plt Count 159 (130-450) 10^3/uL MPV 10.1 (7.9-10.8) fL Neut # (Auto) 9.7 H (1.5-6.6) 10^3/uL Lymph # (Auto) 1.3 L (1.5-3.5) 10^3/uL Arroyo # (Auto) 0.7 (0.0-1.0) 10^3/uL Eos # (Auto) 0.0 (0.0-0.7) 10^3/uL Baso # (Auto) 0.0 (0.0-0.1) 10^3/uL Absolute Nucleated RBC 0.00 x10^3/uL Nucleated RBC % 0.0 /100WBC Sodium 135 (135-145) mmol/L Potassium 3.7 (3.5-4.5) mmol/L Chloride 104 (101-111) mmol/L Carbon Dioxide 19 L (21-32) mmol/L Anion Gap 12.0 (6-13) BUN 74 H (6-20) mg/dL Creatinine 2.3 H (0.6-1.3) mg/dL Estimated GFR (MDRD) 20 L (>89) Glucose 175 H (74-104) mg/dL POC Whole Bld Glucose 177 219 (70-100) mg/dL Calcium 7.7 L (8.5-10.3) mg/dL Magnesium 2.9 H (1.7-2.3) mg/dL 09/14/25 09/14/25 Range/Units 18:31 11:39 WBC (4.8-10.8) x10^3/uL RBC (4.20-5.40) 10^6/uL Hgb (12.0-16.0) g/dL Hct (37.0-47.0) % MCV (81.0-99.0) fL MCH (27.0-31.0) pg MCHC (32.0-36.0) g/dL RDW (12.0-15.0) % Plt Count (130-450) 10^3/uL MPV (7.9-10.8) fL Neut # (Auto) (1.5-6.6) 10^3/uL Lymph # (Auto) (1.5-3.5) 10^3/uL Arroyo # (Auto) (0.0-1.0) 10^3/uL Eos # (Auto) (0.0-0.7) 10^3/uL Baso # (Auto) (0.0-0.1) 10^3/uL Absolute Nucleated RBC x10^3/uL Nucleated RBC % /100WBC Sodium (135-145) mmol/L Potassium (3.5-4.5) mmol/L Chloride (101-111) mmol/L Carbon Dioxide (21-32) mmol/L Anion Gap (6-13) BUN (6-20) mg/dL Creatinine (0.6-1.3) mg/dL Estimated GFR (MDRD) (>89) Glucose (74-104) mg/dL POC Whole Bld Glucose 213 173 (70-100) mg/dL Calcium (8.5-10.3) mg/dL Magnesium (1.7-2.3) mg/dL Sepsis Event Note (H) Evaluation Current Stage of Sepsis: Severe sepsis Possible source of Sepsis: positive Pulmonary Sepsis Criteria Sepsis Criteria: Recorded Respiratory Rate greater than 20 and WBC count greater than 12,000 or less than 4000 Assessment/Plan Problem List (1) Sepsis: Impression: Remains with slight tachypnea. Leukocytosis is improved. Remains on Zosyn. Initial CT abdomen/pelvis showed edema and inflammatory changes in the right lower quadrant without abscess or free air, and the appendix was not identified. Chest CT showed multifocal lung opacities, and there was some concern for aspiration. Mild to moderate right and trace left pleural effusions were also noted. CT scans were repeated due to worsening leukocytosisabdomen/pelvis CT does showed ruptured appendicitis with a 5 mm appendicolith, as well as small adjacent fluid collection. Chest CT once again shows dependent consolidations in left lower lobe and right middle lobe, as well as ruptured bilateral breast implants, small pleural effusions and moderate pulmonary edema. Discussed with general surgery, plan to continue IV antibiotics at this time. Will try to optimize patient by weaning oxygen and we will treat with IV antibiotics in the meantime. Bowel rest completed, advance diet as tolerated. Full liquids tonight, soft diet in A.M. Continue to wean oxygen down as tolerated. Blood cultures drawn 09/11 with no growth to date. Qualifiers: Acute respiratory failure type: with hypoxia Sepsis acute organ dysfunction status: with acute organ dysfunction Sepsis type: sepsis due to unspecified organism Severe sepsis acute organ dysfunction type: acute respiratory failure Severe sepsis shock status: without septic shock Qualified Code(s): A41.9 - Sepsis, unspecified organism; R65.20 - Severe sepsis without septic shock; J96.01 - Acute respiratory failure with hypoxia (2) Respiratory failure: Qualifiers: Chronicity: acute Respiratory failure complication: hypoxia Qualified Code(s): J96.01 - Acute respiratory failure with hypoxia (3) Emphysema lung: (4) Pneumonia: Impression: CT indicative of multifocal pneumonia, likely aspiration. ECHO reveals restenosis of aortic valve and pulmonary hypertension which may be contributing. She also has underlying emphysema, and continues to smoke 3 cigarettes a day. Lasix held due to worsening renal function. Continue to monitor strict intake and output. Urine output does not appear accurate in the chart. Continue daily weights. Continue oral steroids. Continue DuoNebs RT 4 times daily. Qualifiers: Laterality: right Lung location: middle lobe of lung Pneumonia type: d ue to unspecified organism Qualified Code(s): J18.9 - Pneumonia, unspecified organism (5) Abdominal pain: Impression: See above. Qualifiers: Abdominal location: unspecified location Qualified Code(s): R10.9 - Unspecified abdominal pain (6) DUSTY (acute kidney injury): Impression: Slight increase overnight, Lasix held. Patient has a history of chronic kidney disease, stage IV. Creatinine historically around 1.6. Has been as high as 2.5. 2.2 this admission. No acute indications for dialysis. Avoid nephrotoxins as able. Dialysis is not within goals of care for the patient. See separate ACP note from 09/12. (7) Hyperkalemia: Impression: Resolved. Downtrended somewhat with Lokelma, expect further improvement with Lasix. Continue holding off on JIMBO inhibitor, follow-up BMP a.m. 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 Longstanding history of diabetes. Last A1c 8.2 in March. Blood sugars on arrival 257. She is not on insulin at home. Home meds include sitagliptin, Jardiance. Multiple complications of diabetes including CKD, retinopathy, hypertension and CVA. Hold oral glycemic control agents given her DUSTY. Continue 10 units glargine nightly, 3 units before every meal lispro with low-dose sliding scale. 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 ECHO completed shows normal ejection fraction. Qualifiers: Heart failure chronicity: unspecified Heart failure type: unspecified Qualified Code(s): I50.9 - Heart failure, unspecified (10) Spinal stenosis, lumbar region with neurogenic claudication: (11) Osteoarthritis: Impression: Continues with significant bilateral lower extremity pains. She has known spinal stenosis of her lumbar spine. She has previously met with an orthopedic surgeon who said that she was a poor surgical candidate for repair of this. She has been getting regular corticosteroid shots every 3 months. APAP 650 mg every 4 hours as needed, oxycodone as needed. Could consider adding on gabapentin or other neuropathic pain medicine, but unsure that this would help any of the above problems. Qualifiers: Osteoarthritis location: unspecified site Osteoarthritis type: u nspecified Qualified Code(s): M19.90 - Unspecified osteoarthritis, unspecified site (12) Mixed hyperlipidemia: (13) History of hemorrhagic cerebrovascular accident (CVA) with residual deficit: Impression: Apparently she had a hemorrhagic stroke to the lizeth and cerebellum in the early part of 2023. Related to hypertension. She has been controlling her blood pressure better since then. She has "residual deficits" listed her outpatient notes, but nothing clearly focal on her exam here. Given her history of CVA, it is unclear to me why she is not on a high intensity statin. She is on pravastatin 20 mg daily. She says she does not normally take aspirin. Intiate atorvastatin 40mg nightly. (14) Hypertension: Impression: Blood pressures have remained stable, a little high. Longstanding history of hypertension. Her history of stroke puts her at risk for recrudescence or further stroke with uncontrolled hypertension. Continue carvedilol and formulary equivalent amlodipine. Holding lisinopril as above. Qualifiers: Hypertension type: unspecified Qualified Code(s): I10 - Essential (primary) hypertension
--- NOTE | 2025-09-15 09:27 | ECHO Report ---
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 Global left ventricular systolic function is normal. The visual left ventricular ejection fraction is estimated at 55 to 60%. The right ventricle is normal in size and function. A(n) transcatheter aortic valve replacement (TAVR) is present in the aortic position. Bioprosthetic leaflets are thickened and motion is restricted. 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 The aortic valve peak velocity is 360 cm/sec. The pulmonary artery systolic pressure, calculated from a peak tricuspid regurgitant velocity in conjunction with an estimated right atrial pressure, is 53mmHg. The pulmonary artery systolic pressure is moderately increased. Left Ventricle: The left ventricle is normal in size. There is mild concentric increase in the wall thickness of the left ventricle. Proximal septal thickening is noted. Echo findings are not consistent with left ventricular outflow tract obstruction. Global left ventricular systolic function is normal. The visual left ventricular ejection fraction is estimated at 55 to 60%. The calculated ejection fraction, as determined by the biplane method of disks, is 57%. No regional wall motion abnormalities are present. Diastolic function could not be accurately assessed due to confounding valvular disease. Right Ventricle: The right ventricle is normal in size and function. Aortic Valve: The peak aortic valve velocity was obtained from the apical window. The aortic valve peak velocity is 360 cm/sec. The aortic valve mean pressure gradient is 32 mmHg. The aortic valve maximum pressure gradient is 51 mmHg. A(n) transcatheter aortic valve replacement (TAVR) is present in the aortic position. Bioprosthetic leaflets are thickened and motion is restricted. 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 No aortic paravalvular regurgitation is present. Mitral Valve: The mitral valve leaflets are moderately thickened. The mitral valve leaflets are moderately calcified. Motion of both mitral valve leaflets are decreased. Moderate mitral annular calcification is present. There is mild mitral stenosis. There is moderate mitral regurgitation. Tricuspid Valve: The tricuspid valve leaflets are mildly thickened. The tricuspid valve annulus is moderately enlarged. Mild tricuspid regurgitation present. Pulmonic Valve: The pulmonic valve is normal in structure and function. Trace pulmonic valvular regurgitation is present. Left Atrium: The left atrium is severely dilated. The left atrial volume indexed to body surface area is 50 ml/m2. This refers to the maximal volume measured prior to mitral valve opening. Right Atrium: The right atrium is severely dilated. The inferior vena cava is normal in diameter (<2.1cm) but collapse <50% with sniff (estimated right atrial pressure 5-10mmHg). Atrial Septum: Lipomatous hypertrophy of the interatrial septum is present. The interatrial septum appears intact, without evidence of shunt by 2D imaging and color Doppler. Aorta: The diameter of the ascending aorta is 3.3 cm. The sinuses of Valsalva are not well visualized. Pulmonary Artery: Main PA and branches are dilated. The pulmonary artery systolic pressure is moderately increased. The pulmonary artery systolic pressure, calculated from a peak tricuspid regurgitant velocity in conjunction with an estimated right atrial pressure, is 53mmHg. Pericardium/Pleural Space: There is no pericardial effusion. A right pleural effusion is present. Left Ventricle IVSd: 1.12 cm LVIDd: 3.8 cm LVPWd: 1.12 cm LVIDs: 2.6 cm EDV(MOD-sp4): 37.1 ml EDV(sp4-el): 36.6 ml LVLd ap4: 7.1 cm LVAd ap4: 17.5 cm² ESV(MOD-sp4): 17.7 ml ESV(sp4-el): 16.3 ml LVLs ap4: 6.0 cm LVAs ap4: 10.7 cm² EDV(MOD-sp2): 34.6 ml EDV(sp2-el): 34.5 ml LVLd ap2: 6.5 cm LVAd ap2: 16.3 cm² ESV(MOD-sp2): 14.3 ml ESV(sp2-el): 13.4 ml LVLs ap2: 5.8 cm LVAs ap2: 9.6 cm² Atria LAV(MOD-sp4): 61.2 ml LAV(MOD-sp2): 78.9 ml Aortic Valve LV V1 mean P.68 mmHg LV V1 mean: 62.4 cm/sec LV V1 VTI: 20.6 cm Ao V2 VTI: 87.7 cm Ao mean P.5 mmHg Ao V2 mean: 274.5 cm/sec LV V1 max: 79.8 cm/sec LV V1 max P.5 mmHg Ao max P.4 mmHg Ao V2 max: 355.0 cm/sec Mitral Valve MV max P.2 mmHg MV V2 max: 174.4 cm/sec MV mean P.0 mmHg MV V2 mean: 91.5 cm/sec MV V2 VTI: 40.0 cm Tricuspid Valve TR max P.3 mmHg TR max amalia: 329.1 cm/sec TV max P.3 mmHg MMode/2D Measurements & Calculations BMI: 19.2 kilograms/m² BSA([facility]): 1.37 m² EDV(MOD-sp2): 34.6 ml EDV(MOD-sp4): 37.1 ml EDV(sp2-el): 34.5 ml EDV(sp4-el): 36.6 ml EF (est.): 59.7 % ESV(MOD-sp2): 14.3 ml ESV(MOD-sp4): 17.7 ml ESV(sp2-el): 13.4 ml ESV(sp4-el): 16.3 ml IVSd: 1.12 cm LAV(MOD-bp): 69.9 ml LAV(MOD-bp) Indexed: 50.7 ml/m² LAV(MOD-sp2): 78.9 ml LAV(MOD-sp4): 61.2 ml LVAd ap2: 16.3 cm² LVAd ap4: 17.5 cm² LVAs ap2: 9.6 cm² LVAs ap4: 10.7 cm² LVIDd: 3.8 cm LVIDs: 2.6 cm LVLd ap2: 6.5 cm LVLd ap4: 7.1 cm LVLs ap2: 5.8 cm LVLs ap4: 6.0 cm LVPWd: 1.12 cm Doppler Measurements & Calculations Ao max P.4 mmHg Ao mean P.5 mmHg Ao V2 max: 355.0 cm/sec Ao V2 mean: 274.5 cm/sec Ao V2 VTI: 87.7 cm LV V1 max: 79.8 cm/sec LV V1 max P.5 mmHg LV V1 mean: 62.4 cm/sec LV V1 mean P.68 mmHg LV V1 VTI: 20.6 cm MV max P.2 mmHg MV mean P.0 mmHg MV V2 max: 174.4 cm/sec MV V2 mean: 91.5 cm/sec MV V2 VTI: 40.0 cm PA max P.15 mmHg PA V2 max: 73.2 cm/sec RAP systole: 10.0 mmHg TR max P.3 mmHg TR max amalia: 329.1 cm/sec TV max P.3 mmHg Other Measurements & Calculations EDV(MOD-bp): 37.6 ml EDV(Teich): 62.7 ml EF(MOD-bp): 57.3 % EF(MOD-sp2): 58.8 % EF(MOD-sp4): 52.4 % EF(sp2-el): 61.2 % EF(sp4-el): 55.5 % EF(sp-el): 50.0 % EF(Teich): 59.7 % ESV(MOD-bp): 16.1 ml ESV(Teich): 25.2 ml FS: 31.2 % RVSP(TR): 53.3 mmHg SV(MOD-sp4): 19.5 ml SV(sp4-el): 20.3 ml Procedure Notes: A complete two-dimensional transthoracic echocardiogram was performed (2D, M- mode, Doppler and color flow Doppler). Indication: Evaluate cardiac and valve function. CPT Codes: 28003/84525702: Transthoracic Echo with Spectral and Color Doppler. MD Minda Villarreal 09/15/2025, 9: 27 AM Ordering Physician: Chester Delatorre Referring Physician: Ghulam Montgomery Performed By: Kay Briceno RDCS
--- NOTE | 2025-09-15 10:27 | PROVIDER PROGRESS NOTE ---
Subjective General Admit Date: 09/11/25 Other Other Information/Narrative: Doing well today, states she is having no abdominal pain and continues to feel better daily. She states she continues to pass lots of flatus but has not had a BM since she has not eaten. Review of Systems Status of ROS: 10 or more systems reviewed and unremarkable except as noted in history and below Exam Exam Vital Signs: Vital Signs x48h Temp Pulse Resp BP Pulse Ox O2 Flow Rate 09/15/25 08:41 4 09/15/25 06:00 36.6 C 56 L 20 138/61 H 97 4 Constitutional normal general appearance and no apparent distress HENMT normocephalic and head/scalp atraumatic Eyes conjunctivae normal and no scleral icterus Neck/C-Spine visual inspection normal Respiratory normal respiratory effort Cardiovascular normal heart rate noted and regular rhythm noted Gastrointestinal abdomen normal to inspection, abdomen soft to palpation and nontender to palpation Extremities normal to inspection Neurology speech normal Psychiatry cooperative and affect normal Skin skin color normal Impression/Plan Problem List (1) Sepsis: Qualifiers: Sepsis type: sepsis due to unspecified organism Sepsis acute organ dysfunction status: with acute organ dysfunction Severe sepsis acute organ dysfunction type: acute respiratory failure Acute respiratory failure type: with hypoxia Severe sepsis shock status: without septic shock Qualified Code(s): A41.9 - Sepsis, unspecified organism; R65.20 - Severe sepsis without septic shock; J96.01 - Acute respiratory failure with hypoxia (2) Respiratory failure: Qualifiers: Chronicity: acute Respiratory failure complication: hypoxia Qualified Code(s): J96.01 - Acute respiratory failure with hypoxia (3) Emphysema lung: (4) Pneumonia: Qualifiers: Laterality: right Lung location: middle lobe of lung Pneumonia type: due to unspecified organism Qualified Code(s): J18.9 - Pneumonia, unspecified organism (5) Abdominal pain: Qualifiers: Abdominal location: unspecified location Qualified Code(s): R10.9 - Unspecified abdominal pain (6) DUSTY (acute kidney injury): (7) Hyperkalemia: (8) 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: Qualifiers: 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: without senior living use Qualified Code(s): E11.22 - Type 2 diabetes mellitus with diabetic chronic kidney disease; N18.4 - Chronic kidney disease, stage 4 (severe) (9) CHF (congestive heart failure): Qualifiers: Heart failure type: unspecified Heart failure chronicity: unspecified Qualified Code(s): I50.9 - Heart failure, unspecified (10) Spinal stenosis, lumbar region with neurogenic claudication: (11) Osteoarthritis: Qualifiers: Osteoarthritis location: unspecified site Osteoarthritis type: unspecified Qualified Code(s): M19.90 - Unspecified osteoarthritis, unspecified site (12) Mixed hyperlipidemia: (13) History of hemorrhagic cerebrovascular accident (CVA) with residual deficit: (14) Hypertension: Qualifiers: Hypertension type: unspecified Qualified Code(s): I10 - Essential (primary) hypertension Plan 89 yo F with history of DM, CVA, TAVR, CKD, HTN and cerebral hemorrhage that presented to the ED on 09/11 for back pain and leg pain. Had been going on for 3 days, severe pain in the low back with radiation into both legs, worse with movement. Abdominal exam demonstrated lower abdominal pain and CT demonstrated inflammation in the RLQ involving the ileum without abscess or free air, the appendix was not separately identified concerning for possible perforated appendicitis. WBC 16. She is a high risk for any surgical intervention with her significant comorbidities. She currently has no abdominal pain and has been having regular bowel function. Recommend non-operative management of her perforated appendicitis, the small intra-abdominal abscess should resolve with abx alone. Recommend ADAT and plan for 14 day total course of abx on discharge. - OK to start clears and ADAT - Continue abx per primary - Rest of care per primary - Surgery will follow along
[2025-09-15] MEDS: INSULIN LISPRO 300 UNIT/3 ML PEN SUBQ SCH (17:14)
[2025-09-16 05:23] LABS: HCT - HEMATOCRIT 26.9 % (37.0-47.0); HGB - HEMOGLOBIN 9.0 g/dL (12.0-16.0); MEAN PLATELET VOLUME 10.3 fL (7.9-10.8); NRBC ABSOLUTE COUNT (AUTO) 0.00 x10^3/uL; NUCLEATED RED BLOOD CELLS AUTO 0.0 /100WBC; PLT - PLATELET COUNT 172 10^3/uL (130-450); RED CELL DISTRIBUTION WIDTH 13.6 % (12.0-15.0)
[2025-09-16 05:39] LABS: BUN - BLOOD UREA NITROGEN 73.0 mg/dL (6-20); CARBON DIOXIDE - CO2 20.0 mmol/L (21-32); CREATININE 2.3 mg/dL (0.6-1.3); GFR - MDRD 20.0 (>89)
--- NOTE | 2025-09-16 07:44 | PROVIDER PROGRESS NOTE ---
Subjective General Admit Date: 09/11/25 Other Other Information/Narrative: Doing well this AM, states she is not having any pain, tolerated liquids yesterday, having diarrhea, minimally OOB. Review of Systems Status of ROS: 10 or more systems reviewed and unremarkable except as noted in history and below Exam Exam Vital Signs: Vital Signs x48h Temp Pulse Resp BP Pulse Ox O2 Flow Rate 09/16/25 01:03 36.5 C 55 L 16 146/64 H 98 1 Constitutional normal general appearance and no apparent distress HENMT normocephalic and head/scalp atraumatic Eyes conjunctivae normal and no scleral icterus Neck/C-Spine visual inspection normal Respiratory normal respiratory effort Cardiovascular normal heart rate noted and regular rhythm noted Gastrointestinal abdomen normal to inspection, abdomen soft to palpation and nontender to palpation Extremities normal to inspection Neurology speech normal Psychiatry cooperative and affect normal Skin skin color normal Impression/Plan Problem List (1) Sepsis: Qualifiers: Sepsis type: sepsis due to unspecified organism Sepsis acute organ dysfunction status: with acute organ dysfunction Severe sepsis acute organ dysfunction type: acute respiratory failure Acute respiratory failure type: with hypoxia Severe sepsis shock status: without septic shock Qualified Code(s): A41.9 - Sepsis, unspecified organism; R65.20 - Severe sepsis without septic shock; J96.01 - Acute respiratory failure with hypoxia (2) Respiratory failure: Qualifiers: Chronicity: acute Respiratory failure complication: hypoxia Qualified Code(s): J96.01 - Acute respiratory failure with hypoxia (3) Emphysema lung: (4) Pneumonia: Qualifiers: Laterality: right Lung location: middle lobe of lung Pneumonia type: due to unspecified organism Qualified Code(s): J18.9 - Pneumonia, unspecified organism (5) Abdominal pain: Qualifiers: Abdominal location: unspecified location Qualified Code(s): R10.9 - Un specified abdominal pain (6) DUSTY (acute kidney injury): (7) Hyperkalemia: (8) 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: Qualifiers: Diabetes mellitus nursing home insulin use: without nursing home use Qualified Code(s): E11.22 - Type 2 diabetes mellitus with diabetic chronic kidney disease; N18.4 - Chronic kidney disease, stage 4 (severe) (9) CHF (congestive heart failure): Qualifiers: Heart failure type: unspecified Heart failure chronicity: unspecified Qualified Code(s): I50.9 - Heart failure, unspecified (10) Spinal stenosis, lumbar region with neurogenic claudication: (11) Osteoarthritis: Qualifiers: Osteoarthritis location: unspecified site Osteoarthritis type: unspecified Qualified Code(s): M19.90 - Unspecified osteoarthritis, unspecified site (12) Mixed hyperlipidemia: (13) History of hemorrhagic cerebrovascular accident (CVA) with residual deficit: (14) Hypertension: Qualifiers: Hypertension type: unspecified Qualified Code(s): I10 - Essential (primary) hypertension Plan 89 yo F with history of DM, CVA, TAVR, CKD, HTN and cerebral hemorrhage that presented to the ED on 09/11 for back pain and leg pain. Had been going on for 3 days, severe pain in the low back with radiation into both legs, worse with movement. Abdominal exam demonstrated lower abdominal pain and CT demonstrated inflammation in the RLQ involving the ileum without abscess or free air, the appendix was not separately identified concerning for possible perforated appendicitis. WBC 16. She is a high risk for any surgical intervention with her significant comorbidities. She currently has no abdominal pain and has been having regular bowel function. Recommend non-operative management of her perforated appendicitis, the small intra-abdominal abscess should resolve with abx alone. Recommend ADAT and plan for 14 day total course of abx on discharge. - ADAT - Expect diarrhea to improve with oral intake - Continue abx per primary - Rest of care per primary Surgery will sign off, please feel free to reach out with questions and/or conc erns.
--- NOTE | 2025-09-16 08:23 | PROVIDER PROGRESS NOTE ---
Subjective Subjective Subjective: Patient continues to improve daily. She states her shortness of breath has improved. She denies any cough, fevers, chills. She states that she has no abdominal pain. She tolerated breakfast very well, and is looking forward to lunch. Current Medications Current Medications Current Medications: Current Medications Generic Name Dose Route Start Last Admin Trade Name Freq PRN Reason Stop Dose Admin Acetaminophen 650 mg 09/11/25 18:31 09/12/25 04:28 Acetaminophen 325 Mg Tablet PO 650 mg Q4HR PRN Administration Pain 1 to 4, or Fever Albuterol/Ipratropium 3 ml 09/11/25 19:00 09/16/25 08:11 Ipratropium/Albuterol 3 Ml Neb INH Not Given RTQID SILVIA Amlodipine Besylate 10 mg 09/12/25 09:00 09/15/25 08:59 Amlodipine 5 Mg Tablet PO 10 mg DAILY SILVIA Administration Atorvastatin Calcium 40 mg 09/13/25 21:00 09/15/25 20:35 Atorvastatin 40 Mg Tablet PO 40 mg QPM SILVIA Administration Brimonidine Tartrate 1 drops 09/11/25 21:00 09/15/25 20:47 Brimonidine 0.2% Ophth Drops 5 Ml EACHEYE 1 drops BID SILVIA Administration Carvedilol 6.25 mg 09/11/25 21:00 09/15/25 20:41 Carvedilol 3.125 Mg Tablet PO Not Given BID [facility] Heparin Sodium (Porcine) 5,000 unit 09/11/25 21:00 09/15/25 20:42 Heparin 5,000 Unit/Ml Vial SUBQ 5,000 unit BID SILVIA Administration Piperacillin Sod/Tazobactam 100 mls @ 25 mls/hr 09/13/25 14:30 09/15/25 20:28 Sod 3.375 gm/ Sodium Chloride IV 25 mls/hr BID SILVIA Administration Insulin Glargine-yfgn 15 unit 09/12/25 21:00 09/15/25 20:43 Insulin Glargine-Yfgn 300 Unit/3 Ml Pen SUBQ 15 unit QPM SILVIA Administration Insulin Human Lispro 1 - 9 unit 09/16/25 08:00 Insulin Lispro 300 Unit/3 Ml Pen SUBQ 0800,1200,1700,2100 [facility] Protocol Miconazole 1 applic 09/12/25 21:00 09/15/25 20:33 Miconazole Vaginal Cream 45 Gm Tube VG 1 applic QPM SILVIA Administration Ondansetron HCl 4 mg 09/11/25 18:31 Ondansetron Odt 4 Mg Tablet TL Q6HR PRN Nausea / Vomiting Ondansetron HCl 4 mg 09/11/25 18:31 Ondansetron 4 Mg/2 Ml Vial IVP Q6HR PRN Nausea / Vomiting Oxycodone HCl 5 mg 09/11/25 18:31 09/12/25 04:28 Oxycodone 5 Mg Tablet PO 5 mg Q4HR PRN Administration Pain 5 to 7 Oxycodone HCl 10 mg 09/11/25 18:31 Oxycodone 5 Mg Tablet PO Q4HR PRN Pain 8 to 10 Sodium Chloride 10 ml 09/12/25 01:00 09/14/25 16:20 Sodium Chloride 0.9% 10 Ml Vial IVP 10 ml PRN PRN Administration infection Timolol Maleate 1 drops 09/11/25 21:00 09/15/25 20:47 Timolol 0.5% Ophth Drops EACHEYE 1 drops BID SILVIA Administration Objective Vital Signs/Intake & Output Reviewed Vital Signs: Yes Vital Signs: Vital Signs x48h Temp Pulse Resp BP Pulse Ox O2 Flow Rate 09/16/25 01:03 97.7 F 55 L 16 146/64 H 98 1 Intake & Output: Intake & Output 09/13/25 09/14/25 09/15/25 09/16/25 23:59 23:59 23:59 23:59 Intake Total 1390 / 1390 300 / 300 558 / 558 Output Total 4500 / 4500 900 / 900 1050 / 1050 600 / 600 Balance -3110 / -3110 -600 / -600 -492 / -492 -600 / -600 Weight (kg) 44.5 kg 44.5 kg 45 kg 45.5 kg Objective Comments/Other: GEN: Frail appearing. No acute distress, patient taking shallow rapid breaths. HEENT: NC/AT, normal appearance of external ears and nose. Hard of hearing at baseline. Yellowed but intact dentition. Cardiac: Regular rate and rhythm, mechanical valve. Pulm: Rhonchi in right lung base more prominent. Diffuse wheezing. Abdomen: Soft, nonacute. Tender to palpation, RLQ predominantly, but throughout her abdomen. No suprapubic tenderness. Neuro: Face symmetric, CN II through XII intact grossly. Mildly dysarthric. No overt focal deficits. Moving her extremities. Psych: Mood euthymic. Affect congruent. Lab Results 09/16/25 04:53 09/16/25 04:53 Other Labs: Lab Results x24hrs 09/16/25 09/16/25 09/15/25 Range/Units 08:07 04:53 20:40 WBC 12.4 H (4.8-10.8) x10^3/uL RBC 2.98 L (4.20-5.40) 10^6/uL Hgb 9.0 L (12.0-16.0) g/dL Hct 26.9 L (37.0-47.0) % MCV 90.3 (81.0-99.0) fL MCH 30.2 (27.0-31.0) pg MCHC 33.5 (32.0-36.0) g/dL RDW 13.6 (12.0-15.0) % Plt Count 172 (130-450) 10^3/uL MPV 10.3 (7.9-10.8) fL Neut # (Auto) 9.4 H (1.5-6.6) 10^3/uL Lymph # (Auto) 2.0 (1.5-3.5) 10^3/uL [place] # (Auto) 0.8 (0.0-1.0) 10^3/uL Eos # (Auto) 0.1 (0.0-0.7) 10^3/uL Baso # (Auto) 0.0 (0.0-0.1) 10^3/uL Absolute Nucleated RBC 0.00 x10^3/uL Nucleated RBC % 0.0 /100WBC Sodium 136 (135-145) mmol/L Potassium 3.5 (3.5-4.5) mmol/L Chloride 106 (101-111) mmol/L Carbon Dioxide 20 L (21-32) mmol/L Anion Gap 10.0 (6-13) BUN 73 H (6-20) mg/dL Creatinine 2.3 H (0.6-1.3) mg/dL Estimated GFR (MDRD) 20 L (>89) Glucose 160 H (74-104) mg/dL POC Whole Bld Glucose 118 354 (70-100) mg/dL Calcium 7.4 L (8.5-10.3) mg/dL Magnesium 2.9 H (1.7-2.3) mg/dL 09/15/25 09/15/25 Range/Units 16:47 11:43 WBC (4.8-10.8) x10^3/uL RBC (4.20-5.40) 10^6/uL Hgb (12.0-16.0) g/dL Hct (37.0-47.0) % MCV (81.0-99.0) fL MCH (27.0-31.0) pg MCHC (32.0-36.0) g/dL RDW (12.0-15.0) % Plt Count (130-450) 10^3/uL MPV (7.9-10.8) fL Neut # (Auto) (1.5-6.6) 10^3/uL Lymph # (Auto) (1.5-3.5) 10^3/uL [place] # (Auto) (0.0-1.0) 10^3/uL Eos # (Auto) (0.0-0.7) 10^3/uL Baso # (Auto) (0.0-0.1) 10^3/uL Absolute Nucleated RBC x10^3/uL Nucleated RBC % /100WBC Sodium (135-145) mmol/L Potassium (3.5-4.5) mmol/L Chloride (101-111) mmol/L Carbon Dioxide (21-32) mmol/L Anion Gap (6-13) BUN (6-20) mg/dL Creatinine (0.6-1.3) mg/dL Estimated GFR (MDRD) (>89) Glucose (74-104) mg/dL POC Whole Bld Glucose 212 202 (70-100) mg/dL Calcium (8.5-10.3) mg/dL Magnesium (1.7-2.3) mg/dL Sepsis Event Note (H) Evaluation Current Stage of Sepsis: Severe sepsis Possible source of Sepsis: positive Pulmonary Sepsis Criteria Sepsis Criteria: Recorded Respiratory Rate greater than 20 and WBC count greater than 12,000 or less than 4000 Assessment/Plan Problem List (1) Sepsis: Impression: Remains with slight tachypnea. Leukocytosis stable. Remains on Zosyn. Today is day 4 of antibiotics. Anticipate 5-7 days of IV antibiotics, and then switch to orals to complete extended course. Dispo will either be Home with Home Health or SNF. Initial CT abdomen/pelvis showed edema and inflammatory changes in the right lower quadrant without abscess or free air, and the appendix was not identified. Chest CT showed multifocal lung opacities, and there was some concern for aspiration. Mild to moderate right and trace left pleural effusions were also noted. CT scans were repeated due to worsening leukocytosisabdomen/pelvis CT does showed ruptured appendicitis with a 5 mm appendicolith, as well as small adjacent fluid collection. Chest CT once again shows dependent consolidations in left lower lobe and right middle lobe, as well as ruptured bilateral breast implants, small pleural effusions and moderate pulmonary edema. Discussed with general surgery, plan to continue IV antibiotics at this time. Bowel rest completed, advance diet as tolerated. Continue soft diet. Blood cultures drawn 09/11 with no growth to date. Qualifiers: Acute respiratory failure type: with hypoxia Sepsis acute organ dysfunction status: with acute organ dysfunction Sepsis type: sepsis due to unspecified organism Severe sepsis acute organ dysfunction type: acute respiratory failure Severe sepsis shock status: without septic shock Qualified Code(s): A41.9 - Sepsis, unspecified organism; R65.20 - Severe sepsis without septic shock; J96.01 - Acute respiratory failure with hypoxia (2) Respiratory failure: Qualifiers: Chronicity: acute Respiratory failure complication: hypoxia Qualified Code(s): J96.01 - Acute respiratory failure with hypoxia (3) Emphysema lung: (4) Pneumonia: Impression: CT indicative of multifocal pneumonia, likely aspiration. ECHO reveals restenosis of aortic valve and pulmonary hypertension which may be contributing. She also has underlying emphysema, and continues to smoke 3 cigarettes a day. Lasix held due to worsening renal function - stable today. Continue to monitor strict intake and output. Urine output does not appear accurate in the chart. Continue daily weights. Continue oral steroids. Continue DuoNebs RT 4 times daily. Qualifiers: Laterality: right Lung location: middle lobe of lung Pneumonia type: d ue to unspecified organism Qualified Code(s): J18.9 - Pneumonia, unspecified organism (5) Abdominal pain: Impression: See above. Qualifiers: Abdominal location: unspecified location Qualified Code(s): R10.9 - Unspecified abdominal pain (6) DUSTY (acute kidney injury): Impression: Lasix held. Patient has a history of chronic kidney disease, stage IV. Creatinine historically around 1.6. Has been as high as 2.5. 2.3 this admission. No acute indications for dialysis. Avoid nephrotoxins as able. Dialysis is not within goals of care for the patient. See separate ACP note from 09/12. (7) Hyperkalemia: Impression: Resolved. Downtrended somewhat with Lokelma. Continue holding off on JIMBO inhibitor, follow-up BMP a.m. 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 Longstanding history of diabetes. Last A1c 8.2 in March. Blood sugars on arrival 257. She is not on insulin at home. Home meds include sitagliptin, Jardiance. Multiple complications of diabetes including CKD, retinopathy, hypertension and CVA. Hold oral glycemic control agents given her DUSTY. Continue 10 units glargine nightly, 3 units before every meal lispro with low-dose sliding scale. Qualifiers: Diabetes mellitus skilled nursing insulin use: without skilled nursing use Q ualified Code(s): E11.22 - Type 2 diabetes mellitus with diabetic chronic kidney disease; N18.4 - Chronic kidney disease, stage 4 (severe) (9) CHF (congestive heart failure): Impression: Per her history, she has a listed history of CHF. ECHO completed shows normal ejection fraction. Qualifiers: Heart failure chronicity: unspecified Heart failure type: unspecified Qualified Code(s): I50.9 - Heart failure, unspecified (10) Spinal stenosis, lumbar region with neurogenic claudication: (11) Osteoarthritis: Impression: Continues with significant bilateral lower extremity pains. She has known spinal stenosis of her lumbar spine. She has previously met with an orthopedic surgeon who said that she was a poor surgical candidate for repair of this. She has been getting regular corticosteroid shots every 3 months. APAP 650 mg every 4 hours as needed, oxycodone as needed. Could consider adding on gabapentin or other neuropathic pain medicine, but unsure that this would help any of the above problems. Qualifiers: Osteoarthritis location: unspecified site Osteoarthritis type: u nspecified Qualified Code(s): M19.90 - Unspecified osteoarthritis, unspecified site (12) Mixed hyperlipidemia: (13) History of hemorrhagic cerebrovascular accident (CVA) with residual deficit: Impression: Apparently she had a hemorrhagic stroke to the lizeth and cerebellum in the early part of 2023. Related to hypertension. She has been controlling her blood pressure better since then. She has "residual deficits" listed her outpatient notes, but nothing clearly focal on her exam here. Given her history of CVA, it is unclear to me why she is not on a high intensity statin. She is on pravastatin 20 mg daily. She says she does not normally take aspirin. Intiate atorvastatin 40mg nightly. (14) Hypertension: Impression: Blood pressures have remained stable, a little high. Longstanding history of hypertension. Her history of stroke puts her at risk for recrudescence or further stroke with uncontrolled hypertension. Continue carvedilol and formulary equivalent amlodipine. Holding lisinopril as above. Qualifiers: Hypertension type: unspecified Qualified Code(s): I10 - Essential (primary) hypertension
[2025-09-16] MEDS: INSULIN LISPRO 300 UNIT/3 ML PEN SUBQ SCH (08:48)
[2025-09-16] MEDS: MULTIVITAMIN TABLET PO SCH (12:02)
[2025-09-17 04:59] LABS: HCT - HEMATOCRIT 28.6 % (37.0-47.0); HGB - HEMOGLOBIN 9.6 g/dL (12.0-16.0); MEAN PLATELET VOLUME 10.4 fL (7.9-10.8); PLT - PLATELET COUNT 188.0 10^3/uL (130-450); RED CELL DISTRIBUTION WIDTH 13.5 % (12.0-15.0)
[2025-09-17 05:14] LABS: BUN - BLOOD UREA NITROGEN 63.0 mg/dL (6-20); CARBON DIOXIDE - CO2 21.0 mmol/L (21-32); CREATININE 2.1 mg/dL (0.6-1.3); GFR - MDRD 22.0 (>89)
--- NOTE | 2025-09-17 09:24 | Discharge Summary ---
Discharge Summary Admit Date: 09/11/25 Discharge Date: 09/17/25 Discharging Provider: Dr. Amador Conde Primary Care Provider: Dr. Judy Painter Code Status: Do Not Attempt Resuscitation Discharge Facility Name: [facility] DIAGNOSES Discharge Diagnoses with Status of Each Condition: Sepsis, respiratory failure, perforated appendicitisresolved. Patient's leukocytosis, tachypnea has completely resolved. Source is both aspiration pneumonia, as well as ruptured appendicitis with small adjacent fluid collection, concerning for abscess. She completed 7 days of IV Zosyn. Will continue 7 days of oral Augmentin on discharge to complete course. General surgery did follow the patient, and recommended antibiosis as opposed to surgical treatment she is a poor candidate for such. Interventional radiology stated that the abscess was located in a spot where drainage would not be possible. Despite this, she has continued to improve on antibiotics. She is tolerating p.o. intake well, bowel function has been normal. Acute respiratory failure, emphysema of lung, aspiration pneumoniaCT was indicative of multifocal pneumonia. Echo reveals restenosis of aortic valve and pulmonary hypertension which may be contributing. Zosyn helped completed course of IV Zosyn for pneumonia. Completed course of steroids. Continue DuoNebs. She needs follow-up outpatient with interventional cardiology for possible repeat TAVR. Acute kidney injury on chronic kidney disease stage IVcreatinine historically around 1.6, but has been as high as 2.5. It went as high as 2.3 this admission, and has been now downtrending. Most recent was 2.1. Will need repeat BMP in 1 week to ensure it is heading in the right direction. Continue to hold Lasix unless she shows signs of fluid overload, and then can restart as needed. Hold JIMBO inhibitor as well. Please recheck in a week, And resume when appropriate. Hyperkalemiaresolved. Type 2 diabetes mellitus with stage IV chronic kidney diseaseblood sugars have remained recently controlled on sliding scale insulin. A1c of 7.5. Continue home medications, Jardiance, sitagliptin. Congestive heart failureecho shows normal ejection fraction. 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 Spinal stenosis, osteoarthritispatient continues with significant bilateral lower extremity pains. She has been receiving corticosteroids in the outpatient. Continue Tylenol every 4 hours as needed. Hyperlipidemia, history of CVAcontinue atorvastatin. Hypertensioncontinue home medications, Coreg and amlodipine. Ruptured breast implants with 7.2 x 4.2 cm soft tissue densityplease follow-up with breast surgeon. HPI History of Present Illness: Per Dr. Chester Delatorre: The patient is an 89-year-old female with a past medical history of prior CVA with residual deficit, T2DM, HTN, CKD 3B, HLD, anemia of chronic disease, osteoarthritis of the back and hip, DJD of the C-spine and L-spine, exudative age-related macular degeneration, glaucoma and urinary urge incontinence who presents with chief complaint of bilateral lower extremity radicular pain. She is found here to have an elevated leukocytosis, hypoxemic respiratory failure, findings consistent with ruptured appendicitis, pneumonia. She is being admitted predominantly for these latter issues. Per the patient, and my discussion with her , she has a longstanding history of bilateral lower extremity radicular pain from "pinched nerve in her back". This was worsening over the last few days prior to this hospitalization. This prompted her to come to the hospital. Her symptoms were mostly radicular. Pain in the low back radiating to both legs. Worse with movement. She is not having any new weakness in her legs, but has chronic episodes where her legs give out since her prior stroke and she uses a walker. This is unchanged. No other red flag symptoms. No weight loss. No B symptoms. In workup in the ED, she was found to have DUSTY, likely pneumonia, be hypoxemic and further workup was investigated. Abdominal cross-sectional imaging was obtained and reveals concern for ruptured appendicitis. She has been started on intra-abdominal antibiotics. Given her hypoxemia, she had a chest x-ray which revealed perihilar opacities with recommendation for follow-up CT. Findings are consistent with pneumonia. She has a leukocytosis. Patient says she does not realize that she is wheezing. She does not feel particularly more short of breath. She is requiring up to 5 L to maintain saturations greater than 92%. Of note she is a long-term smoker, still smokes up to 3 cigarettes a day. Denies any fevers or chills. Denies any new cough. Denies productive cough. Denies chest pain, palpitations. Denies abdominal pain, nausea or vomiting. Denies any diarrhea. Does not remember when her last bowel movement was. Denies any new rashes. I am concerned this patient has not had any advance care planning. She is not able to cogently have a conversation with me this evening about this. She is preoccupied with her pain and her pulmonary function. I was able to find her POLST which reveals that she previous identified that she would want to be full code but only selective treatment. A full code/DNI POLST is nonsensical. Will have to have more conversations about this during this hospitalization. Patient is insistent that she is full code at this time. CONSULTS | PROCEDURES Consultations: General surgery, PT Procedures: Chest CT11/4dependent consolidation left lower lobe and right middle lobe, ruptured bilateral breast implants, soft tissue nodularity adjacent to the breast implants. Small pleural effusions. Presumably parapneumonic effusions. Abdomen/pelvis CT11/4ruptured appendicitis with 5 mm appendicolith and small adjacent fluid collection. Chest CT11/2multifocal lung opacities and bronchial wall thickening, moderate right and trace left pleural effusions. Chest x-ray11/2opacity in right hilar region, trace pleural effusions. Abdominal/pelvis CT without contrast/11/2terminal ileum shows evidence of stasis and wall thickening, edema/inflammatory changes. Blood cultures x 211/2no growth, urine [id number] no growth. HOSPITAL COURSE Hospital Course: Patient is a destiny 89-year-old female with a history of CVA with residual deficits, hypertension, CKD stage IIIb who presented with bilateral lower extremity radicular pain. She had findings consistent with sepsis. Source was likely aspiration pneumonia versus appendicitis. She was started on IV Zosyn for both of these. Initially, she was requiring 5 L of oxygen to maintain saturations; this was weaned off to room air. Secondly, her abdominal/pelvis CT was repeated with contrast, showed perforated appendicitis with fluid collection, not ammenable to IR drainage, per radiology. Neurosurgery was consulted, and they recommended antibiosis as opposed to surgery. She completed 7 days of IV antibiotics. She will continue 7 more days of oral antibiotics. While here, she had a slight DUSTY, but it is now resolving. She was advised to hold her JIMBO inhibitor and Lasix and recheck in about 1 to 2 weeks. 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 ALLERGIES Allergies Allergy/AdvReac Type Severity Reaction Status Date / Time hydrochlorothiazide AdvReac Unknown hyponatremi Verified 09/11/25 16:05 a MEDICATIONS Ambulatory Orders Medication Instructions Recorded Confirmed blood sugar diagnostic (FreeStyle 08/26/24 06/29/25 Lite Strips) blood-glucose meter (FreeStyle 08/26/24 06/29/25 Lite Meter kit) brimonidine 0.1 % eye drops 1 drp ophthalmic (eye) BID 08/26/24 09/12/25 (Alphagan P) calcium carbonate 600 mg PO BID 08/26/2409/12 cholecalciferol (vitamin D3) 25 25 mcg PO DAILY 09/12/25 mcg (1,000 unit) tablet lancets 28 gauge (FreeStyle 08/26/24 06/29/25 Lancets) pen needle, diabetic 29 gauge x 08/26/24 06/29/25 1/2" (BD Ultra-Fine Original Pen Needle) carvedilol 6.25 mg tablet 6.25 mg PO BID #180 tabs 09/12/25 turmeric 400 mg capsule 400 mg PO DAILY 01/20/2502/01 amoxicillin 500 mg capsule 2,000 mg PO ONCE 03/28/25 1 11/12/24 multivitamin (Daily Multi-Vitamin 1 tab PO DAILY 03/2809/12/25 tablet) vitamin B complex 1 tab PO DAILY 03/28/2502/01 empagliflozin 10 mg tablet 10 mg PO DAILY 09/12/2502/01 (Jardiance) felodipine 10 mg tablet,extended 10 mg PO DAILY 09/12/25 release 24 hr lisinopril 10 mg tablet 10 mg PO DAILY 09/12/2502/01 Held on 09/17/25. Instructions: Resume on 10/01/25. Hold until repeat BMP in 2 weeks. sitagliptin phosphate 25 mg tablet 25 mg PO DAILY 02/0109/12/25 (Januvia) timolol maleate 0.5 % eye drops 1 drp ophthalmic (eye) BID 09/12/25 09/12/25 Augmentin 875 mg-potassium 1 tab PO BID 7 days #14 tab s 09/17/25 clavulanate 125 mg tablet Saccharomyces boulardii 250 mg 250 mg PO BIDWM #60 cap s 09/17/25 capsule atorvastatin 40 mg tablet 40 mg PO QPM #30 tabs PHYSICAL EXAM AT DISCHARGE Vital Signs: Vital Signs x48h Temp Pulse Resp BP Pulse Ox 09/17/25 13:19 98.1 F 60 20 155/66 H 95 09/17/25 08:41 97.7 F 58 L 16 169/68 H 97 GEN: Frail appearing. No acute distress, patient taking shallow rapid breaths. HEENT: NC/AT, normal appearance of external ears and nose. Hard of hearing at baseline. Yellowed but intact dentition. Cardiac: Regular rate and rhythm, mechanical valve. Pulm: Rhonchi in right lung base more prominent. Improving. Abdomen: Soft, nonacute. No tenderness to palpation. No suprapubic tenderness. Neuro: Face symmetric, CN II through XII intact grossly. Mildly dysarthric. No overt focal deficits. Moving her extremities. Psych: Mood euthymic. Affect congruent. LABS 09/17/25 04:35 09/17/25 04:35 SEPSIS Current Stage of Sepsis: Resolved Possible source of Sepsis: Pulmonary Sepsis Criteria: Recorded Respiratory Rate greater than 20 and WBC count greater than 12,000 or less than 4000 FOLLOW UP Follow Up: Follow up with PCP. Follow up with general surgery. Follow up with cardiology. Follow up with breast surgeon. TIME SPENT Time Spent in Discharge (Minutes): 35 Discharge Plan Discharge Patient Disposition: 03 [facility] DC/Xfer Condition: Stable Prescriptions: New atorvastatin 40 mg Tablet 40 mg PO QPM Qty: 30 0RF Saccharomyces boulardii 250 mg Capsule 250 mg PO BIDWM Qty: 60 0RF amoxicillin-pot clavulanate 875-125 mg tablet 1 tab PO BID 7 Days Qty: 14 0RF Continued Januvia 25 mg tablet 25 mg PO DAILY timolol maleate 0.5 % drops 1 drp ophthalmic (eye) BID Rx Instructions: 1 drop both eyes once a day felodipine 10 mg tablet extended release 24 hr 10 mg PO DAILY Rx Instructions: Take 1 tablet by mouth once a day Jardiance 10 mg tablet 10 mg PO DAILY turmeric 400 mg capsule 400 mg PO DAILY carvedilol 6.25 mg tablet 6.25 mg PO BID Qty: 180 3RF Rx Instructions: must administer with a meal/food (DME) FreeStyle Lite Strips Strip See Rx Instructions .Route Rx Instructions: As directed (DME) pen needle, diabetic [BD Ultra-Fine Orig Pen Needle] 29 gauge x 1/2" needle See Rx Instructions .Route Rx Instructions: As directed brimonidine [Alphagan P] 0.1 % drops 1 drp ophthalmic (eye) BID Rx Instructions: Use 1 drop into both eyes twice a day (DME) blood-glucose meter [FreeStyle Lite Meter] Kit See Rx Instructions .Route Rx Instructions: As directed cholecalciferol (vitamin D3) 25 mcg (1,000 unit) tablet 25 mcg PO DAILY Rx Instructions: Take 1 tablet by mouth once a day (DME) lancets [FreeStyle Lancets] 28 gauge misc See Rx Instructions .Route Rx Instructions: As directed calcium carbonate 600 mg calcium (1,500 mg) tablet 600 mg PO BID multivitamin [Daily Multi-Vitamin] Tablet 1 tab PO DAILY vitamin B complex Tablet 1 tab PO DAILY amoxicillin 500 mg capsule 2,000 mg PO ONCE Rx Instructions: before dental appts Held lisinopril 10 mg tablet 10 mg PO DAILY Hold Instructions: Resume on 10/01/25. Hold until repeat BMP in 2 weeks. Discontinued nifedipine 30 mg tablet extended release 30 mg PO DAILY pravastatin 20 mg tablet 20 mg PO DAILY Activity Restrictions: Activity as Tolerated Diet: Regular Health Concerns: You came in because you were having some abdominal pain, and shortness of breath. For your abdominal pain, we found out that you had a perforated appendicitis. It was too small of a fluid collection for our interventional radiologist to go in and drain it. General surgery was following, and they recommended IV antibiotics as opposed to a high risk surgery. We started you on some IV antibiotics, and you have been doing really well. Your infection numbers have completely normalized. You will require 7 more days of oral antibiotics to complete your course. Sometimes these antibiotics can cause diarrhea and loose stools. As such, please continue a probiotic which I prescribed for you in the outpatient. You are also short of breath. Your chest CT showed signs of pneumonia, specifically an aspiration pneumonia. You completed antibiotics for this. You are now on room air, and breathing very well. While you were here, we repeated an ultrasound of your heart. It appears that your aortic valve has restenosed. This means that you need to see your warehouse selector again, and talk about a repeat of this procedure. Your chest CT also showed ruptured breast implants with 7.2 x 4.2 cm soft tissue densityplease follow-up with breast surgeon. It has been a pleasure to take care of you, and get to know you and Delfino. You are both extremely kind, and we wish you nothing but the best in your rehab journey and your journey after that at home. Please continue to follow-up closely with your primary care provider, warehouse selector. We are glad you are feeling better, thank you for letting us take care of you. Print Language: Hebrew Patient Instructions: What Is Appendicitis? Stand Alone Forms: SNF Discharge, PCP List Follow-up Care: Judy Painter MD [Primary Care Provider, Family Practice] Report called to and time (if no answer, doc. time of each call attempted): 1 245, 1250, 1300 Vitals documented within 30 minutes of discharge?: Yes
--- NOTE | 2025-09-17 10:20 | PROVIDER PROGRESS NOTE ---
Current Medications Current Medications Current Medications: Current Medications Generic Name Dose Route Start Last Admin Trade Name Tio PRN Reason Stop Dose Admin Acetaminophen 650 mg 09/11/25 18:31 09/12/25 04:28 Acetaminophen 325 Mg Tablet PO 650 mg Q4HR PRN Administration Pain 1 to 4, or Fever Albuterol/Ipratropium 3 ml 09/11/25 19:00 09/17/25 07:57 Ipratropium/Albuterol 3 Ml Neb INH 3 ml RTQID SILVIA Administration Amlodipine Besylate 10 mg 09/12/25 09:00 09/17/25 09:11 Amlodipine 5 Mg Tablet PO 10 mg DAILY SILVIA Administration Atorvastatin Calcium 40 mg 09/13/25 21:00 09/16/25 22:20 Atorvastatin 40 Mg Tablet PO 40 mg QPM SILVIA Administration Brimonidine Tartrate 1 drops 09/11/25 21:00 09/17/25 09:08 Brimonidine 0.2% Ophth Drops 5 Ml EACHEYE 1 drops BID SILVIA Administration Carvedilol 6.25 mg 09/11/25 21:00 09/17/25 09:11 Carvedilol 3.125 Mg Tablet PO 6.25 mg BID SILVIA Administration Heparin Sodium (Porcine) 5,000 unit 09/11/25 21:00 09/17/25 09:13 Heparin 5,000 Unit/Ml Vial SUBQ 5,000 unit BID SILVIA Administration Piperacillin Sod/Tazobactam 100 mls @ 25 mls/hr 09/13/25 14:30 09/17/25 09:06 Sod 3.375 gm/ Sodium Chloride IV 25 mls/hr BID SILVIA Administration Insulin Glargine-yfgn 15 unit 09/12/25 21:00 09/16/25 22:20 Insulin Glargine-Yfgn 300 Unit/3 Ml Pen SUBQ 15 unit QPM SILVIA Administration Insulin Human Lispro 1 - 9 unit 09/16/25 08:00 09/17/25 09:12 Insulin Lispro 300 Unit/3 Ml Pen SUBQ Not Given 0800,1200,1700,2100 [facility] Protocol Miconazole 1 applic 09/12/25 21:00 09/16/25 22:18 Miconazole Vaginal Cream 45 Gm Tube VG 1 applic QPM SILVIA Administration Multivitamins 1 tab 09/16/25 12:00 09/17/25 09:11 Multivitamin Tablet PO 1 tab DAILYWM SILVIA Administration Ondansetron HCl 4 mg 09/11/25 18:31 Ondansetron Odt 4 Mg Tablet TL Q6HR PRN Nausea / Vomiting Ondansetron HCl 4 mg 09/11/25 18:31 Ondansetron 4 Mg/2 Ml Vial IVP Q6HR PRN Nausea / Vomiting Oxycodone HCl 5 mg 09/11/25 18:31 09/12/25 04:28 Oxycodone 5 Mg Tablet PO 5 mg Q4HR PRN Administration Pain 5 to 7 Oxycodone HCl 10 mg 09/11/25 18:31 Oxycodone 5 Mg Tablet PO Q4HR PRN Pain 8 to 10 Saccharomyces Boulardii 250 mg 09/17/25 17:00 Saccharomyces Boulardii 250 Mg Capsule PO BIDWM SILVIA Sodium Chloride 10 ml 09/12/25 01:00 09/14/25 16:20 Sodium Chloride 0.9% 10 Ml Vial IVP 10 ml PRN PRN Administration infection Timolol Maleate 1 drops 09/11/25 21:00 09/17/25 09:12 Timolol 0.5% Ophth Drops EACHEYE 1 drops BID SILVIA Administration Objective Vital Signs/Intake & Output Vital Signs: Vital Signs x48h Temp Pulse Pulse Resp BP Pulse Ox 09/17/25 08:41 97.7 F 58 L 16 169/68 H 97 09/17/25 07:57 68 20 Intake & Output: Intake & Output 09/14/25 09/15/25 09/16/25 09/17/25 23:59 23:59 23:59 23:59 Intake Total 300 / 300 558 / 558 800 / 800 740 / 740 Output Total 900 / 900 1050 / 1050 1100 / 1100 600 / 600 Balance -600 / -600 -492 / -492 -300 / -300 140 / 140 Weight (kg) 44.5 kg 45 kg 45.5 kg 45.5 kg Lab Results 09/17/25 04:35 09/17/25 04:35 Other Labs: Lab Results x24hrs 09/17/25 09/17/25 09/16/25 Range/Units 08:04 04:35 21:35 WBC 10.8 (4.8-10.8) x10^3/uL RBC 3.16 L (4.20-5.40) 10^6/uL Hgb 9.6 L (12.0-16.0) g/dL Hct 28.6 L (37.0-47.0) % MCV 90.5 (81.0-99.0) fL MCH 30.4 (27.0-31.0) pg MCHC 33.6 (32.0-36.0) g/dL RDW 13.5 (12.0-15.0) % Plt Count 188 (130-450) 10^3/uL MPV 10.4 (7.9-10.8) fL Sodium 136 (135-145) mmol/L Potassium 3.8 (3.5-4.5) mmol/L Chloride 105 (101-111) mmol/L Carbon Dioxide 21 (21-32) mmol/L Anion Gap 10.0 (6-13) BUN 63 H (6-20) mg/dL Creatinine 2.1 H (0.6-1.3) mg/dL Estimated GFR (MDRD) 22 L (>89) Glucose 197 H (74-104) mg/dL POC Whole Bld Glucose 137 305 (70-100) mg/dL Calcium 7.9 L (8.5-10.3) mg/dL Magnesium 2.9 H (1.7-2.3) mg/dL 09/16/25 09/16/25 Range/Units 16:21 11:55 WBC (4.8-10.8) x10^3/uL RBC (4.20-5.40) 10^6/uL Hgb (12.0-16.0) g/dL Hct (37.0-47.0) % MCV (81.0-99.0) fL MCH (27.0-31.0) pg MCHC (32.0-36.0) g/dL RDW (12.0-15.0) % Plt Count (130-450) 10^3/uL MPV (7.9-10.8) fL Sodium (135-145) mmol/L Potassium (3.5-4.5) mmol/L Chloride (101-111) mmol/L Carbon Dioxide (21-32) mmol/L Anion Gap (6-13) BUN (6-20) mg/dL Creatinine (0.6-1.3) mg/dL Estimated GFR (MDRD) (>89) Glucose (74-104) mg/dL POC Whole Bld Glucose 271 197 (70-100) mg/dL Calcium (8.5-10.3) mg/dL Magnesium (1.7-2.3) mg/dL Sepsis Event Note (H) Evaluation Current Stage of Sepsis: Severe sepsis Possible source of Sepsis: positive Pulmonary Sepsis Criteria Sepsis Criteria: Recorded Respiratory Rate greater than 20 and WBC count greater than 12,000 or less than 4000 Assessment/Plan Problem List (1) Sepsis: Qualifiers: Sepsis type: sepsis due to unspecified organism Sepsis acute organ dysfunction status: with acute organ dysfunction Severe sepsis acute organ dysfunction type: acute respiratory failure Acute respiratory failure type: w ith hypoxia Severe sepsis shock status: without septic shock Qualified Code(s): A41.9 - Sepsis, unspecified organism; R65.20 - Severe sepsis without septic shock; J96.01 - Acute respiratory failure with hypoxia (2) Respiratory failure: Qualifiers: Chronicity: acute Respiratory failure complication: hypoxia Qualified Code(s): J96.01 - Acute respiratory failure with hypoxia (3) Emphysema lung: (4) Pneumonia: Qualifiers: Laterality: right Lung location: middle lobe of lung Pneumonia type: d ue to unspecified organism Qualified Code(s): J18.9 - Pneumonia, unspecified organism (5) Abdominal pain: Qualifiers: Abdominal location: unspecified location Qualified Code(s): R10.9 - Unspecified abdominal pain (6) DUSTY (acute kidney injury): (7) Hyperkalemia: (8) 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: Qualifiers: 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 insulin use: without longshore equipment operator use Q ualified Code(s): E11.22 - Type 2 diabetes mellitus with diabetic chronic kidney disease; N18.4 - Chronic kidney disease, stage 4 (severe) (9) CHF (congestive heart failure): Qualifiers: Heart failure type: unspecified Heart failure chronicity: unspecified Qualified Code(s): I50.9 - Heart failure, unspecified (10) Spinal stenosis, lumbar region with neurogenic claudication: (11) Osteoarthritis: Qualifiers: Osteoarthritis location: unspecified site Osteoarthritis type: u nspecified Qualified Code(s): M19.90 - Unspecified osteoarthritis, unspecified site (12) Mixed hyperlipidemia: (13) History of hemorrhagic cerebrovascular accident (CVA) with residual deficit: (14) Hypertension: Qualifiers: Hypertension type: unspecified Qualified Code(s): I10 - Essential (primary) hypertension
[2025-09-17 13:20] VITALS: BP 155/66; TEMP 98.1; O2SAT 95
[2025-09-17] MEDS ORDERED: SACCHAROMYCES BOULARDII 250 MG CAPSULE PO SCH (17:00)
== END 2025-09-17 13:30 | DRG 871 ==
LOC: ED 15:48 → ICU 17:43 → MS3 18:00
PROVIDERS: ADMIT Student in an Organized Health Care Education/Training Program; ATTEND Student in an Organized Health Care Education/Training Program

== ENCOUNTER 2025-10-19 16:04 | Inpatient (IN) ==
--- NOTE | 2025-10-19 16:34 | ED Physician Documentation ---
History of Present Illness Stated complaint Stated Complaint: GENERAL WEAKNESS Chief complaint Chief Complaint: General Additonal information Additional information: 89-year-old female comes into the emergency department for generalized weakness. Patient is overall poor historian and asked that I speak with her for collateral information. I spoke with patient's via phone he says that she was just recently hospitalized for perforated appendicitis due to her age and fragility of health she was started on IV antibiotics and sent to assisted facility for rehab and ongoing IV antibiotics. She was discharged on October 11 and she has had increased generalized weakness since then she had physical therapy okay and then a couple days ago they came in today to check on her but she was too weak to participate said that he helped ambulate his to the bathroom last night and felt like overall she was doing okay but the weakness has gotten significantly worse to the point where she is unable to walk today and they called 911 for assistance and ultimately decided to send her into emergency department for further evaluation of the ongoing weakness. Patient's also reports that she has been very cold for the last few days having a hard time getting warm unsure if she has had a temperature or nausea is not checked her temperature. Meds/Allgy Home Medications Ambulatory Orders Medication Instructions Recorded Confirmed blood sugar diagnostic (FreeStyle 08/26/24 06/29/25 Lite Strips) blood-glucose meter (FreeStyle 08/26/24 06/29/25 Lite Meter kit) brimonidine 0.1 % eye drops 1 drp ophthalmic (eye) BID 08/26/24 09/12/25 (Alphagan P) calcium carbonate 600 mg PO BID 08/26/2409/12 cholecalciferol (vitamin D3) 25 25 mcg PO DAILY 10/13/25 mcg (1,000 unit) tablet lancets 28 gauge (FreeStyle 08/26/24 06/29/25 Lancets) pen needle, diabetic 29 gauge x 08/26/24 06/29/25 1/2" (BD Ultra-Fine Original Pen Needle) turmeric 400 mg capsule 400 mg PO DAILY 01/20/2502/01 amoxicillin 500 mg capsule 2,000 mg PO ONCE 03/28/25 1 12/14/24 multivitamin (Daily Multi-Vitamin 1 tab PO DAILY 03/2809/12/25 tablet) vitamin B complex 1 tab PO DAILY 03/28/2502/01 empagliflozin 10 mg tablet 10 mg PO DAILY 09/12/2503/04 (Jardiance) felodipine 10 mg tablet,extended 10 mg PO DAILY 09/12/25 release 24 hr lisinopril 10 mg tablet 10 mg PO DAILY 09/12/2503/04 Held on 09/17/25. Instructions: Resume on 10/01/25. Hold until repeat BMP in 2 weeks. sitagliptin phosphate 25 mg tablet 25 mg PO DAILY 02/0110/13/25 (Januvia) timolol maleate 0.5 % eye drops 1 drp ophthalmic (eye) BID 09/12/25 09/12/25 Saccharomyces boulardii 250 mg 250 mg PO BIDWM #60 cap s 09/17/25 capsule atorvastatin 40 mg tablet 40 mg PO QPM #90 tabs 10/13/25 carvedilol 12.5 mg tablet 12.5 mg PO BID #180 tabs 03/0410/13/25 nifedipine 60 mg tablet,extended mg PO 10/20/25 release Allergies Allergies Allergy/AdvReac Type Severity Reaction Status Date / Time hydrochlorothiazide AdvReac Unknown hyponatremi Verified 10/19/25 16:31 a [facility] Active Problems All Active Problems (Updated 10/19/25 @ 19:39 by JOSETTE Boyce) (HFpEF) heart failure with preserved ejection fraction (Acute) Hyponatremia (Acute) Acute hypoxemic respiratory failure (Acute) Pneumonia (Acute) Acute hypoxic respiratory failure (Acute) Ruptured appendicitis (Acute) Urge urinary incontinence (Chronic) Mixed hyperlipidemia (Chronic) Essential hypertension (Chronic) 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 (Chronic 02/02/21) Anemia due to chronic kidney disease (Chronic 12/06/22) Tobacco abuse (Chronic) Spinal stenosis, lumbar region with neurogenic claudication (Chronic 02/20/21) Degenerative joint disease of cervical spine (Chronic 11/10/1959) Depression (Chronic 01/07/17) Advance directive discussed with patient (Chronic 02/27/24) 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, right eye, stage unspecified (Chronic 02/02/21) Glaucoma (Chronic 02/02/21) Medical History Medical History (Updated 10/19/25 @ 19:39 by JOSETTE Boyce) Need for antibiotic prophylaxis for dental procedure Hx of TAVR Osteoarthritis of hips, bilateral CHF (congestive heart failure) Diabetic nephropathy Macular degeneration Osteoarthritis Hypertension Arthritis of left knee Centrilobular emphysema 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, Attila + Cerebellar Vermis due to HTN Aortic stenosis (07/27/15) s/p TAVR 03/2018 Surgical History Surgical History (Updated 09/13/25 @ 15:28 by Jasmyn England DO) S/P cataract extraction Bilateral Normal colonoscopy 08/2004, diverticulosis H/O section x 2 S/P trigger finger release Breast implant in situ ruptured, per CT 09/13/2025 S/P TAVR (transcatheter aortic valve replacement) 03/2018 Family History Family History Mother Diabetes Brother Stomach cancer Social History Social History Smoking Status: Current every day smoker Number of Years Smoked: 64 How many cigarettes a day do you smoke? (20 cigarettes=1 Pk): 3 Second hand tobacco smoke exposure: Yes Do you dip or chew tobacco?: No Do you vape?: No Patient requests smoking cessation consult: No Initiate information on smoking cessation: No Smoking Status Details: pt "puffs" but does not inhale, since 18 years old Living arrangement: At home Living Condition: With spouse/s.o. Level: Assisted Home Mobility Equipment: Walker Do you feel safe in your home environment?: Yes History of physical, verbal, emotional, or financial abuse?: No ETOH Use: None Substance Use: denies use Are you sexually active?: No Retired: Yes Service: No POLST Patient has POLST: Yes POLST on file?: Yes POLST CPR Status: Attempt Resuscitation (CPR) Level of Medical Intervention: Full Treatment Exam Exam Vital Signs: Vital Signs x48h Temp Pulse Resp BP Pulse Ox O2 Flow Rate 10/19/25 18:22 66 26 H 122/60 91 L 2 10/19/25 16:39 95 2 10/19/25 16:38 66 118/50 L 91 L 10/19/25 16:08 36.6 C 74 18 118/50 L 88 L Constitutional normal general appearance, no apparent distress, average body habitus, limitations noted (poor memory) and alert HENMT normocephalic and head/scalp atraumatic Eyes PERRL and EOMs intact bilaterally Neck/C-Spine visual inspection normal Lymph no lymphadenopathy noted Chest inspection of chest normal and palpation of chest normal Respiratory breath sounds equal bilaterally, abnormal respiratory effort (shallow breathing) and auscultation abnormal rhonchi and wheezing scattered throughout. Cardiovascular normal heart rate noted Gastrointestinal abdomen normal to inspection Genitourinary no CVA tenderness Skin skin color normal and no rash Results Vitals Vitals: Vital Signs - 24 hr 10/19/25 16:08 10/19/25 16:38 10/19/25 16:39 Temperature 36.6 C Temperature Source Temporal Artery Scan Pulse Rate 74 66 Respiratory Rate 18 Blood Pressure 118/50 L 118/50 L O2 Saturation 88 L 91 L 95 O2 Source Room air Room air Nasal cannula If not protocol: Oxygen Flow, liters/minute 2 Pain Intensity 0 10/19/25 18:22 Temperature Temperature Source Pulse Rate 66 Respiratory Rate 26 H Blood Pressure 122/60 O2 Saturation 91 L O2 Source Nasal cannula If not protocol: Oxygen Flow, liters/minute 2 Pain Intensity 8 Oxygen O2 Source Nasal cannula Labs Labs: Laboratory Tests 10/19/25 10/19/25 10/19/25 16:49 16:49 16:49 WBC 23.6 H RBC 2.72 L Hgb 8.2 L Hct 25.3 L MCV 93.0 MCH 30.1 MCHC 32.4 RDW 15.2 H Plt Count 100 L MPV 10.1 Neut # (Auto) 20.1 H Lymph # (Auto) 1.7 [place] # (Auto) 1.2 H Eos # (Auto) 0.1 Baso # (Auto) 0.1 Absolute Nucleated RBC 0.00 Band Neuts % (Manual) Not Reportable Abnorm Lymph % (Manual) Not Reportable Nucleated RBC % 0.0 Neutrophils # (Manual) Not Reportable Lymphocytes # (Manual) Not Reportable Monocytes # (Manual) Not Reportable Eosinophils # (Manual) Not Reportable Basophils # (Manual) Not Reportable Differential Comment MANUAL=AUTO DIFF Manual Slide Review Indicated WBC Morphology 1+ HYPERSEG NEUT Platelet Estimate DECREASED (<130,000) Platelet Morphology NORMAL APPEARANCE RBC Morph Micro Appear 1+ ANISOCYTOSIS 1+ HYPOCHROMASIA 1+ OVALOCYTES Sodium Potassium Chloride Carbon Dioxide Anion Gap BUN Creatinine Estimated GFR (MDRD) Glucose Lactic Acid Calcium Magnesium Total Bilirubin AST ALT Alkaline Phosphatase Total Protein Albumin Globulin Albumin/Globulin Ratio 10/19/25 10/19/25 16:49 17:02 WBC RBC Hgb Hct MCV MCH MCHC RDW Plt Count MPV Neut # (Auto) Lymph # (Auto) [place] # (Auto) Eos # (Auto) Baso # (Auto) Absolute Nucleated RBC Band Neuts % (Manual) Abnorm Lymph % (Manual) Nucleated RBC % Neutrophils # (Manual) Lymphocytes # (Manual) Monocytes # (Manual) Eosinophils # (Manual) Basophils # (Manual) Differential Comment Manual Slide Review WBC Morphology Platelet Estimate Platelet Morphology RBC Morph Micro Appear 1+ BASO STIPPLING Sodium 129 L Potassium 4.3 Chloride 100 L Carbon Dioxide 19 L Anion Gap 10.0 BUN 34 H Creatinine 2.0 H Estimated GFR (MDRD) 23 L Glucose 203 H Lactic Acid 1.1 Calcium 7.7 L Magnesium 2.4 H Total Bilirubin 0.5 AST 10 ALT 7 L Alkaline Phosphatase 70 Total Protein 6.2 L Albumin 3.0 L Globulin 3.2 Albumin/Globulin Ratio 0.9 L Rads (name of study) CT abdomen pelvis wo: Relevant Findings:: Final report received and EMP independent interpretation of test Interpretation: IMPRESSION: 1. Mildly dilated appendix in the right lower quadrant without significant periappendiceal inflammatory changes, possibly related to prior rupture. No significant fluid collection or abscess is seen. No pneumoperitoneum. 2. Consolidative opacity in the left lower lobe is suspicious for pneumonia. 3. Bladder wall thickening may be reactive or secondary to cystitis versus bladder neoplasm. Recommend correlation with urinalysis. 4. Masslike lesions in the inferior breasts have not significantly changed, possibly related to ruptured breast implants and associated granulomatous reaction or malignancy. 5. Cardiomegaly. PD Medical Decision Making ED course ED course: 89-year-old female with extensive medical history including CHF, CKD4, TAVR, COPD/emphysema, prior hemorrhagic CVA, and recent hospitalization for perforated appendicitis and hospital aquired pneumonia treated medically with IV antibiotics, presenting with acute on subacute generalized weakness. History limited due to patient's poor recall; collateral obtained from spouse. Since discharge from SNF on 10/11, patient has experienced progressive weakness, now unable to ambulate. Reports feeling persistently cold. On arrival, patient is hypoxic (88% on RA), improved to low 90s on 2L NC not on supplemental oxygen at home. Labs significant for marked leukocytosis (WBC 23.6), anemia (Hgb 8.2), thrombocytopenia (100), hyponatremia (129), DUSTY on CKD (Cr 2.0 from baseline), hyperglycemia, low albumin, and elevated BUN. Lactate normal. CT abdomen/pelvis interpreted independently and by radiology shows consolidative left lower lobe opacity concerning for pneumonia, mildly dilated appendix likely from prior rupture with no current abscess, bladder wall thickening suggesting cystitis vs chronic change, and stable breast implantrelated findings. Findings consistent with ongoing infectious process, likely pneumonia, contributing to hypoxia, leukocytosis, and worsening functional decline. 2 sets of blood cultures were obtained and broad spectrum antibiotics (cefepime and Vancomycin) were initiated. Given patients advanced age, significant comorbidities, abnormal vitals, marked leukocytosis, hypoxia, and CT evidence of pneumonia, she requires inpatient admission for IV antibiotics, further diagnostic evaluation, hemodynamic monitoring, and physical therapy assessment. updated and in agreement with plan. Hospitalist JOSETTE Domingo has graciously agreed to admit patient for further work up and evaluation. Voice recognition software was used in charting; please excuse any bell neck hammerer errors. Discharge Plan Discharge Patient Disposition: [facility] DC/Xfer Condition: Fair Clinical Impression: Pneumonia, Acute hypoxemic respiratory failure Interventions: ED Admission Assessment Last Done: 10/19/25 19:16 Vitals documented within 30 minutes of discharge?: Yes
[2025-10-19 16:54] LABS: HCT - HEMATOCRIT 25.3 % (37.0-47.0); HGB - HEMOGLOBIN 8.2 g/dL (12.0-16.0); MEAN PLATELET VOLUME 10.1 fL (7.9-10.8); NRBC ABSOLUTE COUNT (AUTO) 0.00 x10^3/uL; NUCLEATED RED BLOOD CELLS AUTO 0.0 /100WBC; PLT - PLATELET COUNT 100 10^3/uL (130-450); RED CELL DISTRIBUTION WIDTH 15.2 % (12.0-15.0)
[2025-10-19 16:57] LABS: SLIDE REVIEW? Indicated
[2025-10-19] MEDS: SODIUM CHLORIDE 0.9% 1,000 ML IV STA ×2 (17:00→17:20)
--- OUTSIDE RECORDS SUMMARY | 2025-10-19 17:06 | EXTERNAL MEDICAL SUMMARY RPT | Continuity of Care Document ---
Author Organization [facility] Address [address] [place] [id number] Phone Allergies and Intolerances date description facility reaction severity 2025-06-29 10:00 [id number]^hydrochlo rothia zide^^hydrochlorothiazide^ ^allergy.id [facility] hyponatremia (no severity) 2025-09-11 10:00 [id number]^hydrochlo rothia zide^^hydrochlorothiazide^ ^[facility] hyponatremia (no severity) 2025-10-19 10:00 [id number]^hydrochlo rothia zide^^hydrochlorothiazide^ ^allergy.id [facility] hyponatremia (no severity) Problems date description facility 2025-07-21 13:08 Essential (primary) hypertensio n [facility] 2025-07-21 13:08 Atherosclerosis of renal artery [facility] 2025-08-19 09:54 Unspecified 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 [facility] 2025-08-20 00:05 Unspecified 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 [facility]05 Chronic kidney disease, unspeci fied [facility] 2025-08-22 12:54 Unspecified 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 [facility] 2025-08-24 09:58 Unspecified 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 [facility] 2025-08-24 09:58 Facial weakness [facility] 2025-08-24 09:58 Slurred speech [facility] 2025-09-11 17:44 Respiratory failure, unspecified, unspecified whether with hypoxia or hypercapnia [facility] 17:59 Respiratory failure, unspecified, unspecified whether with hypoxia or hypercapnia [facility] 2025-09-11 18:00 Respiratory failure, unspecified, unspecified whether with hypoxia or hypercapnia [facility] 2025-09-11 18:32 Respiratory failure, unspecified, unspecified whether with hypoxia or hypercapnia [facility] 2025-09-11 21:06 Sepsis, unspecified [facility] 2025-09-11 21:06 Anemia in chronic kidney diseas e 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 [facility] 2025-09-11 21:06 Mixed hyperlipidemia [facility] 2025-09-11 21:06 Hyperkalemia [facility] 2025-09-11 21:06 Essential (primary) hypertensio n [employer] 2025-09-11 21:06 Unspecified sequelae of cerebra l infarction [facility] 2025-09-11 21:06 Pneumonia, unspecified organism [facility] 2025-09-11 21:06 Cent[facility]obular [facility]sema [facility] 21:06 Acute respiratory failure with hypoxia [facility] 2025-09-11 21:06 Respiratory failure, unspecified, unspecified whether with hypoxia or hypercapnia [facility] 2025-09-11 21:06 Acute appendicitis w ith perforation, localized peritonitis, and gangrene, without abscess [facility] 2025-09-11 21:06 Bilateral primary osteoarthriti [facility] of [facility] 21:06 Acute kidney failure, unspecifi ed [facility] 21:06 Chronic kidney disease, stage 4 (severe) [facility]25-[facility] 21:06 Chronic kidney disease, unspeci fied [facility] 21:06 Severe sepsis without septic sh ock [employer] 2025-09-12 01:07 Sepsis, unspecified organism [facility] 2025-09-12 01:07 Anemia in chronic kidney diseas e 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 2025-09-12 01:07 Essential (primary) [facility]ensio n [facility] 2025-09-12 01:07 Unspecified sequelae of cerebra l infarction [facility] 2025-09-12 01:07 Pneumonia, unspecified organism [facility] 2025-09-12 01:07 Centrilobular emphysema [facility] 2025-09-12 01:07 Acute respiratory failure with hypoxia [facility] 2025-09-12 01:07 Respiratory failure, unspecified, unspecified whether with hypoxia or hypercapnia [facility] 20[facility] 01:07 Acute appendicitis w ith perforation, localized peritonitis, and gangrene, without abscess [facility] 2025-09-12 01:07 Bilateral primary osteoarthriti s of [facility] 2025-09-12 01:07 Acute kidney failure, unspecifi ed [facility] 2025-09-12 01:07 Chronic kidney disease, stage 4 (severe) [facility] 2025-09-12 01:07 Chronic kidney disease, unspeci fied [facility] 2025-09-12 01:07 Severe sepsis without septic [facility]ck [facility] 2025-09-12 06:57 Sepsis, unspecified organism [facility] 2025-09-12 06:57 Anemia in chronic kidney diseas e 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 2025-09-12 06:57 Essential (primary) hypertensio n [facility] 2025-09[facility]12 06:57 Unspecified sequelae of cerebra l infarction [facility] 2025-09-12 06:57 Pneumonia, unspecified organism [facility] 2025-09-12 06:57 Centrilobular emphysema [facility] 2025-09-12 06:57 Acute respiratory failure with hypoxia [facility] 2025-09[facility]12 06:57 Respiratory failure, unspecified, unspecified whether with hypoxia or hypercapnia [facility] 2025-09-12 06:57 Acute appendicitis w ith perforation, localized peritonitis, and gangrene, without abscess [facility] 2025-09-12 06:57 Bilateral primary osteoarthriti s of hip [facility] 2025-09-12 06:57 Acute kidney failure, unspecifi ed [facility] 2025-09-12 06:57 Chronic kidney disease, stage 4 (severe) [facility] 2025-09-12 06:57 Chronic kidney disease, unspeci fied [facility] 2025-09-12 06:57 Facial weakness [facility] 06:57 Slurred speech [facility] 20[facility]12 06:57 Severe sepsis without septic sh ock [facility] 2025-09-12 08:46 Sepsis, unspecified organism [facility] 2025-09-12 08:46 Anemia in chronic kidney diseas e 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 2025-09-12 08:46 Unspecified sequelae of cerebra l infarction [facility] 2025-09-12 08:46 Pneumonia, unspecified organism [facility] 2025-09-12 08:46 Centrilobular emphysema [facility] 2025-09-12 08:46 Acute respiratory failure with hypoxia [facility] 2025-09[facility]12 08:46 Respiratory failure, unspecified, unspecified whether with hypoxia or hypercapnia [facility] 2025-09-12 08:46 Acute appendicitis w ith perforation, localized peritonitis, and gangrene, without abscess [facility] 2025-09-12 08:46 Bilateral primary osteoarthriti s of hip [facility] 2025-09-12 08:46 Acute kidney failure, unspecifi ed [facility] 2025-09-12 08:46 Chronic kidney disease, stage 4 (severe) [facility] 2025-09-12 08:46 Chronic kidney disease, unspeci fied [facility] 2025-09-12 08:46 Unspecified abdominal pain [facility] 2025-09-12 08:46 Severe sepsis without septic sh ock [facility] 2025-09-13 04:55 Sepsis, unspecified organism 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 2025-09-13 04:55 Mixed hyperlipidemia [facility] 2025-09-13 04:55 Hyperkalemia [facility] 2025-09-13 04:55 Essential (primary) hypertensio n [facility] 2025-09-13 04:55 Heart failure, unspecified [facility] 2025-09-13 04:55 Unspecified sequelae of cerebra l infarction [facility] 2025-09-13 04:55 Pneumonia, unspecified organism [facility] 2025-09-13 04:55 Centrilobular emphysema [facility] 2025-09-13 04:55 Emphysema, unspecified [facility] 2025-09-13 04:55 Acute respiratory failure with hypoxia [facility] 2025-09-13 04:55 Respiratory failure, unspecified, unspecified whether with hypoxia or hypercapnia [facility] 2025-09-[facility] 04:55 Acute appendicitis w ith perforation, localized peritonitis, and gangrene, without abscess [facility] 2025-09-13 04:55 Bilateral primary osteoarthriti s of hip [facility] 2025-09-13 04:55 Unspecified osteoarthritis, uns pecified site [facility] 2025-09-13 04:55 Spinal stenosis, lum bar region with neurogenic claudication [facility] 2025-09-13 04:55 Acute kidney failure, unspecifi ed [facility] 2025-09-13 04:55 Chronic kidney disease, stage 4 (severe) 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 [facility] 2025-09-15 06:35 Mixed hyperlipidemia [facility] 2025-09-15 06:35 Hyperkalemia [facility] 2025-09-15 06:35 Essential (primary) hypertensio n [facility] 2025-09-15 06:35 Heart failure, unspecified [facility] 2025-09-15 06:35 Unspecified sequelae of cerebra l infarction [facility] 2025-09-15 06:35 Pneumonia, unspecified organism [facility] 2025-09-15 06:35 Centrilobular emphysema [facility] 2025-09-15 06:35 Emphysema, unspecified [facility] 2025-09-15 06:35 Acute respiratory failure with hypoxia [facility] 2025-09-15 06:35 Respiratory failure, unspecified, unspecified whether with hypoxia or hypercapnia [facility] 2025-09-15 06:35 Acute appendicitis w ith perforation, localized peritonitis, and gangrene, without abscess [facility] 2025-09-15 06:35 Bilateral primary osteoarthriti s of hip [facility] 2025-09-15 06:35 Unspecified osteoarthritis, uns pecified site [facility] 2025-09-15 06:35 Spinal stenosis, lum bar region with neurogenic claudication [facility] 2025-09-15 06:35 Acute kidney failure, unspecifi ed [facility] 2025-09-15 06:35 Chronic kidney disease, stage 4 (severe) [facility] 2025-09-15 06:35 Chronic kidney disease, unspeci fied [facility] 2025-09-15 06:35 Unspecified abdominal pain [facility] 2025-09-15 06:35 Severe sepsis without septic sh ock [facility] 2025-09-16 06:33 Sepsis, unspecified organism [facility] 2025-09-16 06:33 Anemia in chronic kidney diseas e 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 2025-09-16 06:33 [facility] 2025-09-16 06:[address] [facility] 2025-09-16 06:33 Essential (primary) hypertensio n [facility] 2025-09-16 06:33 Heart failure, unspecified [facility] [employer] 2025-09-16 06:33 Unspecified sequelae of cerebra l infarction [facility] 2025-09-16 06:33 Pneumonia, unspecified organism [facility] 2025-09-16 06:33 Centrilobular emphysema [facility] 20[facility]16 06:33 Emphysema, unspecified [facility] 2025-09-16 06:33 Acute respiratory failure with hypoxia [facility] 2025-09-16 06:33 Respiratory failure, unspecified, unspecified whether with hypoxia or hypercapnia [facility] 2025-09-16 06:33 Acute appendicitis w ith perforation, localized peritonitis, and gangrene, without abscess [facility] 2025-09-16 06:33 Bilateral primary osteoarthriti s of hip [facility] 2025-09-16 06:33 Unspecified osteoarthritis, uns pecified site [facility] 2025-09-16 06:33 Spinal stenosis, lum bar region with neurogenic claudication [facility] 2025-09-16 06:33 Acute kidney failure, unspecifi ed [facility] 2025-09-16 06:33 Chronic kidney disease, stage 4 (severe) [facility] 2025-09-16 06:33 Chronic kidney disease, unspeci fied [facility] 2025-09-16 06:33 Unspecified abdominal pain [facility] [employer] 2025-09-16 06:33 Severe sepsis without septic sh ock [facility] 2025-09-16 15:11 Sepsis, unspecified [facility] 15:11 Anemia in chronic kidney diseas e 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 2025-09-16 15:11 Mixed hyperlipidemia [facility] 2025-09-16 15:[address] [facility] 2025-09-16 15:11 Essential (primary) hypertensio n [facility] 2025-09-16 15:11 Heart failure, unspecified [employer] [facility] 2025-09-16 15:11 Unspecified sequelae of cerebra l infarction [facility] 2025-09-16 15:11 Pneumonia, unspecified organism [facility] 2025-09-16 15:11 Centrilobular [facility]ysema [facility] 20[facility]16 15:11 Emphysema, unspecified [facility] 2025-09-16 15:11 Acute respiratory failure with hypoxia [facility] 2025-09[facility]16 15:11 Respiratory failure, unspecified, unspecified whether with hypoxia or hypercapnia [facility] 2025-09-16 15:11 Acute appendicitis w ith perforation, localized peritonitis, and gangrene, without abscess [facility] 2025-09-16 15:11 Bilateral primary osteoarthriti s of hip [facility] 2025-09-16 15:11 Unspecified osteoarthritis, uns pecified site [facility] 2025-09-16 15:11 Spinal stenosis, lum bar region with neurogenic claudication [facility] 2025-09-16 15:11 Acute kidney failure, unspecifi ed [facility] 2025-09-16 15:11 Chronic kidney disease, stage 4 (severe) [facility] 2025-09-16 15:11 Chronic kidney disease, unspeci fied [facility] 2025-09-16 15:11 Unspecified abdominal pain [employer] 2025-09-16 15:11 Severe sepsis without septic sh ock [facility] 20[facility] 16:22 Low back pain, unspecified [employer] 2025-09-17 09:24 Sepsis, unspecified [facility] 09:24 Anemia in chronic kidney diseas e 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 2025-09-17 09:24 Mixed hyperlipidemia [facility] 2025-09-17 09:[address] [facility] 2025-09-17 09:24 Essential (primary) [facility]ensio n [facility] 2025-09-17 09:24 Heart failure, unspecified [facility] [employer] 2025-09-17 09:24 Unspecified sequelae of cerebra l infarction [facility] 2025-09-17 09:24 Pneumonia, unspecified organism [facility] 2025-09-17 09:24 Centrilobular emphysema [facility] 2025-09-17 09:24 Emphysema, unspecified [facility] 2025-09-17 09:24 Acute respiratory failure with hypoxia [facility] 2025-09-17 09:24 Respiratory failure, unspecified, unspecified whether with hypoxia or hypercapnia [facility] 20[facility] 09:24 Acute appendicitis w ith perforation, localized peritonitis, and gangrene, without abscess [facility] 2025-09-17 09:24 Bilateral primary osteoarthriti [facility] of hip [facility] 20[facility]17 09:24 Unspecified osteoarthritis, uns pecified site [facility] 2025-09-17 09:24 Spinal stenosis, lum bar region with neurogenic claudication [facility] 2025-09-17 09:24 Acute kidney failure, unspecifi ed [facility] 20[facility] 09:24 Chronic kidney disease, stage 4 (severe) [facility] 2025-09-17 09:24 Chronic kidney disease, unspeci fied [facility] 2025-09-17 09:24 Unspecified abdominal pain [facility] [employer] 2025-09-17 09:24 Severe sepsis without septic sh ock [facility] 2025-09[facility]17 09:27 Sepsis, unspecified [facility] 09:27 Anemia in chronic kidney diseas e 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 [facility] 2025-09-17 09:27 [facility]17 09:27 Hyperkalemia [facility] 2025-09-17 09:27 Essential (primary) hypertensio n [facility] 2025-09-17 09:27 Heart failure, unspecified [facility] 2025-09-17 09:27 Unspecified sequelae of cerebra l infarction [facility] 2025-09-17 09:27 Pneumonia, unspecified organism [facility] 2025-09-17 09:27 Centrilobular emphysema [facility] 2025-09-17 09:27 Emphysema, unspecified [facility] 2025-09-17 09:27 Acute respiratory failure with hypoxia [facility] 2025-09-17 09:27 Respiratory failure, unspecified, unspecified whether with hypoxia or hypercapnia [facility] 2025-09-17 09:27 Acute appendicitis w ith perforation, localized peritonitis, and gangrene, without abscess [facility] 2025-09-17 09:27 Bilateral primary osteoarthriti s of hip [facility] 2025-09-17 09:27 Unspecified osteoarthritis, uns pecified site [facility] 2025-09-17 09:27 Spinal stenosis, lum bar region with neurogenic claudication [facility] 2025-09-17 09:27 Acute kidney failure, unspecifi ed [facility] 2025-09-17 09:27 Chronic kidney disease, stage 4 (severe) [facility] 2025-09-17 09:27 Chronic kidney disease, unspeci fied [facility] 2025-09-17 09:27 Unspecified abdominal pain [facility] 2025-09-17 09:27 Severe sepsis without septic sh ock [facility] 2025-09-17 09:38 Sepsis, unspecified organism [facility] 2025-09-17 09:38 Anemia in chronic kidney diseas e [facility] 2025-09-17 09:38 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 [facility] 2025-09-17 09:38 Mixed hyperlipidemia [facility] 2025-09-17 09:38 Hyperkalemia [facility] 2025-09-17 09:38 Essential (primary) hypertensio n [facility] 2025-09-17 09:38 Heart failure, unspecified [facility] 2025-09-17 09:38 Unspecified sequelae of cerebra l infarction [facility] 2025-09-17 09:38 Pneumonia, unspecified organism [facility] 2025-09-17 09:38 Centrilobular emphysema [facility] 2025-09-17 09:38 Emphysema, unspecified [facility] 2025-09-17 09:38 Acute respiratory failure with hypoxia [facility] 2025-09-17 09:38 Respiratory failure, unspecified, unspecified whether with hypoxia or [facility]capnia [facility] 2025-09-17 09:38 Acute appendicitis w ith perforation, localized peritonitis, and gangrene, without abscess [facility] 2025-09-17 09:38 Bilateral primary osteoarthriti s of hip [facility] 2025-09-17 09:38 Unspecified osteoarthritis, uns pecified site [facility] 2025-09-17 09:38 Spinal stenosis, lum bar region with neurogenic claudication [facility] 2025-09-17 09:38 Acute kidney failure, unspecifi ed [facility] 2025-09-17 09:38 Chronic kidney disease, stage 4 (severe) [facility]25-[facility]-17 09:38 Chronic kidney disease, unspeci fied [facility] 2025-09-17 09:38 Unspecified abdominal pain [facility] [employer] 2025-09-17 09:38 Severe sepsis without septic sh ock [facility] 2025-09-17 11:54 Sepsis, unspecified [facility] 2025-09-17 11:54 Anemia in chronic kidney diseas e 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 2025-09-17 11:54 Mixed hyperlipidemia [facility] 2025-09-17 11:[address] [facility] [address] 2025-09-17 11:54 Essential (primary) hypertensio n [facility] 2025-09-17 11:54 Heart failure, unspecified [facility] 2025-09-17 11:54 Unspecified sequelae of cerebra l infarction [facility] 2025-09-17 11:54 Pneumonia, unspecified organism [facility] 2025-09-17 11:54 Centrilobular emphysema [facility] 2025-09-17 11:54 Emphysema, unspecified [facility] 2025-09-17 11:54 Acute respiratory failure with hypoxia [facility] 2025-09-17 11:54 Respiratory failure, unspecified, unspecified whether with hypoxia or hypercapnia [facility] 2025-09-17 11:54 Acute appendicitis w ith perforation, localized peritonitis, and gangrene, without abscess [facility] 20[facility] 11:54 Bilateral primary osteoarthriti s of hip [facility] 2025-09-17 11:54 Unspecified osteoarthritis, uns pecified site [facility] 2025-09-17 11:54 Spinal stenosis, lum bar region with neurogenic claudication [facility] 2025-09-17 11:54 Acute kidney failure, unspecifi ed [facility] 2025-09-17 11:54 Chronic kidney disease, stage 4 (severe) [facility] 2025-09-17 11:54 Chronic kidney disease, unspeci fied [facility] 2025-09-17 11:54 Unspecified abdominal pain [facility] 2025-09-17 11:54 Severe sepsis without septic sh ock [facility] 2025-09-17 14:03 Sepsis, unspecified organism [facility] 2025-09-17 14:03 Anemia in chronic kidney diseas e 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 2025-09-17 14:03 Heart failure, unspecified [facility] 2025-09-17 14:03 Unspecified sequelae of cerebra l infarction [facility] 2025-09-17 14:03 Pneumonia, unspecified organism [facility] 14:03 Centrilobular emphysema [facility] 20[facility]-09-17 14:03 Emphysema, unspecified [facility] 2025-09-17 14:03 Acute respiratory failure with hypoxia [facility] 20[facility]17 14:03 Respiratory failure, unspecified, unspecified whether with hypoxia or hypercapnia [facility] 20[facility] 14:03 Acute appendicitis w ith perforation, localized peritonitis, and gangrene, without abscess [facility] 20[facility] 14:03 Bilateral primary osteoarthriti s of hip [facility] 20[facility]17 14:03 Unspecified osteoarthritis, uns pecified site [facility] 2025-09-17 14:03 Spinal stenosis, lum bar region with neurogenic claudication [facility] 14:03 Acute kidney failure, unspecifi ed [facility] 14:03 Chronic kidney disease, stage 4 (severe) [facility] 14:03 Chronic kidney disease, unspeci fied [facility] 20[facility]-09-17 14:03 Unspecified abdominal pain [employer] 2025-09-17 14:03 Severe sepsis without septic sh ock [facility] 20[facility]-09-[facility] 14:04 Sepsis, unspecified organism 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 2025-09-17 14:04 Emphysema, unspecified [facility] 2025-09-17 14:04 Acute respiratory failure with hypoxia [facility] 20[facility] 14:04 Respiratory failure, unspecified, unspecified whether with hypoxia or hypercapnia [facility] 20[facility]-09-[facility] 14:04 Acute appendicitis w ith perforation, localized peritonitis, and gangrene, without abscess [facility] 2025-09-[facility] 14:04 Bilateral primary osteoarthriti s of hip [facility] 20[facility] 14:04 Unspecified osteoarthritis, uns pecified site [facility] 20[facility]17 14:04 Spinal stenosis, lum bar region with neurogenic claudication [facility] 14:04 Acute kidney failure, unspecifi ed [facility] 20[facility]-09[facility]17 14:04 Chronic kidney disease, stage 4 (severe) [facility] [employer] 2025-09-17 14:04 Chronic kidney disease, unspeci fied [facility] 20[facility] 14:04 Unspecified abdominal pain [facility] [employer] 2025-09-17 14:04 Severe sepsis without septic sh ock [facility] 2025-09-19 08:09 Sepsis, unspecified organism [facility] 2025-09-19 08:09 Anemia in chronic kidney diseas e [facility] 2025-09[facility] 08:09 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 2025-09-19 08:09 Pneumonia, unspecified organism [facility] 2025-09-19 08:09 Centrilobular emphysema [facility] [employer] 2025-09-19 08:09 Emphysema, unspecified [facility] 2025-09-19 08:09 Acute respiratory failure with hypoxia [facility] 2025-09-19 08:09 Respiratory failure, unspecified, unspecified whether with hypoxia or hypercapnia [facility] 2025-09-19 08:09 Acute appendicitis w ith perforation, localized peritonitis, and gangrene, without abscess [facility] 2025-09-19 08:09 Bilateral primary osteoarthriti s of hip [facility] 2025-09-19 08:09 Unspecified osteoarthritis, uns pecified site [facility] 2025-09-19 08:09 Spinal stenosis, lum bar region with neurogenic claudication [facility] 2025-09-19 08:09 Low back pain, unspecified [facility] 2025-09-19 08:09 [facility] right leg [facility] 08:09 Pain in left leg [facility] 2025-09-19 08:09 Acute kidney failure, unspecifi ed [facility] 2025-09-19 08:09 Chronic kidney disease, stage 4 (severe) [facility] 2025-09-19 08:09 Chronic kidney disease, unspeci fied [facility] 2025-09-19 08:09 Unspecified abdominal pain [facility] 2025-09-19 08:09 Severe sepsis without septic sh ock [facility] 2025-09-19 08:36 Sepsis, unspecified organism [facility] 2025-09-19 08:36 Anemia in chronic kidney diseas e [facility] 2025-09-19 08:36 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 [facility] 2025-09-19 08:36 Mixed hyperlipidemia [facility] 2025-09-19 08:36 Hyperkalemia [facility] 2025-09-19 08:36 Essential (primary) hypertensio n [facility] 2025-09-19 08:36 Heart failure, unspecified [facility] 2025-09-19 08:36 Unspecified sequelae of cerebra l infarction [facility] 2025-09-19 08:36 Centrilobular emphysema [facility] 2025-09-19 08:36 Emphysema, unspecified [facility] 2025-09-19 08:36 Acute respiratory failure with hypoxia [facility] 2025-[facility] 08:36 Respiratory failure, unspecified, unspecified whether with hypoxia or [facility]capnia [facility] 2025-09-19 08:36 Acute appendicitis w ith perforation, localized peritonitis, and gangrene, without abscess [facility] 2025-09-19 08:36 Bilateral primary osteoarthriti s of hip [facility] 2025-09-19 08:36 Unspecified osteoarthritis, uns pecified site [facility] 2025-09-19 08:36 Spinal stenosis, lum bar region with neurogenic claudication [facility] 2025-[facility] 08:36 Low back pain, unspecified [facility] [employer] 2025-09-19 08:36 Pain in right leg [facility] 08:36 Pain in left leg [facility] 2025-09-19 08:36 Acute kidney failure, unspecifi ed [facility] 2025-09-19 08:36 Chronic kidney disease, stage 4 (severe) [facility] 2025-09-19 08:36 Chronic kidney disease, unspeci fied [facility] 2025-09-19 08:36 Unspecified abdominal pain [facility] [employer] 2025-09-19 08:36 Severe sepsis without septic sh ock [facility] Results[facility]abs test date facility value unit notes Result panel 1 CREATININE 2025-08-19 10:08 [facility] 1.6 mg/dl As of May 2023 testing method has changed, this may include reference ranges. CHLORIDE 2025-08-19 10:08 [facility] 107 mmol/l As of May 2023 testing method has changed, this may include reference ranges. SODIUM 2025-08-19 10:08 [facility] 138 mmol/l (missing) GLUCOSE 2025-08-19 10:08 [employer] 208 mg/dl As of May 2023 testing method has changed, this may include reference ranges. CARBON DIOXIDE - CO2 2025-08-19 10:08 [facility] 22 mmol/l As of May testing method has changed, this may include reference ranges. GFR - MDRD 2025-08-19 10:08 [facility] 30 (domingo belcher) The IDMS-traceable MDRD Study Equation has been [...] last updated January 2012. POTASSIUM 2025-08-19 10:08 [facility] 4.7 mmol/l As of May 2023 testing method has changed, this may include reference ranges. BUN - BLOOD UREA NITROGEN 2025-08-19 10:08 [facility] 46 mg/dl As of May testing method has changed, this may include reference ranges. ANION GAP 2025-08-19 10:08 [facility] 9.0 (missing ) (missing) CALCIUM 2025-08-19 10:08 [facility] 9.5 mg/dl As of May 2023 testing method has changed, this may include reference ranges. Result panel 2 CREATININE,URINE 2025-08-19 10:10 [facility] 26.5 m g/dl As of May 2023 testing method has changed, this may include reference ranges. PROTEIN/CREATININE RATIO,URINE 2025-08-19 10:10 [facility] 3.4 (missing) (missing) TOTAL PROTEIN,URINE TIMED 2025-08-19 10:10 [facility] 89 mg/dl As of May testing method has changed, this may include reference ranges. Result panel 3 NUCLEATED RED BLOOD CELLS AUTO 2025-09-11 16:03 [facility] 0.0 /100wbc (missing) BASOPHILS # (AUTO) 2025-09-11 16:03 [facility] 0.0 10 3/ul (missing) NRBC ABSOLUTE COUNT (AUTO) 2025-09-11 16:03 [facility] 0.00 x10 3/ul (missing) EOSINOPHILS # (AUTO) 2025-09-11 16:03 [facility] 0.1 10 3/ul (missing) BILIRUBIN,TOTAL 2025-09-11 16:03 [facility] 0.5 mg/dl As of May 2023 testing method has changed, this may include reference ranges. MONOCYTES # (AUTO) 2025-09-11 16:03 [facility] 0.7 10 3/ul (missing) ALBUMIN/GLOBULIN RATIO 2025-09-11 16:03 [facility] 0.9 (missing) (missing) LYMPHOCYTES # (AUTO) 2025-09-11 16:03 [facility] 1.1 10 3/ul (missing) MEAN PLATELET VOLUME 2025-09-11 16:03 [facility] 10.0 fl (missing) HGB - HEMOGLOBIN 2025-09-11 16:03 [facility] 10.1 g/dl (missing) ANION GAP 2025-09-11 16:03 [facility] 11.0 (missing) (missing) PLT - PLATELET COUNT 2025-09-11 16:03 [facility] 115 10 3/ul (missing) SODIUM 2025-09-11 16:03 [facility] 126 mmol/l (missing) RED CELL DISTRIBUTION WIDTH 2025-09-11 16:03 [facility] 13.2 % (missing) NEUTROPHILS # (AUTO) 2025-09-11 16:03 [facility] 13.9 10 3/ul (missing) WHITE BLOOD COUNT 2025-09-11 16:03 [facility] 15.9 x10 3/ul (missing) ESTIMATED AVERAGE GLUCOSE 2025-09-11 16:03 [facility] 169 mg/dl (missing) CREATININE 2025-09-11 16:03 [facility] 2.2 mg/dl As of May 2023 testing method has changed, this may include reference ranges. CARBON DIOXIDE - CO2 2025-09-11 16:03 [facility] 20 mmol/l As of May 2023 testing method has changed, this may include reference ranges. GFR - MDRD 2025-09-11 16:03 [facility] 21 (missing) The IDMS-traceable MDRD Study Equation [...] last updated January 2012. GLUCOSE 2025-09-11 16:03 [facility] 257 mg/dl As of May 2023 testing method has changed, this may include reference ranges. RED BLOOD COUNT 2025-09-11 16:03 [facility] 3.31 10 6/ul (missing) ALBUMIN 2025-09-11 16:03 [facility] 3.5 g/dl As of May 2023 testing method has changed, this may include reference ranges. MEAN CORPUSCULAR HEMOGLOBIN 2025-09-11 16:03 [facility] 30.5 pg (missing) HCT - HEMATOCRIT 2025-09-11 16:03 [facility] 30.8 % (missing) MEAN CORPUSCULAR HGB CONC 2025-09-11 16:03 [facility] 32.8 g/dl (missing) GLOBULIN 2025-09-11 16:03 [facility] 4.0 g/dl (missing) BUN - BLOOD UREA NITROGEN 2025-09-11 16:03 [facility] 47 mg/dl As of May 2023 testing method has changed, this may include reference ranges. POTASSIUM 2025-09-11 16:03 [facility] 5.5 mmol/l As of May 2023 testing method has changed, this may include reference ranges. HEMOGLOBIN A1c% 2025-09-11 16:03 [facility] 7.5 % The [place] [employer] (ADA) has made the following recommendations: Monitoring HbA1c in Diabetic Patients: A1c (NGSP%) Goal <8 Less Stringent Goal <7 General Goal <6.5 More Stringent Goal Diagnosis of Diabetes: A1c (NGSP%) Goal >6.5 Diabetic 5.7-6.4 Pre-Diabetic <5.7 Non-Diabetic TOTAL PROTEIN 2025-09-11 16:03 [facility] 7.5 g/dl As of May 2023 testing method has changed, this may include reference ranges. ALKALINE PHOSPHATASE 2025-09-11 16:03 [facility] 74 iu/l As of May 2023 testing method has changed, this may include reference ranges. ALT ALANINE AMINOTRANSFERASE 2025-09-11 16:03 [facility] 8 iu/l As of May 2023 testing method has changed, this may include reference ranges. CALCIUM 2025-09-11 16:03 [facility] 8.7 mg/dl As of May 2023 testing method has changed, this may include reference ranges. AST ASPARTATE AMINOTRANSFERASE 2025-09-11 16:03 [facility] 9 iu/l As of May 2023 testing method has changed, this may include reference ranges. MEAN CORPUSCULAR VOLUME 2025-09-11 16:03 [facility] [employer] 93.1 fl (missing) CHLORIDE 2025-09-11 16:03 [facility] [employer] 95 mmol/l As of May 2023 testing method has changed, this may include reference ranges. Result panel 4 BNP - B-NATRIURETIC PEPTIDE 2025-09-11 16:05 [facility] [employer] 838 pg/ml (missing) Result panel 5 CULTURE, BLOOD #2 2025-09-11 16:54 [facility] NG1D NO GROWTH AFTER 1 DAY (missing) (missing) CULTURE, BLOOD #2 2025-09-11 16:54 [facility] NG2D NO GROWTH AFTER 2 DAYS (missing) (missing) CULTURE, BLOOD #2 2025-09-11 16:54 [facility] NG5D NO GROWTH AFTER 5 DAYS (missing) (missing) Result panel 6 LACTIC ACID, VENOUS 2025-09-11 16:56 [facility] 0.[facility] mmol/l N As of 2022 testing method has changed, this may include reference ranges. CULTURE, BLOOD #1 2025-09-11 16:56 [facility] NG1DNO GROWTH AFTER 1 DAY (missing) (missing) CULTURE, BLOOD #1 2025-09-11 16:56 [facility] NG2DNO GROWTH AFTER 2 DAYS (missing) (missing) CULTURE, BLOOD #1 2025-09-11 16:56 [facility] NG5DNO GROWTH AFTER 5 DAYS (missing) (missing) Result panel 7 GLUCOSE, WHOLE BLOOD 2025-09-11 20:51 [facility] 185 (missing) RN notified. Result panel 8 NUCLEATED RED BLOOD CELLS AUTO 2025-09-12 04:18 [facility] 0.0 /100wbc (missing) BASOPHILS # (AUTO) 2025-09-12 04:18 [facility] 0.0 10 3/ul (missing) EOSINOPHILS # (AUTO) 2025-09-12 04:18 [facility] 0.0 10 3/ul (missing) NRBC ABSOLUTE COUNT (AUTO) 2025-09-12 04:18 [facility] 0.00 x10 3/ul (missing) MONOCYTES # (AUTO) 2025-09-12 04:18 [facility] 0.1 10 3/ul (missing) BILIRUBIN,TOTAL 2025-09-12 04:18 [facility] 0.5 mg/dl As of May 2023 testing method has changed, this may include reference ranges. LYMPHOCYTES # (AUTO) 2025-09-12 04:18 [facility] 0.6 10 3/ul (missing) ALBUMIN/GLOBULIN RATIO 2025-09-12 04:18 [facility] 0.9 (missing) (missing) NEUTROPHILS # (AUTO) 2025-09-12 04:18 [facility] 10.5 10 3/ul (missing) MEAN PLATELET VOLUME 2025-09-12 04:18 [facility] 10.6 fl (missing) PLT - PLATELET COUNT 2025-09-12 04:18 [facility] 105 10 3/ul (missing) ANION GAP 2025-09-12 04:18 [facility] 11.0 (missing) (missing) WHITE BLOOD COUNT 2025-09-12 04:18 [facility] 11.3 x10 3/ul (missing) SODIUM 2025-09-12 04:18 [facility] 125 mmol/l (missing) RED CELL DISTRIBUTION WIDTH 2025-09-12 04:18 [facility] 13.4 % (missing) CARBON DIOXIDE - CO2 2025-09-12 04:18 [facility] 17 mmol/l As of May 2023 testing method has changed, this may include reference ranges. CREATININE 2025-09-12 04:18 [facility] 2.1 mg/dl As of May 2023 testing method has changed, this may include reference ranges. GLUCOSE 2025-09-12 04:18 [facility] 219 mg/dl As of May 2023 testing method has changed, this may include reference ranges. GFR - MDRD 2025-09-12 04:18 [facility] 22 (missing) The IDMS-traceable MDRD Study Equation has [...] ation/gfr/creatin ine-stand ardization, last updated January 2012. HCT - HEMATOCRIT 2025-09-12 04:18 [facility] 28.1 % (missing) RED BLOOD COUNT 2025-09-12 04:18 [facility] 3.00 10 6/ul (missing) ALBUMIN 2025-09-12 04:18 [facility] 3.1 g/dl As of May 2023 testing method has changed, this may include reference ranges. GLOBULIN 2025-09-12 04:18 [facility] 3.6 g/dl (missing) MEAN CORPUSCULAR HEMOGLOBIN 2025-09-12 04:18 [facility] 30.7 pg (missing) MEAN CORPUSCULAR HGB CONC 2025-09-12 04:18 [facility] 32.7 g/dl (missing) POTASSIUM 2025-09-12 04:18 [facility] 5.3 mmol/l As of May 2023 testing method has changed, this may include reference ranges. BUN - BLOOD UREA NITROGEN 2025-09-12 04:18 [facility] 52 mg/dl As of May 2023 testing method has changed, this may include reference ranges. TOTAL PROTEIN 2025-09-12 04:18 [facility] 6.7 g/dl As of May 2023 testing method has changed, this may include reference ranges. ALKALINE PHOSPHATASE 2025-09-12 04:18 [facility] 64 iu/l As of May 2023 testing method has changed, this may include reference ranges. ALT ALANINE AMINOTRANSFERASE 2025-09-12 04:18 [facility] 7 iu/l As of May 2023 testing method has changed, this may include reference ranges. CALCIUM 2025-09-12 04:18 [facility] 7.9 mg/dl As of May 2023 testing method has changed, this may include reference ranges. AST ASPARTATE AMINOTRANSFERASE 2025-09-12 04:18 [facility] 9 iu/l As of May 2023 testing method has changed, this may include reference ranges. HGB - HEMOGLOBIN 2025-09-12 04:18 [facility] 9.2 g/dl (missing) MEAN CORPUSCULAR VOLUME 2025-09-12 04:18 [facility] 93.7 fl (missing) CHLORIDE 2025-09-12 04:18 [facility] 97 mmol/l As of May 2023 testing method has changed, this may include reference ranges. Result panel 9 GLUCOSE, WHOLE BLOOD 2025-09-12 07:42 [facility] 211 (missing) RN notified. Result panel 10 GLUCOSE, URINE (UA) 2025-09-12 09:15 [facility] >=1000 mg/dl (missing) RBC,URINE 2025-09-12 09:15 [facility] 0-5 /hpf (missing) UROBILINOGEN,URI NE 2025-09-12 09:15 [facility] 0.2 (NORMAL) e.u./dl (missing) SPECIFIC GRAVITY,URINE 2025-09-12 09:15 [facility] 1.005 (missing) (missing) WBC,URINE 2025-09-12 09:15 [facility] 6-10 /hpf (missing) PH,URINE 2025-09-12 09:15 [facility] 6.0 ph (missing) CUL, URINE 2025-09-12 09:15 [facility] CXPCULTURE IN PROGRESS. RESULTS TO FOLLOW. (missing) (missing) SQUAMOUS EPITHELIAL CELL,UR 2025-09-12 09:15 [facility] FEW Squ[place] (missing) (missing) BACTERIA,URINE 2025-09-12 09:15 [facility] Few /hpf (missing) CLARITY,URINE 2025-09-12 09:15 [facility] HAZY (missing) (missing) UR CULTURE IF IND 2025-09-12 09:15 [facility] INDICATED (missing) (missing) URINE MICROSCOPIC INDICATED? 2025-09-12 09:15 [facility] INDICATED (missing) (missing) NITRITE,URINE 2025-09-12 09:15 [facility] NEGATIVE (missing) (missing) OCCULT BLOOD,URINE 2025-09-12 09:15 [facility] NEGATIVE (missing) (missing) BILIRUBIN,URINE 2025-09-12 09:15 [facility] NEGATIVE (missing) Bilirubin can be influenced by color interference. Please correlate positive results with clinical presentation KETONES,URINE (UA) 2025-09-12 09:15 [facility] NEGATIVE mg/dl (missing) CUL, URINE 2025-09-12 09:15 [facility] NGNo growth (missing) (missing) YEAST,URINE 2025-09-12 09:15 [facility] PRESENT (missing) (missing) LEUKOCYTE ESTERASE, URINE 2025-09-12 09:15 [facility] TRACE (missing) (missing) PROTEIN,URINE 2025-09-12 09:15 [facility] TRACE mg/dl (missing) COLOR,URINE 2025-09-12 09:15 [facility] YELLOW (missing) URINE RANDOM Result panel 11 GLUCOSE, WHOLE BLOOD 2025-09-12 11:39 [facility] 192 (missing) RN notified. Result panel 12 GLUCOSE, WHOLE BLOOD 2025-09-12 16:32 [facility] 132 (missing) RN notified. Result panel 13 GLUCOSE, WHOLE BLOOD 2025-09-12 20:40 [facility] 204 (missing) RN notified. Result panel 14 NUCLEATED RED BLOOD CELLS AUTO 2025-09-13 04:42 [facility] 0.0 /100wbc (missing) BASOPHILS # (AUTO) 2025-09-13 04:42 [facility] 0.0 10 3/ul (missing) EOSINOPHILS # (AUTO) 2025-09-13 04:42 [facility] 0.0 10 3/ul (missing) NRBC ABSOLUTE COUNT (AUTO) 2025-09-13 04:42 [facility] 0.00 x10 3/ul (missing) MONOCYTES # (AUTO) 2025-09-13 04:42 [facility] 0.5 10 3/ul (missing) LYMPHOCYTES # (AUTO) 2025-09-13 04:42 [facility] 0.8 10 3/ul (missing) MEAN PLATELET VOLUME 2025-09-13 04:42 [facility] 10.7 fl (missing) CHLORIDE 2025-09-13 04:42 [facility] 103 mmol/l As of May 2023 testing method has changed, this may include reference ranges. NEUTROPHILS # (AUTO) 2025-09-13 04:42 [facility] 11.5 10 3/ul (missing) WHITE BLOOD COUNT 2025-09-13 04:42 [facility] 12.9 x10 3/ul (missing) PLT - PLATELET COUNT 2025-09-13 04:42 [facility] 129 10 3/ul (missing) ANION GAP 2025-09-13 04:42 [facility] 13.0 (missing ) (missing) RED CELL DISTRIBUTION WIDTH 2025-09-13 04:42 [facility] 13.2 % (mi ssing) SODIUM 2025-09-13 04:42 [facility] 135 mmol/l (missing) CARBON DIOXIDE - CO2 2025-09-13 04:42 [facility] 19 mmol/l As of May 2023 testing method has changed, this may include reference ranges. CREATININE 2025-09-13 04:42 [facility] 2.1 mg/dl As of May 2023 testing method has changed, this may include reference ranges. GLUCOSE 2025-09-13 04:42 [facility] 219 mg/dl As of May 2023 testing method has changed, this may include reference ranges. GFR - MDRD 2025-09-13 04:42 [facility] 22 (missin g) The IDMS-traceable MDRD Study Equation has been [...] caring for patients older than 70. References: http://www.nkdep.n ih.gov/lab-evaluat ion/gfr/creatinine -stand ardization, last updated January 2012. HCT - HEMATOCRIT 2025-09-13 04:42 [facility] 28.0 % (missing) MEAN CORPUSCULAR HEMOGLOBIN 2025-09-13 04:42 [facility] 29.9 pg (missing) RED BLOOD COUNT 2025-09-13 04:42 [facility] 3.08 10 6/ul (missing) MEAN CORPUSCULAR HGB CONC 2025-09-13 04:42 [facility] 32.9 g/dl (missing) POTASSIUM 2025-09-13 04:42 [facility] 4.0 mmol/l As of May 2023 testing method has changed, this may include reference ranges. BUN - BLOOD UREA NITROGEN 2025-09-13 04:42 [facility] 58 mg/dl As of May testing method has changed, this may include reference ranges. CALCIUM 2025-09-13 04:42 [facility] 8.3 mg/dl As of May 2023 testing method has changed, this may include reference ranges. HGB - HEMOGLOBIN 2025-09-13 04:42 [facility] 9.2 g /dl (missing) MEAN CORPUSCULAR VOLUME 2025-09-13 04:42 [facility] 90.9 fl (missing) Result panel 15 GLUCOSE, WHOLE BLOOD 2025-09-13 08:11 [facility] 235 (missing) RN notified. Result panel 16 GLUCOSE, WHOLE BLOOD 2025-09-13 11:34 [facility] 200 (missing) RN notified. Result panel 17 MRSA (NASAL) PCR SCREEN 2025-09-13 14:05 [facility] NEGA TIVE (missing) (missing) Result panel 18 GLUCOSE, WHOLE BLOOD 2025-09-13 16:50 [facility] 164 (missing) (missing) Result panel 19 GLUCOSE, WHOLE BLOOD 2025-09-13 20:54 [facility] 201 (missing) RN notified. Result panel 20 NUCLEATED RED BLOOD CELLS AUTO 2025-09-14 04:37 [facility] 0.0 /100wbc (missing) BASOPHILS # (AUTO) 2025-09-14 04:37 [facility] 0.0 10 3/ul (missing) EOSINOPHILS # (AUTO) 2025-09-14 04:37 [facility] 0.0 10 3/ul (missing) NRBC ABSOLUTE COUNT (AUTO) 2025-09-14 04:37 [facility] 0.00 x10 3/ul (missing) MONOCYTES # (AUTO) 2025-09-14 04:37 [facility] 0.7 10 3/ul (missing) LYMPHOCYTES # (AUTO) 2025-09-14 04:37 [facility] 1.0 10 3/ul (missing) MEAN PLATELET VOLUME 2025-09-14 04:37 [facility] 10.1 fl (missing) WHITE BLOOD COUNT 2025-09-14 04:37 [facility] 10.8 x10 3/ul (missing) PREALBUMIN 2025-09-14 04:37 [facility] 11 mg/dl As of May 2023 testing method has changed, this may include reference ranges. PLT - PLATELET COUNT 2025-09-14 04:37 [facility] 126 10 3/ul (missing) ANION GAP 2025-09-14 04:37 [facility] 13.0 (missing ) (missing) RED CELL DISTRIBUTION WIDTH 2025-09-14 04:37 [facility] 13.5 % (mi ssing) SODIUM 2025-09-14 04:37 [facility] 131 mmol/l (missing) CRP - C-REACTIVE PROTEIN 2025-09-14 04:37 [facility] 16.5 mg/dl As of May testing method has changed, this may include reference ranges. CREATININE 2025-09-14 04:37 [facility] 2.0 mg/dl As of May 2023 testing method has changed, this may include reference ranges. CARBON DIOXIDE - CO2 2025-09-14 04:37 [facility] 20 mmol/l As of May 2023 testing method has changed, this may include reference ranges. GLUCOSE 2025-09-14 04:37 [facility] 226 mg/dl As of May 2023 testing method has changed, this may include reference ranges. GFR - MDRD 2025-09-14 04:37 [facility] 23 (domingo belcher) The IDMS-traceable MDRD Study Equation has been [...] caring for patients older than 70. References: http://www.nkdep.n ih.gov/lab-evaluat ion/gfr/creatinine -stand ardization, last updated January 2012. HCT - HEMATOCRIT 2025-09-14 04:37 [facility] 27.4 % (missing) RED BLOOD COUNT 2025-09-14 04:37 [facility] 3.03 10 6/ul (missing) POTASSIUM 2025-09-14 04:37 [facility] 3.3 mmol/l As of May 2023 testing method has changed, this may include reference ranges. MEAN CORPUSCULAR HEMOGLOBIN 2025-09-14 04:37 [facility] 30.4 pg (missing) MEAN CORPUSCULAR HGB CONC 2025-09-14 04:37 [facility] 33.6 g/dl (missing) BUN - BLOOD UREA NITROGEN 2025-09-14 04:37 [facility] 60 mg/dl As of May testing method has changed, this may include reference ranges. CALCIUM 2025-09-14 04:37 [facility] 7.6 mg/dl As of May 2023 testing method has changed, this may include reference ranges. NEUTROPHILS # (AUTO) 2025-09-14 04:37 [facility] 9.0 10 3/ul (missing) HGB - HEMOGLOBIN 2025-09-14 04:37 [facility] 9.2 g /dl (missing) MEAN CORPUSCULAR VOLUME 2025-09-14 04:37 [facility] 90.4 fl (missing) CHLORIDE 2025-09-14 04:37 [facility] 98 mmol/l As of May 2023 testing method has changed, this may include reference ranges. Result panel 21 GLUCOSE, WHOLE BLOOD 2025-09-14 07:55 [facility] 196 (missing) RN notified. Result panel 22 GLUCOSE, WHOLE BLOOD 2025-09-14 11:39 [facility] 173 (missing) RN notified. Result panel 23 GLUCOSE, WHOLE BLOOD 2025-09-14 18:31 [facility] 213 (missing) (missing) Result panel 24 GLUCOSE, WHOLE BLOOD 2025-09-15 00:27 [facility] 219 (missing) (missing) Result panel 25 NUCLEATED RED BLOOD CELLS AUTO 2025-09-15 05:02 [facility] 0.0 /100wbc (missing) BASOPHILS # (AUTO) 2025-09-15 05:02 [facility] 0.0 10 3/ul (missing) EOSINOPHILS # (AUTO) 2025-09-15 05:02 [facility] 0.0 10 3/ul (missing) NRBC ABSOLUTE COUNT (AUTO) 2025-09-15 05:02 [facility] 0.00 x10 3/ul (missing) MONOCYTES # (AUTO) 2025-09-15 05:02 [facility] 0.7 10 3/ul (missing) LYMPHOCYTES # (AUTO) 2025-09-15 05:02 [facility] 1.3 10 3/ul (missing) MEAN PLATELET VOLUME 2025-09-15 05:02 [facility] 10.1 fl (missing) CHLORIDE 2025-09-15 05:02 [facility] 104 mmol/l As of May 2023 testing method has changed, this may include reference ranges. WHITE BLOOD COUNT 2025-09-15 05:02 [facility] 11.7 x10 3/ul (missing) ANION GAP 2025-09-15 05:02 [facility] 12.0 (missing ) (missing) RED CELL DISTRIBUTION WIDTH 2025-09-15 05:02 [facility] 13.7 % (mi ssing) SODIUM 2025-09-15 05:02 [facility] 135 mmol/l (missing) PLT - PLATELET COUNT 2025-09-15 05:02 [facility] 159 10 3/ul (missing) GLUCOSE 2025-09-15 05:02 [facility] 175 mg/dl As of May 2023 testing method has changed, this may include reference ranges. CARBON DIOXIDE - CO2 2025-09-15 05:02 [facility] 19 mmol/l As of May 2023 testing method has changed, this may include reference ranges. CREATININE 2025-09-15 05:02 [facility] 2.3 mg/dl As of May 2023 testing method has changed, this may include reference ranges. MAGNESIUM 2025-09-15 05:02 [facility] 2.9 mg/dl As of May 2023 testing method has changed, this may include reference ranges. GFR - MDRD 2025-09-15 05:02 [facility] 20 (domingo belcher) The IDMS-traceable MDRD Study Equation has been [...] caring for patients older than 70. References: http://www.nkdep.n ih.gov/lab-evaluat ion/gfr/creatinine -stand ardization, last updated January 2012. MEAN CORPUSCULAR HEMOGLOBIN 2025-09-15 05:02 [facility] 29.2 pg (missing) HCT - HEMATOCRIT 2025-09-15 05:02 [facility] 29.3 % (missing) RED BLOOD COUNT 2025-09-15 05:02 [facility] 3.15 10 6/ul (missing) POTASSIUM 2025-09-15 05:02 [facility] 3.7 mmol/l As of May 2023 testing method has changed, this may include reference ranges. MEAN CORPUSCULAR HGB CONC 2025-09-15 05:02 [facility] 31.4 g/dl (missing) CALCIUM 2025-09-15 05:02 [facility] 7.7 mg/dl As of May 2023 testing method has changed, this may include reference ranges. BUN - BLOOD UREA NITROGEN 2025-09-15 05:02 [facility] 74 mg/dl As of May testing method has changed, this may include reference ranges. HGB - HEMOGLOBIN 2025-09-15 05:02 [facility] 9.2 g /dl (missing) NEUTROPHILS # (AUTO) 2025-09-15 05:02 [facility] 9.7 10 3/ul (missing) MEAN CORPUSCULAR VOLUME 2025-09-15 05:02 [facility] 93.0 fl (missing) Result panel 26 GLUCOSE, WHOLE BLOOD 2025-09-15 06:28 [facility] 177 (missing) (missing) Result panel 27 GLUCOSE, WHOLE BLOOD 2025-09-15 11:43 [facility] 202 (missing) RN notified. Result panel 28 GLUCOSE, WHOLE BLOOD 2025-09-15 16:47 [facility] 212 (missing) (missing) Result panel 29 GLUCOSE, WHOLE BLOOD 2025-09-15 20:40 [facility] 354 (missing) RN notified. Result panel 30 NUCLEATED RED BLOOD CELLS AUTO 2025-09-16 04:53 [facility] 0.0 /100wbc (missing) BASOPHILS # (AUTO) 2025-09-16 04:53 [facility] 0.0 10 3/ul (missing) NRBC ABSOLUTE COUNT (AUTO) 2025-09-16 04:53 [facility] 0.00 x10 3/ul (missing) EOSINOPHILS # (AUTO) 2025-09-16 04:53 [facility] 0.1 10 3/ul (missing) MONOCYTES # (AUTO) 2025-09-16 04:53 [facility] 0.8 10 3/ul (missing) ANION GAP 2025-09-16 04:53 [facility] 10.0 (missing ) (missing) MEAN PLATELET VOLUME 2025-09-16 04:53 [facility] 10.3 fl (missing) CHLORIDE 2025-09-16 04:53 [facility] 106 mmol/l As of May 2023 testing method has changed, this may include reference ranges. WHITE BLOOD COUNT 2025-09-16 04:53 [facility] 12.4 x10 3/ul (missing) RED CELL DISTRIBUTION WIDTH 2025-09-16 04:53 [facility] 13.6 % (mi ssing) SODIUM 2025-09-16 04:53 [facility] 136 mmol/l (missing) GLUCOSE 2025-09-16 04:53 [facility] 160 mg/dl As of May 2023 testing method has changed, this may include reference ranges. PLT - PLATELET COUNT 2025-09-16 04:53 [facility] 172 10 3/ul (missing) LYMPHOCYTES # (AUTO) 2025-09-16 04:53 [facility] 2.0 10 3/ul (missing) CREATININE 2025-09-16 04:53 [facility] 2.3 mg/dl As of May 2023 testing method has changed, this may include reference ranges. MAGNESIUM 2025-09-16 04:53 [facility] 2.9 mg/dl As of May 2023 testing method has changed, this may include reference ranges. RED BLOOD COUNT 2025-09-16 04:53 [facility] 2.98 10 6/ul (missing) GFR - MDRD 2025-09-16 04:53 [facility] 20 (missin g) The IDMS-traceable MDRD Study Equation has been [...] caring for patients older than 70. References: http://www.nkdep.n ih.gov/lab-evaluat ion/gfr/creatinine -stand ardization, last updated January 2012. CARBON DIOXIDE - CO2 2025-09-16 04:53 [facility] 20 mmol/l As of May 2023 testing method has changed, this may include reference ranges. HCT - HEMATOCRIT 2025-09-16 04:53 [facility] 26.9 % (missing) POTASSIUM 2025-09-16 04:53 [facility] 3.5 mmol/l As of May 2023 testing method has changed, this may include reference ranges. MEAN CORPUSCULAR HEMOGLOBIN 2025-09-16 04:53 [facility] 30.2 pg (missing) MEAN CORPUSCULAR HGB CONC 2025-09-16 04:53 [facility] 33.5 g/dl (missing) CALCIUM 2025-09-16 04:53 [facility] 7.4 mg/dl As of May 2023 testing method has changed, this may include reference ranges. BUN - BLOOD UREA NITROGEN 2025-09-16 04:53 [facility] 73 mg/dl As of May testing method has changed, this may include reference ranges. HGB - HEMOGLOBIN 2025-09-16 04:53 [facility] 9.0 g /dl (missing) NEUTROPHILS # (AUTO) 2025-09-16 04:53 [facility] 9.4 10 3/ul (missing) MEAN CORPUSCULAR VOLUME 2025-09-16 04:53 [facility] 90.3 fl (missing) Result panel 31 GLUCOSE, WHOLE BLOOD 2025-09-16 08:07 [facility] 118 (missing) (missing) Result panel 32 GLUCOSE, WHOLE BLOOD 2025-09-16 11:55 [facility] 197 (missing) (missing) Result panel 33 GLUCOSE, WHOLE BLOOD 2025-09-16 16:21 [facility] 271 (missing) (missing) Result panel 34 GLUCOSE, WHOLE BLOOD 2025-09-16 21:35 [facility] 305 (missing) (missing) Result panel 35 ANION GAP 2025-09-17 04:35 [facility] 10.0 (missing ) (missing) MEAN PLATELET VOLUME 2025-09-17 04:35 [facility] 10.4 fl (missing) WHITE BLOOD COUNT 2025-09-17 04:35 [facility] 10.8 x10 3/ul (missing) CHLORIDE 2025-09-17 04:35 [facility] 105 mmol/l As of May 2023 testing method has changed, this may include reference ranges. RED CELL DISTRIBUTION WIDTH 2025-09-17 04:35 [facility] 13.5 % (mi ssing) SODIUM 2025-09-17 04:35 [facility] 136 mmol/l (missing) PLT - PLATELET COUNT 2025-09-17 04:35 [facility] 188 10 3/ul (missing) GLUCOSE 2025-09-17 04:35 [facility] 197 mg/dl As of May 2023 testing method has changed, this may include reference ranges. CREATININE 2025-09-17 04:35 [facility] 2.1 mg/dl As of May 2023 testing method has changed, this may include reference ranges. MAGNESIUM 2025-09-17 04:35 [facility] 2.9 mg/dl As of May 2023 testing method has changed, this may include reference ranges. CARBON DIOXIDE - CO2 2025-09-17:35 [facility] 21 mmol/l As of May 2023 testing method has changed, this may include reference ranges. GFR - MDRD 2025-09-17 04:35 [facility] 22 (domingo belcher) The IDMS-traceable MDRD Study Equation has been [...] caring for patients older than 70. References: http://www.nkdep.n ih.gov/lab-evaluat ion/gfr/creatinine -stand ardization, last updated January 2012. HCT - HEMATOCRIT 2025-09-17 04:35 [facility] 28.6 % (missing) RED BLOOD COUNT 2025-09-17 04:35 [facility] 3.16 10 6/ul (missing) POTASSIUM 2025-09-17:35 [facility] 3.8 mmol/l As of May 2023 testing method has changed, this may include reference ranges. MEAN CORPUSCULAR HEMOGLOBIN 2025-09-17 04:35 [facility] 30.4 pg (missing) MEAN CORPUSCULAR HGB CONC 2025-09-17:35 [facility] 33.6 g/dl (missing) BUN - BLOOD UREA NITROGEN 2025-09-17 04:35 [facility] 63 mg/dl As of May testing method has changed, this may include reference ranges. CALCIUM 2025-09-17:35 [facility] 7.9 mg/dl As of May 2023 testing method has changed, this may include reference ranges. HGB - HEMOGLOBIN 2025-09-17 04:35 [facility] 9.6 g /dl (missing) MEAN CORPUSCULAR VOLUME 2025-[facility]-17 [facility] Result panel 36 GLUCOSE, WHOLE BLOOD 2025-09-17 08:04 [facility] 137 (missing) (missing) Result panel 37 GLUCOSE, WHOLE BLOOD 2025-09-17 11:49 [facility] 187 (missing) (missing) Social History date description facility
[2025-10-19 17:11] LABS: ALT ALANINE AMINOTRANSFERASE 7.0 IU/L (10-60); AST ASPARTATE AMINOTRANSFERASE 10.0 IU/L (10-42); BUN - BLOOD UREA NITROGEN 34.0 mg/dL (6-20); CARBON DIOXIDE - CO2 19.0 mmol/L (21-32); CREATININE 2.0 mg/dL (0.6-1.3); GFR - MDRD 23.0 (>89)
[2025-10-19 17:31] LABS: PLATELET ESTIMATE, MANUAL DECREASED (<130,000) (NORMAL); PLATELET MORPHOLOGY NORMAL APPEARANCE (NORMAL); WBC MORPHOLOGY (MULTIPLE) 1+ HYPERSEG NEUT (NORMAL)
--- NOTE | 2025-10-19 18:20 | CT Report ---
PROCEDURE: CT Abdomen/Pelvis WO INDICATIONS: weakness, known perforated appy TECHNIQUE: A CT scan of the abdomen and pelvis was performed without the use of intravenous contrast. Images were recorded and evaluated at appropriate window settings. Reformats: coronal and sagittal. For radiation dose reduction, the following was used: automated exposure control, adjustment of mA and/or kV according to patient size. COMPARISON: CT abdomen/pelvis 09/13/2025 FINDINGS: Image quality: Diagnostic. Lower chest: Masslike lesions in the breasts are partially included bilaterally, not significantly changed compared to the CT from 09/13/2025. Cardiomegaly. Prosthetic aortic valve. Left lower lobe consolidation. Trace bilateral pleural effusions Liver: No contour-deforming mass. Gallbladder: No radiopaque stones or wall thickening. Biliary tree: No intrahepatic or extrahepatic dilation, accounting for age. Spleen: No splenomegaly. Pancreas: No pancreatic ductal dilation. Adrenals: No adrenal nodule. Kidneys and ureters: No hydronephrosis. No contour-deforming mass. Stable left renal cysts and superior cortical calcification. Stomach, bowel and peritoneum: Dilated appendix is partially seen in the right lower quadrant measuring up to 08 mm in diameter. No associated fluid collection or abscess is seen. A few diverticula are seen in the colon. Small bowel loops and stomach are unremarkable. No pneumoperitoneum. Lymph nodes: No central or retroperitoneal adenopathy. Vessels: No infrarenal aortic aneurysm. Reproductive organs: Suspected pelvic floor descent. Bladder: Anterior and superior bladder wall thickening. Pelvic lymph nodes: No adenopathy by size criteria. Bones: No aggressive osseous abnormality. Multilevel degenerative changes in the spine. Other: No significant ventral or inguinal hernia. IMPRESSION: 1. Mildly dilated appendix in the right lower quadrant without significant periappendiceal inflammatory changes, possibly related to prior rupture. No significant fluid collection or abscess is seen. No pneumoperitoneum. 2. Consolidative opacity in the left lower lobe is suspicious for pneumonia. 3. Bladder wall thickening may be reactive or secondary to cystitis versus bladder neoplasm. Recommend correlation with urinalysis. 4. Masslike lesions in the inferior breasts have not significantly changed, possibly related to ruptured breast implants and associated granulomatous reaction or malignancy. 5. Cardiomegaly. Reviewed by: Paco Hester MD on 10/19/2025 6:17 PM PST Approved by: Paco Hester MD on 10/19/2025 6:17 PM [facility] Station ID: [id number]
[2025-10-19] MEDS: VANCOMYCIN INJ 500 MG in SODIUM CHLORIDE 0.9% 250 ML IV SCH (18:51)
--- NOTE | 2025-10-19 19:00 | HISTORY & PHYSICAL EXAMINATION ---
Chief Complaint Chief Complaint Chief Complaint: weakness History of Present Illness Admitted From Admitted From:: home History Obtained From Records Reviewed: last admission History obtained from: patient History of Present Illness HPI Comment/Other: The patient is an 89-year-old female with a past medical history of prior CVA with residual deficit, T2DM, HTN, CKD 3B, HLD, anemia of chronic disease, osteoarthritis of the back and hip, DJD of the C-spine and L-spine, exudative age-related macular degeneration, glaucoma and urinary urge incontinence who presents with chief complaint of weakness. Previously admitted here from 09/11- 09/17/25 for ruptured appendicitis, discharged to SNF and then was able to go back home on 10/11. Come in to the ED today for weakness and inability to ambulate. In the week that she has been home from SNF, it seems that HH has come twice for PT and she has not been able to participate. Patient has minimal complaints. She is oriented x 3, but when I ask what is bothering her, she tells me that she has right leg pain. She denies any falls. Since she has been in the ED, she has gotten 2L IVF. she has not urinated. Her oxygenation is worsening, and when i turn off the supplemental oxygen, I see that she is satting 85-86% on RA. She denies cough or fever. Code status, DNR, selective treatment. Please see Dr Delatorre's note at last admit. Her son Rick is her salesperson burial plots. She lives with her . Delfino unable to be here as he does not drive after dark. Meds/Allgy Home Medications Ambulatory Orders Medication Instructions Recorded Confirmed blood sugar diagnostic (FreeStyle 08/26/24 06/29/25 Lite Strips) blood-glucose meter (FreeStyle 08/26/24 06/29/25 Lite Meter kit) brimonidine 0.1 % eye drops 1 drp ophthalmic (eye) BID 08/26/24 09/12/25 (Alphagan P) calcium carbonate 600 mg PO BID 08/26/2409/12 cholecalciferol (vitamin D3) 25 25 mcg PO DAILY 10/13/25 mcg (1,000 unit) tablet lancets 28 gauge (FreeStyle 08/26/24 06/29/25 Lancets) pen needle, diabetic 29 gauge x 08/26/24 06/29/25 1/2" (BD Ultra-Fine Original Pen Needle) turmeric 400 mg capsule 400 mg PO DAILY 01/20/2502/01 amoxicillin 500 mg capsule 2,000 mg PO ONCE 03/28/25 1 12/14/24 multivitamin (Daily Multi-Vitamin 1 tab PO DAILY 03/2809/12/25 tablet) vitamin B complex 1 tab PO DAILY 03/28/2502/01 empagliflozin 10 mg tablet 10 mg PO DAILY 09/12/2503/04 (Jardiance) felodipine 10 mg tablet,extended 10 mg PO DAILY 09/12/25 release 24 hr lisinopril 10 mg tablet 10 mg PO DAILY 09/12/2503/04 Held on 09/17/25. Instructions: Resume on 10/01/25. Hold until repeat BMP in 2 weeks. sitagliptin phosphate 25 mg tablet 25 mg PO DAILY 02/0110/13/25 (Januvia) timolol maleate 0.5 % eye drops 1 drp ophthalmic (eye) BID 09/12/25 09/12/25 Saccharomyces boulardii 250 mg 250 mg PO BIDWM #60 cap s 09/17/25 capsule atorvastatin 40 mg tablet 40 mg PO QPM #90 tabs 10/13/25 carvedilol 12.5 mg tablet 12.5 mg PO BID #180 tabs 03/0410/13/25 Allergies Allergies Allergy/AdvReac Type Severity Reaction Status Date / Time hydrochlorothiazide AdvReac Unknown hyponatremi Verified 10/19/25 16:31 a [facility] Active Problems All Active Problems (Updated 10/19/25 @ 19:39 by JOSETTE Boyce) (HFpEF) heart failure with preserved ejection fraction (Acute) Hyponatremia (Acute) Acute hypoxemic respiratory failure (Acute) Pneumonia (Acute) Acute hypoxic respiratory failure (Acute) Ruptured appendicitis (Acute) Urge urinary incontinence (Chronic) Mixed hyperlipidemia (Chronic) Essential hypertension (Chronic) 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 (Chronic 02/02/21) Anemia due to chronic kidney disease (Chronic 12/06/22) Tobacco abuse (Chronic) Spinal stenosis, lumbar region with neurogenic claudication (Chronic 02/20/21) Degenerative joint disease of cervical spine (Chronic 11/10/1959) Depression (Chronic 01/07/17) Advance directive discussed with patient (Chronic 02/27/24) 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, right eye, stage unspecified (Chronic 02/02/21) Glaucoma (Chronic 02/02/21) Medical History Medical History (Updated 10/19/25 @ 19:39 by JOSETTE Boyce) Need for antibiotic prophylaxis for dental procedure Hx of TAVR Osteoarthritis of hips, bilateral CHF (congestive heart failure) Diabetic nephropathy Macular degeneration Osteoarthritis Hypertension Arthritis of left knee Centrilobular emphysema 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, Attila + Cerebellar Vermis due to HTN Aortic stenosis (07/27/15) s/p TAVR 03/2018 Surgical History Surgical History (Updated 09/13/25 @ 15:28 by Jasmyn England DO) S/P cataract extraction Bilateral Normal colonoscopy 08/2004, diverticulosis H/O section x 2 S/P trigger finger release Breast implant in situ ruptured, per CT 09/13/2025 S/P TAVR (transcatheter aortic valve replacement) 03/2018 Family History Family History Mother Diabetes Brother Stomach cancer Social History Social History Smoking Status: Current every day smoker Number of Years Smoked: 64 How many cigarettes a day do you smoke? (20 cigarettes=1 Pk): 5 Second hand tobacco smoke exposure: Yes Do you dip or chew tobacco?: No Do you vape?: No Patient requests smoking cessation consult: No Initiate information on smoking cessation: No Living arrangement: At home Living Condition: With spouse/s.o. Level: Assisted Do you feel safe in your home environment?: Yes History of physical, verbal, emotional, or financial abuse?: No ETOH Use: None Substance Use: denies use Are you sexually active?: No Retired: Yes Service: No POLST Patient has POLST: Yes POLST on file?: Yes POLST CPR Status: Do Not Attempt Resuscitation (DNAR) / Allow Natural Review of Systems Status of ROS: 10 or more systems reviewed and unremarkable except as noted in history and below Prior Level of Functionality: recent acute illness and hospitalization, but has been ambulatory with a walker. Exam Exam Vital Signs: Vital Signs x48h Temp Pulse Pulse Resp BP BP Pulse Ox 10/19/25 19:44 10/19/25 19:16 72 122/68 96 10/19/25 19:15 36.8 C 83 20 140/67 H 92 10/19/25 18:22 66 26 H 122/60 91 L 10/19/25 16:39 95 10/19/25 16:38 66 118/50 L 91 L 10/19/25 16:08 36.6 C 74 18 118/50 L 88 L O2 Flow Rate 10/19/25 19:44 4 10/19/25 19:16 4 10/19/25 19:15 4 10/19/25 18:22 2 10/19/25 16:39 2 10/19/25 16:38 10/19/25 16:08 Constitutional appears ill. HENMT normocephalic, head/scalp atraumatic and external ears normal Eyes conjunctivae normal Neck/C-Spine visual inspection normal and trachea midline Lymph no lymphadenopathy noted Chest inspection of chest normal Respiratory breath sounds equal bilaterally using abdominal muscles to breathe. She has occasional end expiratory wheeze, and diffuse bilateral rhonchi. Cardiovascular normal heart rate noted and regular rhythm noted Gastrointestinal abdomen normal to inspection, abdomen soft to palpation and nontender to palpation Extremities normal to inspection, normal to palpation, no tenderness and full ROM Neurology healthcare risk control consultant II-XII intact, no movement abnormality noted, no focal motor deficit noted, speech normal and GCS 15 Psychiatry mental status grossly normal, oriented x3, thought process normal and cooperative Skin skin color normal Conclusion/Plan Problem List (1) Acute hypoxemic respiratory failure: Plan: Presents to the ED with RA saturations of 87=88% per ED provider. Discussed with LUDWIG Perales in the ED and decision was made to admit this pt for her acute hypoxic respiratory failure. I think she will be here for 2-3 MN and therefore will admit to IP status. When I arrived at the bedside, I turned supplemental O2 off and saw a saturation of 85-86%. She does not complain of dyspnea, but is using her abdominal muscles to breathe. She is also tachypneic. She has gotten 2L IVF bolus in the ED, and is a small person (57inches, 40kg). She seems to have increased rales from time of presentation. I am adding 20mg Lasix IV to be given now. I will treat her respiratory failure with diuresis and treatment of PNA. Will support her with oxygen. (2) Pneumonia: Plan: Chest x-ray to my read shows hilar prominence and a left-sided infiltrate. Abdomen pelvis CT is read by the radiologist to show a consolidative opacity in the left lower lobe suspicious for pneumonia. She has significant leukocytosis with a white blood cell count of 23.6. Her lactic acid is normal at 1.1. I am ordering Rocephin and azithromycin to treat this patient's pneumonia. We will treat her with bronchodilators and supplemental oxygen. (3) (HFpEF) heart failure with preserved ejection fraction: Plan: She has a history of heart failure with preserved ejection fraction, normal ejection fracture fraction on her most recent echocardiogram. She has a history of pulmonary hypertension and aortic stenosis status post TAVR. 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 This evening I am going to send a BNP. I am diuresing her as I believe her oxygen requirements are going up. Most recent echocardiogram was done 09/13/2025. As stated above restenosis of the TAVR ejection fraction of 65 to 70%. She has an estimated right atrial pressure of 53 mmHg. (4) Hyponatremia: Plan: Hyponatremia of 129 likely related to her acute illness. She has shown some mild to moderate hyper natremia in the past related to acute illness. I will check a BMP in the AM. (5) Aortic stenosis: Plan: Recurrent aortic stenosis status post TAVR, needs cardiology follow-up but recently has been too ill to obtain outpatient follow-up. (6) Essential hypertension: Plan: Longstanding history of hypertension. This patient is also a smoker. She is on Coreg as an outpatient. She also takes atorvastatin, lisinopril, felodipine. (7) 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: Plan: History of diabetes mellitus. Last admission A1c was completed and found to be 7.5%. I will cover her with sliding scale insulin and place her on a diabetic diet while she is here. I will monitor her creatinine in light of her multiple medical problems that could affect her renal function. Her renal function looks essentially stable it looks like her creatinine has hovered around 2 at least for the duration of the last monthLaboratory Tests 09/11/25 10/19/25 16:03 16:49 Creatinine 2.2 H 2.0 H Qualifiers: Diabetes mellitus alf insulin use: without alf use Q ualified Code(s): E11.22 - Type 2 diabetes mellitus with diabetic chronic kidney disease; N18.4 - Chronic kidney disease, stage 4 (severe) (8) Ruptured appendicitis: Plan: She was treated with 7 days of IV Zosyn and then additional 7 days of Augmentin on discharge from the hospital at her last admission. CT is read by the radiologist as mildly dilated appendix without significant inflammation no abscesses seen. Her abdomen is nontender on exam. I have spent 85 minutes in the care of this patient today. This includes time [id number], review and ordering of diagnostic imaging and laboratory studies and consultation with other providers. Monitoring the patient's signs symptoms, evaluation of medication effectiveness and patient's response to treatment. Lab Results Lab results reviewed: Yes 10/19/25 16:49 10/19/25 16:49 Diagnostic Imaging Results Diagnostic Imaging Results: positive Final report reviewed and Read independently Diagnostic Imaging Results Comments: CT A/P: LLL PNA. CXR (done after CT) shows left sided PNA and vascular congestion to my read.
--- OUTSIDE RECORDS SUMMARY | 2025-10-19 19:07 | EXTERNAL MEDICAL SUMMARY RPT | Continuity of Care Document ---
Author Organization [place] Address [address] [place] [id number] Phone Allergies and Intolerances date description facility reaction severity 2025-06-29 10:00 [id number]^hydrochlo rothia zide^^hydrochlorothiazide^ ^allergy.id [employer] [facility] hyponatremia (no severity) 2025-09-11 10:00 [id number]^hydrochlo rothia zide^^hydrochlorothiazide^ ^[facility]ergy.id [facility] hyponatremia (no severity) 2025-10-19 10:00 [id number]^hydrochlo rothia zide^^hydrochlorothiazide^ ^allergy.id [employer] [facility] hyponatremia (no severity) Problems date description facility 2025-07-21 13:08 Essential (primary) hypertensio n [facility] 2025-07-21 13:08 Atherosclerosis of renal artery [facility] 2025-08-19 09:54 Unspecified 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 [facility] 2025-08-20 00:05 Unspecified 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 [facility] 2025-08-20 00:05 Chronic kidney disease, unspeci fied [facility] 2025-08-22 12:54 Unspecified 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 [facility] 2025-08-24 09:58 Unspecified 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 [facility] 2025-08-24 09:58 Facial weakness [facility] 2025-08-24 09:58 Slurred speech [facility] 2025-09-11 17:44 Respiratory failure, unspecified, unspecified whether with hypoxia or hypercapnia [facility] 2025-09-11 17:59 Respiratory failure, unspecified, unspecified whether with hypoxia or hypercapnia [facility] 2025-09-11 18:00 Respiratory failure, unspecified, unspecified whether with hypoxia or hypercapnia [facility] 2025-09-11 18:32 Respiratory failure, unspecified, unspecified whether with hypoxia or hypercapnia [facility] 2025-09-11 21:06 Sepsis, unspecified 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 [facility] 2025-09-11 21:06 Mixed hyperlipidemia [facility] 2025-09-11 21:06 Hyperkalemia [facility] 2025-09-11 21:06 Essential (primary) hypertensio n [facility] 2025-09-11 21:06 Unspecified sequelae of cerebra l infarction [facility] 2025-09-11 21:06 Pneumonia, unspecified organism [facility] 2025-09-11 21:06 Centrilobular emphysema [facility] 2025-09-11 21:06 Acute respiratory failure with hypoxia [facility] 2025-09-11 21:06 Respiratory failure, unspecified, unspecified whether with hypoxia or hypercapnia [facility] 2025-09-11 21:06 Acute appendicitis w ith perforation, localized peritonitis, and gangrene, without abscess [facility] 2025-09-11 21:06 Bilateral primary osteoarthriti s of hip [facility] 2025-09-11 21:06 Acute kidney failure, unspecifi ed [facility] 2025-09-11 21:06 Chronic kidney disease, stage 4 (severe) [facility] 2025-09-11 21:06 Chronic kidney disease, unspeci fied [facility] 2025-09-11 21:06 Severe sepsis without septic sh ock [facility] 2025-09-12 01:07 Sepsis, unspecified organism [facility] 2025-09-12 01:07 Anemia in chronic kidney diseas e [employer] [facility] 2025-09-12 01:07 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 [facility] 2025-09-12 01:07 Mixed hyperlipidemia [facility] 2025-09-12 01:07 Hyperkalemia [facility] 2025-09-12 01:07 Essential (primary) hypertensio n [facility] 2025-09-12 01:07 Unspecified sequelae of cerebra l infarction [facility] 2025-09-12 01:07 Pneumonia, unspecified organism [facility] 2025-09-12 01:07 Centrilobular emphysema [facility] 2025-09-12 01:07 Acute respiratory failure with hypoxia [facility] 2025-09-12 01:07 Respiratory failure, unspecified, unspecified whether with hypoxia or hypercapnia [facility] 2025-09-12 01:07 Acute appendicitis w ith perforation, localized peritonitis, and gangrene, without abscess [facility] 2025-09-12 01:07 Bilateral primary osteoarthriti s of hip [facility] 2025-09-12 01:07 Acute kidney failure, unspecifi ed [facility] 2025-09-12 01:07 Chronic kidney disease, stage 4 (severe) [facility] 2025-09-12 01:07 Chronic kidney disease, unspeci fied [facility] 2025-09-12 01:07 Severe sepsis without septic sh ock [facility] 2025-09-12 06:57 Sepsis, unspecified 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 [facility] 2025-09-12 06:57 Mixed hyperlipidemia [facility] 2025-09-12 06:57 Hyperkalemia [facility] 2025-09-12 06:57 Essential (primary) hypertensio n [facility] 2025-09-12 06:57 Unspecified sequelae of cerebra l infarction [facility] 2025-09-12 06:57 Pneumonia, unspecified organism [facility] 2025-09-12 06:57 Centrilobular emphysema [facility] 2025-09-12 06:57 Acute respiratory failure with hypoxia [facility] 2025-09-12 06:57 Respiratory failure, unspecified, unspecified whether with hypoxia or hypercapnia [facility] 2025-09-12 06:57 Acute appendicitis w ith perforation, localized peritonitis, and gangrene, without abscess [facility] 2025-09-12 06:57 Bilateral primary osteoarthriti s of hip [facility] 2025-09-12 06:57 Acute kidney failure, unspecifi ed [facility] 2025-09-12 06:57 Chronic kidney disease, stage 4 (severe) [facility] 2025-09-12 06:57 Chronic kidney disease, unspeci fied [facility] 2025-09-12 06:57 Facial weakness [facility] 2025-09-12 06:57 Slurred speech [facility] 2025-09-12 06:57 Severe sepsis without septic sh ock [facility] 2025-09-12 08:46 Sepsis, unspecified organism 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 [facility] 2025-09-12 08:46 Mixed hyperlipidemia [facility] 2025-09-12 08:46 Hyperkalemia [facility] 2025-09-12 08:46 Essential (primary) hypertensio n [facility] 2025-09-12 08:46 Unspecified sequelae of cerebra l infarction [facility] 2025-09-12 08:46 Pneumonia, unspecified organism [facility] 2025-09-12 08:46 Centrilobular emphysema [facility] 2025-09-12 08:46 Acute respiratory failure with hypoxia [facility] 2025-09-12 08:46 Respiratory failure, unspecified, unspecified whether with hypoxia or hypercapnia [facility] 2025-09-12 08:46 Acute appendicitis w ith perforation, localized peritonitis, and gangrene, without abscess [facility] 2025-09-12 08:46 Bilateral primary osteoarthriti s of hip [facility] 2025-09-12 08:46 Acute kidney failure, unspecifi ed [facility] 2025-09-12 08:46 Chronic kidney disease, stage 4 (severe) [facility] 2025-09-12 08:46 Chronic kidney disease, unspeci fied [facility] 2025-09-12 08:46 Unspecified abdominal pain Critical access hospital 2025-09-12 08:46 Severe sepsis without septic sh ock [facility] 2025-09-13 04:[address], [address] 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 [facility] 2025-09-13 04:55 Mixed hyperlipidemia [facility] 2025-09-13 04:55 Hyperkalemia [facility] 2025-09-13 04:55 Essential (primary) hypertensio n [facility] 2025-09-13 04:55 Heart failure, unspecified Critical [facility] hospital 2025-09-13 04:55 Unspecified sequelae of cerebra l infarction [facility] 2025-09-13 04:55 Pneumonia, unspecified organism [facility] 2025-09-13 04:55 Centrilobular emphysema [facility] 2025-09-13 04:55 Emphysema, unspecified [facility] 2025-09-13 04:55 Acute respiratory failure with hypoxia [facility] 2025-09-13 04:55 Respiratory failure, unspecified, unspecified whether with hypoxia or hypercapnia [facility] 2025-09-13 04:55 Acute appendicitis w ith perforation, localized peritonitis, and gangrene, without abscess [facility] 2025-09-13 04:55 Bilateral primary osteoarthriti s of hip [facility] 2025-09-13 04:55 Unspecified osteoarthritis, uns pecified site [facility] 2025-09-13 04:55 Spinal stenosis, lum bar region with neurogenic claudication [facility] 2025-09-13 04:55 Acute kidney failure, unspecifi ed [facility] 2025-09-13 04:55 Chronic kidney disease, stage 4 (severe) [facility] 2025-09-13 04:55 Chronic kidney disease, unspeci fied [facility] 2025-09-13 04:55 Unspecified abdominal pain Critical [facility] hospital 2025-09-13 04:55 Severe sepsis without septic sh ock [facility] 2025-09-15 06:35 Sepsis, unspecified organism [facility] 2025-09-15 06:35 Anemia in chronic kidney diseas e [facility] 2025-09-15 06:35 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 [facility] 2025-09-15 06:35 Mixed hyperlipidemia [facility] 2025-09-15 06:35 Hyperkalemia [facility] 2025-09-15 06:35 Essential (primary) hypertensio n [facility] 2025-09-15 06:35 Heart failure, unspecified Critical [facility] hospital 2025-09-15 06:35 Unspecified sequelae of cerebra l infarction [facility] 2025-09-15 06:35 Pneumonia, unspecified organism [facility] 2025-09-15 06:35 Centrilobular emphysema [facility] 2025-09-15 06:35 Emphysema, unspecified [facility] 2025-09-15 06:35 Acute respiratory failure with hypoxia [facility] 2025-09-15 06:35 Respiratory failure, unspecified, unspecified whether with hypoxia or hypercapnia [facility] 2025-09-15 06:35 Acute appendicitis w ith perforation, localized peritonitis, and gangrene, without abscess [facility] 2025-09-15 06:35 Bilateral primary osteoarthriti s of hip [facility] 2025-09-15 06:35 Unspecified osteoarthritis, uns pecified site [facility] 2025-09-15 06:35 Spinal stenosis, lum bar region with neurogenic claudication [facility] 2025-09-15 06:35 Acute kidney failure, unspecifi ed [facility] 2025-09-15 06:35 Chronic kidney disease, stage 4 (severe) [facility] 2025-09-15 06:35 Chronic kidney disease, unspeci fied [facility] 2025-09-15 06:35 Unspecified abdominal pain Critical [facility] hospital 2025-09-15 06:35 Severe sepsis without septic sh ock [employer] [facility] 2025-09-16 06:33 Sepsis, unspecified organism 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 [facility] 2025-09-16 06:33 [facility] 2025-09-16 06:33 Hyperkalemia [facility] 2025-09-16 06:33 Essential (primary) hypertensio n [facility] 2025-09-16 06:33 Heart failure, unspecified [employer] [facility] [employer] 2025-09-16 06:33 Unspecified sequelae of cerebra l infarction [facility] 2025-09-16 06:33 Pneumonia, unspecified organism [facility] 2025-09-16 06:33 Centrilobular emphysema [facility] 2025-09-16 06:33 Emphysema, unspecified [facility] 2025-09-16 06:33 Acute respiratory failure with hypoxia [facility] 2025-09-16 06:33 Respiratory failure, unspecified, unspecified whether with hypoxia or hypercapnia [facility] 2025-09-16 06:33 Acute appendicitis w ith perforation, localized peritonitis, and gangrene, without abscess [facility] 2025-09-16 06:33 Bilateral primary osteoarthriti s of hip [facility] 2025-09-16 06:33 Unspecified osteoarthritis, uns pecified site [facility] 2025-09-16 06:33 Spinal stenosis, lum bar region with neurogenic claudication [facility] 2025-09-16 06:33 Acute kidney failure, unspecifi ed [facility] 2025-09-16 06:33 Chronic kidney disease, stage 4 (severe) [facility] 2025-09-16 06:33 Chronic kidney disease, unspeci fied [facility] 2025-09-16 06:33 Unspecified abdominal pain [employer] [facility] [employer] 2025-09-16 06:33 Severe sepsis without septic sh ock [facility] 2025-09-16 15:11 Sepsis, unspecified 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 [facility] 2025-09-16 15:11 Mixed hyperlipidemia [facility] 2025-09-16 15:11 Hyperkalemia [facility] 2025-09-16 15:11 Essential (primary) hypertensio n [facility] 2025-09-16 15:11 Heart failure, unspecified [facility] [facility] 2025-09-16 15:11 Unspecified sequelae of cerebra l infarction [facility] 2025-09-16 15:11 Pneumonia, unspecified organism [facility] 2025-09-16 15:11 Centrilobular emphysema [facility] 2025-09-16 15:11 Emphysema, unspecified [facility] 2025-09-16 15:11 Acute respiratory failure with hypoxia [facility] 2025-09-16 15:11 Respiratory failure, unspecified, unspecified whether with hypoxia or hypercapnia [facility] 2025-09-16 15:11 Acute appendicitis w ith perforation, localized peritonitis, and gangrene, without abscess [facility] 2025-09-16 15:11 Bilateral primary osteoarthriti s of hip [facility] 2025-09-16 15:11 Unspecified osteoarthritis, uns pecified site [facility] 2025-09-16 15:11 Spinal stenosis, lum bar region with neurogenic claudication [facility] 2025-09-16 15:11 Acute kidney failure, unspecifi ed [facility] 2025-09-16 15:11 Chronic kidney disease, stage 4 (severe) [facility] 2025-09-16 15:11 Chronic kidney disease, unspeci fied [facility] 2025-09-16 15:11 Unspecified abdominal pain [facility] 2025-09-16 15:11 Severe sepsis without septic sh ock [facility] 2025-09-16 16:22 Low back pain, unspecified [employer] 2025-09-17 09:24 Sepsis, unspecified 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 [facility] 2025-09-17 09:24 Mixed hyperlipidemia [facility] 2025-09-17 09:24 Hyperkalemia [facility] 2025-09-17 09:24 Essential (primary) hypertensio n [facility] 2025-09-17 09:24 Heart failure, unspecified [facility] [employer] 2025-09-17 09:24 Unspecified sequelae of cerebra l infarction [facility] 2025-09-17 09:24 Pneumonia, unspecified organism [facility] 2025-09-17 09:24 Centrilobular emphysema [facility] 2025-09-17 09:24 Emphysema, unspecified [facility] 2025-09-17 09:24 Acute respiratory failure with hypoxia [facility] 2025-09-17 09:24 Respiratory failure, unspecified, unspecified whether with hypoxia or hypercapnia [facility] 2025-09-17 09:24 Acute appendicitis w ith perforation, localized peritonitis, and gangrene, without abscess [facility] 2025-09-17 09:24 Bilateral primary osteoarthriti s of hip [facility] 2025-09-17 09:24 Unspecified osteoarthritis, uns pecified site [facility] 2025-09-17 09:24 Spinal stenosis, lum bar region with neurogenic claudication [employer] [facility] 2025-09-17 09:24 Acute kidney failure, unspecifi ed [facility] 2025-09-17 09:24 Chronic kidney disease, stage 4 (severe) [facility] 2025-09-17 09:24 Chronic kidney disease, unspeci fied [facility] 2025-09-17 09:24 Unspecified abdominal pain [employer] [facility] [employer] 2025-09-17 09:24 Severe sepsis without septic sh ock [facility] 2025-09-17 09:27 Sepsis, unspecified 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 [facility] 2025-09-17 09:27 [facility]17 09:27 Hyperkalemia [facility] 2025-09-17 09:27 Essential (primary) hypertensio n [facility] 2025-09-17 09:27 Heart failure, unspecified Critical access hospital 2025-09-17 09:27 Unspecified sequelae of cerebra l infarction [facility] 2025-09-17 09:27 Pneumonia, unspecified organism [facility] [facility] 2025-09-17 09:27 Centrilobular emphysema [facility] 2025-09-17 09:27 Emphysema, unspecified [facility] 2025-09-17 09:27 Acute respiratory failure with hypoxia [facility] 2025-09-17 09:27 Respiratory failure, unspecified, unspecified whether with hypoxia or hypercapnia [facility] 2025-09-17 09:27 Acute appendicitis w ith perforation, localized peritonitis, and gangrene, without abscess [facility] 2025-09-17 09:27 Bilateral primary osteoarthriti s of hip [facility] 2025-09-17 09:27 Unspecified osteoarthritis, uns pecified site [facility] 2025-09-17 09:27 Spinal stenosis, lum bar region with neurogenic claudication [facility] 2025-09-17 09:27 Acute kidney failure, unspecifi ed [facility] 2025-09-17 09:27 Chronic kidney disease, stage 4 (severe) [facility] 2025-09-17 09:27 Chronic kidney disease, unspeci fied [facility] 2025-09-17 09:27 Unspecified abdominal pain Critical access hospital 2025-09-17 09:27 Severe sepsis without septic sh ock [facility]25-09-17 09:38 Sepsis, unspecified organism [facility] 2025-09-17 09:38 Anemia in chronic kidney diseas e [facility] 2025-09-17 09:38 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 [facility] 2025-09-17 09:38 Mixed hyperlipidemia [facility] 2025-09-17 09:38 Hyperkalemia [facility] 2025-09-17 09:38 Essential (primary) hypertensio n [facility] 2025-09-17 09:38 Heart failure, unspecified Critical [facility] hospital 2025-09-17 09:38 Unspecified sequelae of cerebra l infarction [facility] 2025-09-17 09:38 Pneumonia, unspecified organism [facility] 2025-09-17 09:38 Centrilobular emphysema [facility] 2025-09-17 09:38 Emphysema, unspecified [facility] 2025-09-17 09:38 Acute respiratory failure with hypoxia [facility] 2025-09-17 09:38 Respiratory failure, unspecified, unspecified whether with hypoxia or hypercapnia [facility] 2025-09-17 09:38 Acute appendicitis w ith perforation, localized peritonitis, and gangrene, without abscess [facility] 2025-09-17 09:38 Bilateral primary osteoarthriti s of hip [facility] 2025-09-17 09:38 Unspecified osteoarthritis, uns pecified site [facility] 2025-09-17 09:38 Spinal stenosis, lum bar region with neurogenic claudication [facility] 2025-09-17 09:38 Acute kidney failure, unspecifi ed [facility] 2025-09-17 09:38 Chronic kidney disease, stage 4 (severe) [facility] 2025-09-17 09:38 Chronic kidney disease, unspeci fied [facility] 2025-09-17 09:38 Unspecified abdominal pain [facility] [employer] 2025-09-17 09:38 Severe sepsis without septic sh ock [facility] 2025-09-17 11:54 Sepsis, unspecified organism [facility] 2025-09-17 11:54 Anemia in chronic kidney diseas e [facility] 2025-09-17 11:54 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 [facility] 2025-09-17 11:54 Mixed hyperlipidemia [facility] 2025-09-17 11:54 Hyperkalemia [facility] 2025-09-17 11:54 Essential (primary) hypertensio n [facility] 2025-09-17 11:54 Heart failure, unspecified Critical [facility] 2025-09-17 11:54 Unspecified sequelae of cerebra l infarction [facility] 2025-09-17 11:54 Pneumonia, unspecified organism [facility] 2025-09-17 11:54 Centrilobular emphysema [facility] 2025-09-17 11:54 Emphysema, unspecified [facility] 2025-09-17 11:54 Acute respiratory failure with hypoxia [facility] 2025-09-17 11:54 Respiratory failure, unspecified, unspecified whether with hypoxia or hypercapnia [facility] 2025-09-17 11:54 Acute appendicitis w ith perforation, localized peritonitis, and gangrene, without abscess [facility] 2025-09-17 11:54 Bilateral primary osteoarthriti s of hip [facility] 2025-09-17 11:54 Unspecified osteoarthritis, uns pecified site [facility] 2025-09-17 11:54 Spinal stenosis, lum bar region with neurogenic claudication [facility] 2025-09-17 11:54 Acute kidney failure, unspecifi ed [facility] 2025-09-17 11:54 Chronic kidney disease, stage 4 (severe) [facility] 2025-09-17 11:54 Chronic kidney disease, unspeci fied [facility] 2025-09-17 11:54 Unspecified abdominal pain Critical [facility] hospital 2025-09-17 11:54 Severe sepsis without septic sh ock [facility] 2025-09-17 14:03 Sepsis, unspecified organism 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 [facility] 2025-09-17 14:03 Mixed hyperlipidemia [facility] 2025-09-17 14:03 Hyperkalemia [facility] 2025-09-17 14:03 Essential (primary) hypertensio n [facility] 2025-09-17 14:03 Heart failure, unspecified Critical [facility] 2025-09-17 14:03 Unspecified sequelae of cerebra l infarction [facility] 2025-09-17 14:03 Pneumonia, unspecified organism [facility] 2025-09-17 14:03 Centrilobular emphysema [facility] 2025-09-17 14:03 Emphysema, unspecified [facility] 2025-09-17 14:03 Acute respiratory failure with hypoxia [facility] 2025-09-17 14:03 Respiratory failure, unspecified, unspecified whether with hypoxia or hypercapnia [facility] 2025-09-17 14:03 Acute appendicitis w ith perforation, localized peritonitis, and gangrene, without abscess [facility] 2025-09-17 14:03 Bilateral primary osteoarthriti s of hip [facility] 2025-09-17 14:03 Unspecified osteoarthritis, uns pecified site [facility] 2025-09-17 14:03 Spinal stenosis, lum bar region with neurogenic claudication [facility] 2025-09-17 14:03 Acute kidney failure, unspecifi ed [facility] 2025-09-17 14:03 Chronic kidney disease, stage 4 (severe) [facility] 2025-09-17 14:03 Chronic kidney disease, unspeci fied [facility] 2025-09-17 14:03 Unspecified abdominal pain [facility] 2025-09-17 14:03 Severe sepsis without septic sh ock [facility] 2025-09-17 14:04 Sepsis, unspecified organism 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 [facility] 2025-09-17 14:04 Mixed hyperlipidemia [facility] 2025-09-17 14:04 Hyperkalemia [facility] 2025-09-17 14:04 Essential (primary) hypertensio n [facility] 2025-09-17 14:04 Heart failure, unspecified [facility] 2025-09-17 14:04 Unspecified sequelae of cerebra l infarction [facility] 2025-09-17 14:04 Pneumonia, unspecified organism [facility] 2025-09-17 14:04 Centrilobular emphysema [facility] 2025-09-17 14:04 Emphysema, unspecified [facility] 2025-09-17 14:04 Acute respiratory failure with hypoxia [facility] 2025-09-17 14:04 Respiratory failure, unspecified, unspecified whether with hypoxia or hypercapnia [facility] 2025-09-17 14:04 Acute appendicitis w ith perforation, localized peritonitis, and gangrene, without abscess [facility] 2025-09-17 14:04 Bilateral primary osteoarthriti s of hip [facility] 2025-09-17 14:04 Unspecified osteoarthritis, uns pecified site [facility] 2025-09-17 14:04 Spinal stenosis, lum bar region with neurogenic claudication [facility] 2025-09-17 14:04 Acute kidney failure, unspecifi ed [facility] 2025-09-17 14:04 Chronic kidney disease, stage 4 (severe) [facility] [employer] 2025-09-17 14:04 Chronic kidney disease, unspeci fied [facility] 2025-09-17 14:04 Unspecified abdominal pain [employer] [facility] [employer] 2025-09-17 14:04 Severe sepsis without septic sh ock [facility] 2025-09-19 08:09 Sepsis, unspecified organism 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 [facility] 2025-09-19 08:09 Mixed hyperlipidemia [facility] 2025-09-19 08:09 Hyperkalemia [facility] 2025-09-19 08:09 Essential (primary) hypertensio n [facility] 2025-09-19 08:09 Heart failure, unspecified [facility] [employer] 2025-09-19 08:09 Unspecified sequelae of cerebra l infarction [facility] 2025-09-19 08:09 Pneumonia, unspecified organism [facility] 2025-09-19 08:09 Centrilobular emphysema [facility] [employer] 2025-09-19 08:09 Emphysema, unspecified [facility] 2025-09-19 08:09 Acute respiratory failure with hypoxia [facility] 2025-09-19 08:09 Respiratory failure, unspecified, unspecified whether with hypoxia or hypercapnia [facility] 2025-09-19 08:09 Acute appendicitis w ith perforation, localized peritonitis, and gangrene, without abscess [facility] 2025-09-19 08:09 Bilateral primary osteoarthriti s of hip [facility] 2025-09-19 08:09 Unspecified osteoarthritis, uns pecified site [facility] 2025-09-19 08:09 Spinal stenosis, lum bar region with neurogenic claudication [facility] 2025-09-19 08:09 Low back pain, unspecified Critical access hospital 2025-09-19 08:09 Pain in right leg [facility] 08:09 Pain in left leg [facility] 2025-09-19 08:09 Acute kidney failure, unspecifi ed [facility] 2025-09-19 08:09 Chronic kidney disease, stage 4 (severe) [facility] 2025-09-19 08:09 Chronic kidney disease, unspeci fied [facility] 2025-09-19 08:09 Unspecified abdominal pain Critical [facility] hospital 2025-09-19 08:09 Severe sepsis without septic sh ock [facility] 2025-09-19 08:36 Sepsis, unspecified organism 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 [facility] 2025-09-19 08:36 Mixed hyperlipidemia [facility] 2025-09-19 08:36 Hyperkalemia [facility] 2025-09-19 08:36 Essential (primary) hypertensio n [facility] 2025-09-19 08:36 Heart failure, unspecified [facility] 2025-09-19 08:36 Unspecified sequelae of cerebra l infarction [facility] 2025-09-19 08:36 Centrilobular emphysema [facility] 2025-09-19 08:36 Emphysema, unspecified [facility] 2025-09-19 08:36 Acute respiratory failure with hypoxia [facility] 2025-09-19 08:36 Respiratory failure, unspecified, unspecified whether with hypoxia or hypercapnia [facility] 2025-09-19 08:36 Acute appendicitis w ith perforation, localized peritonitis, and gangrene, without abscess [facility] 2025-09-19 08:36 Bilateral primary osteoarthriti s of hip [facility] 2025-09-19 08:36 Unspecified osteoarthritis, uns pecified site [facility] 2025-09-19 08:36 Spinal stenosis, lum bar region with neurogenic claudication [facility] 2025-09-19 08:36 Low back pain, unspecified [facility] [employer] 2025-09-19 08:36 Pain in right leg [facility] 2025-09-19 08:36 Pain in left leg [facility] 2025-09-19 08:36 Acute kidney failure, unspecifi ed [facility] 2025-09-19 08:36 Chronic kidney disease, stage 4 (severe) [facility] 2025-09-19 08:36 Chronic kidney disease, unspeci fied [facility] 2025-09-19 08:36 Unspecified abdominal pain [facility] [employer] 2025-09-19 08:36 Severe sepsis without septic sh ock [facility] Results/Labs test date facility value unit notes Result panel 1 CREATININE 2025-08-19 10:08 [facility] 1.6 mg/dl As of May 2023 testing method has changed, this may include reference ranges. CHLORIDE 2025-08-19 10:08 [facility] 107 mmol/l As of May 2023 testing method has changed, this may include reference ranges. SODIUM 2025-08-19 10:08 [facility] 138 mmol/l (missing) GLUCOSE 2025-08-19 10:08 [employer] 208 mg/dl As of May 2023 testing method has changed, this may include reference ranges. CARBON DIOXIDE - CO2 2025-08-19 10:08 [facility] 22 mmol/l As of May testing method has changed, this may include reference ranges. GFR - MDRD 2025-08-19 10:08 [facility] 30 (domingo belcher) The IDMS-traceable MDRD Study [...] last updated January 2012. POTASSIUM 2025-08-19 10:08 [facility] 4.7 mmol/l As of May 2023 testing method has changed, this may include reference ranges. BUN - BLOOD UREA NITROGEN 2025-08-19 10:08 [facility] 46 mg/dl As of May testing method has changed, this may include reference ranges. ANION GAP 2025-08-19 10:08 [facility] 9.0 (missing ) (missing) CALCIUM 2025-08-19 10:08 [facility] 9.5 mg/dl As of May 2023 testing method has changed, this may include reference ranges. Result panel 2 CREATININE,URINE 2025-08-19 10:10 [facility] 26.5 m g/dl As of May 2023 testing method has changed, this may include reference ranges. PROTEIN/CREATININE RATIO,URINE 2025-08-19 10:10 [facility] 3.4 (missing) (missing) TOTAL PROTEIN,URINE TIMED 2025-08-19 10:10 [facility] 89 mg/dl As of May testing method has changed, this may include reference ranges. Result panel 3 NUCLEATED RED BLOOD CELLS AUTO 2025-09-11 16:03 [facility] 0.0 /100wbc (missing) BASOPHILS # (AUTO) 2025-09-11 16:03 [facility] 0.0 10 3/ul (missing) NRBC ABSOLUTE COUNT (AUTO) 2025-09-11 16:03 [facility] 0.00 x10 3/ul (missing) EOSINOPHILS # (AUTO) 2025-09-11 16:03 [facility] 0.1 10 3/ul (missing) BILIRUBIN,TOTAL 2025-09-11 16:03 [facility] 0.5 mg/dl As of May 2023 testing method has changed, this may include reference ranges. MONOCYTES # (AUTO) 2025-09-11 16:03 [facility] 0.7 10 3/ul (missing) ALBUMIN/GLOBULIN RATIO 2025-09-11 16:03 [facility] 0.9 (missing) (missing) LYMPHOCYTES # (AUTO) 2025-09-11 16:03 [facility] 1.1 10 3/ul (missing) MEAN PLATELET VOLUME 2025-09-11 16:03 [facility] 10.0 fl (missing) HGB - HEMOGLOBIN 2025-09-11 16:03 [facility] 10.1 g/dl (missing) ANION GAP 2025-09-11 16:03 [facility] 11.0 (missing) (missing) PLT - PLATELET COUNT 2025-09-11 16:03 [facility] 115 10 3/ul (missing) SODIUM 2025-09-11 16:03 [facility] 126 mmol/l (missing) RED CELL DISTRIBUTION WIDTH 2025-09-11 16:03 [facility] 13.2 % (missing) NEUTROPHILS # (AUTO) 2025-09-11 16:03 [facility] 13.9 10 3/ul (missing) WHITE BLOOD COUNT 2025-09-11 16:03 [facility] 15.9 x10 3/ul (missing) ESTIMATED AVERAGE GLUCOSE 2025-09-11 16:03 [facility] 169 mg/dl (missing) CREATININE 2025-09-11 16:03 [facility] 2.2 mg/dl As of May 2023 testing method has changed, this may include reference ranges. CARBON DIOXIDE - CO2 2025-09-11 16:03 [facility] 20 mmol/l As of May 2023 testing method has changed, this may include reference ranges. GFR - MDRD 2025-09-11 16:03 [facility] 21 (missing) The IDMS-traceable MDRD Study Equation [...] last updated January 2012. GLUCOSE 2025-09-11 16:03 [facility] 257 mg/dl As of May 2023 testing method has changed, this may include reference ranges. RED BLOOD COUNT 2025-09-11 16:03 [facility] 3.31 10 6/ul (missing) ALBUMIN 2025-09-11 16:03 [facility] 3.5 g/dl As of May 2023 testing method has changed, this may include reference ranges. MEAN CORPUSCULAR HEMOGLOBIN 2025-09-11 16:03 [facility] 30.5 pg (missing) HCT - HEMATOCRIT 2025-09-11 16:03 [facility] 30.8 % (missing) MEAN CORPUSCULAR HGB CONC 2025-09-11 16:03 [facility] 32.8 g/dl (missing) GLOBULIN 2025-09-11 16:03 [facility] 4.0 g/dl (missing) BUN - BLOOD UREA NITROGEN 2025-09-11 16:03 [facility] 47 mg/dl As of May 2023 testing method has changed, this may include reference ranges. POTASSIUM 2025-09-11 16:03 [facility] 5.5 mmol/l As of May 2023 testing method has changed, this may include reference ranges. HEMOGLOBIN A1c% 2025-09-11 16:03 [facility] 7.5 % The [place] [employer] (ADA) has made the following recommendations: Monitoring HbA1c in Diabetic Patients: A1c (NGSP%) Goal <8 Less Stringent Goal <7 General Goal <6.5 More Stringent Goal Diagnosis of Diabetes: A1c (NGSP%) Goal >6.5 Diabetic 5.7-6.4 Pre-Diabetic <5.7 Non-Diabetic TOTAL PROTEIN 2025-09-11 16:03 [facility] 7.5 g/dl As of May 2023 testing method has changed, this may include reference ranges. ALKALINE PHOSPHATASE 2025-09-11 16:03 [facility] 74 iu/l As of May 2023 testing method has changed, this may include reference ranges. ALT ALANINE AMINOTRANSFERASE 2025-09-11 16:03 [facility] 8 iu/l As of May 2023 testing method has changed, this may include reference ranges. CALCIUM 2025-09-11 16:03 [facility] 8.7 mg/dl As of May 2023 testing method has changed, this may include reference ranges. AST ASPARTATE AMINOTRANSFERASE 2025-09-11 16:03 [facility] 9 iu/l As of May 2023 testing method has changed, this may include reference ranges. MEAN CORPUSCULAR VOLUME 2025-09-11 16:03 [facility] [employer] 93.1 fl (missing) CHLORIDE 2025-09-11 16:03 [facility] [employer] 95 mmol/l As of May 2023 testing method has changed, this may include reference ranges. Result panel 4 BNP - B-NATRIURETIC PEPTIDE 2025-09-11 16:05 [facility] [employer] 838 pg/ml (missing) Result panel 5 CULTURE, BLOOD #2 2025-09-11 16:54 [facility] NG1D NO GROWTH AFTER 1 DAY (missing) (missing) CULTURE, BLOOD #2 2025-09-11 16:54 [facility] NG2D NO GROWTH AFTER 2 DAYS (missing) (missing) CULTURE, BLOOD #2 2025-09-11 16:54 [facility] NG5D NO GROWTH AFTER 5 DAYS (missing) (missing) Result panel 6 LACTIC ACID, VENOUS 2025-09-11 16:56 [facility] 0.9 mmol/l N As of 2022 testing method has changed, this may include reference ranges. CULTURE, BLOOD #1 2025-09-11 16:56 [facility] NG1DNO GROWTH AFTER 1 DAY (missing) (missing) CULTURE, BLOOD #1 2025-09-11 16:56 [facility] NG2DNO GROWTH AFTER 2 DAYS (missing) (missing) CULTURE, BLOOD #1 2025-09-11 16:56 [facility] NG5DNO GROWTH AFTER 5 DAYS (missing) (missing) Result panel 7 GLUCOSE, WHOLE BLOOD 2025-09-11 20:51 [facility] 185 (missing) RN notified. Result panel 8 NUCLEATED RED BLOOD CELLS AUTO 2025-09-12 04:18 [facility] 0.0 /100wbc (missing) BASOPHILS # (AUTO) 2025-09-12 04:18 [facility] 0.0 10 3/ul (missing) EOSINOPHILS # (AUTO) 2025-09-12 04:18 [facility] 0.0 10 3/ul (missing) NRBC ABSOLUTE COUNT (AUTO) 2025-09-12 04:18 [facility] 0.00 x10 3/ul (missing) MONOCYTES # (AUTO) 2025-09-12 04:18 [facility] 0.1 10 3/ul (missing) BILIRUBIN,TOTAL 2025-09-12 04:18 [facility] 0.5 mg/dl As of May 2023 testing method has changed, this may include reference ranges. LYMPHOCYTES # (AUTO) 2025-09-12 04:18 [facility] 0.6 10 3/ul (missing) ALBUMIN/GLOBULIN RATIO 2025-09-12 04:18 [facility] 0.9 (missing) (missing) NEUTROPHILS # (AUTO) 2025-09-12 04:18 [facility] 10.5 10 3/ul (missing) MEAN PLATELET VOLUME 2025-09-12 04:18 [facility] 10.6 fl (missing) PLT - PLATELET COUNT 2025-09-12 04:18 [facility] 105 10 3/ul (missing) ANION GAP 2025-09-12 04:18 [facility] 11.0 (missing) (missing) WHITE BLOOD COUNT 2025-09-12 04:18 [facility] 11.3 x10 3/ul (missing) SODIUM 2025-09-12 04:18 [facility] 125 mmol/l (missing) RED CELL DISTRIBUTION WIDTH 2025-09-12 04:18 [facility] 13.4 % (missing) CARBON DIOXIDE - CO2 2025-09-12 04:18 [facility] 17 mmol/l As of May 2023 testing method has changed, this may include reference ranges. CREATININE 2025-09-12 04:18 [facility] 2.1 mg/dl As of May 2023 testing method has changed, this may include reference ranges. GLUCOSE 2025-09-12 04:18 [facility] 219 mg/dl As of May 2023 testing method has changed, this may include reference ranges. GFR - MDRD 2025-09-12 04:18 [facility] 22 (missing) The IDMS-traceable MDRD Study Equation [...] January 2012. HCT - HEMATOCRIT 2025-09-12 04:18 [facility] 28.1 % (missing) RED BLOOD COUNT 2025-09-12 04:18 [facility] 3.00 10 6/ul (missing) ALBUMIN 2025-09-12 04:18 [facility] 3.1 g/dl As of May 2023 testing method has changed, this may include reference ranges. GLOBULIN 2025-09-12 04:18 [facility] 3.6 g/dl (missing) MEAN CORPUSCULAR HEMOGLOBIN 2025-09-12 04:18 [facility] 30.7 pg (missing) MEAN CORPUSCULAR HGB CONC 2025-09-12 04:18 [facility] 32.7 g/dl (missing) POTASSIUM 2025-09-12 04:18 [facility] 5.3 mmol/l As of May 2023 testing method has changed, this may include reference ranges. BUN - BLOOD UREA NITROGEN 2025-09-12 04:18 [facility] 52 mg/dl As of May 2023 testing method has changed, this may include reference ranges. TOTAL PROTEIN 2025-09-12 04:18 [facility] 6.7 g/dl As of May 2023 testing method has changed, this may include reference ranges. ALKALINE PHOSPHATASE 2025-09-12 04:18 [facility] 64 iu/l As of May 2023 testing method has changed, this may include reference ranges. ALT ALANINE AMINOTRANSFERASE 2025-09-12 04:18 [facility] 7 iu/l As of May 2023 testing method has changed, this may include reference ranges. CALCIUM 2025-09-12 04:18 [facility] 7.9 mg/dl As of May 2023 testing method has changed, this may include reference ranges. AST ASPARTATE AMINOTRANSFERASE 2025-09-12 04:18 [facility] 9 iu/l As of May 2023 testing method has changed, this may include reference ranges. HGB - HEMOGLOBIN 2025-09-12 04:18 [facility] 9.2 g/dl (missing) MEAN CORPUSCULAR VOLUME 2025-09-12 04:18 [facility] 93.7 fl (missing) CHLORIDE 2025-09-12 04:18 [facility] 97 mmol/l As of May 2023 testing method has changed, this may include reference ranges. Result panel 9 GLUCOSE, WHOLE BLOOD 2025-09-12 07:42 [facility] 211 (missing) RN notified. Result panel 10 GLUCOSE, URINE (UA) 2025-09-12 09:15 Scoreloop >=1000 mg/dl (missing) RBC,URINE 2025-09-12 09:15 [facility] 0-5 /hpf (missing) UROBILINOGEN,URI NE 2025-09-12 09:15 [facility] 0.2 (NORMAL) e.u./dl (missing) SPECIFIC GRAVITY,URINE 2025-09-12 09:15 [facility] 1.005 (missing) (missing) WBC,URINE 2025-09-12 09:15 [facility] 6-10 /hpf (missing) PH,URINE 2025-09-12 09:15 Score[facility] 6.0 ph (missing) CUL, URINE 2025-09-12 09:15 [facility]loop CXPCULTURE IN PROGRESS. RESULTS TO FOLLOW. (missing) (missing) SQUAMOUS EPITHELIAL CELL,UR 2025-09-12 09:15 Scoreloop FEW Squamous (missing) (missing) BACTERIA,URINE 2025-09-12 09:15 [...] (missing) NRBC ABSOLUTE COUNT (AUTO) 2025-09-13 04:42 [facility] 0.00 x10 3/ul (missing) MONOCYTES # (AUTO) 2025-09-13 04:42 [facility] 0.5 10 3/ul (missing) LYMPHOCYTES # (AUTO) 2025-09-13 04:42 [facility] 0.8 10 3/ul (missing) MEAN PLATELET VOLUME 2025-09-13 04:42 [facility] 10.7 fl (missing) CHLORIDE 2025-09-13 04:42 [facility] 103 mmol/l As of May 2023 testing method has changed, this may include reference ranges. NEUTROPHILS # (AUTO) 2025-09-13 04:42 [facility] 11.5 10 3/ul (missing) WHITE BLOOD COUNT 2025-09-13 04:42 [facility] 12.9 x10 3/ul (missing) PLT - PLATELET COUNT 2025-09-13 04:42 [facility] 129 10 3/ul (missing) ANION GAP 2025-09-13 04:42 [facility] 13.0 (missing ) (missing) RED CELL DISTRIBUTION WIDTH 2025-09-13 04:42 Score[facility] 13.2 % (mi ssing) SODIUM 2025-09-13 04:42 [facility] 135 mmol/l (missing) CARBON DIOXIDE - CO2 2025-09-13 04:42 [facility] 19 mmol/l As of May 2023 testing method has changed, this may include reference ranges. CREATININE 2025-09-13 04:42 [facility] 2.1 mg/dl As of May 2023 testing method has changed, this may include reference ranges. GLUCOSE 2025-09-13 04:42 [facility] 219 mg/dl As of May 2023 testing method has changed, this may include reference ranges. GFR - MDRD 2025-09-13 04:42 Score[facility] 22 (missin g) The IDMS-traceable MDRD Study [...] January 2012. HCT - HEMATOCRIT 2025-09-13 04:42 [facility] 28.0 % (missing) MEAN CORPUSCULAR HEMOGLOBIN 2025-09-13 04:42 [facility] 29.9 pg (missing) RED BLOOD COUNT 2025-09-13 04:42 [facility] 3.08 10 6/ul (missing) MEAN CORPUSCULAR HGB CONC 2025-09-13 04:42 [facility] 32.9 g/dl (missing) POTASSIUM 2025-09-13 04:42 [facility] 4.0 mmol/l As of May 2023 testing method has changed, this may include reference ranges. BUN - BLOOD UREA NITROGEN 2025-09-13 04:42 [facility] 58 mg/dl As of May testing method has changed, this may include reference ranges. CALCIUM 2025-09-13 04:42 [facility] 8.3 mg/dl As of May 2023 testing method has changed, this may include reference ranges. HGB - HEMOGLOBIN 2025-09-13 04:42 [facility] 9.2 g /dl (missing) MEAN CORPUSCULAR VOLUME 2025-09-13 04:42 [facility] 90.9 fl (missing) Result panel 15 GLUCOSE, WHOLE BLOOD 2025-09-13 08:11 [facility] 235 (missing) RN notified. Result panel 16 GLUCOSE, WHOLE BLOOD 2025-09-13 11:34 [facility] 200 (missing) RN notified. Result panel 17 MRSA (NASAL) PCR SCREEN 2025-09-13 14:05 [facility] NEGA TIVE (missing) (missing) Result panel 18 GLUCOSE, WHOLE BLOOD 2025-09-13 16:50 [facility] 164 (missing) (missing) Result panel 19 GLUCOSE, WHOLE BLOOD 2025-09-13 20:54 [facility] 201 (missing) RN notified. Result panel 20 NUCLEATED RED BLOOD CELLS AUTO 2025-09-14 04:37 [facility] 0.0 /100wbc (missing) BASOPHILS # (AUTO) 2025-09-14 04:37 [facility] 0.0 10 3/ul (missing) EOSINOPHILS # (AUTO) 2025-09-14 04:37 [facility] 0.0 10 3/ul (missing) NRBC ABSOLUTE COUNT (AUTO) 2025-09-14 04:37 [facility] 0.00 x10 3/ul (missing) MONOCYTES # (AUTO) 2025-09-14 04:37 [facility] 0.7 10 3/ul (missing) LYMPHOCYTES # (AUTO) 2025-09-14 04:37 [facility] 1.0 10 3/ul (missing) MEAN PLATELET VOLUME 2025-09-14 04:37 [facility] 10.1 fl (missing) WHITE BLOOD COUNT 2025-09-14 04:37 [facility] 10.8 x10 3/ul (missing) PREALBUMIN 2025-09-14 04:37 [facility] 11 mg/dl As of May 2023 testing method has changed, this may include reference ranges. PLT - PLATELET COUNT 2025-09-14 04:37 [facility] 126 10 3/ul (missing) ANION GAP 2025-09-14 04:37 [facility] 13.0 (missing ) (missing) RED CELL DISTRIBUTION WIDTH 2025-09-14 04:37 [facility] 13.5 % (mi ssing) SODIUM 2025-09-14 04:37 [facility] 131 mmol/l (missing) CRP - C-REACTIVE PROTEIN 2025-09-14 04:37 [facility] 16.5 mg/dl As of May testing method has changed, this may include reference ranges. CREATININE 2025-09-14 04:37 [facility] 2.0 mg/dl As of May 2023 testing method has changed, this may include reference ranges. CARBON DIOXIDE - CO2 2025-09-14 04:37 [facility] 20 mmol/l As of May 2023 testing method has changed, this may include reference ranges. GLUCOSE 2025-09-14 04:37 [facility] 226 mg/dl As of May 2023 testing method has changed, this may include reference ranges. GFR - MDRD 2025-09-14 04:37 [facility] 23 (domingo belcher) The IDMS-traceable MDRD Study [...] January 2012. HCT - HEMATOCRIT 2025-09-14 04:37 [facility] 27.4 % (missing) RED BLOOD COUNT 2025-09-14 04:37 [facility] 3.03 10 6/ul (missing) POTASSIUM 2025-09-14 04:37 [facility] 3.3 mmol/l As of May 2023 testing method has changed, this may include reference ranges. MEAN CORPUSCULAR HEMOGLOBIN 2025-09-14 04:37 [facility] 30.4 pg (missing) MEAN CORPUSCULAR HGB CONC 2025-09-14 04:37 [facility] 33.6 g/dl (missing) BUN - BLOOD UREA NITROGEN 2025-09-14 04:37 [facility] 60 mg/dl As of May testing method has changed, this may include reference ranges. CALCIUM 2025-09-14 04:37 [facility] 7.6 mg/dl As of May 2023 testing method has changed, this may include reference ranges. NEUTROPHILS # (AUTO) 2025-09-14 04:37 [facility] 9.0 10 3/ul (missing) HGB - HEMOGLOBIN 2025-09-14 04:37 [facility] 9.2 g /dl (missing) MEAN CORPUSCULAR VOLUME 2025-09-14 04:37 [facility] 90.4 fl (missing) CHLORIDE 2025-09-14 04:37 [facility] NUCLEATED RED BLOOD CELLS AUTO 2025-09-15 05:02 [facility] 0.0 /100wbc (missing) BASOPHILS # (AUTO) 2025-09-15 05:02 [facility] 0.0 10 3/ul (missing) EOSINOPHILS # (AUTO) 2025-09-15 05:02 [facility] 0.0 10 3/ul (missing) NRBC ABSOLUTE COUNT (AUTO) 2025-09-15 05:02 [facility] 0.00 x10 3/ul (missing) MONOCYTES # (AUTO) 2025-09-15 05:02 [facility] 0.7 10 3/ul (missing) LYMPHOCYTES # (AUTO) 2025-09-15 05:02 [facility] 1.3 10 3/ul (missing) MEAN PLATELET VOLUME 2025-09-15 05:02 [facility] 10.1 fl (missing) CHLORIDE 2025-09-15 05:02 [facility] 104 mmol/l As of May 2023 [...] 159 10 3/ul (missing) GLUCOSE 2025-09-15 05:02 [facility] 175 mg/dl As of May 2023 testing method has changed, this may include reference ranges. CARBON DIOXIDE - CO2 2025-09-15 05:02 [facility] 19 mmol/l As of May 2023 testing method has changed, this may include reference ranges. CREATININE 2025-09-15 05:02 [facility] 2.3 mg/dl As of May 2023 testing method has changed, this may include reference ranges. MAGNESIUM 2025-09-15 05:02 [facility] 2.9 mg/dl As of May 2023 testing method has changed, this may include reference ranges. GFR - MDRD 2025-09-15 05:02 [facility] 20 (domingo belcher) The IDMS-traceable MDRD Study [...] January 2012. MEAN CORPUSCULAR HEMOGLOBIN 2025-09-15 05:02 [facility] 29.2 pg (missing) HCT - HEMATOCRIT 2025-09-15 05:02 [facility] 29.3 % (missing) RED BLOOD COUNT 2025-09-15 05:02 [facility] 3.15 10 6/ul (missing) POTASSIUM 2025-09-15 05:02 [facility] 3.7 mmol/l As of May 2023 testing method has changed, this may include reference ranges. MEAN CORPUSCULAR HGB CONC 2025-09-15 05:02 [facility] 31.4 g/dl (missing) CALCIUM 2025-09-15 05:02 [facility] 7.7 mg/dl As of May 2023 testing [...] 13.6 % (mi ssing) SODIUM 2025-09-16 04:53 [facility] 136 mmol/l (missing) GLUCOSE 2025-09-16 04:53 [facility] 160 mg/dl As of May 2023 testing method has changed, this may include reference ranges. PLT - PLATELET COUNT 2025-09-16 04:53 [facility] 172 10 3/ul (missing) LYMPHOCYTES # (AUTO) 2025-09-16 04:53 [facility] 2.0 10 3/ul (missing) CREATININE 2025-09-16 04:53 [facility] 2.3 mg/dl As of May 2023 testing method has changed, this may include reference ranges. MAGNESIUM 2025-09-16 04:53 [facility] 2.9 mg/dl As of May 2023 testing method has changed, this may include reference ranges. RED BLOOD COUNT 2025-09-16 04:53 [facility] 2.98 10 6/ul (missing) GFR - MDRD 2025-09-16 04:53 [facility] 20 (missin g) The IDMS-traceable MDRD Study [...] 2012. CARBON DIOXIDE - CO2 2025-09-16 04:53 [facility] 20 mmol/l As of May 2023 testing method has changed, this may include reference ranges. HCT - HEMATOCRIT 2025-09-16 04:53 [facility] 26.9 % (missing) POTASSIUM 2025-09-16 04:53 [facility] 3.5 mmol/l As of May 2023 testing method has changed, this may include reference ranges. MEAN CORPUSCULAR HEMOGLOBIN 2025-09-16 04:53 [facility] 30.2 pg (missing) MEAN CORPUSCULAR HGB CONC 2025-09-16 04:53 [facility] 33.5 g/dl (missing) CALCIUM 2025-09-16 04:53 [facility] 7.4 mg/dl As of May 2023 testing method has changed, this may include reference ranges. BUN - BLOOD UREA NITROGEN 2025-09-16 04:53 [facility] 73 mg/dl As of May testing method has changed, this may include reference ranges. HGB - HEMOGLOBIN 2025-09-16 04:53 [facility] 9.0 g /dl (missing) NEUTROPHILS # (AUTO) 2025-09-16 04:53 [facility] 9.4 10 3/ul (missing) MEAN CORPUSCULAR VOLUME 2025-09-16 04:53 [facility] 90.3 fl (missing) Result panel 31 [...] ) (missing) MEAN PLATELET VOLUME 2025-09-17 04:35 [facility] 10.4 fl (missing) WHITE BLOOD COUNT 2025-09-17 04:35 [facility] 10.8 x10 3/ul (missing) CHLORIDE 2025-09-17 04:35 [facility] 105 mmol/l As of May 2023 testing method has changed, this may include reference ranges. RED CELL DISTRIBUTION WIDTH 2025-09-17 04:35 [facility] 13.5 % (mi ssing) SODIUM 2025-09-17 04:35 [facility] 136 mmol/l (missing) PLT - PLATELET COUNT 2025-09-17 04:35 [facility] 188 10 3/ul (missing) GLUCOSE 2025-09-17 04:35 [facility] 197 mg/dl As of May 2023 testing method has changed, this may include reference ranges. CREATININE 2025-09-17 04:35 [facility] 2.1 mg/dl As of May 2023 testing method has changed, this may include reference ranges. MAGNESIUM 2025-09-17 04:35 [facility] 2.9 mg/dl As of May 2023 testing method has changed, this may include reference ranges. CARBON DIOXIDE - CO2 2025-09-17:35 [facility] 21 mmol/l As of May 2023 testing method has changed, this may include reference ranges. GFR - MDRD 2025-09-17 04:35 [facility] 22 (domingo belcher) The IDMS-traceable MDRD Study [...] January 2012. HCT - HEMATOCRIT 2025-09-17 04:35 [facility] 28.6 % (missing) RED BLOOD COUNT 2025-09-17 04:35 [facility] 3.16 10 6/ul (missing) POTASSIUM 2025-09-17:35 [facility] 3.8 mmol/l As of May 2023 testing method has changed, this may include reference ranges. MEAN CORPUSCULAR HEMOGLOBIN 2025-09-17 04:35 [facility] 30.4 pg (missing) MEAN CORPUSCULAR HGB CONC 2025-09-17:35 [facility] 33.6 g/dl (missing) BUN - BLOOD UREA NITROGEN 2025-09-17 04:35 [facility] 63 mg/dl As of May testing method has changed, this may include reference ranges. CALCIUM 2025-09-17:35 [facility] 7.9 mg/dl As of May 2023 testing method has changed, this may include reference ranges. HGB - HEMOGLOBIN 2025-09-17 04:35 [facility] 9.6 g /dl (missing) MEAN CORPUSCULAR VOLUME 2025-09-17 04:35 [facility] 90.5 fl (missing) Result panel 36 GLUCOSE, WHOLE BLOOD 2025-09-17 08:04 [facility] 137 (missing) (missing) Result panel 37 GLUCOSE, WHOLE BLOOD 2025-09-17 11:49 [facility] 187 (missing) (missing) Result panel 38 NUCLEATED RED BLOOD CELLS AUTO 2025-10-19 16:49 [facility] 0.0 /100wbc (missing) NRBC ABSOLUTE COUNT (AUTO) 2025-10-19 16:49 [facility] 0.00 x10 3/ul (missing) BASOPHILS # (AUTO) 2025-10-19 16:49 [facility] 0.1 10 3/ul (missing) EOSINOPHILS # (AUTO) 2025-10-19 16:49 [facility] 0.1 10 3/ul (missing) BILIRUBIN,TOTAL 2025-10-19 16:49 [facility] 0.5 mg/dl As of May 2023 testing method has changed, this may include reference ranges. ALBUMIN/GLOBULIN RATIO 2025-10-19 16:49 [facility] 0.9 (missing) (missing) RBC MORPHOLOGY (MULTIPLE) 2025-10-19 16:49 [facility] 1+ ANISOCYTOSIS (missing) (missing) RBC MORPHOLOGY (MULTIPLE) 2025-10-19 16:49 [facility] 1+ BASO STIPPLING (missing) (missing) WBC MORPHOLOGY (MULTIPLE) 2025-10-19 16:49 [facility] 1+ HYPERSEG NEUT (missing) (missing) RBC MORPHOLOGY (MULTIPLE) 2025-10-19 16:49 [facility] 1+ HYPOCHROMASIA (missing) (missing) RBC MORPHOLOGY (MULTIPLE) 2025-10-19 16:49 [facility] 1+ OVALOCYTES (missing) (missing) MONOCYTES # (AUTO) 2025-10-19 16:49 [facility] 1.2 10 3/ul (missing) LYMPHOCYTES # (AUTO) 2025-10-19 16:49 [facility] 1.7 10 3/ul (missing) AST ASPARTATE AMINOTRANSFERASE 2025-10-19 16:49 [facility] 10 iu/l As of May 2023 testing method has changed, this may include reference ranges. ANION GAP 2025-10-19 16:49 [facility] 10.0 (missing) (missing) MEAN PLATELET VOLUME 2025-10-19 16:49 [facility] 10.1 fl (missing) PLT - PLATELET COUNT 2025-10-19 16:49 [facility] 100 10 3/ul (missing) CHLORIDE 2025-10-19 16:49 [facility] 100 mmol/l As of May 2023 testing method has changed, this may include reference ranges. SODIUM 2025-10-19 16:49 [facility] 129 mmol/l Unknown RED CELL DISTRIBUTION WIDTH 2025-10-19 16:49 [facility] 15.2 % (missing) CARBON DIOXIDE - CO2 2025-10-19 16:49 [facility] 19 mmol/l As of May 2023 testing method has changed, this may include reference ranges. CREATININE 2025-10-19 16:49 [facility] 2.0 mg/dl As of May 2023 testing method has changed, this may include reference ranges. MAGNESIUM 2025-10-19 16:49 [facility] 2.4 mg/dl As of May 2023 testing method has changed, this may include reference ranges. RED BLOOD COUNT 2025-10-19 16:49 [facility] 2.72 10 6/ul (missing) NEUTROPHILS # (AUTO) 2025-10-19 16:49 [facility] 20.1 10 3/ul (missing) GLUCOSE 2025-10-19 16:49 [facility] 203 mg/dl As of May 2023 testing method has changed, this may include reference ranges. GFR - MDRD 2025-10-19 16:49 [facility] 23 (missing) The IDMS-traceable MDRD Study Equation has [...] caring for patients older than 70. References: http://www.nkde p.nih.gov/lab-e valuation/gfr/c yenni-triny ardization, last updated January 2012. WHITE BLOOD COUNT 2025-10-19 16:49 [facility] 23.6 x10 3/ul (missing) HCT - HEMATOCRIT 2025-10-19 16:49 [facility] 25.3 % (missing) ALBUMIN 2025-10-19 16:49 [facility] 3.0 g/dl As of May 2023 testing method has changed, this may include reference ranges. GLOBULIN 2025-10-19 16:49 [facility] 3.2 g/dl (missing) MEAN CORPUSCULAR HEMOGLOBIN 2025-10-19 16:49 [facility] 30.1 pg (missing) MEAN CORPUSCULAR HGB CONC 2025-10-19 16:49 [facility] 32.4 g/dl (missing) BUN - BLOOD UREA NITROGEN 2025-10-19 16:49 [facility] 34 mg/dl As of May 2023 testing method has changed, this may include reference ranges. POTASSIUM 2025-10-19 16:49 [facility] 4.3 mmol/l As of May 2023 testing method has changed, this may include reference ranges. TOTAL PROTEIN 2025-10-19 16:49 [facility] 6.2 g/dl As of May 2023 testing method has changed, this may include reference ranges. ALT ALANINE AMINOTRANSFERASE 2025-10-19 16:49 [facility] 7 iu/l As of May 2023 testing method has changed, this may include reference ranges. CALCIUM 2025-10-19 16:49 [facility] 7.7 mg/dl As of May 2023 testing method has changed, this may include reference ranges. ALKALINE PHOSPHATASE 2025-10-19 16:49 [facility] 70 iu/l As of May 2023 testing method has changed, this may include reference ranges. HGB - HEMOGLOBIN 2025-10-19 16:49 [facility] 8.2 g/dl (missing) MEAN CORPUSCULAR VOLUME 2025-10-19 16:49 [facility] 93.0 fl (missing) PLATELET ESTIMATE, MANUAL 2025-10-19 16:49 [facility] DECREASED (<130,000) (missing) (missing) SLIDE REVIEW? 2025-10-19 16:49 [facility] Indicated (missing) (missing) DIFFERENTIAL COMMENT 2025-10-19 16:49 [facility] MANUAL=AUTO DIFF (missing) MANUAL DIFFERENTIAL AGREES WITH AUTO DIFFERENTIAL PLATELET MORPHOLOGY 2025-10-19 16:49 [facility] NORMAL APPEARANCE (missing) (missing) Result panel 39 LACTIC ACID, VENOUS 2025-10-19 17:02 [facility] 1.1 mmol/l N As of May 2023 testing method has changed, this may include reference ranges. Social History date description facility
[2025-10-19] MEDS ORDERED: ONDANSETRON 4 MG/2 ML VIAL IVP PRN (19:10)
[2025-10-19] MEDS ORDERED: SODIUM CHLORIDE FLUSH 0.9% 10 ML SYRINGE IVP PRN (19:10)
[2025-10-19] MEDS: oxyCODONE 5 MG TABLET PO PRN (19:36)
--- NOTE | 2025-10-19 19:37 | XRAY Report ---
PROCEDURE: XR Chest 2V INDICATIONS: Abnormal CT. TECHNIQUE: 2 views of the chest were acquired. COMPARISON: 10/19/2025 CT abdomen and pelvis. FINDINGS: Surgical changes and devices: None. Lungs and pleura: Dense left upper and left lower lobe opacities. Left diaphragm is obscured. Perihilar interstitial and groundglass densities are noted. No pneumothorax or significant effusion. Mediastinum: The aorta and pulmonary arteries demonstrate normal size. Calcifications are noted in the thoracic arch. Status post TAVR procedure. Bones and chest wall: Mild multilevel degenerative disc disease present. No suspicious bony lesions. Overlying soft tissues appear unremarkable. IMPRESSION: Dense left upper and left lower lobe opacities. This could represent pneumonia. Perihilar interstitial and groundglass densities could represent pulmonary edema. Reviewed by: Carrie Dominguez MD on 10/19/2025 7:34 PM PST Approved by: Carrie Dominguez MD on 10/19/2025 7:34 PM PST Station ID: [id number]
[2025-10-19] MEDS: FUROSEMIDE 20 MG/2 ML VIAL IVP STA (19:54)
[2025-10-19] MEDS: cefTRIAXone 1 GM in SODIUM CHLORIDE 0.9% MINIBAG 100 ML IV SCH (20:18)
[2025-10-19 20:50] LABS: GLUCOSE, URINE (UA) >=1000 mg/dL (NEGATIVE); KETONES,URINE (UA) NEGATIVE (NEGATIVE); OCCULT BLOOD,URINE NEGATIVE (NEGATIVE)
[2025-10-19 20:51] LABS: EPITHELIAL CELLS,UR RARE Renal Tubular /HPF (<= Few); SQUAMOUS EPITHELIAL CELL,UR RARE Squamous (<= Few)
[2025-10-19] MEDS: AZITHROMYCIN INJ 500 MG in SODIUM CHLORIDE 0.9% 250 ML IV SCH (21:03)
[2025-10-19] MEDS: INSULIN LISPRO 300 UNIT/3 ML PEN SUBQ SCH (21:07)
[2025-10-19] MEDS: HEPARIN 5,000 UNIT/ML VIAL SUBQ SCH (21:08)
[2025-10-19] MEDS: ACETAMINOPHEN 325 MG TABLET PO PRN (21:52)
[2025-10-19] MEDS: IPRATROPIUM/ALBUTEROL 3 ML NEB INH PRN (22:05)
[2025-10-19] MEDS: CEFEPIME 1 GM VIAL IVP STA (22:10)
--- NOTE | 2025-10-19 22:48 | PROVIDER PROGRESS NOTE ---
Hospitalist Cross-cover Note Cross-Cover Note Cross-Cover Note: Notified by nurse of the following: Pt is having difficulty breathing, respiratory therapy is at bedside administering a duoneb treatment with little improvement. Pt 02 saturation has been steadily in the 90s on 4L NC since arrival to the floor, but desatted down to 82% at 2150. Pt is now on 8L with her treatment and has an 02 saturation of 89-90% with very audible wheezes. FYI: pt received 2L of NS in ED prior to admit. She received 20mg of lasix around 1900 and 350mL of fluids were given with her antibiotics. Please advise, thank you! chart reviewed, patient has been hypoxic since admission s/p fluid bolus. h/o HFpEF, recent ECHO showing EF 55%. She recieved 20mg of lasix at 7pm with about 200cc out per nurse. breath sounds are more wet, with some wheezing. -will obtain a portable chest xray, will bladder scan and will repeat dose of lasix IV.
[2025-10-19] MEDS: FUROSEMIDE 40 MG/4 ML VIAL IVP SCH (22:55)
--- NOTE | 2025-10-19 23:07 | XRAY Report ---
PROCEDURE: XR Chest 1V INDICATIONS: shortness of breath TECHNIQUE: One view of the chest was acquired. COMPARISON: CT and x-ray from 10/19/2025, CT 09/13/2025. FINDINGS: Surgical changes and devices: Prosthetic aortic valve. Lungs and pleura: Left basilar pneumonia with superimposed small pleural effusion. Trace right basilar effusion Mediastinum: Cardiomegaly. Bones and chest wall: No suspicious bony lesions. Overlying soft tissues appear unremarkable. IMPRESSION: Left basilar consolidation and small pleural effusion, unchanged from prior. Reviewed by: Joe Hopson MD on 10/19/2025 11:03 PM PST Approved by: Joe Hopson MD on 10/19/2025 11:03 PM PST Station ID: [id number]
[2025-10-19] MEDS: SODIUM CHLORIDE FLUSH 0.9% 10 ML SYRINGE IVP SCH (23:25)
[2025-10-20 05:46] LABS: HCT - HEMATOCRIT 24.7 % (37.0-47.0); HGB - HEMOGLOBIN 7.7 g/dL (12.0-16.0); MEAN PLATELET VOLUME 10.4 fL (7.9-10.8); NRBC ABSOLUTE COUNT (AUTO) 0.00 x10^3/uL; NUCLEATED RED BLOOD CELLS AUTO 0.0 /100WBC; PLT - PLATELET COUNT 98 10^3/uL (130-450); RED CELL DISTRIBUTION WIDTH 15.4 % (12.0-15.0)
[2025-10-20 06:04] LABS: BUN - BLOOD UREA NITROGEN 33.0 mg/dL (6-20); CARBON DIOXIDE - CO2 19.0 mmol/L (21-32); CREATININE 1.9 mg/dL (0.6-1.3); GFR - MDRD 25.0 (>89)
[2025-10-20] MEDS: SACCHAROMYCES BOULARDII 250 MG CAPSULE PO SCH (07:52)
[2025-10-20] MEDS: EMPAGLIFLOZIN 10 MG TABLET PO SCH (08:18)
[2025-10-20] MEDS ORDERED: guaiFENesin 100 MG/5 ML UDC PO PRN (10:06)
--- NOTE | 2025-10-20 10:38 | XRAY Report ---
PROCEDURE: XR Chest 1V INDICATIONS: hypoxia, vol overload TECHNIQUE: One view of the chest was acquired. COMPARISON: 10/19/2025 FINDINGS: Surgical changes and devices: TAPVR Lungs and pleura: Interval increase in left pleural effusion, posteriorly layering, moderate to severe, with underlying left basilar atelectasis. Interstitial pulmonary edema. Mediastinum: Mediastinal contours appear normal. Heart size is enlarged. Bones and chest wall: No suspicious bony lesions. Overlying soft tissues appear unremarkable. IMPRESSION: Congestive heart failure with pulmonary edema and increasing left pleural effusion, moderately large, with associated left basilar atelectasis. Reviewed by: Johan Storm MD on 10/20/2025 10:35 AM PST Approved by: Johan Storm MD on 10/20/2025 10:35 AM PST Station ID: [id number]
--- NOTE | 2025-10-20 14:29 | PROVIDER PROGRESS NOTE ---
Subjective Prog Note Date Prog Note Date: 10/20/25 Subjective Subjective: Sitting up in bed, awake and alert, says that she feels better. She is cold, and has a K -pad to help with this. no fevers. Current Medications Current Medications Current Medications: Current Medications Generic Name Dose Route Start Last Admin Trade Name Freq PRN Reason Stop Dose Admin Acetaminophen 650 mg 10/19/25 19:10 10/20/25 07:52 Acetaminophen 325 Mg Tablet PO 650 mg Q4HR PRN Administration Pain 1 to 4, or Fever Albuterol/Ipratropium 3 ml 10/19/25 19:35 10/19/25 22:05 Ipratropium/Albuterol 3 Ml Neb INH 3 ml Q4HR PRN Administration Wheezing Amlodipine Besylate 10 mg 10/20/25 09:00 10/20/25 08:18 Amlodipine 5 Mg Tablet PO 10 mg DAILY SILVIA Administration Carvedilol 12.5 mg 10/19/25 21:00 10/20/25 08:18 Carvedilol 12.5 Mg Tablet PO 12.5 mg BID SILVIA Administration Empagliflozin 10 mg 10/20/25 09:00 10/20/25 08:18 Empagliflozin 10 Mg Tablet PO 10 mg DAILY SILVIA Administration Furosemide 40 mg 10/19/25 23:00 10/19/25 22:55 Furosemide 40 Mg/4 Ml Vial IVP 10/20/25 22:59 40 mg ONCE SILVIA Administration Guaifenesin 200 mg 10/20/25 10:06 Guaifenesin 100 Mg/5 Ml Udc PO Q4H PRN Cough Heparin Sodium (Porcine) 5,000 unit 10/19/25 21:00 10/20/25 08:20 Heparin 5,000 Unit/Ml Vial SUBQ Not Given BID SILVIA Ceftriaxone Sodium 1 gm/ 100 mls @ 200 mls/hr 10/19/25 19:10 10/20/25 10:09 Sodium Chloride IV Infused DAILY SILVIA Infusion Azithromycin 500 mg/ Sodium 250 mls @ 250 mls/hr 10/19/25 19:10 10/20/25 10:09 Chloride IV Infused DAILY SILVIA Infusion Insulin Human Lispro 1 - 5 unit 10/19/25 21:00 10/20/25 12:06 Insulin Lispro 300 Unit/3 Ml Pen SUBQ 1 unit 0800,1200,1700,2100 SILVIA Administration Protocol Ondansetron HCl 4 mg 10/19/25 19:10 Ondansetron 4 Mg/2 Ml Vial IVP Q6HR PRN Nausea / Vomiting Oxycodone HCl 5 mg 10/19/25 19:10 10/20/25 03:18 Oxycodone 5 Mg Tablet PO 5 mg Q4HR PRN Administration Pain 5 to 7 Saccharomyces Boulardii 250 mg 10/20/25 08:00 10/20/25 07:52 Saccharomyces Boulardii 250 Mg Capsule PO 250 mg BIDWM SILVIA Administration Sodium Chloride 10 ml 10/19/25 19:10 Sodium Chloride Flush 0.9% 10 Ml Syringe IVP PRN PRN NEEDED PER PROVIDER ORDERS Sodium Chloride 10 ml 10/20/25 01:00 10/20/25 08:20 Sodium Chloride Flush 0.9% 10 Ml Syringe IVP 10 ml 0100,0900,1700 [facility] Administration Objective Vital Signs/Intake & Output Reviewed Vital Signs: Yes Vital Signs: Vital Signs x48h Temp Pulse Resp BP Pulse Ox O2 Flow Rate 10/20/25 07:50 37.2 C 84 18 132/64 H 93 7 10/20/25 07:00 6 Intake & Output: Intake & Output 10/17/25 10/18/25 10/19/25 10/20/25 23:59 23:59 23:59 23:59 Intake Total 2537 / 2537 950 / 950 Output Total 350 / 350 1200 / 1200 Balance 2187 / 2187 -250 / -250 Weight (kg) 43.5 kg Objective General Appearance: positive No acute distress and Alert Eyes Bilateral: positive Normal inspection and Conjunctivae nml ENT: positive ENT inspection nml Neck: positive Nml inspection Respiratory: positive No respiratory distress and Breath sounds nml; negative Wheezes, Rales or Rhonchi Cardiovascular: positive Regular rate & rhythm and Systolic murmur Abdomen: positive Non-tender and No distention Skin: positive Color nml Extremities: positive Non-tender and No pedal edema Neurologic/Psychiatric: positive Oriented x3 (does not know day of week. ) Lab Results 10/20/25 05:31 10/20/25 05:31 Other Labs: Lab Results x24hrs 10/20/25 10/20/25 10/20/25 Range/Units 11:20 07:41 05:31 WBC 17.5 H (4.8-10.8) x10^3/uL RBC 2.58 L (4.20-5.40) 10^6/uL Hgb 7.7 L (12.0-16.0) g/dL Hct 24.7 L (37.0-47.0) % MCV 95.7 (81.0-99.0) fL MCH 29.8 (27.0-31.0) pg MCHC 31.2 L (32.0-36.0) g/dL RDW 15.4 H (12.0-15.0) % Plt Count 98 L (130-450) 10^3/uL MPV 10.4 (7.9-10.8) fL Neut # (Auto) 14.8 H (1.5-6.6) 10^3/uL Lymph # (Auto) 1.6 (1.5-3.5) 10^3/uL [place] # (Auto) 0.7 (0.0-1.0) 10^3/uL Eos # (Auto) 0.2 (0.0-0.7) 10^3/uL Baso # (Auto) 0.0 (0.0-0.1) 10^3/uL Absolute Nucleated RBC 0.00 x10^3/uL Band Neuts % (Manual) Abnorm Lymph % (Manual) Nucleated RBC % 0.0 /100WBC Neutrophils # (Manual) Lymphocytes # (Manual) Monocytes # (Manual) Eosinophils # (Manual) Basophils # (Manual) Differential Comment Manual Slide Review WBC Morphology (NORMAL) Platelet Estimate (NORMAL) Platelet Morphology (NORMAL) RBC Morph Micro Appear (NORMAL) Sodium 136 (135-145) mmol/L Potassium 3.9 (3.5-4.5) mmol/L Chloride 107 (101-111) mmol/L Carbon Dioxide 19 L (21-32) mmol/L Anion Gap 10.0 (6-13) BUN 33 H (6-20) mg/dL Creatinine 1.9 H (0.6-1.3) mg/dL Estimated GFR (MDRD) 25 L (>89) Glucose 143 H (74-104) mg/dL POC Whole Bld Glucose 162 159 (70-100) mg/dL Lactic Acid (0.5-2.2) mmol/L Calcium 7.2 L (8.5-10.3) mg/dL Magnesium (1.7-2.3) mg/dL Total Bilirubin (0.2-1.0) mg/dL AST (10-42) IU/L ALT (10-60) IU/L Alkaline Phosphatase (42-121) IU/L B-Natriuretic Peptide (5-100) pg/mL Total Protein (6.4-8.9) g/dL Albumin (3.2-5.5) g/dL Globulin (2.1-4.2) g/dL Albumin/Globulin Ratio (1.0-2.2) Urine Color Urine Clarity (CLEAR) Urine pH (5.0-7.5) PH Ur Specific [place] (1.002-1.030) Urine Protein (NEGATIVE) mg/dL Urine Glucose (UA) (NEGATIVE) mg/dL Urine Ketones (NEGATIVE) mg/dL Urine Occult Blood (NEGATIVE) Urine Nitrite (NEGATIVE) Urine Bilirubin (NEGATIVE) Urine Urobilinogen (NORMAL) E.U./dL Ur Leukocyte Esterase (NEGATIVE) Urine RBC (0-5) /HPF Urine WBC (0-5) /HPF Ur Epithelial Cells (<= Few) /HPF Ur Squamous Epith Cells (<= Few) Urine Bacteria (None Seen) /HPF Ur Microscopic Review Urine Culture Comments 10/19/25 10/19/25 10/19/25 Range/Units 20:29 20:23 20:00 WBC (4.8-10.8) x10^3/uL RBC (4.20-5.40) 10^6/uL Hgb (12.0-16.0) g/dL Hct (37.0-47.0) % MCV (81.0-99.0) fL MCH (27.0-31.0) pg MCHC (32.0-36.0) g/dL RDW (12.0-15.0) % Plt Count (130-450) 10^3/uL MPV (7.9-10.8) fL Neut # (Auto) (1.5-6.6) 10^3/uL Lymph # (Auto) (1.5-3.5) 10^3/uL [place] # (Auto) (0.0-1.0) 10^3/uL Eos # (Auto) (0.0-0.7) 10^3/uL Baso # (Auto) (0.0-0.1) 10^3/uL Absolute Nucleated RBC x10^3/uL Band Neuts % (Manual) Abnorm Lymph % (Manual) Nucleated RBC % /100WBC Neutrophils # (Manual) Lymphocytes # (Manual) Monocytes # (Manual) Eosinophils # (Manual) Basophils # (Manual) Differential Comment Manual Slide Review WBC Morphology (NORMAL) Platelet Estimate (NORMAL) Platelet Morphology (NORMAL) RBC Morph Micro Appear (NORMAL) Sodium (135-145) mmol/L Potassium (3.5-4.5) mmol/L Chloride (101-111) mmol/L Carbon Dioxide (21-32) mmol/L Anion Gap (6-13) BUN (6-20) mg/dL Creatinine (0.6-1.3) mg/dL Estimated GFR (MDRD) (>89) Glucose (74-104) mg/dL POC Whole Bld Glucose 205 (70-100) mg/dL Lactic Acid (0.5-2.2) mmol/L Calcium (8.5-10.3) mg/dL Magnesium (1.7-2.3) mg/dL Total Bilirubin (0.2-1.0) mg/dL AST (10-42) IU/L ALT (10-60) IU/L Alkaline Phosphatase (42-121) IU/L B-Natriuretic Peptide 879 H (5-100) pg/mL Total Protein (6.4-8.9) g/dL Albumin (3.2-5.5) g/dL Globulin (2.1-4.2) g/dL Albumin/Globulin Ratio (1.0-2.2) Urine Color YELLOW Urine Clarity CLEAR (CLEAR) Urine pH 6.0 (5.0-7.5) PH Ur Specific [place] 1.015 (1.002-1.030) Urine Protein NEGATIVE (NEGATIVE) mg/dL Urine Glucose (UA) >=1000 H (NEGATIVE) mg/dL Urine Ketones NEGATIVE (NEGATIVE) mg/dL Urine Occult Blood NEGATIVE (NEGATIVE) Urine Nitrite NEGATIVE (NEGATIVE) Urine Bilirubin NEGATIVE (NEGATIVE) Urine Urobilinogen 0.2 (NORMAL) (NORMAL) E.U./dL Ur Leukocyte Esterase SMALL H (NEGATIVE) Urine RBC 0-5 (0-5) /HPF Urine WBC 6-10 H (0-5) /HPF Ur Epithelial Cells RARE Renal Tubular (<= Few) /HPF Ur Squamous Epith Cells RARE Squamous (<= Few) Urine Bacteria Few (None Seen) /HPF Ur Microscopic Review INDICATED Urine Culture Comments INDICATED 10/19/25 10/19/25 10/19/25 Range/Units 17:02 16:49 16:49 WBC (4.8-10.8) x10^3/uL RBC (4.20-5.40) 10^6/uL Hgb (12.0-16.0) g/dL Hct (37.0-47.0) % MCV (81.0-99.0) fL MCH (27.0-31.0) pg MCHC (32.0-36.0) g/dL RDW (12.0-15.0) % Plt Count (130-450) 10^3/uL MPV (7.9-10.8) fL Neut # (Auto) (1.5-6.6) 10^3/uL Lymph # (Auto) (1.5-3.5) 10^3/uL [place] # (Auto) (0.0-1.0) 10^3/uL Eos # (Auto) (0.0-0.7) 10^3/uL Baso # (Auto) (0.0-0.1) 10^3/uL Absolute Nucleated RBC x10^3/uL Band Neuts % (Manual) Abnorm Lymph % (Manual) Nucleated RBC % /100WBC Neutrophils # (Manual) Lymphocytes # (Manual) Monocytes # (Manual) Eosinophils # (Manual) Basophils # (Manual) Differential Comment Manual Slide Review WBC Morphology (NORMAL) Platelet Estimate (NORMAL) Platelet Morphology (NORMAL) RBC Morph Micro Appear 1+ BASO STIPPLING 1+ OVALOCYTES (NORMAL) Sodium 129 L (135-145) mmol/L Potassium 4.3 (3.5-4.5) mmol/L Chloride 100 L (101-111) mmol/L Carbon Dioxide 19 L (21-32) mmol/L Anion Gap 10.0 (6-13) BUN 34 H (6-20) mg/dL Creatinine 2.0 H (0.6-1.3) mg/dL Estimated GFR (MDRD) 23 L (>89) Glucose 203 H (74-104) mg/dL POC Whole Bld Glucose (70-100) mg/dL Lactic Acid 1.1 (0.5-2.2) mmol/L Calcium 7.7 L (8.5-10.3) mg/dL Magnesium 2.4 H (1.7-2.3) mg/dL Total Bilirubin 0.5 (0.2-1.0) mg/dL AST 10 (10-42) IU/L ALT 7 L (10-60) IU/L Alkaline Phosphatase 70 (42-121) IU/L B-Natriuretic Peptide (5-100) pg/mL Total Protein 6.2 L (6.4-8.9) g/dL Albumin 3.0 L (3.2-5.5) g/dL Globulin 3.2 (2.1-4.2) g/dL Albumin/Globulin Ratio 0.9 L (1.0-2.2) Urine Color Urine Clarity (CLEAR) Urine pH (5.0-7.5) PH Ur Specific [place] (1.002-1.030) Urine Protein (NEGATIVE) mg/dL Urine Glucose (UA) (NEGATIVE) mg/dL Urine Ketones (NEGATIVE) mg/dL Urine Occult Blood (NEGATIVE) Urine Nitrite (NEGATIVE) Urine Bilirubin (NEGATIVE) Urine Urobilinogen (NORMAL) E.U./dL Ur Leukocyte Esterase (NEGATIVE) Urine RBC (0-5) /HPF Urine WBC (0-5) /HPF Ur Epithelial Cells (<= Few) /HPF Ur Squamous Epith Cells (<= Few) Urine Bacteria (None Seen) /HPF Ur Microscopic Review Urine Culture Comments 10/19/25 10/19/25 Range/Units 16:49 16:49 WBC 23.6 H (4.8-10.8) x10^3/uL RBC 2.72 L (4.20-5.40) 10^6/uL Hgb 8.2 L (12.0-16.0) g/dL Hct 25.3 L (37.0-47.0) % MCV 93.0 (81.0-99.0) fL MCH 30.1 (27.0-31.0) pg MCHC 32.4 (32.0-36.0) g/dL RDW 15.2 H (12.0-15.0) % Plt Count 100 L (130-450) 10^3/uL MPV 10.1 (7.9-10.8) fL Neut # (Auto) 20.1 H (1.5-6.6) 10^3/uL Lymph # (Auto) 1.7 (1.5-3.5) 10^3/uL [place] # (Auto) 1.2 H (0.0-1.0) 10^3/uL Eos # (Auto) 0.1 (0.0-0.7) 10^3/uL Baso # (Auto) 0.1 (0.0-0.1) 10^3/uL Absolute Nucleated RBC 0.00 x10^3/uL Band Neuts % (Manual) Not Reportable Abnorm Lymph % (Manual) Not Reportable Nucleated RBC % 0.0 /100WBC Neutrophils # (Manual) Not Reportable Lymphocytes # (Manual) Not Reportable Monocytes # (Manual) Not Reportable Eosinophils # (Manual) Not Reportable Basophils # (Manual) Not Reportable Differential Comment MANUAL=AUTO DIFF Manual Slide Review Indicated WBC Morphology 1+ HYPERSEG NEUT (NORMAL) Platelet Estimate DECREASED (<130,000) (NORMAL) Platelet Morphology NORMAL APPEARANCE (NORMAL) RBC Morph Micro Appear 1+ HYPOCHROMASIA 1+ ANISOCYTOSIS (NORMAL) Sodium (135-145) mmol/L Potassium (3.5-4.5) mmol/L Chloride (101-111) mmol/L Carbon Dioxide (21-32) mmol/L Anion Gap (6-13) BUN (6-20) mg/dL Creatinine (0.6-1.3) mg/dL Estimated GFR (MDRD) (>89) Glucose (74-104) mg/dL POC Whole Bld Glucose (70-100) mg/dL Lactic Acid (0.5-2.2) mmol/L Calcium (8.5-10.3) mg/dL Magnesium (1.7-2.3) mg/dL Total Bilirubin (0.2-1.0) mg/dL AST (10-42) IU/L ALT (10-60) IU/L Alkaline Phosphatase (42-121) IU/L B-Natriuretic Peptide (5-100) pg/mL Total Protein (6.4-8.9) g/dL Albumin (3.2-5.5) g/dL Globulin (2.1-4.2) g/dL Albumin/Globulin Ratio (1.0-2.2) Urine Color Urine Clarity (CLEAR) Urine pH (5.0-7.5) PH Ur Specific [place] (1.002-1.030) Urine Protein (NEGATIVE) mg/dL Urine Glucose (UA) (NEGATIVE) mg/dL Urine Ketones (NEGATIVE) mg/dL Urine Occult Blood (NEGATIVE) Urine Nitrite (NEGATIVE) Urine Bilirubin (NEGATIVE) Urine Urobilinogen (NORMAL) E.U./dL Ur Leukocyte Esterase (NEGATIVE) Urine RBC (0-5) /HPF Urine WBC (0-5) /HPF Ur Epithelial Cells (<= Few) /HPF Ur Squamous Epith Cells (<= Few) Urine Bacteria (None Seen) /HPF Ur Microscopic Review Urine Culture Comments Sepsis Event Note (H) Evaluation Current Stage of Sepsis: Ruled out Possible source of Sepsis: positive Pulmonary Sepsis Criteria Sepsis Criteria: WBC count greater than 12,000 or less than 4000 Assessment/Plan Problem List (1) Acute hypoxemic respiratory failure: Impression: Worsening oxygen requirements overnight, likely due to fluid overload, then was given an additional 40mg Lasix IV. She is now approx negative 2L for this admission. Presents to the ED with RA saturations of 87=88% per ED provider. When I arrived at the bedside, I turned supplemental O2 off and saw a saturation of 85- 86%. During her initial several hours , she did become fluid overloaded. BNP appeared to be close to her baseline. Reviewed chest x-ray done at the end of her emergency department course as compared to 1 done early this morning. Actually looks to have some improvement with regards to fluid overload. She has been diuresed with decreasing oxygen requirements, down to 4L by mid day, but not to her normal room air. Greg continue to treat her CAP. I do not think that she needs additional diuresis, but will follow clinically. She is not safe for dc to home due to oxygen requirements not stable. LOS 1-2 more days. Will plan for PT eval tomorrow, when respiratory status evens out. (2) Pneumonia: Impression: Chest x-ray to my read shows hilar prominence and a left-sided infiltrate. Abdomen pelvis CT is read by the radiologist to show a consolidative opacity in the left lower lobe suspicious for pneumonia. Leukocytosis is downtrending. 10/19/25 10/20/25 16:49 05:31 WBC 23.6 H 17.5 H She is day 2/3 azithromycin ,day 2/5 rocephin. She is continuing with PRN duonebs, and supplemental O2. currently at 4L NC. (3) (HFpEF) heart failure with preserved ejection fraction: Impression: She has a history of heart failure with preserved ejection fraction, normal ejection fracture fraction on her most recent echocardiogram. She has a history of pulmonary hypertension and aortic stenosis status post TAVR. 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 Most recent echocardiogram was done 09/13/2025. As stated above restenosis of the TAVR ejection fraction of 65 to 70%. She has an estimated right atrial pressure of 53 mmHg. She needs cardiology followup, but likely not acutely. BNP close to baseline, as stated above. 09/11/25 10/19/25 16:05 20:00 B-Natriuretic Peptide 838 H 879 H (4) Hyponatremia: Impression: self resolved with treatment of her acute illness. 10/19/25 10/20/25 16:49 05:31 Sodium 129 L 136 (5) Aortic stenosis: Impression: Recurrent aortic stenosis status post TAVR, needs cardiology follow-up but recently has been too ill to obtain outpatient follow-up. (6) Essential hypertension: Impression: Longstanding history of hypertension. This patient is also a smoker. home meds resumed: nifedipine. amlodipine sub for felodipine, coreg. continuing to hold lisinopril. 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 Last admission A1c was completed and found to be 7.5%. I will cover her with sliding scale insulin and place her on a diabetic diet while she is here. I will monitor her creatinine in light of her multiple medical problems that could affect her renal function. Her renal function looks essentially stable it looks like her creatinine has hovered around 2 at least for the duration of the last month, remains so overnight. Glucose control reasonable on SSI. 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 not an issue at this time. This patient's diagnosis and treatment plan was discussed this AM with attending physician as a part of multi disciplinary rounding meeting. I have spent 51 minutes in the care of this patient today. This includes time [id number], review and ordering of diagnostic imaging and laboratory studies and consultation with other providers. Monitoring the patient's signs symptoms, evaluation of medication effectiveness and patient's response to treatment.
[2025-10-20] MEDS: methylPREDNISolone SUCCINATE 40 MG/ML VIAL IVP STA (18:50)
[2025-10-20] MEDS: ATORVASTATIN 40 MG TABLET PO SCH (21:20)
[2025-10-20] MEDS: CALCIUM CARBONATE CHEW 500 MG TABLET PO SCH (21:20)
[2025-10-20] MEDS: BRIMONIDINE 0.2% OPHTH DROPS 5 ML EACHEYE SCH (21:21)
[2025-10-20] MEDS: TIMOLOL 0.5% OPHTH DROPS EACHEYE SCH (21:21)
[2025-10-20] MEDS: methylPREDNISolone SUCCINATE 125 MG/2 ML VIAL IVP ONE (22:00)
[2025-10-21 05:31] LABS: HCT - HEMATOCRIT 25.2 % (37.0-47.0); HGB - HEMOGLOBIN 8.0 g/dL (12.0-16.0); MEAN PLATELET VOLUME 10.2 fL (7.9-10.8); NRBC ABSOLUTE COUNT (AUTO) 0.00 x10^3/uL; NUCLEATED RED BLOOD CELLS AUTO 0.0 /100WBC; PLT - PLATELET COUNT 110 10^3/uL (130-450); RED CELL DISTRIBUTION WIDTH 15.2 % (12.0-15.0)
[2025-10-21 05:52] LABS: BUN - BLOOD UREA NITROGEN 34.0 mg/dL (6-20); CARBON DIOXIDE - CO2 17.0 mmol/L (21-32); CREATININE 1.9 mg/dL (0.6-1.3); GFR - MDRD 25.0 (>89)
[2025-10-21] MEDS: CHOLECALCIFEROL 25 MCG TABLET PO SCH (08:37)
--- NOTE | 2025-10-21 11:56 | PROVIDER PROGRESS NOTE ---
Subjective Prog Note Date Prog Note Date: 10/21/25 Subjective Subjective: She says she feels better. She did have an escalation in her oxygen requirement overnight, but is back down between 4 and 6L today. She came in because she was unable to walk. She has not been out of bed since she has been here due to concerns for her oxygen status. PT axel is pending today. Current Medications Current Medications Current Medications: Current Medications Generic Name Dose Route Start Last Admin Trade Name Freq PRN Reason Stop Dose Admin Acetaminophen 650 mg 10/19/25 19:10 10/20/25 15:36 Acetaminophen 325 Mg Tablet PO 650 mg Q4HR PRN Administration Pain 1 to 4, or Fever Albuterol/Ipratropium 3 ml 10/19/25 19:35 10/21/25 09:22 Ipratropium/Albuterol 3 Ml Neb INH 3 ml Q4HR PRN Administration Wheezing Amlodipine Besylate 10 mg 10/20/25 09:00 10/21/25 08:37 Amlodipine 5 Mg Tablet PO 10 mg DAILY SILVIA Administration Atorvastatin Calcium 40 mg 10/20/25 21:00 10/20/25 21:20 Atorvastatin 40 Mg Tablet PO 40 mg QPM SILVIA Administration Brimonidine Tartrate 1 drops 10/20/25 21:00 10/21/25 08:36 Brimonidine 0.2% Ophth Drops 5 Ml EACHEYE 1 drops BID SILVIA Administration Calcium Carbonate/Glycine 500 mg 10/20/25 21:00 10/21/25 08:37 Calcium Carbonate Chew 500 Mg Tablet PO 500 mg BID SILVIA Administration Carvedilol 12.5 mg 10/19/25 21:00 10/21/25 08:37 Carvedilol 12.5 Mg Tablet PO 12.5 mg BID SILVIA Administration Cholecalciferol 25 mcg 10/21/25 09:00 10/21/25 08:37 Cholecalciferol 25 Mcg Tablet PO 25 mcg DAILY SILVIA Administration Empagliflozin 10 mg 10/20/25 09:00 10/21/25 08:37 Empagliflozin 10 Mg Tablet PO 10 mg DAILY SILVIA Administration Guaifenesin 200 mg 10/20/25 10:06 Guaifenesin 100 Mg/5 Ml Udc PO Q4H PRN Cough Heparin Sodium (Porcine) 5,000 unit 10/19/25 21:00 10/21/25 08:30 Heparin 5,000 Unit/Ml Vial SUBQ 5,000 unit BID SILVIA Administration Ceftriaxone Sodium 1 gm/ 100 mls @ 200 mls/hr 10/19/25 19:10 10/21/25 09:05 Sodium Chloride IV Infused DAILY SILVIA Infusion Azithromycin 500 mg/ Sodium 250 mls @ 250 mls/hr 10/19/25 19:10 10/21/25 10:05 Chloride IV Infused DAILY SILVIA Infusion Insulin Human Lispro 1 - 5 unit 10/19/25 21:00 10/21/25 08:30 Insulin Lispro 300 Unit/3 Ml Pen SUBQ 2 unit 0800,1200,1700,2100 SILVIA Administration Protocol Ondansetron HCl 4 mg 10/19/25 19:10 Ondansetron 4 Mg/2 Ml Vial IVP Q6HR PRN Nausea / Vomiting Oxycodone HCl 5 mg 10/19/25 19:10 10/20/25 03:18 Oxycodone 5 Mg Tablet PO 5 mg Q4HR PRN Administration Pain 5 to 7 Prednisone 40 mg 10/21/25 08:00 10/21/25 08:37 Prednisone 20 Mg Tablet PO 10/25/25 08:01 40 mg DAILYWM SILVIA Administration Saccharomyces Boulardii 250 mg 10/20/25 08:00 10/21/25 08:37 Saccharomyces Boulardii 250 Mg Capsule PO 250 mg BIDWM SILVIA Administration Sodium Chloride 10 ml 10/19/25 19:10 Sodium Chloride Flush 0.9% 10 Ml Syringe IVP PRN PRN NEEDED PER PROVIDER ORDERS Sodium Chloride 10 ml 10/20/25 01:00 10/21/25 08:37 Sodium Chloride Flush 0.9% 10 Ml Syringe IVP 10 ml 0100,0900,1700 SILVIA Administration Timolol Maleate 1 drops 10/20/25 21:00 10/21/25 08:36 Timolol 0.5% Ophth Drops EACHEYE 1 drops BID SILVIA Administration Objective Vital Signs/Intake & Output Reviewed Vital Signs: Yes Vital Signs: Vital Signs x48h Temp Pulse Pulse Resp BP Pulse Ox O2 Flow Rate 10/21/25 09:22 4 10/21/25 09:22 78 22 10/21/25 07:38 36.8 C 74 16 127/56 L 95 8 Intake & Output: Intake & Output 10/18/25 10/19/25 10/20/25 12/12/25 23:59 23:59 23:59 23:59 Intake Total 2537 / 2537 1090 / 1090 590 / 590 Output Total 350 / 350 2900 / 2900 450 / 450 Balance 2187 / 2187 -1810 / -1810 140 / 140 Weight (kg) 43.5 kg Objective General Appearance: positive No acute distress, Alert and Other (she is not audibly wheezing today) Eyes Bilateral: positive Normal inspection ENT: positive ENT inspection nml Neck: positive Nml inspection Respiratory: positive No respiratory distress, Breath sounds nml and Other (diminished at bases) Cardiovascular: positive Regular rate & rhythm and Systolic murmur (chronic) Abdomen: positive Non-tender and No distention Back: positive Nml inspection Skin: positive Color nml Neurologic/Psychiatric: positive Oriented x3 (month and year, does not know day) Lab Results 10/21/25 05:12 10/21/25 05:12 Other Labs: Lab Results x24hrs 10/21/25 10/21/25 10/21/25 Range/Units 11:32 07:25 05:12 WBC 10.1 (4.8-10.8) x10^3/uL RBC 2.68 L (4.20-5.40) 10^6/uL Hgb 8.0 L (12.0-16.0) g/dL Hct 25.2 L (37.0-47.0) % MCV 94.0 (81.0-99.0) fL MCH 29.9 (27.0-31.0) pg MCHC 31.7 L (32.0-36.0) g/dL RDW 15.2 H (12.0-15.0) % Plt Count 110 L (130-450) 10^3/uL MPV 10.2 (7.9-10.8) fL Neut # (Auto) 9.2 H (1.5-6.6) 10^3/uL Lymph # (Auto) 0.7 L (1.5-3.5) 10^3/uL [place] # (Auto) 0.2 (0.0-1.0) 10^3/uL Eos # (Auto) 0.0 (0.0-0.7) 10^3/uL Baso # (Auto) 0.0 (0.0-0.1) 10^3/uL Absolute Nucleated RBC 0.00 x10^3/uL Nucleated RBC % 0.0 /100WBC Sodium 133 L (135-145) mmol/L Potassium 4.3 (3.5-4.5) mmol/L Chloride 105 (101-111) mmol/L Carbon Dioxide 17 L (21-32) mmol/L Anion Gap 11.0 (6-13) BUN 34 H (6-20) mg/dL Creatinine 1.9 H (0.6-1.3) mg/dL Estimated GFR (MDRD) 25 L (>89) Glucose 232 H (74-104) mg/dL POC Whole Bld Glucose 346 223 (70-100) mg/dL Calcium 7.9 L (8.5-10.3) mg/dL 10/20/25 10/20/25 Range/Units 20:41 16:27 WBC (4.8-10.8) x10^3/uL RBC (4.20-5.40) 10^6/uL Hgb (12.0-16.0) g/dL Hct (37.0-47.0) % MCV (81.0-99.0) fL MCH (27.0-31.0) pg MCHC (32.0-36.0) g/dL RDW (12.0-15.0) % Plt Count (130-450) 10^3/uL MPV (7.9-10.8) fL Neut # (Auto) (1.5-6.6) 10^3/uL Lymph # (Auto) (1.5-3.5) 10^3/uL [place] # (Auto) (0.0-1.0) 10^3/uL Eos # (Auto) (0.0-0.7) 10^3/uL Baso # (Auto) (0.0-0.1) 10^3/uL Absolute Nucleated RBC x10^3/uL Nucleated RBC % /100WBC Sodium (135-145) mmol/L Potassium (3.5-4.5) mmol/L Chloride (101-111) mmol/L Carbon Dioxide (21-32) mmol/L Anion Gap (6-13) BUN (6-20) mg/dL Creatinine (0.6-1.3) mg/dL Estimated GFR (MDRD) (>89) Glucose (74-104) mg/dL POC Whole Bld Glucose 232 163 (70-100) mg/dL Calcium (8.5-10.3) mg/dL Sepsis Event Note (H) Evaluation Current Stage of Sepsis: Ruled out Possible source of Sepsis: positive Pulmonary Sepsis Criteria Sepsis Criteria: WBC count greater than 12,000 or less than 4000 Assessment/Plan Problem List (1) Acute hypoxemic respiratory failure: Impression: Presents to the ED with RA saturations of 87-88% per ED provider. When I arrived at the bedside, I turned supplemental O2 off and saw a saturation of 85- 86%. She continues to be hypoxic with the need for supplemental oxygen. Steroids started yesterday. During her initial several hours , she did become fluid overloaded. BNP appeared to be close to her baseline. Lung exam is CTA. She required 8L oxymask overnight, but is back down to 4L by mid morning. She has been diuresed with decreasing oxygen requirements, down to 4L by mid day, but not to her normal room air. She is not safe for dc to home due to oxygen requirements not stable. She is being treated for CAP. PT eval today. When I asked her where she thinks she should go post dc, she says she wants to go home again, if she is able to walk, if not she will agree to SNF. (2) Pneumonia: Impression: Chest x-ray to my read shows hilar prominence and a left-sided infiltrate. Abdomen pelvis CT is read by the radiologist to show a consolidative opacity in the left lower lobe suspicious for pneumonia. Leukocytosis continues to downtrend, now is normal 10/19/25 10/20/25 10/21/25 16:49 05:31 05:12 WBC 23.6 H 17.5 H 10.1 She is day 3/3 azithromycin ,day 3/5 rocephin. She is continuing with PRN duonebs, and supplemental O2. currently at 4L NC, but O2 requirement not stable, required 8L oxymask overnight to maintains sats. . (3) (HFpEF) heart failure with preserved ejection fraction: Impression: She has a history of heart failure with preserved ejection fraction, normal ejection fracture fraction on her most recent echocardiogram. She has a history of pulmonary hypertension and aortic stenosis status post TAVR. 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 Most recent echocardiogram was done 09/13/2025. As stated above restenosis of the TAVR ejection fraction of 65 to 70%. She has an estimated right atrial pressure of 53 mmHg. She needs cardiology followup, but likely not acutely. BNP close to baseline 09/11/25 10/19/25 16:05 20:00 B-Natriuretic Peptide 838 H 879 H (4) Hyponatremia: Impression: self resolved with treatment of her acute illness.This does not require hospitalization. 2 Laboratory Tests 10/19/25 10/20/25 10/21/25 16:49 05:31 05:12 Sodium 129 L 136 133 L (5) Aortic stenosis: Impression: Recurrent aortic stenosis status post TAVR, needs cardiology follow-up but recently has been too ill to obtain outpatient follow-up. (6) Essential hypertension: Impression: Longstanding history of hypertension. This patient is also a smoker. home meds resumed: amlodipine sub for felodipine, coreg. continuing to hold lisinopril. 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 Last admission A1c was completed and found to be 7.5%. I will cover her with sliding scale insulin and place her on a diabetic diet while she is here. I will monitor her creatinine in light of her multiple medical problems that could affect her renal function. Her renal function looks essentially stable it looks like her creatinine has hovered around 2 at least for the duration of the last month, remains so overnight. Blood sugars creeping up on steroids. increased to moderate sliding scale coverage. No indication to add basal coverage as yet. 10/20/25 10/21/25 10/21/25 20:41 07:25 11:32 POC Whole Bld Glucose 232 223 346 Qualifiers: Diabetes mellitus ocean transportation intermediary insulin use: without ocean transportation intermediary use Q ualified Code(s): E11.22 - Type 2 diabetes mellitus with diabetic chronic kidney disease; N18.4 - Chronic kidney disease, stage 4 (severe) (8) Ruptured appendicitis: Impression: resolved, but in her recent hx. not an issue at this time. This patient's diagnosis and treatment plan was discussed this AM with attending physician as a part of multi disciplinary rounding meeting. I have spent 53 minutes in the care of this patient today. This includes time [id number], review and ordering of diagnostic imaging and laboratory studies and consultation with other providers. Monitoring the patient's signs symptoms, evaluation of medication effectiveness and patient's response to treatment.
[2025-10-21] MEDS: INSULIN LISPRO 300 UNIT/3 ML PEN SUBQ SCH ×2 (12:15→21:15)
--- NOTE | 2025-10-21 13:08 | PHARMACY PROGRESS NOTE ---
Best Possible Medication History Admit Date and Time: 10/19/25 1831 Home Medications Medication Instructions Recorded Confirmed Type blood sugar diagnostic (FreeStyle 08/26/24 06/29/25 H istory Lite Strips) [facility] 06/29/25 Hist ory Lite Meter kit) brimonidine 0.1 % eye drops 1 drp ophthalmic (eye) BID 08/26/24 10/21/25 History (Alphagan P) calcium carbonate 600 mg PO DAILY 08/26/2411/03 History cholecalciferol (vitamin D3) 25 25 mcg PO DAILY 10/21/25 History mcg (1,000 unit) tablet lancets 28 gauge (FreeStyle 08/26/24 06/29/25 History Lancets) pen needle, diabetic 29 gauge x 08/26/24 06/29/25 His tory 1/2" (BD Ultra-Fine Original Pen Needle) turmeric 400 mg capsule 400 mg PO DAILY 01/20/2511/03 History multivitamin (Daily Multi-Vitamin 1 tab PO DAILY 03/2810/21/25 History tablet) vitamin B complex 1 tab PO DAILY 03/28/2510/10 History empagliflozin 10 mg tablet 10 mg PO DAILY 09/12/2511/03 History (Jardiance) felodipine 10 mg tablet,extended 10 mg PO DAILY 10/21/25 History release 24 hr lisinopril 10 mg tablet 10 mg PO DAILY 09/12/2510/10 History sitagliptin phosphate 25 mg tablet 25 mg PO DAILY 02/0110/21/25 History (Januvia) timolol maleate 0.5 % eye drops 1 drp ophthalmic (eye) BID 09/12/25 10/21/25 History atorvastatin 40 mg tablet 40 mg PO QPM #90 tabs 10/21/25 Rx carvedilol 12.5 mg tablet 12.5 mg PO BID #180 tabs 03/0410/21/25 Rx aspirin 81 mg tablet 81 mg PO DAILY 10/21/2510/10 History vitamins A,C,P-grqp-iyehjg 4,296 1 cap PO QAM AND QPM 10/21/25 10/21/25 History mcg-226 mg-90 mg capsule (PreserVision AREDS) Processed by: Pharmacy Medications reviewed in ED?: Yes Medication History completed: Yes Patient Interview: Completed Secondary Source(s): Written medication list [facility] Statement: As the person ultimately responsible for medication therapy, providers are able to order a medication from an existing home medication list in [facility] via the "Reconcile Routine" prior to Confirmation of that medication by computer network support specialist. Such practice is discouraged except when the physician, in their clinical judgment, deems that a medical need exists for a medication without regard to previous use.
--- NOTE | 2025-10-21 15:36 | PT Plan of Care ---
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 Admitted with AHRF and pna, initially requiring up to 8L, now on 4L at rest SpO2 low 90s. PMH includes CVA, cognitive changes, TAVR in 2018, please see medical record for further hx. Of note pt was seen by this PT on 09/16/25 for evaluation of similar. At that time she was dcd to SNF and pt states she was dcd home on 10/19. Cleared for eval by hospitalist. Upon PT eval, pt agreeable to participate. A&Ox3 and easily cued. Overall requires modAx1 for mobility and line mgmt. Desats to 87% while static seated, O2 increased to 5L with SpO2 90- 92%. Assisted to standing with FWW but unable to maintain standing d/t BLE weakness. Requires maxAx1 for stand pivot transfer with PT assist to b/s chair. Goal of improved pulmonary function in more upright positioning. SpO2 95% on 5L in chair; RN notified and will monitor to wean O2 appropriately. Advised RN pt will require 2 person assist to transfer back to bed within 1 hour d/t weakness and poor oxygenation . RN agrees. Pt may benefit from skilled PT in acute setting to progress functional mobility. Limitations primarily d/t chronic respiratory condition and profound deconditioning. When medically clear, PT rec dc to SNF vs LTC placement pending ability to participate in rehab. Goals Improve bed mobility to: Contact Guard Improve supine to sit to: Contact Guard Improve sit to stand to: Minimal Assist Improve pivot transfer ability Contact Guard to: Improve sit to supine to: Minimal Assist Improve gait ability to: Min A Assistive Device Used: Front Wheeled Walker Improve Sitting Balance to: Good Improve Standing Balance to: Fair PT Plan of Care Frequency 1-2x/day Duration Until discharge Discharge Recommendations Discharge Location SNF vs LTC Other tbd Transport Needs at Discharge B.L.S Other 5L O2, unable to maintain unsupported seated/ poor trunk control. may progress to wc van or POV
[2025-10-22 05:24] LABS: HCT - HEMATOCRIT 24.2 % (37.0-47.0); HGB - HEMOGLOBIN 7.7 g/dL (12.0-16.0); MEAN PLATELET VOLUME 10.2 fL (7.9-10.8); NRBC ABSOLUTE COUNT (AUTO) 0.00 x10^3/uL; NUCLEATED RED BLOOD CELLS AUTO 0.0 /100WBC; PLT - PLATELET COUNT 113 10^3/uL (130-450); RED CELL DISTRIBUTION WIDTH 15.0 % (12.0-15.0)
[2025-10-22 05:40] LABS: BUN - BLOOD UREA NITROGEN 38.0 mg/dL (6-20); CARBON DIOXIDE - CO2 19.0 mmol/L (21-32); CREATININE 1.8 mg/dL (0.6-1.3); GFR - MDRD 26.0 (>89)
--- NOTE | 2025-10-22 10:45 | XRAY Report ---
PROCEDURE: XR Chest 1V INDICATIONS: persistent oxygen requirement TECHNIQUE: One view of the chest was acquired. COMPARISON: CXR on 10/20/2025 FINDINGS: Surgical changes and devices: None. Lungs and pleura: Moderate left pleural effusion with left basilar consolidation. Alveolar pulmonary edema. Mediastinum: Obscured left heart border due to overlying pleural effusion. Calcifications of the aortic knob. Changes of aortic valve replacement. Bones and chest wall: No suspicious bony lesions. Overlying soft tissues appear unremarkable. IMPRESSION: Findings of congestive heart failure with left moderate pleural effusion and pulmonary edema. Reviewed by: Ryan Rg MD on 10/22/2025 9:42 AM [facility] Approved by: Ryan Rg MD on 10/22/2025 9:42 AM [facility] Station ID: [id number]
[2025-10-22 11:57] LABS: B. PARAPERTUSSIS- RESP PCR PAN NOT DETECTED; B. PERTUSSIS- RESP PCR PANEL NOT DETECTED; C. PNEUMONIAE- RESP PCR PANEL NOT DETECTED; CORONAVIRUS 229E-RESP PCR NOT DETECTED; CORONAVIRUS HKU1-RESP PCR NOT DETECTED; CORONAVIRUS NL63-RESP PCR NOT DETECTED; CORONAVIRUS OC43-RESP PCR NOT DETECTED; HUMAN METAPNEUMOVIRUS NOT DETECTED; INFLUENZA A- RESP PCR PANEL NOT DETECTED; INFLUENZA B - RESP PCR PANEL NOT DETECTED; M. PNEUMONIAE- RESP PCR PANEL NOT DETECTED; PARAINFLUENZA VIRUS 1 NOT DETECTED; PARAINFLUENZA VIRUS 2 NOT DETECTED; PARAINFLUENZA VIRUS 4 NOT DETECTED; RHINOVIRUS/ENTEROVIRUS NOT DETECTED; RSV- RESP PCR PANEL NOT DETECTED; SARS-CoV-2 -RESP PCR PANEL NOT DETECTED
[2025-10-22] MEDS: FUROSEMIDE 20 MG/2 ML VIAL IVP SCH (13:07)
--- NOTE | 2025-10-22 13:22 | PROVIDER PROGRESS NOTE ---
Subjective Prog Note Date Prog Note Date: 10/22/25 Subjective Subjective: She is without complaints. Her breathing is not worse. She tells me that her smokes. She smokes, but does not inhale. They do not smoke in the house, only on the patio. her is on home O2. She tells me that she is not on oxygen at home, only when she is in the hospital . She always denies respiratory complaints, even when she is hypoxic and appears dyspneic. Current Medications Current Medications Current Medications: Current Medications Generic Name Dose Route Start Last Admin Trade Name Freq PRN Reason Stop Dose Admin Acetaminophen 650 mg 10/19/25 19:10 10/21/25 17:28 Acetaminophen 325 Mg Tablet PO 650 mg Q4HR PRN Administration Pain 1 to 4, or Fever Albuterol/Ipratropium 3 ml 10/19/25 19:35 10/21/25 09:22 Ipratropium/Albuterol 3 Ml Neb INH 3 ml Q4HR PRN Administration Wheezing Amlodipine Besylate 10 mg 10/20/25 09:00 10/22/25 08:21 Amlodipine 5 Mg Tablet PO 10 mg DAILY SILVIA Administration Atorvastatin Calcium 40 mg 10/20/25 21:00 10/21/25 20:46 Atorvastatin 40 Mg Tablet PO 40 mg QPM SILVIA Administration Brimonidine Tartrate 1 drops 10/20/25 21:00 10/22/25 08:20 Brimonidine 0.2% Ophth Drops 5 Ml EACHEYE 1 drops BID SILVIA Administration Calcium Carbonate/Glycine 500 mg 10/20/25 21:00 10/22/25 08:21 Calcium Carbonate Chew 500 Mg Tablet PO 500 mg BID SILVIA Administration Carvedilol 12.5 mg 10/19/25 21:00 10/22/25 08:21 Carvedilol 12.5 Mg Tablet PO 12.5 mg BID SILVIA Administration Cholecalciferol 25 mcg 10/21/25 09:00 10/22/25 08:21 Cholecalciferol 25 Mcg Tablet PO 25 mcg DAILY SILVIA Administration Empagliflozin 10 mg 10/20/25 09:00 10/22/25 08:22 Empagliflozin 10 Mg Tablet PO 10 mg DAILY SILVIA Administration Furosemide 20 mg 10/22/25 13:00 Furosemide 20 Mg/2 Ml Vial IVP DAILY SILVIA Guaifenesin 200 mg 10/20/25 10:06 Guaifenesin 100 Mg/5 Ml Udc PO Q4H PRN Cough Heparin Sodium (Porcine) 5,000 unit 10/19/25 21:00 10/22/25 08:03 Heparin 5,000 Unit/Ml Vial SUBQ 5,000 unit BID SILVIA Administration Ceftriaxone Sodium 1 gm/ 100 mls @ 200 mls/hr 10/19/25 19:10 10/22/25 08:52 Sodium Chloride IV Infused DAILY SILVIA Infusion Insulin Human Lispro 2 - 10 unit 10/21/25 21:15 10/22/25 11:41 Insulin Lispro 300 Unit/3 Ml Pen SUBQ 4 unit 0800,1200,1700,2100 SILVIA Administration Protocol Ondansetron HCl 4 mg 10/19/25 19:10 Ondansetron 4 Mg/2 Ml Vial IVP Q6HR PRN Nausea / Vomiting Oxycodone HCl 5 mg 10/19/25 19:10 10/20/25 03:18 Oxycodone 5 Mg Tablet PO 5 mg Q4HR PRN Administration Pain 5 to 7 Polyethylene Glycol 17 gm 10/21/25 18:30 10/22/25 08:21 Polyethylene Glycol 3350 17 Gm Packet PO 17 gm DAILY SILVIA Administration Prednisone 40 mg 10/21/25 08:00 10/22/25 08:21 Prednisone 20 Mg Tablet PO 10/25/25 08:01 40 mg DAILYWM SILVIA Administration Saccharomyces Boulardii 250 mg 10/20/25 08:00 10/22/25 08:21 Saccharomyces Boulardii 250 Mg Capsule PO 250 mg BIDWM SILVIA Administration Sodium Chloride 10 ml 10/19/25 19:10 Sodium Chloride Flush 0.9% 10 Ml Syringe IVP PRN PRN NEEDED PER PROVIDER ORDERS Sodium Chloride 10 ml 10/20/25 01:00 10/22/25 08:21 Sodium Chloride Flush 0.9% 10 Ml Syringe IVP 10 ml 0100,0900,1700 SILVIA Administration Timolol Maleate 1 drops 10/20/25 21:00 10/22/25 08:20 Timolol 0.5% Ophth Drops EACHEYE 1 drops BID SILVIA Administration Objective Vital Signs/Intake & Output Reviewed Vital Signs: Yes Vital Signs: Vital Signs x48h Temp Pulse Resp BP Pulse Ox O2 Flow Rate 10/22/25 07:45 4 10/22/25 07:42 36.6 C 71 20 137/60 H 92 4 Intake & Output: Intake & Output 10/19/25 10/20/25 10/21/25 10/22/25 23:59 23:59 23:59 23:59 Intake Total 2537 / 2537 1090 / 1090 1550 / 1550 780 / 780 Output Total 350 / 350 2900 / 2900 1450 / 1450 1500 / 1500 Balance 2187 / 2187 -1810 / -1810 100 / 100 -720 / -720 Weight (kg) 43.5 kg Objective General Appearance: positive No acute distress, Alert and Other (she is not audibly wheezing today) Eyes Bilateral: positive Normal inspection ENT: positive ENT inspection nml Neck: positive Nml inspection Respiratory: positive No respiratory distress, Breath sounds nml and Other (diminished at bases, IS pull <500cc) Cardiovascular: positive Regular rate & rhythm and Systolic murmur (chronic) Abdomen: positive Non-tender and No distention Back: positive Nml inspection Skin: positive Color nml Neurologic/Psychiatric: positive Oriented x3 (month and year, does not know day) Lab Results 10/22/25 05:10 10/22/25 05:10 Other Labs: Lab Results x24hrs 10/22/25 10/22/25 10/22/25 Range/Units 11:01 10:48 07:37 WBC (4.8-10.8) x10^3/uL RBC (4.20-5.40) 10^6/uL Hgb (12.0-16.0) g/dL Hct (37.0-47.0) % MCV (81.0-99.0) fL MCH (27.0-31.0) pg MCHC (32.0-36.0) g/dL RDW (12.0-15.0) % Plt Count (130-450) 10^3/uL MPV (7.9-10.8) fL Neut # (Auto) (1.5-6.6) 10^3/uL Lymph # (Auto) (1.5-3.5) 10^3/uL [place] # (Auto) (0.0-1.0) 10^3/uL Eos # (Auto) (0.0-0.7) 10^3/uL Baso # (Auto) (0.0-0.1) 10^3/uL Absolute Nucleated RBC x10^3/uL Nucleated RBC % /100WBC Sodium (135-145) mmol/L Potassium (3.5-4.5) mmol/L Chloride (101-111) mmol/L Carbon Dioxide (21-32) mmol/L Anion Gap (6-13) BUN (6-20) mg/dL Creatinine (0.6-1.3) mg/dL Estimated GFR (MDRD) (>89) Glucose (74-104) mg/dL POC Whole Bld Glucose 213 288 (70-100) mg/dL Calcium (8.5-10.3) mg/dL Nasal Adenovirus (PCR) NOT DETECTED Nasal B. parapertussis DNA (PCR) NOT DETECTED Nasal Coronavir 229E PCR NOT DETECTED Nasal Coronavir HKU1 PCR NOT DETECTED Nasal Coronavir NL63 PCR NOT DETECTED Nasal Coronavir OC43 PCR NOT DETECTED Nasal Enterovir/Rhinovir PCR NOT DETECTED Nasal Influenza B PCR NOT DETECTED Nasal Influenza A PCR NOT DETECTED Nasal Parainfluen 1 PCR NOT DETECTED Nasal Parainfluen 2 PCR NOT DETECTED Nasal Parainfluen 3 PCR NOT DETECTED Nasal Parainfluen 4 PCR NOT DETECTED Nasal RSV (PCR) NOT DETECTED Nasal B.pertussis DNA PCR NOT DETECTED Nasal C.pneumoniae (PCR) NOT DETECTED Jerry Human Metapneumo PCR NOT DETECTED Nasal M.pneumoniae (PCR) NOT DETECTED Nasal SARS-CoV-2 (PCR) NOT DETECTED 10/22/25 10/21/25 10/21/25 Range/Units 05:10 20:49 16:30 WBC 9.5 (4.8-10.8) x10^3/uL RBC 2.64 L (4.20-5.40) 10^6/uL Hgb 7.7 L (12.0-16.0) g/dL Hct 24.2 L (37.0-47.0) % MCV 91.7 (81.0-99.0) fL MCH 29.2 (27.0-31.0) pg MCHC 31.8 L (32.0-36.0) g/dL RDW 15.0 (12.0-15.0) % Plt Count 113 L (130-450) 10^3/uL MPV 10.2 (7.9-10.8) fL Neut # (Auto) 8.1 H (1.5-6.6) 10^3/uL Lymph # (Auto) 1.0 L (1.5-3.5) 10^3/uL [place] # (Auto) 0.5 (0.0-1.0) 10^3/uL Eos # (Auto) 0.0 (0.0-0.7) 10^3/uL Baso # (Auto) 0.0 (0.0-0.1) 10^3/uL Absolute Nucleated RBC 0.00 x10^3/uL Nucleated RBC % 0.0 /100WBC Sodium 133 L (135-145) mmol/L Potassium 3.9 (3.5-4.5) mmol/L Chloride 105 (101-111) mmol/L Carbon Dioxide 19 L (21-32) mmol/L Anion Gap 9.0 (6-13) BUN 38 H (6-20) mg/dL Creatinine 1.8 H (0.6-1.3) mg/dL Estimated GFR (MDRD) 26 L (>89) Glucose 321 H (74-104) mg/dL POC Whole Bld Glucose 369 297 (70-100) mg/dL Calcium 7.8 L (8.5-10.3) mg/dL Nasal Adenovirus (PCR) Nasal B. parapertussis DNA (PCR) Nasal Coronavir 229E PCR Nasal Coronavir HKU1 PCR Nasal Coronavir NL63 PCR Nasal Coronavir OC43 PCR Nasal Enterovir/Rhinovir PCR Nasal Influenza B PCR Nasal Influenza A PCR Nasal Parainfluen 1 PCR Nasal Parainfluen 2 PCR Nasal Parainfluen 3 PCR Nasal Parainfluen 4 PCR Nasal RSV (PCR) Nasal B.pertussis DNA PCR Nasal C.pneumoniae (PCR) Jerry Human Metapneumo PCR Nasal M.pneumoniae (PCR) Nasal SARS-CoV-2 (PCR) Sepsis Event Note (H) Evaluation Current Stage of Sepsis: Ruled out Possible source of Sepsis: positive Pulmonary Assessment/Plan Problem List (1) Acute hypoxemic respiratory failure: Impression: Presents to the ED with RA saturations of 87-88% per ED provider. When I arrived at the bedside, I turned supplemental O2 off and saw a saturation of 85- 86%. She continues to be hypoxic with the need for supplemental oxygen. Steroids started 10/20 During her initial several hours , she did become fluid overloaded. BNP appeared to be close to her baseline. Lung exam is CTA. She has been having increasing oxygen requirements overnight, but last night, this did not occur. She has been on about 4L for 24 hours, Her CXR today shows some mildly increased pulmonary edema with left pleural effusion. This is per my read. I also reviewed the radiology report. I am giving her 20mg IV Lasix today. I think she will need to dc to home on low dose of lasix She is not safe for dc to home due to oxygen requirements not stable. She is being treated for CAP. PT eval yesterday, recommendation was SNF vs LTC. per social work, prefers her to go home with caregivers. (2) Pneumonia: Impression: WBC normal. 9.5. 10/19/25 10/20/25 10/21/25 16:49 05:31 05:12 WBC 23.6 H 17.5 H 10.1 She is has completed azithromycin ,day 4/5 rocephin. She is continuing with PRN duonebs, and supplemental O2. currently at 4L NC, but O2. Day 3 prednisone. (3) (HFpEF) heart failure with preserved ejection fraction: Impression: She has a history of heart failure with preserved ejection fraction, normal ejection fracture fraction on her most recent echocardiogram. She has a history of pulmonary hypertension and aortic stenosis status post TAVR. 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 Most recent echocardiogram was done 09/13/2025. As stated above restenosis of the TAVR ejection fraction of 65 to 70%. She has an estimated right atrial pressure of 53 mmHg. She needs cardiology followup, but likely not acutely. BNP close to baseline I am giving her lasix 20mg IV today and will plan to send her home on lasix. I will watch her potassium with BMP in the AM, it is 3.9 today 09/11/25 10/19/25 16:05 20:00 B-Natriuretic Peptide 838 H 879 H (4) Hyponatremia: Impression: self resolved with treatment of her acute illness.This does not require hospitalization. Laboratory Tests 10/19/25 10/22/25 16:49 05:10 Sodium 129 L 133 L 2 (5) Aortic stenosis: Impression: Recurrent aortic stenosis status post TAVR, needs cardiology follow-up but recently has been too ill to obtain outpatient follow-up. (6) Essential hypertension: Impression: Longstanding history of hypertension. This patient is also a smoker. home meds resumed: amlodipine sub for felodipine, coreg. continuing to hold lisinopril. 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 Last admission A1c was completed and found to be 7.5%. I will cover her with sliding scale insulin and place her on a diabetic diet while she is here. I will monitor her creatinine in light of her multiple medical problems that could affect her renal function. Her renal function looks essentially stable it looks like her creatinine has hovered around 2 at least for the duration of the last month, remains so overnight. Blood sugars creeping up on steroids. increased to moderate-high sliding scale coverage. No indication to add basal coverage as yet. I am adding basal coverage, 10U glargine tonight Laboratory Tests 10/21/25 10/21/25 10/21/25 07:25 11:32 16:30 POC Whole Bld Glucose 223 346 297 10/21/25 10/22/25 10/22/25 20:49 07:37 11:01 POC Whole Bld Glucose 369 288 213 . 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 not an issue at this time. This patient's diagnosis and treatment plan was discussed this AM with attending physician as a part of multi disciplinary rounding meeting. I have spent 51 minutes in the care of this patient today. This includes time [id number], review and ordering of diagnostic imaging and laboratory studies and consultation with other providers. Monitoring the patient's signs symptoms, evaluation of medication effectiveness and patient's response to treatment.
[2025-10-22] MEDS: INSULIN GLARGINE-YFGN 300 UNIT/3 ML PEN SUBQ SCH (20:47)
[2025-10-22] MEDS: INSULIN LISPRO 300 UNIT/3 ML PEN SUBQ STA (20:48)
[2025-10-22] MEDS: INSULIN LISPRO 300 UNIT/3 ML PEN SUBQ SCH (20:49)
[2025-10-23 05:44] LABS: HCT - HEMATOCRIT 23.6 % (37.0-47.0); HGB - HEMOGLOBIN 7.7 g/dL (12.0-16.0); MEAN PLATELET VOLUME 10.6 fL (7.9-10.8); NRBC ABSOLUTE COUNT (AUTO) 0.00 x10^3/uL; NUCLEATED RED BLOOD CELLS AUTO 0.0 /100WBC; PLT - PLATELET COUNT 123 10^3/uL (130-450); RED CELL DISTRIBUTION WIDTH 14.8 % (12.0-15.0)
[2025-10-23 06:01] LABS: BUN - BLOOD UREA NITROGEN 43.0 mg/dL (6-20); CARBON DIOXIDE - CO2 20.0 mmol/L (21-32); CREATININE 1.8 mg/dL (0.6-1.3); GFR - MDRD 26.0 (>89)
--- NOTE | 2025-10-23 15:43 | PROVIDER PROGRESS NOTE ---
Subjective Prog Note Date Prog Note Date: 10/23/25 Subjective Subjective: She continues to need oxygen, down to 3L. She has been up with PT, but still is not able to move well enough to get home. Her is at the bedside today, and he has expressed to social work the desire to take her home when she is stable for discharge. She does not want to go home if she cannot get to the bathroom. She is not able to do this at this juncture. Current Medications Current Medications Current Medications: Current Medications Generic Name Dose Route Start Last Admin Trade Name Freq PRN Reason Stop Dose Admin Acetaminophen 650 mg 10/19/25 19:10 10/22/25 18:57 Acetaminophen 325 Mg Tablet PO 650 mg Q4HR PRN Administration Pain 1 to 4, or Fever Albuterol/Ipratropium 3 ml 10/19/25 19:35 10/23/25 08:34 Ipratropium/Albuterol 3 Ml Neb INH 3 ml Q4HR PRN Administration Wheezing Amlodipine Besylate 10 mg 10/20/25 09:00 10/23/25 08:14 Amlodipine 5 Mg Tablet PO 10 mg DAILY SILVIA Administration Atorvastatin Calcium 40 mg 10/20/25 21:00 10/22/25 20:25 Atorvastatin 40 Mg Tablet PO 40 mg QPM SILVIA Administration Brimonidine Tartrate 1 drops 10/20/25 21:00 10/23/25 08:15 Brimonidine 0.2% Ophth Drops 5 Ml EACHEYE 1 drops BID SILVIA Administration Budesonide 0.5 mg 10/23/25 19:00 Budesonide 0.5 Mg/2 Ml Neb INH RTBID SILVIA Calcium Carbonate/Glycine 500 mg 10/20/25 21:00 10/23/25 08:14 Calcium Carbonate Chew 500 Mg Tablet PO 500 mg BID SILVIA Administration Carvedilol 12.5 mg 10/19/25 21:00 10/23/25 08:14 Carvedilol 12.5 Mg Tablet PO 12.5 mg BID SILVIA Administration Cholecalciferol 25 mcg 10/21/25 09:00 10/23/25 08:13 Cholecalciferol 25 Mcg Tablet PO 25 mcg DAILY SILVIA Administration Empagliflozin 10 mg 10/20/25 09:00 10/23/25 08:14 Empagliflozin 10 Mg Tablet PO 10 mg DAILY SILVIA Administration Furosemide 20 mg 10/22/25 13:00 10/23/25 08:14 Furosemide 20 Mg/2 Ml Vial IVP 20 mg DAILY SILVIA Administration Guaifenesin 200 mg 10/20/25 10:06 Guaifenesin 100 Mg/5 Ml Udc PO Q4H PRN Cough Heparin Sodium (Porcine) 5,000 unit 10/19/25 21:00 10/23/25 08:27 Heparin 5,000 Unit/Ml Vial SUBQ 5,000 unit BID SILVIA Administration Ceftriaxone Sodium 1 gm/ 100 mls @ 200 mls/hr 10/19/25 19:10 10/23/25 08:15 Sodium Chloride IV 200 mls/hr DAILY SILVIA Administration Insulin Glargine-yfgn 10 unit 10/22/25 21:00 10/22/25 20:47 Insulin Glargine-Yfgn 300 Unit/3 Ml Pen SUBQ 10 unit QPM SILVIA Administration Insulin Human Lispro 3 - 11 unit 10/22/25 21:00 10/23/25 11:22 Insulin Lispro 300 Unit/3 Ml Pen SUBQ 7 unit 0800,1200,1700,2100 SILVIA Administration Protocol Ondansetron HCl 4 mg 10/19/25 19:10 Ondansetron 4 Mg/2 Ml Vial IVP Q6HR PRN Nausea / Vomiting Oxycodone HCl 5 mg 10/19/25 19:10 10/22/25 20:24 Oxycodone 5 Mg Tablet PO 5 mg Q4HR PRN Administration Pain 5 to 7 Polyethylene Glycol 17 gm 10/21/25 18:30 10/23/25 08:12 Polyethylene Glycol 3350 17 Gm Packet PO 17 gm DAILY SILVIA Administration Prednisone 40 mg 10/21/25 08:00 10/23/25 08:14 Prednisone 20 Mg Tablet PO 10/25/25 08:01 40 mg DAILYWM SILVIA Administration Saccharomyces Boulardii 250 mg 10/20/25 08:00 10/23/25 08:14 Saccharomyces Boulardii 250 Mg Capsule PO 250 mg BIDWM SILVIA Administration Sodium Chloride 10 ml 10/19/25 19:10 Sodium Chloride Flush 0.9% 10 Ml Syringe IVP PRN PRN NEEDED PER PROVIDER ORDERS Sodium Chloride 10 ml 10/20/25 01:00 10/23/25 08:14 Sodium Chloride Flush 0.9% 10 Ml Syringe IVP 10 ml 0100,0900,1700 SILVIA Administration Timolol Maleate 1 drops 10/20/25 21:00 10/23/25 08:15 Timolol 0.5% Ophth Drops EACHEYE 1 drops BID SILVIA Administration Objective Vital Signs/Intake & Output Reviewed Vital Signs: Yes Vital Signs: Vital Signs x48h Pulse Resp O2 Flow Rate 10/23/25 08:43 3 10/23/25 08:34 80 22 Intake & Output: Intake & Output 10/20/25 10/21/25 10/22/25 10/23/25 23:59 23:59 23:59 23:59 Intake Total 1090 / 1090 1550 / 1550 1979 / 1979 1240 / 1240 Output Total 2900 / 2900 1450 / 1450 2600 / 2600 3300 / 3300 Balance -1810 / -1810 100 / 100 -620 / -620 -2060 / -2060 Objective General Appearance: positive No acute distress, Alert and Other (she is not audibly wheezing today) Eyes Bilateral: positive Normal inspection ENT: positive ENT inspection nml Neck: positive Nml inspection Respiratory: positive No respiratory distress, Breath sounds nml and Other (diminished at bases, IS pull <500cc) Cardiovascular: positive Regular rate & rhythm and Systolic murmur (chronic) Abdomen: positive Non-tender and No distention Back: positive Nml inspection Skin: positive Color nml Neurologic/Psychiatric: positive Oriented x3 (month and year, does not know day) Lab Results 10/23/25 05:22 10/23/25 05:22 Other Labs: Lab Results x24hrs 10/23/25 10/23/25 10/23/25 Range/Units 11:14 07:21 05:22 WBC 7.9 (4.8-10.8) x10^3/uL RBC 2.60 L (4.20-5.40) 10^6/uL Hgb 7.7 L (12.0-16.0) g/dL Hct 23.6 L (37.0-47.0) % MCV 90.8 (81.0-99.0) fL MCH 29.6 (27.0-31.0) pg MCHC 32.6 (32.0-36.0) g/dL RDW 14.8 (12.0-15.0) % Plt Count 123 L (130-450) 10^3/uL MPV 10.6 (7.9-10.8) fL Neut # (Auto) 6.7 H (1.5-6.6) 10^3/uL Lymph # (Auto) 0.8 L (1.5-3.5) 10^3/uL [place] # (Auto) 0.3 (0.0-1.0) 10^3/uL Eos # (Auto) 0.0 (0.0-0.7) 10^3/uL Baso # (Auto) 0.0 (0.0-0.1) 10^3/uL Absolute Nucleated RBC 0.00 x10^3/uL Nucleated RBC % 0.0 /100WBC Sodium 131 L (135-145) mmol/L Potassium 4.8 H (3.5-4.5) mmol/L Chloride 102 (101-111) mmol/L Carbon Dioxide 20 L (21-32) mmol/L Anion Gap 9.0 (6-13) BUN 43 H (6-20) mg/dL Creatinine 1.8 H (0.6-1.3) mg/dL Estimated GFR (MDRD) 26 L (>89) Glucose 369 H (74-104) mg/dL POC Whole Bld Glucose 274 343 (70-100) mg/dL Calcium 7.8 L (8.5-10.3) mg/dL 10/22/25 10/22/25 Range/Units 20:30 16:25 WBC (4.8-10.8) x10^3/uL RBC (4.20-5.40) 10^6/uL Hgb (12.0-16.0) g/dL Hct (37.0-47.0) % MCV (81.0-99.0) fL MCH (27.0-31.0) pg MCHC (32.0-36.0) g/dL RDW (12.0-15.0) % Plt Count (130-450) 10^3/uL MPV (7.9-10.8) fL Neut # (Auto) (1.5-6.6) 10^3/uL Lymph # (Auto) (1.5-3.5) 10^3/uL [place] # (Auto) (0.0-1.0) 10^3/uL Eos # (Auto) (0.0-0.7) 10^3/uL Baso # (Auto) (0.0-0.1) 10^3/uL Absolute Nucleated RBC x10^3/uL Nucleated RBC % /100WBC Sodium (135-145) mmol/L Potassium (3.5-4.5) mmol/L Chloride (101-111) mmol/L Carbon Dioxide (21-32) mmol/L Anion Gap (6-13) BUN (6-20) mg/dL Creatinine (0.6-1.3) mg/dL Estimated GFR (MDRD) (>89) Glucose (74-104) mg/dL POC Whole Bld Glucose 403 287 (70-100) mg/dL Calcium (8.5-10.3) mg/dL Sepsis Event Note (H) Evaluation Current Stage of Sepsis: Ruled out Possible source of Sepsis: positive Pulmonary Sepsis Criteria Sepsis Criteria: WBC count greater than 12,000 or less than 4000 Assessment/Plan Problem List (1) Acute hypoxemic respiratory failure: Impression: Presents to the ED with RA saturations of 87-88% per ED provider. When I arrived at the bedside, I turned supplemental O2 off and saw a saturation of 85- 86%. She continues to be hypoxic with the need for supplemental oxygen. Steroids started 10/20 During her initial several hours , she did become fluid overloaded. BNP appeared to be close to her baseline. Lung exam is CTA. She has been having increasing oxygen requirements overnight, but last night, this did not occur. She is down to 3L via NC, but not able to wean to room air. Then, in the evening after dinner, I went in to re assess and she is able to maintain sats >88% on room air. She is not safe for dc to home due to oxygen requirements not stable. She is being treated for CAP. I think that I can likely safely dc her WRT resp status tomorrow, if stable overnight. PT axel yesterday, recommendation was SNF vs LTC. per social work, prefers her to go home with caregivers. I discussed disposition with today. he is not able to meet her care needs, and cannot hire the care that she needs at home. He and Medina were not satisfied with the care that she received at SNF. This was a 5* rated facility. She wants to be able to go home. She is getting progressively more depressed the longer that she is not able to get home. I explained to that they likely need to choose a SNF for rehab. Medina does not want to go home if she cannot make it to the bathroom independentlyl discussed smoking in the home today, as I have concerns about smoking and oxygen at home. assures me that they only smoke on the patio, and no oxygen goes to the patio. She is day 3/5 prednisone. I am adding some inhaled budesonide. I stopped the prednisone due to blood sugars being extremely high. (2) Pneumonia: Impression: WBC normal. 7.9 10/19/25 10/20/25 10/21/25 16:49 05:31 05:12 WBC 23.6 H 17.5 H 10.1 She is has completed azithromycin ,day 5/5 rocephin. She is continuing with PRN duonebs, and supplemental O2. currently at 3L NC, O2. Day 3 prednisone. (3) (HFpEF) heart failure with preserved ejection fraction: Impression: She has a history of heart failure with preserved ejection fraction, normal ejection fracture fraction on her most recent echocardiogram. She has a history of pulmonary hypertension and aortic stenosis status post TAVR. 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 Most recent echocardiogram was done 09/13/2025. As stated above restenosis of the TAVR ejection fraction of 65 to 70%. She has an estimated right atrial pressure of 53 mmHg. She needs cardiology followup, but likely not acutely. BNP close to baseline i am giving her lasix 20mg daily. her K is elevated today, 4.8, with NA 131. continue with lasix. There is no worsening of her renal fxn on this treatment. It as reduced her oxygen requirement slightly 09/11/25 10/19/25 16:05 20:00 B-Natriuretic Peptide 838 H 879 H (4) Hyponatremia: Impression: Sodium has been labile. Laboratory Tests 10/19/25 10/20/25 10/21/25 16:49 05:31 05:12 Sodium 129 L 136 133 L 10/22/25 10/23/25 05:10 05:22 Sodium 133 L 131 L (5) Aortic stenosis: Impression: Recurrent aortic stenosis status post TAVR, needs cardiology follow-up but recently has been too ill to obtain outpatient follow-up. discussed this with patient and today (6) Essential hypertension: Impression: Longstanding history of hypertension. This patient is also a smoker. home meds resumed: amlodipine sub for felodipine, coreg. continuing to hold lisinopril. 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 Last admission A1c was completed and found to be 7.5%. I will cover her with sliding scale insulin and place her on a diabetic diet while she is here. I will monitor her creatinine in light of her multiple medical problems that could affect her renal function. Her renal function looks essentially stable it looks like her creatinine has hovered around 2 at least for the duration of the last month, remains so overnight. Blood sugars creeping up on steroids. increased to moderate-high sliding scale coverage. had to give additional insuln last night. I am going to add mealtime insulin. She is on basal glargine at 10u nightly Laboratory Tests 10/22/25 10/23/25 10/23/25 20:30 07:21 11:14 POC Whole Bld Glucose 403 343 274 10/23/25 16:23 POC Whole Bld Glucose 326 This patient's diagnosis and treatment plan was discussed this AM with attending physician as a part of multi disciplinary rounding meeting. I have spent 38 minutes in the care of this patient today. This includes time [id number], review and ordering of diagnostic imaging and laboratory studies. Monitoring the patient's signs symptoms, evaluation of medication effectiveness and patient's response to treatment. 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
[2025-10-23] MEDS: BUDESONIDE 0.5 MG/2 ML NEB INH SCH (20:01)
[2025-10-23] MEDS: INSULIN LISPRO 300 UNIT/3 ML PEN SUBQ ONE (21:26)
[2025-10-24 04:43] LABS: HCT - HEMATOCRIT 24.2 % (37.0-47.0); HGB - HEMOGLOBIN 7.8 g/dL (12.0-16.0); MEAN PLATELET VOLUME 10.6 fL (7.9-10.8); NRBC ABSOLUTE COUNT (AUTO) 0.00 x10^3/uL; NUCLEATED RED BLOOD CELLS AUTO 0.0 /100WBC; PLT - PLATELET COUNT 151 10^3/uL (130-450); RED CELL DISTRIBUTION WIDTH 14.6 % (12.0-15.0)
[2025-10-24 05:01] LABS: BUN - BLOOD UREA NITROGEN 53.0 mg/dL (6-20); CARBON DIOXIDE - CO2 21.0 mmol/L (21-32); CREATININE 2.0 mg/dL (0.6-1.3); GFR - MDRD 23.0 (>89)
[2025-10-24] MEDS: INSULIN LISPRO 300 UNIT/3 ML PEN SUBQ SCH (07:55)
--- NOTE | 2025-10-24 14:05 | Discharge Summary ---
Discharge Summary Admit Date: 10/19/25 Discharge Date: 10/24/25 Discharging Provider: Jacquie Domingo PA-C Code Status: Do Not Attempt Resuscitation DIAGNOSES Discharge Diagnoses with Status of Each Condition: Acute hypoxic respiratory failure, resolved, patient is on room air. Pneumonia, radiographic evidence has resolved. She has completed antibiotics. Heart failure with preserved ejection fraction, started her on Lasix this admission. Recommend BMP in the next week Hyponatremia, resolved Aortic stenosis, failing TAVR, needs cardiology follow-up Essential hypertension, chronic and controlled, continuing to hold lisinopril Type 2 diabetes, A1c 7.5% in September of this year. Resume home therapy of Januvia 25 mg daily. HPI History of Present Illness: The patient is an 89-year-old female with a past medical history of prior CVA with residual deficit, T2DM, HTN, CKD 3B, HLD, anemia of chronic disease, osteoarthritis of the back and hip, DJD of the C-spine and L-spine, exudative age-related macular degeneration, glaucoma and urinary urge incontinence who presents with chief complaint of weakness. Previously admitted here from 09/11- 09/17/25 for ruptured appendicitis, discharged to SNF and then was able to go back home on 10/11. Come in to the ED today for weakness and inability to ambulate. In the week that she has been home from SNF, it seems that HH has come twice for PT and she has not been able to participate. Patient has minimal complaints. She is oriented x 3, but when I ask what is bothering her, she tells me that she has right leg pain. She denies any falls. Since she has been in the ED, she has gotten 2L IVF. she has not urinated. Her oxygenation is worsening, and when i turn off the supplemental oxygen, I see that she is satting 85-86% on RA. She denies cough or fever. Code status, DNR, selective treatment. Please see Dr Delatorre's note at last admit. Her son Rick is her vacuum cleaner repair person. She lives with her . Delfino unable to be here as he does not drive after dark. HOSPITAL COURSE Hospital Course: Admitted for acute hypoxemic respiratory failure with room air saturations of 85 to 86%. Patient is asymptomatic but tachypneic. Her admission chest x-ray shows left hilar prominence and a left-sided infiltrate. She was started immediately on treatment for community-acquired pneumonia, 5 days of Rocephin and 3 days of azithromycin. She was also treated with bronchodilators and supplemental oxygen. She has a history of heart failure with preserved ejection fraction she is not on any diuretic therapy as an outpatient. After persistent hypoxia despite appropriate treatment for community-acquired pneumonia and starting steroids I started the patient on some daily Lasix therapy. This seems to be what allowed her to wean off of oxygen. Therefore I will be discharging her on 10 mg of Lasix oral daily. Recommend repeat BMP to follow sodium and potassium in about 1 week. She has had some recent restenosis of her TAVR seen on echocardiogram. We are recommending outpatient cardiology follow-up. Some mild persistent hyponatremia while admitted. As low as 129, and 132 on the date of discharge. History of diabetes mellitus. For her acute hypoxic respiratory failure, community-acquired pneumonia she was started on steroids and therefore had some markedly elevated blood sugars. These were controlled with insulin. I stopped prednisone therapy on 10/23/2025, after 4 days. It was at that point that she was able to wean to room air. Some chronic renal insufficiency with a creatinine that hovers around 2.0. This did not worsen while she was admitted. Patient was able to work with physical therapy and was doing well but still not strong enough to ambulate with a walker reliably at home. Both she and her would like for her to return home soon. And as soon as she is able to ambulate household distance with a walker she will do so. ALLERGIES Allergies Allergy/AdvReac Type Severity Reaction Status Date / Time hydrochlorothiazide AdvReac Unknown hyponatremi Verified 10/19/25 16:31 a MEDICATIONS Ambulatory Orders Medication Instructions Recorded Confirmed blood sugar diagnostic (FreeStyle 08/26/24 06/29/25 Lite Strips) blood-glucose meter (FreeStyle 08/26/24 06/29/25 Lite Meter kit) brimonidine 0.1 % eye drops 1 drp ophthalmic (eye) BID 08/26/24 10/21/25 (Alphagan P) calcium carbonate 600 mg PO DAILY 08/26/2411/03 lancets 28 gauge (FreeStyle 08/26/24 06/29/25 Lancets) turmeric 400 mg capsule 400 mg PO DAILY 01/20/2511/03 multivitamin (Daily Multi-Vitamin 1 tab PO DAILY 03/2810/21/25 tablet) empagliflozin 10 mg tablet 10 mg PO DAILY 09/12/2511/03 (Jardiance) sitagliptin phosphate 25 mg tablet 25 mg PO DAILY 02/0110/21/25 (Januvia) timolol maleate 0.5 % eye drops 1 drp ophthalmic (eye) BID 09/12/25 10/21/25 atorvastatin 40 mg tablet 40 mg PO QPM #90 tabs 10/21/25 carvedilol 12.5 mg tablet 12.5 mg PO BID #180 tabs 03/0410/21/25 aspirin 81 mg tablet 81 mg PO DAILY 10/21/2510/10 vitamins A,C,K-abus-pwflrk 4,296 1 cap PO QAM AND QPM 10/21/25 10/21/25 mcg-226 mg-90 mg capsule (PreserVision AREDS) amlodipine 5 mg tablet 10 mg (2 x 5 mg) PO DAILY #3 0 tabs 10/24/25 budesonide 0.5 mg/2 mL suspension 0.5 mg (2 mL) inhala tion RTBID #60 10/24/25 for nebulization mL furosemide 20 mg tablet (Lasix) 10 mg (1/2 x 20 mg) PO DAILY #30 10/24/25 tabs guaifenesin 100 mg/5 mL oral liquid 200 mg (10 mL) PO Q4H PRN Cough 10/24/25 #473 mL ipratropium 0.5 mg-albuterol 3 mg 3 ml inhalation Q4HR PRN Wheezing 10/24/25 (2.5 mg base)/3 mL nebulization #180 mL soln PHYSICAL EXAM AT DISCHARGE Vital Signs: Vital Signs x48h Temp Pulse Pulse Resp BP Pulse Ox 10/24/25 10:32 57 L 20 10/24/25 07:38 36.8 C 66 18 163/72 H 92 General Appearance: positive No acute distress and Alert Eyes Bilateral: positive Normal inspection ENT: positive ENT inspection nml Neck: positive Nml inspection Respiratory: positive No respiratory distress and Breath sounds nml Cardiovascular: positive Regular rate & rhythm Abdomen: positive Non-tender and No distention Skin: positive Color nml Extremities: positive Non-tender and No pedal edema Neurologic/Psychiatric: positive Oriented x3 LABS 10/24/25 04:14 10/24/25 04:14 SEPSIS Current Stage of Sepsis: Ruled out Possible source of Sepsis: Pulmonary FOLLOW UP Follow Up: Care provider at [facility] as assigned then recommend follow-up with PCP, ; As soon as she discharges from [facility]. Follow-up with her cardiologistAs soon as it is feasible. TIME SPENT Time Spent in Discharge (Minutes): 50 Discharge Plan Discharge Patient Disposition: [facility] DC/Xfer Condition: Fair Prescriptions: New amlodipine 5 mg Tablet 10 mg PO DAILY Qty: 30 0RF ipratropium-albuterol 0.5 mg-3 mg(2.5 mg base)/3 mL Solution For Nebulization 3 ml inhalation Q4HR PRN (Reason: Wheezing) Qty: 180 0RF guaifenesin 100 mg/5 mL Liquid 200 mg PO Q4H PRN (Reason: Cough) Qty: 473 0RF budesonide 0.5 mg/2 mL Suspension For Nebulization 0.5 mg inhalation RTBID Qty: 60 0RF furosemide [Lasix] 20 mg tablet 10 mg PO DAILY Qty: 30 2RF Continued Januvia 25 mg tablet 25 mg PO DAILY timolol maleate 0.5 % drops 1 drp ophthalmic (eye) BID Rx Instructions: 1 drop both eyes once a day Jardiance 10 mg tablet 10 mg PO DAILY aspirin 81 mg tablet 81 mg PO DAILY PreserVision AREDS 4,296 mcg-226 mg-90 mg capsule 1 cap PO QAM AND QPM turmeric 400 mg capsule 400 mg PO DAILY atorvastatin 40 mg tablet 40 mg PO QPM Qty: 90 0RF carvedilol 12.5 mg tablet 12.5 mg PO BID Qty: 180 0RF Rx Instructions: must administer with a meal/food (DME) FreeStyle Lite Strips Strip See Rx Instructions .Route Rx Instructions: As directed brimonidine [Alphagan P] 0.1 % drops 1 drp ophthalmic (eye) BID Rx Instructions: Use 1 drop into both eyes twice a day (DME) blood-glucose meter [FreeStyle Lite Meter] Kit See Rx Instructions .Route Rx Instructions: As directed (DME) lancets [FreeStyle Lancets] 28 gauge misc See Rx Instructions .Route Rx Instructions: As directed calcium carbonate 600 mg calcium (1,500 mg) tablet 600 mg PO DAILY multivitamin [Daily Multi-Vitamin] Tablet 1 tab PO DAILY Discontinued lisinopril 10 mg tablet 10 mg PO DAILY felodipine 10 mg tablet extended release 24 hr 10 mg PO DAILY Rx Instructions: Take 1 tablet by mouth once a day (DME) pen needle, diabetic [BD Ultra-Fine Orig Pen Needle] 29 gauge x 1/2" needle See Rx Instructions .Route Rx Instructions: As directed cholecalciferol (vitamin D3) 25 mcg (1,000 unit) tablet 25 mcg PO DAILY Rx Instructions: Take 1 tablet by mouth once a day vitamin B complex Tablet 1 tab PO DAILY Activity Restrictions: Activity as Tolerated Diet: Regular Health Concerns: Admitted for acute hypoxemic respiratory failure with room air saturations of 85 to 86%. Patient is asymptomatic but tachypneic. Her admission chest x-ray shows left hilar prominence and a left-sided infiltrate. She was started immediately on treatment for community-acquired pneumonia, 5 days of Rocephin and 3 days of azithromycin. She was also treated with bronchodilators and supplemental oxygen. She has a history of heart failure with preserved ejection fraction she is not on any diuretic therapy as an outpatient. After persistent hypoxia despite appropriate treatment for community-acquired pneumonia and starting steroids I started the patient on some daily Lasix therapy. This seems to be what allowed her to wean off of oxygen. Therefore I will be discharging her on 10 mg of Lasix oral daily. Recommend repeat BMP to follow sodium and potassium in about 1 week. She has had some recent restenosis of her TAVR seen on echocardiogram. We are recommending outpatient cardiology follow-up. Some mild persistent hyponatremia while admitted. As low as 129, and 132 on the date of discharge. History of diabetes mellitus. For her acute hypoxic respiratory failure, community-acquired pneumonia she was started on steroids and therefore had some markedly elevated blood sugars. These were controlled with insulin. I stopped prednisone therapy on 10/23/2025, after 4 days. It was at that point that she was able to wean to room air. Some chronic renal insufficiency with a creatinine that hovers around 2.0. This did not worsen while she was admitted. Patient was able to work with physical therapy and was doing well but still not strong enough to ambulate with a walker reliably at home. Both she and her would like for her to return home soon. And as soon as she is able to ambulate household distance with a walker she will do so. Print Language: Bengali Patient Instructions: COPD and Heart Disease Stand Alone Forms: SNF Discharge Follow-up Care: Judy Painter MD [Primary Care Provider, [facility]] Vitals documented within 30 minutes of discharge?: Yes
[2025-10-24 15:41] VITALS: BP 132/60; TEMP 98.4; O2SAT 91
== END 2025-10-24 15:40 | DRG 189 ==
LOC: ED 16:04 → MS2 18:31
PROVIDERS: ADMIT Physician Assistant Medical; ATTEND Physician Assistant Medical
DX: N18.32 Chronic kidney disease, stage 3b; I69.90 Unspecified sequelae of unspecified cerebrovascular disease; I35.0 Nonrheumatic aortic (valve) stenosis; Z79.01 Long term (current) use of anticoagulants; I50.9 Heart failure, unspecified; I13.0 Hypertensive heart and chronic kidney disease with heart failure and stage 1 through stage 4 chronic kidney disease, or unspecified chronic kidney disease; Z86.73 Personal history of transient ischemic attack (TIA), and cerebral infarction without residual deficits; N17.9 Acute kidney failure, unspecified; T82.897A Other specified complication of cardiac prosthetic devices, implants and grafts, initial encounter; E11.22 Type 2 diabetes mellitus with diabetic chronic kidney disease; F17.210 Nicotine dependence, cigarettes, uncomplicated; J43.9 Emphysema, unspecified; E87.1 Hypo-osmolality and hyponatremia; Z95.2 Presence of prosthetic heart valve; D64.9 Anemia, unspecified; R53.1 Weakness; J96.01 Acute respiratory failure with hypoxia; Z79.84 Long term (current) use of oral hypoglycemic drugs; Z66 Do not resuscitate; J18.9 Pneumonia, unspecified organism; N18.4 Chronic kidney disease, stage 4 (severe); R73.9 Hyperglycemia, unspecified; D72.829 Elevated white blood cell count, unspecified; I50.32 Chronic diastolic (congestive) heart failure; H35.3290 Exudative age-related macular degeneration, unspecified eye, stage unspecified; D69.6 Thrombocytopenia, unspecified